=== PATIENT | female | born 1970 | race Caucasian/White ===

== ENCOUNTER 2021-08-27 13:08 | Outpatient (REF) | payer OTHER, SELFPAY ==
--- NOTE | ~2021-08-27 | XR_ITS ---
EXAMINATION: XR ABDOMEN KUB CLINICAL INDICATION: Painful micturition. COMPARISON: CT scan of the abdomen and pelvis dated 02/09/2019. TECHNIQUE: AP view of the abdomen. FINDINGS: A 0.3 cm radiopaque density overlies the lower pole the left kidney. No radiopaque densities are seen overlying the right kidney or along the expected courses of the ureters bilaterally. There is a nonobstructive bowel gas pattern. Mild to moderate multilevel degenerative changes are seen in the thoracolumbar spine. And IUD overlies the mid pelvis. XR/XR KUB IMPRESSION: 1. Probable left lower pole intrarenal calculus measuring 0.3 cm similar to the previous CT scan. No other definitive radiopaque renal calculi.
[2021-08-27 14:31] LABS: Appearance Urine CLEAR; Color Urine STRAW; Glucose Urine UA NEG (NEG); Leukocyte Esterase Urine NEG (NEG); Nitrite Urine NEG (NEG); Specific Gravity - Urine <= 1.005 (1.005-1.025); Urine Blood NEG (NEG); Urine Ketones NEG (NEG); Urine Protein NEG (NEG-TRACE)
[2021-08-27 15:07] LABS: Bacteria Urine 1+ /LPF; RBC Urine 0 /HPF (0); Squamous Epithelial Cell Urine 1+ /LPF; WBC Urine 0 /HPF (0-4)
== END 2021-08-27 13:09 | disposition home or self-care (01) ==
LOC: HO.LAB 13:08
PROVIDERS: PCP Internal Medicine; Visit Provider Physician Assistant
DX: R30.9 Painful micturition, unspecified (principal)
CPT/HCPCS: 74018; 81001

== ENCOUNTER → 2021-09-27 07:50 | Outpatient (BNVA) | payer OTHER, SELFPAY | PROVIDERS: PCP Internal Medicine; Referring Provider Internal Medicine; Visit Provider Internal Medicine | DX: I35.9 Nonrheumatic aortic valve disorder, unspecified (principal); I49.1 Atrial premature depolarization; I49.3 Ventricular premature depolarization; R00.2 Palpitations; R07.89 Other chest pain; E66.01 Morbid (severe) obesity due to excess calories; G47.33 Obstructive sleep apnea (adult) (pediatric); Z99.89 Dependence on other enabling machines and devices; Z68.41 Body mass index [BMI] 40.0-44.9, adult | CPT/HCPCS: 93005 ==

== ENCOUNTER → 2021-10-19 07:47 | Outpatient (REF) | payer OTHER, SELFPAY ==
--- NOTE | 2021-10-19 07:51 | CA_ITS ---
Acquisition Time: 2021-10-19 07:49:24 Total Exercise Time: 00:06:25 Test Indications: Chest Pain Medications: Protocol: MJ Max HR: 160 BPM 95% of Pred: 168 BPM Max BP: 158/074 mmHG Max Work Load: 7.6 METS Exercise stress test with exercise 6 min 25 sec of Mj protocol, with mild sob, no chest discomfort or palpitation, with 3 asymptomatic isolated PVCs during test, with normotensive response to exercise, without EKG changes meeting criteria for ischemia. Test reviewed with Dr Dye. Referred By: Aidan Rodriguez Overread By: MICHELE ORTIZ
== END ==
LOC: HO.CARD 07:47
PROVIDERS: Visit Provider Internal Medicine
DX: R07.89 Other chest pain (principal)
CPT/HCPCS: 93017

== ENCOUNTER → 2021-11-23 08:15 | Outpatient (REF) | payer OTHER, SELFPAY ==
--- NOTE | 2021-11-23 08:19 | CA_ITS ---
Transthoracic Echocardiogram Patient (Last, First, Middle): Gricel Aranda A Gender: Female Date of : 1970 Age: 51 Procedure Date: 11/23/2021 Procedure Type: Transthoracic Echocardiogram Location: OP Height: 167.64 cm Weight: 122.02 kg BSA: 2.27 m2 Heart Rate: bpm BP: 136 / 78 mmHg Collection Analyst: PILAR Referring MD: Aidan Rodriguez MD Symptoms: I35.9 - Nonrheumatic aortic valve disorder, unspecified Study Quality: Fair ECG Rhythm: Sinus Conclusions: - The left ventricular systolic function is normal. The calculated ejection fraction is 58% by biplane method. - There is mild calcification of the aortic valve. - No obvious valvular pathology seen on this study. Findings Left Ventricle Normal left ventricular cavity size. There is normal left ventricular wall thickness. The left ventricular systolic function is normal. The calculated ejection fraction is 58% by biplane method. There is no evidence of regional wall motion abnormalities. Diastolic function is normal for age. Right Ventricle Normal right ventricular cavity size and systolic function. Atria Both atria are normal in size. Aortic Valve The aortic valve was not well visualized. There is mild calcification of the aortic valve. There is no aortic valve stenosis. The mean gradient is 10 mmHg. The aortic valve area is 2.17 cm2. There is no aortic valve regurgitation. Mitral Valve The mitral valve appears normal. There is trace mitral valve regurgitation. There is no mitral valve stenosis. Pulmonic Valve The pulmonic valve was not well visualized. Tricuspid Valve There is trace tricuspid valve regurgitation. The pulmonary artery systolic pressure is normal. Great Vessels The aortic annulus, sinuses of valsalva, and asc aorta are normal in size. Venous The inferior vena cava is normal in size and collapses greater than 50% with inspiration. Pericardium/Pleural There is no evidence of pericardial effusion. Prior Study Comparison No significant change compared to prior study dated: 09/18/2018. Recommendations, Care & Conclusions No obvious valvular pathology seen on this study. Measurements 2D Linear Measurements IVSd: 0.94 0.6-0.9/0.6-1.0 cm LVIDd: 5.38 3.9-5.3/4.2-5.9 cm LVIDd Index: 2.37 2.4-3.2/2.2-3.1 cm/m2 LVIDs: 3.14 2.0-3.6 cm LVPWd: 0.93 0.7-1.1 cm Ao Root: 3.20 2.1-3.5 cm LA Diam: 3.90 2.7-3.8/3.0-4.0 cm LAIDs Index: 1.72 1.5-2.3 cm/m2 LV Mass: 233.06 67-162/88-224 g LV Mass Index: 102.67 43-95/49-115 g/m2 LVOT Diam: 2.00 3.0+(-)1.3 cm 2D Systolic Function EF 4C: 59.30 >55% EF 2C: 58.10 >55% EF BiP: 57.60 >55% Mitral Valve MV Pk E: 0.84 MV PK A: 0.69 MV Decel Time: 246.00 E/A: 1.20 E'Lateral: 11.70 E'Medial: 9.25 E/E' Med: 9.10 E/E' Lat: 7.20 PHT: 72.00 MVA PHT: 3.06 Decel Pleasants: 3.40 Aortic Valve AoV Pk Jamie: 1.91 AoV Mn Jamie: 1.49 AoV VTI: 0.49 AoV Pk Grad: 15.00 Aov Mn Grad: 10.00 TONEY Cont.VTI: 2.17 LVOT LVOT Pk Jamie: 1.44 LVOT Mn Jamie: 0.97 LVOT VTI: 0.34 LVOT Pk Grad: 8.00 LVOT Mn Grad: 4.00 LVOT Diam: 2.00 LVOT Area: 3.14 Diastolic Function MV Pk E: 0.84 MV Pk A: 0.69 E/A: 1.20 E'Medial: 9.25 E/E' Med: 9.10 E' Laterial: 11.70 E/E' Lat: 7.20 Right Ventricle TAPSE (mm): 27.20 TVS' Jamie: 14.30 Tricuspid Valve TR Pk Jamie: 1.24 TR Pk Grad: 6.00 RA Press: 3.00 RVSP: 9.00 Great Vessels Aorta Ao Root-2D: 3.20 2.0-3.7 cm Ao Asc: 3.30 2.1-3.4 cm Ao Arch: 2.90 Updated in Other Vendor System with Status of Final Aidan Rodriguez MD electronically signed on 11/24/2021 1:54:46 PM with status of Final
--- NOTE | 2021-11-23 08:19 | HM_ITS ---
Total monitoring time 13 days and 17 hours. Underlying rhythm is sinus. Average ventricular rate 66/Min. Minimum 31/Min. Maximum 135/Min. At the time of lowest heart rate, 10:00, Wenckebach second-degree heart block. Low grade supraventricular ectopy with burden of 0.5%. Five supraventricular episodes, longest 12 beats. Rare ventricular ectopy with minimal burden. Palpitations associated with supraventricular ectopy. Chest pain associated with sinus rhythm. MTDD
== END ==
LOC: HO.CARD 08:15
PROVIDERS: Visit Provider Internal Medicine
DX: I35.9 Nonrheumatic aortic valve disorder, unspecified (principal); R00.2 Palpitations
CPT/HCPCS: 93246; 93306

== ENCOUNTER 2022-01-16 14:36 | Outpatient (REF) | payer OTHER, SELFPAY ==
--- NOTE | ~2022-01-16 | XR_ITS ---
EXAMINATION: XR TIBIA AND FIBULA, LEFT CLINICAL INFORMATION: Pain COMPARISON: None TECHNIQUE: AP and lateral views of the left tibia and fibula were obtained. XR/XR tibia fibula LT 2V FINDINGS/IMPRESSION: No acute fracture or dislocation. Moderate degenerative changes of the knee involving the medial and lateral compartments with loss of medial compartment joint space and large lateral compartment osteophytes. Few nonspecific soft tissue calcifications in the anterior soft tissues of the leg.
== END 2022-01-16 14:37 | disposition home or self-care (01) ==
LOC: HO.XRAY 14:36
PROVIDERS: PCP Internal Medicine; Visit Provider Nurse Practitioner Family
DX: M79.605 Pain in left leg (principal)
CPT/HCPCS: 73590

== ENCOUNTER 2022-01-21 07:00 | Outpatient (REF) | payer OTHER, SELFPAY ==
[2022-01-21 07:15] LABS: MANUAL DIFF FLAG NO
[2022-01-21 07:25] LABS: Basophils Absolute Auto 0.1 X10*3/uL (0.0-0.2); Basophils Percent Auto 1.2 % (0-2); Eosinophils Absolute Auto 0.5 X10*3/uL (0.0-0.4); Eosinophils Percent Auto 6.8 % (0-4); Hematocrit 38.4 % (37.0-47.0); Hemoglobin 12.4 g/dl (12.0-16.0); Imm Gran Abs Auto 0.02 X10*3/uL (0.00-0.03); Imm Gran Pct Auto 0.3 % (0.0-0.4); Lymphocytes Absolute Auto 2.3 X10*3/uL (1.2-4.9); Lymphocytes Percent Auto 33.5 % (20-40); Mean Corpuscular HGB Conc 32.3 g/dl (31.0-35.0); Mean Corpuscular Hemoglobin 28.8 pg (27.0-33.0); Mean Corpuscular Volume 89.1 fL (80.0-98.0); Monocytes Absolute Auto 0.7 X10*3/uL (0.1-1.2); Monocytes Percent Auto 9.9 % (2-11); Neutrophils Absolute Auto 3.3 x10*3/uL (2.0-8.3); Neutrophils Percent Auto 48.3 % (45-73); Platelet Count 276 X10*3/uL (160-400); Red Blood Count 4.31 X10*6/uL (4.20-5.50); Red Cell Distribution Width 13.2 % (11.0-16.0); White Blood Count 6.8 X10*3/uL (4.8-10.8)
[2022-01-21 07:37] LABS: Estimated Average Glucose 114 mg/dL; Hemoglobin A1c % 5.6 %
[2022-01-21 08:16] LABS: Alanine Aminotransferase 30 U/L (0-31); Albumin Level 3.8 g/dL (3.5-5.0); Alkaline Phosphatase 70 U/L (39-117); Anion Gap 13 (12-20); Aspartate Amino Transferase 18 U/L (5-31); Bilirubin Total 0.5 mg/dL (0.0-1.0); Blood Urea Nitrogen 14 mg/dL (9-16); Calcium 9.1 mg/dL (8.4-10.2); Carbon Dioxide 28 mmol/L (22-29); Chloride 103 mmol/L (96-108); Cholesterol 209 mg/dL; Estimated Glomerular Filt Rate > 60; Glucose Random 132 mg/dL (60-115); HDL Cholesterol 42 mg/dL; LDL Cholesterol Calculated 136 mg/dl; Magnesium 2.2 mg/dL (1.6-2.6); Potassium 3.9 mmol/L (3.3-5.1); Sodium 140 mmol/L (135-145); Total Protein 6.8 g/dL (6.5-8.0); Triglycerides 157 mg/dL
[2022-01-21 08:40] LABS: Free T4 (Free Thyroxine) 0.98 ng/dL (0.71-1.85); Thyroid Stimulating Hormone 2.68 uIU/mL (0.32-4.0); Vitamin D 25-OH Total 29.3 ng/mL (>30)
[2022-01-21 08:54] LABS: Folate 8.4 ng/mL (> or = 4.0); Vitamin B12 521 pg/mL (200-900)
== END 2022-01-21 07:01 | disposition home or self-care (01) ==
LOC: HO.LAB 07:00
PROVIDERS: PCP Internal Medicine; Visit Provider Internal Medicine
DX: E78.00 Pure hypercholesterolemia, unspecified (principal); R73.02 Impaired glucose tolerance (oral)
CPT/HCPCS: 36415; 80053; 80061; 82306; 82607; 82746; 83036; 83735; 84439; 84443; 85025

== ENCOUNTER → 2022-01-23 12:11 | Outpatient (BNVA) | payer OTHER, SELFPAY | PROVIDERS: PCP Internal Medicine; Referring Provider Internal Medicine; Visit Provider Internal Medicine | DX: R00.2 Palpitations (principal); I10 Essential (primary) hypertension; G47.33 Obstructive sleep apnea (adult) (pediatric); I49.1 Atrial premature depolarization; I49.3 Ventricular premature depolarization; I44.30 Unspecified atrioventricular block; I35.9 Nonrheumatic aortic valve disorder, unspecified; E66.01 Morbid (severe) obesity due to excess calories; Z68.41 Body mass index [BMI] 40.0-44.9, adult; Z79.899 Other long term (current) drug therapy | CPT/HCPCS: 99212 ==

== ENCOUNTER 2022-02-18 08:33 | Outpatient (REF) | payer OTHER, SELFPAY ==
--- NOTE | ~2022-02-18 | MM_ITS ---
EXAMINATION: MM SCREENING DIGITAL BREAST TOMOSYNTHESIS, BILATERAL CLINICAL INFORMATION: Screening. Asymptomatic. The lifetime risk of breast cancer based on the Tyrer-Cuzick Model is 15%. COMPARISON: Mammography: 05/02/2020, 10/09/2016 TECHNIQUE: Digital breast tomosynthesis is performed in both the craniocaudal and mediolateral oblique views along with computer-aided detection (CAD). Synthesized 2D images are generated from the tomosynthesis. Additional right MLO view is provided. FINDINGS: There are scattered areas of fibroglandular density (ACR BI-RADS breast composition Category b). There are no significant masses, abnormal calcifications, or other abnormalities. Parenchymal pattern is similar to prior studies. There is no developing density or architectural abnormality. The axilla and skin contours are unremarkable. No significant changes. MM/MM tomosynthesis screening BI IMPRESSION: No mammographic evidence of malignancy. ASSESSMENT: BI-RADS 1: Negative RECOMMENDATION: Routine annual mammography screening. This patient's information was entered into a reminder system with a target due date for their next mammogram.
== END 2022-02-18 08:34 | disposition home or self-care (01) ==
LOC: HO.MAMMO 08:33
PROVIDERS: PCP Internal Medicine; Visit Provider Internal Medicine
DX: Z12.31 Encounter for screening mammogram for malignant neoplasm of breast (principal)
CPT/HCPCS: 77063; 77067

== ENCOUNTER → 2022-02-22 10:41 | Outpatient (BNVA) | payer OTHER, SELFPAY | PROVIDERS: PCP Internal Medicine; Referring Provider Internal Medicine; Visit Provider Physician Assistant | DX: Z13.89 Encounter for screening for other disorder (principal) ==

== ENCOUNTER → 2022-07-24 13:12 | Outpatient (BNVA) | payer OTHER, SELFPAY | PROVIDERS: PCP Internal Medicine; Referring Provider Internal Medicine; Visit Provider Internal Medicine | DX: E66.01 Morbid (severe) obesity due to excess calories (principal); G47.33 Obstructive sleep apnea (adult) (pediatric); Z99.89 Dependence on other enabling machines and devices; Z68.41 Body mass index [BMI] 40.0-44.9, adult; Z68.42 Body mass index [BMI] 45.0-49.9, adult | CPT/HCPCS: 93005 ==

== ENCOUNTER 2022-09-20 07:27 | Outpatient (REF) | payer OTHER, SELFPAY ==
--- NOTE | ~2022-09-20 | XR_ITS ---
EXAMINATION: XR CHEST CLINICAL INFORMATION: Morbid/severe obesity due to excess calories. COMPARISON: None TECHNIQUE: 2 views of the chest were obtained. FINDINGS: No significant abnormality is noted involving the heart, lungs, mediastinum, bony thorax or soft tissues. XR/XR chest 2V IMPRESSION: Unremarkable chest examination.
[2022-09-20 07:47] LABS: MANUAL DIFF FLAG NO
[2022-09-20 08:23] LABS: Basophils Absolute Auto 0.1 X10*3/uL (0.0-0.2); Eosinophils Absolute Auto 0.2 X10*3/uL (0.0-0.4); Hematocrit 39.7 % (37.0-47.0); Imm Gran Abs Auto 0.03 X10*3/uL (0.00-0.03); Imm Gran Pct Auto 0.4 % (0.0-0.4); Lymphocytes Absolute Auto 2.2 X10*3/uL (1.2-4.9); Mean Corpuscular HGB Conc 32.7 g/dl (31.0-35.0); Mean Corpuscular Hemoglobin 29.1 pg (27.0-33.0); Mean Corpuscular Volume 88.8 fL (80.0-98.0); Mean Platelet Volume 9.2 fL (9.4-12.3); Monocytes Absolute Auto 0.7 X10*3/uL (0.1-1.2); Neutrophils Absolute Auto 4.1 x10*3/uL (2.0-8.3); Neutrophils Percent Auto 56.6 % (45-73); Platelet Count 327 X10*3/uL (160-400); Red Blood Count 4.47 X10*6/uL (4.20-5.50); Red Cell Distribution Width 13.2 % (11.0-16.0); White Blood Count 7.2 X10*3/uL (4.8-10.8)
[2022-09-20 08:39] LABS: Estimated Average Glucose 114 mg/dL; Hemoglobin A1c % 5.6 %
[2022-09-20 08:48] LABS: Alanine Aminotransferase 23 U/L (0-31); Albumin Level 4.1 g/dL (3.5-5.0); Alkaline Phosphatase 74 U/L (39-117); Anion Gap 16 (12-20); Aspartate Amino Transferase 19 U/L (5-31); Bilirubin Total 1.1 mg/dL (0.0-1.0); Blood Urea Nitrogen 15 mg/dL (9-16); Calcium 9.4 mg/dL (8.4-10.2); Carbon Dioxide 27 mmol/L (22-29); Chloride 102 mmol/L (96-108); Cholesterol 208 mg/dL; Estimated Glomerular Filt Rate > 60; Glucose Random 121 mg/dL (60-115); HDL Cholesterol 48 mg/dL; Iron 64 mcg/dL (30-160); LDL Cholesterol Calculated 140 mg/dl; Percent Iron Saturation 17 % (15-50); Sodium 141 mmol/L (135-145); Total Iron Binding Capacity 367 mcg/dL (228-428); Total Protein 6.9 g/dL (6.5-8.0); Triglycerides 104 mg/dL; Unsaturated Iron Binding 303 ug/dL
[2022-09-20 09:08] LABS: Folate 16.7 ng/mL (> or = 4.0); Vitamin B12 528 pg/mL (200-900)
[2022-09-20 09:29] LABS: Ferritin 125 ng/mL (10-250); Insulin 22 uU/mL (2-29); TSH reflex Free T4 1.77 uIU/mL (0.32-4.0)
[2022-09-20 13:25] LABS: Vitamin D 25-OH Total 52.2 ng/mL (>30)
[2022-09-22 11:27] LABS: Calcium (PTHI) 9.2 mg/dL (8.6-10.4); PTHI 62 pg/mL (16-77)
[2022-09-24 17:52] LABS: Zinc 69 mcg/dL (60-130)
[2022-09-26 15:11] LABS: Vitamin B1 12 nmol/L (8-30)
[2022-09-26 15:26] LABS: Vitamin A 44 mcg/dL (38-98)
== END 2022-09-20 07:28 | disposition home or self-care (01) ==
LOC: HO.LAB 07:27
PROVIDERS: Visit Provider Physician Assistant
DX: I10 Essential (primary) hypertension (principal); E78.00 Pure hypercholesterolemia, unspecified; E66.01 Morbid (severe) obesity due to excess calories; G47.33 Obstructive sleep apnea (adult) (pediatric); Z68.41 Body mass index [BMI] 40.0-44.9, adult; Z99.89 Dependence on other enabling machines and devices
CPT/HCPCS: 36415; 71046; 80053; 80061; 82306; 82607; 82728; 82746; 83036; 83525; 83540; 83970; 84425; 84443; 84590; 84630; 85025; 86140

== ENCOUNTER 2022-09-20 16:08 | Outpatient (REF) | payer OTHER, SELFPAY ==
[2022-09-21 11:11] LABS: H Pylori Breath Test Negative (Negative)
== END 2022-09-20 16:09 | disposition home or self-care (01) ==
LOC: HO.LNP 16:08
PROVIDERS: Visit Provider Physician Assistant
DX: I10 Essential (primary) hypertension (principal); E78.00 Pure hypercholesterolemia, unspecified; E66.01 Morbid (severe) obesity due to excess calories; G47.33 Obstructive sleep apnea (adult) (pediatric); Z68.41 Body mass index [BMI] 40.0-44.9, adult; Z99.89 Dependence on other enabling machines and devices
CPT/HCPCS: 83013

== ENCOUNTER 2022-10-01 07:44 | Outpatient (REF) | payer OTHER, SELFPAY ==
--- NOTE | ~2022-10-01 | XR_ITS ---
EXAMINATION: XR ANKLE, RIGHT CLINICAL INFORMATION: M25.571 - Pain in right ankle and joints of right foot COMPARISON: None TECHNIQUE: AP, lateral, and mortise views of the right ankle. FINDINGS: Normal bony mineralization. No fracture, dislocation, destructive process. No visible ankle capsular effusion. Talar dome shows no visible osteochondral lesion. Subtalar joint is normal. There is spurring from the distal medial and lateral malleoli. There are additional benign mineralized ossicle adjacent to the medial malleolus. No erosive change. There are bulky posterior and plantar calcaneal spurs with 2 oval ossification in the distal Achilles just proximal to insertion. The retrocalcaneal recess is preserved. Base fifth metatarsal unremarkable. XR/XR ankle RT 2V IMPRESSION: 1. Bulky posterior and plantar calcaneal spurs and ossification in distal Achilles. 2. Spurring medial and lateral malleoli. 3. No fracture, joint narrowing, or erosive change.
== END 2022-10-01 07:45 | disposition home or self-care (01) ==
LOC: HO.XRAY 07:44
PROVIDERS: PCP Internal Medicine; Visit Provider Internal Medicine
DX: M25.571 Pain in right ankle and joints of right foot (principal)
CPT/HCPCS: 73600

== ENCOUNTER → 2022-10-15 13:56 | Outpatient (BNVA) | payer OTHER, SELFPAY | PROVIDERS: PCP Internal Medicine; Visit Provider Counselor Mental Health | DX: F43.20 Adjustment disorder, unspecified (principal); E66.01 Morbid (severe) obesity due to excess calories; Z68.41 Body mass index [BMI] 40.0-44.9, adult | CPT/HCPCS: 90791 ==

== ENCOUNTER → 2022-10-30 09:00 | Outpatient (BNVA) | payer OTHER, SELFPAY | PROVIDERS: PCP Internal Medicine; Visit Provider Physician Assistant | DX: E66.01 Morbid (severe) obesity due to excess calories (principal) ==

== ENCOUNTER → 2022-10-31 14:08 | Outpatient (BNVA) | payer OTHER, SELFPAY | PROVIDERS: PCP Internal Medicine; Visit Provider Dietitian, Registered | DX: E66.01 Morbid (severe) obesity due to excess calories (principal); Z68.41 Body mass index [BMI] 40.0-44.9, adult | CPT/HCPCS: 97802 ==

== ENCOUNTER 2022-11-06 08:37 | Outpatient (REF) | payer OTHER, SELFPAY ==
--- NOTE | ~2022-11-06 | FL_ITS ---
EXAMINATION: XR FLUOROSCOPY UPPER GI WITH AIR CLINICAL INFORMATION: Preop. COMPARISON: None TECHNIQUE: Routine upper GI air-contrast study was performed. FINDINGS: Following oral administration of thick barium and effervescent granules there is normal propagation bolus from the oral cavity through the pharynx, esophagus into stomach without any evidence of obstruction, narrowing or stricture. On placing patient supine and prone lying the course, caliber and peristalsis of the stomach, duodenal bulb and the CBD is normal. The mucosal pattern of the stomach, duodenal bulb and the sweep is normal. No gastroesophageal reflux or hiatal hernia seen. FLUOROSCOPY TIME: 1.6 minutes DOSE AREA PRODUCT: 135.572 uGy-m2 (microgray-meter squared) FL/FL upper GI w air IMPRESSION: Unremarkable upper GI air contrast study.
--- NOTE | ~2022-11-06 | US_ITS ---
EXAMINATION: US COMPLETE ABDOMEN WITH LIVER ELASTOGRAPHY CLINICAL INFORMATION: Morbid/severe obesity due to excess calories. COMPARISON: None. TECHNIQUE: Real-time imaging of the abdominal viscera. Noninvasive ultrasound liver fibrosis assessment is performed using [employer] point quantification shear wave elastography (2D-SWE) with a C5-2 MHz transducer. Multiple elastography samples are obtained. FINDINGS: PANCREAS: Normal. The visualized pancreatic head and body are normal in appearance. The remainder of the pancreas is obscured from visualization by the overlying bowel gas. ABDOMINAL AORTA: The proximal, middle, and distal aortic segments are normal in caliber. INFERIOR VENA CAVA: Visualized portions are normal. LIVER: Normal. The liver demonstrates normal size, contour and echogenicity. No focal lesion or intrahepatic biliary duct dilatation. The right lobe measures 16.0 cm in length. The left lobe measures 10.0 cm in length. Portal flow is hepatopedal Shear wave liver elastography median stiffness is 1.65 m/s (reference: normal median stiffness is 1.3 m/s or less). IQR/median stiffness to assess sampling precision is 0.12 (reference: good quality data set is IQR/median stiffness of 0.15 or less). GALLBLADDER: Normal. The gallbladder is physiologically distended without evidence of stones, sludge, polyps, wall thickening or pericholecystic fluid. COMMON BILE DUCT: Normal in caliber measuring 0.6 cm in diameter. RIGHT KIDNEY: Normal. No hydronephrosis. No renal calculi or focal parenchymal lesions. The kidney measures 12.4 cm in maximum dimension. LEFT KIDNEY: Normal. No hydronephrosis. No renal calculi or focal parenchymal lesions. The kidney measures 9.1 cm in maximum dimension. SPLEEN: Normal. The spleen measures 11.6 cm in maximum dimension. FREE FLUID: None. US/US abdomen comp w elastography IMPRESSION: 1. Unremarkable liver ultrasound. 2. Liver elastography: Median liver stiffness measures 1.65 corresponding to cACLD (ruled out).. REFERENCE: Society of Radiologists in Ultrasound Liver Stiffness Thresholds (2020): LIVER STIFFNESS THRESHOLDS: *Liver Stiffness equal or less than 1.3 m/s: High probability of being normal. *Liver Stiffness less than 1.7 m/s: In the absence of other known clinical signs, rules out compensated advanced chronic liver disease. *Liver Stiffness 1.7-2.1 m/s: Suggestive of compensated advanced chronic liver disease but need further test for confirmation. *Liver Stiffness over 2.1 m/s: Rules in compensated advanced chronic liver disease. *Liver Stiffness over 2.4 m/s: Suggestive of clinically significant portal hypertension. QUALITY OF DATA SET: *IQR/Median value equal or less than 0.15 implies a quality data set. *IQR/Median value over 0.15 implies a poor quality data set. SIGNIFICANT CHANGE FROM PRIOR EXAM: Significant change if liver stiffness measurement is 10% or greater from prior exam. OTHER CONSIDERATIONS: The stage of liver fibrosis may be overestimated in the setting of acute hepatitis, liver inflammation, elevated liver function tests, hepatic vascular congestion, obstructive cholestasis, non-fasting state, and infiltrative diseases such as amyloidosis and lymphoma. In some patients with NAFLD, the liver stiffness thresholds for compensated advanced chronic liver disease may be lower. In causes other than viral hepatitis and NAFLD, liver stiffness thresholds are not well established.
== END 2022-11-06 08:38 | disposition home or self-care (01) ==
LOC: HO.US 08:37
PROVIDERS: PCP Internal Medicine; Visit Provider Physician Assistant
DX: Z01.818 Encounter for other preprocedural examination (principal); E66.01 Morbid (severe) obesity due to excess calories; Z68.41 Body mass index [BMI] 40.0-44.9, adult; E78.00 Pure hypercholesterolemia, unspecified; G47.33 Obstructive sleep apnea (adult) (pediatric); I10 Essential (primary) hypertension; Z99.89 Dependence on other enabling machines and devices
CPT/HCPCS: 74246; 76705; 76981

== ENCOUNTER → 2022-11-12 09:00 | Outpatient (BNVA) | payer OTHER, SELFPAY | PROVIDERS: PCP Internal Medicine; Visit Provider Counselor Mental Health | DX: F43.20 Adjustment disorder, unspecified (principal); E66.01 Morbid (severe) obesity due to excess calories; Z68.41 Body mass index [BMI] 40.0-44.9, adult | CPT/HCPCS: 90832 ==

== ENCOUNTER → 2022-11-20 11:52 | Outpatient (BNVA) | payer OTHER, SELFPAY | PROVIDERS: PCP Internal Medicine; Visit Provider Physician Assistant | DX: Z98.84 Bariatric surgery status (principal) ==

== ENCOUNTER → 2023-01-31 08:01 | Outpatient (BNVA) | payer OTHER, SELFPAY | PROVIDERS: PCP Internal Medicine; Visit Provider Surgery | DX: Z13.89 Encounter for screening for other disorder (principal) ==

== ENCOUNTER → 2023-02-14 12:48 | Outpatient (BNVA) | payer OTHER, SELFPAY | PROVIDERS: PCP Internal Medicine; Visit Provider Surgery | DX: Z13.89 Encounter for screening for other disorder (principal) ==

== ENCOUNTER → 2023-02-19 10:53 | Outpatient (BNVA) | payer OTHER, SELFPAY | PROVIDERS: PCP Internal Medicine; Visit Provider Surgery | DX: Z13.89 Encounter for screening for other disorder (principal) ==

== ENCOUNTER 2023-02-21 12:46 | Outpatient (REF) | payer OTHER, SELFPAY ==
--- NOTE | ~2023-02-21 | CT_ITS ---
EXAMINATION: CT ABDOMEN AND PELVIS WITHOUT CONTRAST CLINICAL INFORMATION: Diverticulitis of the mediastinum without perforation. COMPARISON: CT abdomen pelvis 02/09/2019. Ultrasound of the abdomen 11/13/2022. TECHNIQUE: Multidetector volumetric imaging was performed from the superior aspect of the liver through the pubic symphysis. Sagittal and coronal reformatted images were obtained on the technologist's workstation. This CT examination was performed using dose optimization techniques as appropriate, variously including the following: *Automated exposure control *Adjustment of mA and/or kV according to patient size (this includes techniques or standardized protocols for targeted exams where dose is matched to indication/reason for exam; i.e. extremities or head) *Use of iterative reconstruction technique DLP: 697 mGy-cm FINDINGS: LUNG BASES: The lung bases are unremarkable. LIVER, GALLBLADDER, AND BILIARY TREE: The liver is normal in size, shape, and attenuation. No focal hepatic lesion or biliary ductal dilatation is present. The gallbladder is unremarkable with no evidence of radiopaque gallstones, gallbladder wall thickening, or obvious pericholecystic inflammatory changes. PANCREAS: Unremarkable. SPLEEN: Unremarkable. ADRENAL GLANDS: Unremarkable. KIDNEYS AND URETERS: The kidneys are normal in size, shape, and attenuation. There is 5 mm nonobstructive radiopaque calculi lower pole left kidney. There is no hydronephrosis. BLADDER: Unremarkable. GASTROINTESTINAL TRACT: There is scattered colonic diverticulosis. There is diffuse mural thickening involving sigmoid colon with pericolic fat stranding suggestive of acute diverticulitis. There is no free air to suspect perforation. There is no evidence of fluid collection to suspect any abscess. ABDOMINAL WALL: No significant hernia is appreciated. LYMPH NODES: Normal. VASCULAR: Unremarkable. PELVIC VISCERA: The uterus is retroverted with an IUD well located within the endometrial canal OSSEOUS STRUCTURES: No aggressive lytic or sclerotic process seen. There is bilateral L3-L4, L4-L5 and left L5-S1 facet joint arthropathy CT/CT abdomen pelvis wo IV con IMPRESSION: 1. Colonic diverticulosis with acute sigmoid diverticulitis. There is no free air or abscess. No bowel obstruction. 2. Nonobstructive 5 mm radiopaque calculi lower pole left kidney. Colonic diverticulosis with acute sigmoid diverticulitis. 3. There is a retroverted uterus with IUD well located within the endometrial canal. Fleischner guidelines were followed.
[2023-02-21] MEDS: Barium Sulfate Oral (Mocha) 450 ML ORAL.SUSP 900 ML PO (15:30)
== END 2023-02-21 12:47 | disposition home or self-care (01) ==
LOC: HO.CT 12:46
PROVIDERS: PCP Internal Medicine; Visit Provider Surgery
DX: K57.92 Diverticulitis of intestine, part unspecified, without perforation or abscess without bleeding (principal)
CPT/HCPCS: 74176

== ENCOUNTER 2023-02-26 07:16 | Outpatient (REF) | payer OTHER, SELFPAY ==
--- NOTE | ~2023-02-26 | MM_ITS ---
EXAMINATION: MM SCREENING DIGITAL BREAST TOMOSYNTHESIS, BILATERAL CLINICAL INFORMATION: Screening. Asymptomatic. The lifetime risk of breast cancer based on the Tyrer-Cuzick Model is 11%. COMPARISON: Mammography: February 18, 2022 and studies dating back to June 12, 2015 TECHNIQUE: Digital breast tomosynthesis is performed in both the craniocaudal and mediolateral oblique views along with computer-aided detection (CAD). Synthesized 2D images are generated from the tomosynthesis. FINDINGS: There are scattered areas of fibroglandular density (ACR BI-RADS breast composition Category b). There are no significant masses, abnormal calcifications, or other abnormalities. MM/MM tomosynthesis screening BI IMPRESSION: No significant changes from prior exam. ASSESSMENT: BI-RADS 1: Negative RECOMMENDATION: Routine annual mammography screening. This patient's information was entered into a reminder system with a target due date for their next mammogram.
== END 2023-02-26 07:17 | disposition home or self-care (01) ==
LOC: HO.MAMMO 07:16
PROVIDERS: PCP Internal Medicine; Visit Provider Internal Medicine
DX: Z12.31 Encounter for screening mammogram for malignant neoplasm of breast (principal)
CPT/HCPCS: 77063; 77067

== ENCOUNTER 2023-03-04 14:18 | Outpatient (REF) | payer OTHER, SELFPAY ==
--- NOTE | ~2023-03-04 | CT_ITS ---
EXAMINATION: CT ABDOMEN AND PELVIS WITHOUT CONTRAST CLINICAL INFORMATION: Diverticulitis of intestine. Follow-up from last Friday. Upcoming bariatric surgery on March 07, 2023. COMPARISON: None available. TECHNIQUE: Multidetector volumetric imaging was performed from the superior aspect of the liver through the pubic symphysis. Sagittal and coronal reformatted images were obtained on the technologist's workstation. This CT examination was performed using dose optimization techniques as appropriate, variously including the following: *Automated exposure control *Adjustment of mA and/or kV according to patient size (this includes techniques or standardized protocols for targeted exams where dose is matched to indication/reason for exam; i.e. extremities or head) *Use of iterative reconstruction technique DLP: 686 mGy-cm FINDINGS: LUNG BASES: The lung bases appear clear, with no evidence of inflammation or nodules. LIVER, GALLBLADDER, AND BILIARY TREE: The liver appears unremarkable in size, shape, and attenuation. No focal hepatic lesion or biliary ductal dilatation is appreciated. Unremarkable appearance of the gallbladder. PANCREAS: Unremarkable SPLEEN: Unremarkable ADRENAL GLANDS: Unremarkable KIDNEYS AND URETERS: The kidneys appear unremarkable in size, shape, and attenuation. 0.3 cm, nonobstructing left lower pole collecting system stone. No stone identified in the right. No evidence of hydronephrosis or hydroureter on either side. BLADDER: Collapsed, therefore suboptimally evaluated. Grossly unremarkable. GASTROINTESTINAL TRACT: Sigmoid diverticulosis. Mild concentric wall thickening and induration of fat involving the proximal to mid sigmoid colon, improved compared with February 21, 2023. No abscess, free air, or free intraperitoneal fluid identified. ABDOMINAL WALL: No significant hernia is appreciated. LYMPH NODES: No evidence of adenopathy by size criteria. VASCULAR: Unremarkable PELVIC VISCERA: Retroverted uterus with IUD. OSSEOUS STRUCTURES: Multilevel lumbar spinal stenosis. Facet degenerative changes of the lumbar spine. Minimal, grade 1 anterolisthesis of L3 on L4 and L4 on L5. CT/CT abdomen pelvis wo IV con IMPRESSION: Mild acute sigmoid diverticulitis, improved compared with February 21, 2023.
[2023-03-04] MEDS: Barium Sulfate Oral (Berry) 450 ML ORAL.SUSP 900 ML PO (16:35)
== END 2023-03-04 14:19 | disposition home or self-care (01) ==
LOC: HO.CT 14:18
PROVIDERS: PCP Internal Medicine; Visit Provider Surgery
DX: K57.92 Diverticulitis of intestine, part unspecified, without perforation or abscess without bleeding (principal)
CPT/HCPCS: 74176

== ENCOUNTER 2023-03-06 13:06 | Inpatient (IN) | payer OTHER, SELFPAY ==
--- NOTE | 2023-02-18 | ECG_ITS ---
Test Reason : PREOP Blood Pressure : / mmHG Vent. Rate : 054 BPM Atrial Rate : 054 BPM P-R Int : 138 ms QRS Dur : 090 ms QT Int : 432 ms P-R-T Axes : 016 026 019 degrees QTc Int : 409 ms Sinus bradycardia Otherwise normal ECG No previous ECGs available Referred By: Natasha Pacheco Electronically Signed By:EDGARDO FERMIN MD
--- NOTE | 2023-02-18 14:55 | HO.ANESPROP2 ---
Documented by User: Ashley Huang NP 03/05/23 10:29 HPI - Anesthesia Eval Consult details Narrative: 52yo F for Gastrectomy Sleeve,EGD,possible diaphragmatic hernis,possible ventral hernia,possible open 03/06/23 [facility] Active Problems Active Problems: All Active Problems (Updated 02/18/23 @ 14:48 by Medina Malcolm, RN) Heart palpitations (Acute) Morbid obesity with BMI of 40.0-44.9, adult (Acute) Chest discomfort (Acute) PAC (premature atrial contraction) (Acute) PVC (premature ventricular contraction) (Acute) Impaired glucose tolerance (Acute) Hypercholesterolemia (Acute) Left renal stone (Acute) Hypertension (Acute) Breast cancer screening by mammogram (Acute) Left leg pain (Acute) Heart block atrioventricular (Acute) Chronic pain of left knee (Acute) Osteophyte, left knee (Acute) Morbid obesity (Acute) Chest pain (Acute) Palpitation (Acute) Maxillary sinusitis (Acute) Annual physical exam (Acute) Obesity (Acute) Trochanteric bursitis of right hip (Acute) Right ankle pain (Acute) Adjustment disorder, unspecified (Acute) BMI 39.0-39.9,adult (Acute) Pre-op evaluation (Acute) WESLEY on CPAP (Acute) Aortic valve calcification (Acute) Past Medical History Medical History Aortic valve calcification Asthma Asthmatic bronchitis Diverticular disease Elevated cholesterol Family history of anesthesia complication History of COVID-19 History of torn meniscus of knee HTN (hypertension) Motion sickness Murmur WESLEY on CPAP PAC (premature atrial contraction) PCOS (polycystic ovarian syndrome) Post-operative nausea and vomiting PVC (premature ventricular contraction) Vitamin D deficiency Family History Family History Father HTN (hypertension) Prostate cancer Mother HTN (hypertension) Bladder cancer Total knee replacement status History of hip replacement H/O shoulder replacement Sister No problems noted. Sister Arthritis Total knee replacement status Daughter Heart problem Daughter Heart murmur Son No problems noted. Paternal Grandfather Myocardial infarct Paternal Uncle Myocardial infarct Maternal Grandmother Breast cancer Family history of problems with anesthesia: Yes (PONV) Surgical History Surgical History H/O colonoscopy History of section History of foot surgery Hx of excision of mass History of Problems with Anesthesia: Yes (PONV) Social History Social History Housing: House Are you a primary complex care nurse to a significant other at home: No Do you presently have visiting nurse or other home services: No Alcohol intake: current Alcohol intake frequency: holidays/special occasions only Patient Tobacco Use Status: Never used Tobacco e-Cigarette/Vaping Use: Never Used Second Hand Smoke Exposure: No Use of substances other than those prescribed or required for medical reasons: No Have you been hit, kicked, punched, or otherwise hurt by someone within the past year? If so, by whom?: No Are you DNR?: No Advance Directives: No Advance Directives Information Provided: Yes (brochure given) Advance Directives on File: No Recently lost weight without trying: No Eating poorly because of decreased appetite: No Nutrition Risks: No Nutritional Risk Patient : No FDLMP: N/A : No Poor oral hygiene: No (implant post left upper side / crowns / missing tooth left lower molar) service: No Current occupational status: employed Cognitive needs: No Hearing needs: No Vision needs: Yes (glasses) Narrative Narrative: No recent illness No CP/SOB with >4mets. Recent seasonal allergy symptoms Meds Allergies Allergy/AdvReac Type Severity Reaction Status Date / Time adhesive tape Allergy Intermediate Blister Verified 02/19/23 13:23 Penicillins Allergy Intermediate VOMITING Verified 02/19/23 13:23 sulfamethoxazole Allergy Intermediate RASH Verified 02/19/23 13:23 [From Bactrim] trimethoprim [From Bactrim] Allergy Intermediate RASH Verified 02/19/23 13:23 Sulfa (Sulfonamide Allergy Mild Rash Verified 02/19/23 13:23 Antibiotics) oxycodone AdvReac Intermediate Nausea and Verified 02/19/23 13:23 Vomiting Home Medications Medication Instructions Recorded Confirmed Last Taken Type albuterol sulfate 90 mcg/actuation 2 puff inhalation Q4-6H PRN 01/04/22 02/19/23 Unknown History aerosol inhaler (ProAir HFA) Shortness Of Breath loratadine 10 mg tablet (Allergy 10 mg PO DAILY PRN Allergy Symptoms 01/04/22 02/19/23 Unknown History Relief (loratadine)) multivitamin 1 tab PO DAILY 01/04/22 02/19/23 Unknown History cholecalciferol (vitamin D3) 1,250 1,250 mcg PO DAILY 02/22/22 02/19/23 Unknown History mcg (50,000 unit) tablet ibuprofen 200 mg tablet 200 mg PO Q6H PRN Pain 02/22/22 02/19/23 Unknown History biotin 1 tab PO DAILY 02/18/23 02/19/23 Unknown History cholecalciferol (vitamin D3) 25 25 mcg PO DAILY 02/18/23 02/19/23 Unknown History mcg (1,000 unit) tablet (Vitamin D3) Exam Exam Date and Time: February 18, 2023 1455 Height,Weight and Vital Signs: Vital Signs Pulse Rate 55 02/18/23 14:57 Respiratory Rate 16 02/18/23 14:57 Blood Pressure 133/79 02/18/23 14:57 Pulse Oximetry 98 02/18/23 14:57 Oxygen Delivery Method Room Air 02/18/23 14:57 Pertinent Lab Results Pertinent Lab Results: Laboratory Tests 02/26/23 02/26/23 06:47 06:47 WBC 6.0 Hgb 13.3 Hct 40.6 Plt Count 390 Sodium 141 Potassium 3.8 Chloride 102 Carbon Dioxide 28 BUN 19 H Creatinine 1.04 Narrative Narrative: EKG 02/2023 Vent. Rate : 054 BPM ? ? Atrial Rate : 054 BPM ?? P-R Int : 138 ms? QRS Dur : 090 ms ? ? QT Int : 432 ms ? ? ? P-R-T Axes : 016 026 019 degrees ?? QTc Int : 409 ms ? Sinus bradycardia Otherwise normal ECG ECHO 11/2021 Conclusions: - The left ventricular systolic function is normal.? The ? calculated ejection fraction is 58% by biplane method. ? - There is mild calcification of the aortic valve. ? - No obvious valvular pathology seen on this study.? Holter 11/2021 Total monitoring time 13 days and 17 hours.? Underlying rhythm is sinus.? Average ventricular rate 66/Min.? Minimum 31/Min.? Maximum 135/Min. At the time of lowest heart rate, 10:00, Wenckebach second-degree heart block. Low grade supraventricular ectopy with burden of 0.5%.? Five supraventricular episodes, longest 12 beats.? Rare ventricular ectopy with minimal burden. Palpitations associated with supraventricular ectopy.? Chest pain associated with sinus rhythm. Exercise stress 10/2021 Protocol: CALE ? Max HR: 160 BPM? 95% of? Pred: 168 BPM Max BP: 158/074 mmHG Max Work Load: 7.6 METS ? Exercise stress test with exercise 6 min 25 sec of Cale protocol, with mild ?sob, no chest discomfort or palpitation, with 3 asymptomatic isolated PVCs ?during test, with normotensive response to exercise, without EKG changes ?meeting criteria for ischemia. Test reviewed with Dr Dye. ? Airway Mallampati Class: II TM Dist: >3cm Neck ROM: Full Loose/Missing/Broken Teeth: Yes (One left lower molar pulled, caps throughout molars, recent left top molar temporary implant stable) Heart: RRR +m Lungs: CTAB Assessment and Plan Assessment Anesthesia Assessment: Anesthesia Plan Discussed and PAT Visit Final Anesthetic Review Family History of Problems with Anesthesia: Yes (PONV) History of Problems with Anesthesia: Yes (PONV) Documented by User: Saray Serrato MD 03/06/23 12:56 HPI - Anesthesia Eval Consult details Narrative: 52yo F for Gastrectomy Sleeve,EGD,possible diaphragmatic hernia,possible ventral hernia,possible open 03/06/23 [facility] Active Problems Active Problems: All Active Problems (Updated 03/06/23 @ 10:16 by Saray Serrato MD) Heart palpitations (Acute) Morbid obesity with BMI of 40.0-44.9, adult (Acute) Chest discomfort (Acute) PAC (premature atrial contraction) (Acute) PVC (premature ventricular contraction) (Acute) Impaired glucose tolerance (Acute) Hypercholesterolemia (Acute) Left renal stone (Acute) Hypertension (Acute) Breast cancer screening by mammogram (Acute) Left leg pain (Acute) Heart block atrioventricular (Acute) Chronic pain of left knee (Acute) Osteophyte, left knee (Acute) Morbid obesity (Acute) Chest pain (Acute) Palpitation (Acute) Maxillary sinusitis (Acute) Annual physical exam (Acute) Obesity (Acute) Trochanteric bursitis of right hip (Acute) Right ankle pain (Acute) Adjustment disorder, unspecified (Acute) BMI 39.0-39.9,adult (Acute) Pre-op evaluation (Acute) WESLEY on CPAP (Acute) Aortic valve calcification (Acute) Past Medical History Medical History Aortic valve calcification Asthma Asthmatic bronchitis Diverticular disease Elevated cholesterol Family history of anesthesia complication History of COVID-19 History of torn meniscus of knee HTN (hypertension) Motion sickness Murmur WESLEY on CPAP PAC (premature atrial contraction) PCOS (polycystic ovarian syndrome) Post-operative nausea and vomiting PVC (premature ventricular contraction) Vitamin D deficiency Family History Family History Father HTN (hypertension) Prostate cancer Mother HTN (hypertension) Bladder cancer Total knee replacement status History of hip replacement H/O shoulder replacement Sister No problems noted. Sister Arthritis Total knee replacement status Daughter Heart problem Daughter Heart murmur Son No problems noted. Paternal Grandfather Myocardial infarct Paternal Uncle Myocardial infarct Maternal Grandmother Breast cancer Surgical History Surgical History H/O colonoscopy History of section History of foot surgery Hx of excision of mass Social History Social History Housing: House Are you a primary complex care nurse to a significant other at home: No Do you presently have visiting nurse or other home services: No Alcohol intake: current Alcohol intake frequency: holidays/special occasions only Patient Tobacco Use Status: Never used Tobacco e-Cigarette/Vaping Use: Never Used Second Hand Smoke Exposure: No Use of substances other than those prescribed or required for medical reasons: No Have you been hit, kicked, punched, or otherwise hurt by someone within the past year? If so, by whom?: No Are you DNR?: No Advance Directives: No Advance Directives Information Provided: Yes (brochure given) Advance Directives on File: No Recently lost weight without trying: No Eating poorly because of decreased appetite: No Nutrition Risks: No Nutritional Risk Patient : No FDLMP: N/A : No Poor oral hygiene: No (implant post left upper side / crowns / missing tooth left lower molar) service: No Current occupational status: employed Cognitive needs: No Hearing needs: No Vision needs: Yes (glasses) Meds Allergies Allergy/AdvReac Type Severity Reaction Status Date / Time adhesive tape Allergy Intermediate Blister Verified 02/19/23 13:23 Penicillins Allergy Intermediate VOMITING Verified 02/19/23 13:23 sulfamethoxazole Allergy Intermediate RASH Verified 02/19/23 13:23 [From Bactrim] trimethoprim [From Bactrim] Allergy Intermediate RASH Verified 02/19/23 13:23 Sulfa (Sulfonamide Allergy Mild Rash Verified 02/19/23 13:23 Antibiotics) oxycodone AdvReac Intermediate Nausea and Verified 02/19/23 13:23 Vomiting Home Medications Medication Instructions Recorded Confirmed Last Taken Type albuterol sulfate 90 mcg/actuation 2 puff inhalation Q4-6H PRN 01/04/22 02/19/23 Unknown History aerosol inhaler (ProAir HFA) Shortness Of Breath loratadine 10 mg tablet (Allergy 10 mg PO DAILY PRN Allergy Symptoms 01/04/22 02/19/23 Unknown History Relief (loratadine)) multivitamin 1 tab PO DAILY 01/04/22 02/19/23 Unknown History cholecalciferol (vitamin D3) 1,250 1,250 mcg PO DAILY 02/22/22 02/19/23 Unknown History mcg (50,000 unit) tablet ibuprofen 200 mg tablet 200 mg PO Q6H PRN Pain 02/22/22 02/19/23 Unknown History biotin 1 tab PO DAILY 02/18/23 02/19/23 Unknown History cholecalciferol (vitamin D3) 25 25 mcg PO DAILY 02/18/23 02/19/23 Unknown History mcg (1,000 unit) tablet (Vitamin D3) Exam Height,Weight and Vital Signs: Vital Signs Pulse Rate 55 02/18/23 14:57 Respiratory Rate 16 02/18/23 14:57 Blood Pressure 133/79 02/18/23 14:57 Pulse Oximetry 98 02/18/23 14:57 Oxygen Delivery Method Room Air 02/18/23 14:57 Height 5 ft 6 in Weight 112.037 kg Vital Signs Temp Pulse Resp BP Pulse Ox O2 Del Method 03/06/23 08:30 97.9 F 65 18 106/52 L 99 Room Air Pertinent Lab Results Pertinent Lab Results: Laboratory Tests 02/26/23 02/26/23 06:47 06:47 WBC 6.0 Hgb 13.3 Hct 40.6 Plt Count 390 Sodium 141 Potassium 3.8 Chloride 102 Carbon Dioxide 28 BUN 19 H Creatinine 1.04 Lab Results 02/26/23 02/26/23 02/26/23 Range/Units 06:47 06:47 06:47 WBC 6.0 (4.8-10.8) X10*3/uL RBC 4.77 (4.20-5.50) X10*6/uL Hgb 13.3 (12.0-16.0) g/dl Hct 40.6 (37.0-47.0) % MCV 85.1 (80.0-98.0) fL MCH 27.9 (27.0-33.0) pg MCHC 32.8 (31.0-35.0) g/dl RDW 13.2 (11.0-16.0) % Plt Count 390 (160-400) X10*3/uL MPV 8.9 L (9.4-12.3) fL Immature Gran % (Auto) 0.2 (0.0-0.4) % Neut % (Auto) 57.8 (45-73) % Lymph % (Auto) 27.1 (20-40) % [place] % (Auto) 10.5 (2-11) % Eos % (Auto) 3.2 (0-4) % Baso % (Auto) 1.2 (0-2) % Lymph # (Auto) 1.6 (1.2-4.9) X10*3/uL [place] # (Auto) 0.6 (0.1-1.2) X10*3/uL Eos # (Auto) 0.2 (0.0-0.4) X10*3/uL Baso # (Auto) 0.1 (0.0-0.2) X10*3/uL Abs Immat Gran (auto) 0.01 (0.00-0.03) X10*3/uL Absolute Neuts (auto) 3.5 (2.0-8.3) x10*3/uL Absolute Nucleated RBC 0.000 (0.0-0.012) X10*3/uL Nucleated RBC % (auto) 0.0 (0.0-0.2) /100WBC PT 14.2 H (10.0-13.1) SEC INR 1.2 H (0.9-1.1) APTT 31.8 (26.0-36.4) SEC Sodium 141 (135-145) mmol/L Potassium 3.8 (3.3-5.1) mmol/L Chloride 102 (96-108) mmol/L Carbon Dioxide 28 (22-29) mmol/L Anion Gap 15 (12-20) BUN 19 H (9-16) mg/dL Creatinine 1.04 (0.5-1.4) mg/dL Estim Creat Clear Calc 79.4 Estimated GFR 55 Random Glucose 114 (60-115) mg/dL Estimat Average Glucose mg/dL Hemoglobin A1c % % Insulin Level 13 (2-29) uU/mL Calcium 9.6 (8.4-10.2) mg/dL Total Bilirubin 0.7 (0.0-1.0) mg/dL AST 70 H (5-31) U/L ALT 84 H (0-31) U/L Alkaline Phosphatase 74 (39-117) U/L C-Reactive Protein 6.42 H (< or = 0.50) mg/dL Total Protein 6.9 (6.5-8.0) g/dL Albumin 4.2 (3.5-5.0) g/dL Triglycerides 60 mg/dL Cholesterol 169 mg/dL LDL Cholesterol, Calc 122 mg/dl HDL Cholesterol 35 mg/dL TSH 3.05 (0.32-4.0) uIU/mL COVID-19 (BONIFACIO) (Negative) COVID-19 Clin Com Blood Type Antibody Screen 02/26/23 02/26/23 03/05/23 Range/Units 06:47 06:47 13:25 WBC (4.8-10.8) X10*3/uL RBC (4.20-5.50) X10*6/uL Hgb (12.0-16.0) g/dl Hct (37.0-47.0) % MCV (80.0-98.0) fL MCH (27.0-33.0) pg MCHC (31.0-35.0) g/dl RDW (11.0-16.0) % Plt Count (160-400) X10*3/uL MPV (9.4-12.3) fL Immature Gran % (Auto) (0.0-0.4) % Neut % (Auto) (45-73) % Lymph % (Auto) (20-40) % [place] % (Auto) (2-11) % Eos % (Auto) (0-4) % Baso % (Auto) (0-2) % Lymph # (Auto) (1.2-4.9) X10*3/uL [place] # (Auto) (0.1-1.2) X10*3/uL Eos # (Auto) (0.0-0.4) X10*3/uL Baso # (Auto) (0.0-0.2) X10*3/uL Abs Immat Gran (auto) (0.00-0.03) X10*3/uL Absolute Neuts (auto) (2.0-8.3) x10*3/uL Absolute Nucleated RBC (0.0-0.012) X10*3/uL Nucleated RBC % (auto) (0.0-0.2) /100WBC PT (10.0-13.1) SEC INR (0.9-1.1) APTT (26.0-36.4) SEC Sodium (135-145) mmol/L Potassium (3.3-5.1) mmol/L Chloride (96-108) mmol/L Carbon Dioxide (22-29) mmol/L Anion Gap (12-20) BUN (9-16) mg/dL Creatinine (0.5-1.4) mg/dL Estim Creat Clear Calc Estimated GFR Random Glucose (60-115) mg/dL Estimat Average Glucose 114 mg/dL Hemoglobin A1c % 5.6 % Insulin Level (2-29) uU/mL Calcium (8.4-10.2) mg/dL Total Bilirubin (0.0-1.0) mg/dL AST (5-31) U/L ALT (0-31) U/L Alkaline Phosphatase (39-117) U/L C-Reactive Protein (< or = 0.50) mg/dL Total Protein (6.5-8.0) g/dL Albumin (3.5-5.0) g/dL Triglycerides mg/dL Cholesterol mg/dL LDL Cholesterol, Calc mg/dl HDL Cholesterol mg/dL TSH (0.32-4.0) uIU/mL COVID-19 (BONIFACIO) Negative (Negative) COVID-19 Clin Com See Note Blood Type A Positive Antibody Screen NEGATIVE Airway Heart: RRR +murmur Assessment and Plan Assessment Anesthesia Assessment: Chart Reviewed Final Anesthetic Review NPO: Yes ASA Class: III Final Preanesthetic Review: No Changes in Pt Med Stat, Meds/Allgs Chart Reviewed, Consent Obtained/Reviewed and Anes Risks/Benef Reviewed Patient Risk: Intermediate Procedure Risk: Intermediate Assessment/Block/Sedation in SS: Assess/Block/Sedation-SS Anesthetic Plan Anesthetic Plan: GA Disposition: Standard PACU and Inp. Admit - Standard Bed
[2023-02-18 14:57] VITALS: BP 133/79; PULSE 55; RESP 16; O2SAT 98; BMI 39.9
[2023-02-26 06:57] LABS: MANUAL DIFF FLAG NO
[2023-02-26 07:11] LABS: Basophils Absolute Auto 0.1 X10*3/uL (0.0-0.2); Basophils Percent Auto 1.2 % (0-2); Eosinophils Absolute Auto 0.2 X10*3/uL (0.0-0.4); Eosinophils Percent Auto 3.2 % (0-4); Hematocrit 40.6 % (37.0-47.0); Hemoglobin 13.3 g/dl (12.0-16.0); Imm Gran Abs Auto 0.01 X10*3/uL (0.00-0.03); Imm Gran Pct Auto 0.2 % (0.0-0.4); Lymphocytes Absolute Auto 1.6 X10*3/uL (1.2-4.9); Lymphocytes Percent Auto 27.1 % (20-40); Mean Corpuscular HGB Conc 32.8 g/dl (31.0-35.0); Mean Corpuscular Hemoglobin 27.9 pg (27.0-33.0); Mean Corpuscular Volume 85.1 fL (80.0-98.0); Mean Platelet Volume 8.9 fL (9.4-12.3); Monocytes Absolute Auto 0.6 X10*3/uL (0.1-1.2); Monocytes Percent Auto 10.5 % (2-11); Neutrophils Absolute Auto 3.5 x10*3/uL (2.0-8.3); Neutrophils Percent Auto 57.8 % (45-73); Platelet Count 390 X10*3/uL (160-400); Red Blood Count 4.77 X10*6/uL (4.20-5.50); Red Cell Distribution Width 13.2 % (11.0-16.0)
[2023-02-26 07:21] LABS: INTERNATIONAL NORM RATIO 1.2 (0.9-1.1); Prothrombin Time 14.2 SEC (10.0-13.1)
[2023-02-26 07:23] LABS: Partial Thromboplastin Time 31.8 SEC (26.0-36.4)
[2023-02-26 07:27] LABS: Estimated Average Glucose 114 mg/dL; Hemoglobin A1c % 5.6 %
[2023-02-26 07:56] LABS: Alanine Aminotransferase 84 U/L (0-31); Albumin Level 4.2 g/dL (3.5-5.0); Alkaline Phosphatase 74 U/L (39-117); Anion Gap 15 (12-20); Aspartate Amino Transferase 70 U/L (5-31); Bilirubin Total 0.7 mg/dL (0.0-1.0); Blood Urea Nitrogen 19 mg/dL (9-16); C Reactive Protein 6.42 mg/dL (< or = 0.50); Calcium 9.6 mg/dL (8.4-10.2); Carbon Dioxide 28 mmol/L (22-29); Chloride 102 mmol/L (96-108); Cholesterol 169 mg/dL; Creatinine Clr Calc Pharmacy 79.4; Estimated Glomerular Filt Rate 55; Glucose Random 114 mg/dL (60-115); HDL Cholesterol 35 mg/dL; LDL Cholesterol Calculated 122 mg/dl; Potassium 3.8 mmol/L (3.3-5.1); Sodium 141 mmol/L (135-145); Total Protein 6.9 g/dL (6.5-8.0); Triglycerides 60 mg/dL
[2023-02-26 08:13] LABS: Insulin 13 uU/mL (2-29); TSH reflex Free T4 3.05 uIU/mL (0.32-4.0)
--- NOTE | 2023-02-27 23:38 | MHC.SHP ---
Pre-Procedural Eval Section A Date of Service: 02/27/23 The patient is an INPATIENT: No The History & Physical has been completed within 30 days and I have reviewed it.: Yes Section B Chief Complaint: Obesity, unspecified Relevant Family History (Specify if Yes): No Relevant Social History: None Present Medications: None Medical History: No relevant PMH History of Previous Operations: No relevant previous surgery Allergies: Allergies Allergy/AdvReac Type Severity Reaction Status Date / Time adhesive tape Allergy Intermediate Blister Verified 02/19/23 13:23 Penicillins Allergy Intermediate VOMITING Verified 02/19/23 13:23 sulfamethoxazole Allergy Intermediate RASH Verified 02/19/23 13:23 [From Bactrim] trimethoprim [From Bactrim] Allergy Intermediate RASH Verified 02/19/23 13:23 Sulfa (Sulfonamide Allergy Mild Rash Verified 02/19/23 13:23 Antibiotics) oxycodone AdvReac Intermediate Nausea and Verified 02/19/23 13:23 Vomiting Review of Systems Sugical H&P ROS: Negative: Constitution, Cardiovascular, Respiratory, Neurological, Psychiatric, Hem-Onc, Allergic/Immunologic, Gastrointestinal, Genitourinary, Musculoskeletal, Integumentary, Endocrine and Eyes/Ears/Nose/Throat Exam Surgical H&P Exam: Normal: HEENT, Normal: Heart, Normal: Lungs, Normal: Extremities, Normal: Abdomen, Normal: Skin and Normal: Neurological Plan Diagnosis/Plan: Unchanged I have reviewed the history and physical and performed a pertinent physical examination on my patient. No changes have occurred unless specified. Time Spent With Patient Time: Total time managing care of this patient today ____ minutes.
[2023-03-05 13:56] LABS: COVID-19 Test Negative (Negative); IDNOW Serial# 08D9AD1C
[2023-03-06] VITALS (11 sets, daily range): BP systolic 100–144; BP diastolic 52–78; PULSE 53–79; RESP 14–19; TEMP 36.2–37; O2SAT 95–100
--- NOTE | 2023-03-06 08:21 | PC.NURSE ---
Dr. Wayne updated that patient has not had a BTL or hysterectomy. Patient stated has IUD and has spotting periods still and I just had one. Dr. Wayne stated no urine hcg needed at this time.
[2023-03-06] MEDS: Lactated Ringers 1,000 ML 999 ML IV (08:22)
[2023-03-06] MEDS: Lactated Ringers 1,000 ML 100 ML IVCONT ×2 (08:22→15:08)
[2023-03-06] MEDS: Scopolamine 1.5 MG PATCH.TD.3 TRANSDERMA (08:28)
[2023-03-06] MEDS: Aprepitant 32 MG/4.4 ML VIAL IVPUSH (08:44)
--- NOTE | 2023-03-06 10:11 | P.BOP_ITS ---
Brief Operative Note Date of Service: 03/06/23 Pre-op diagnosis: Severe obesity with comorbidities (see below) Post-op diagnosis: same Procedure: INITIAL PATIENT BMI ON PRESENTATION AT OUR OFFICE: 45.2 kg/m2 LAST BMI BEFORE SURGERY: 38.6 kg/m2 COMORBIDITIES: sleep apnea on CPAP, diverticulitis, hypertension, PCOS, DJD, asthma, GERD, liver fibrosis ?The patient presented to the Weight Management Program with significant obesity that was negatively impacting the patient's comorbidities as listed above.? The program is a phased program with a special focus on preoperative medical weight management to promote substantial weight loss and prepare the patients for the second phase of the program: bariatric surgery. The patient participated in an intensive weekly lifestyle ?intervention and exercise program during which the patient ?has lost between the initial office visit and the last preoperative visit 43lbs, or 15.34% of initial actual body weight. It was deemed appropriate for the patient to now have bariatric surgery. In light of the current Covid-19 pandemic and the well documented strong association of obesity and increased risk of worse outcomes if infected with Covid-19 (REFERENCES: https://pubmed.ncbi.nlm.nih.gov/68089160/ ,? https://pubmed.ncbi.nlm.nih.gov/01260410/ ), any delay in undergoing bariatric surgery may lead to the patient's worsening health condition and increased?risk of more severe Covid-19 disease if infected. In addition a recent?study from [facility] published in [facility] on 11/05/2021 ([email or web address]) found that, among patients with obesity, substantial weight loss achieved with surgery was associated with improved outcomes of COVID-19 infection. The findings suggest that obesity can be a modifiable risk factor for the severity of COVID-19 infection. In addition, the patient met the BMI-criteria for bariatric surgery based on the BMI on initial presentation. The patient should not be penalized for achieving such weight loss because ?it is not sustainable long-term without surgical intervention and it was achieved in preparation for bariatric surgery ?under my direction and based on my published research ([email or web address]).[email or web address] and? [email or web address].soard.org/article/[email or web address])25830-X/pdf ) ?that a 10% preoperative weight loss improves long-term weight loss after surgery and reduces perioperative complications.? Insurance carriers such as [facility] have endorsed my recommendations ?and have included in their policies criteria to include a 10% preoperative weight loss requirement. PROCEDURE: Esophago-gastroscopy, laparoscopic sleeve gastrectomy and laparoscopic gastropexy INDICATIONS: This is a 52 year-old female who was electively scheduled for laparoscopic, possibly open sleeve gastrectomy. The risks and complications of the procedure were discussed with the patient in advance, particularly the possibility of ; pulmonary embolism; staple line leak; bleeding; GERD; cardiac, pulmonary, or renal complications; as well as long-term problems such as insufficient weight loss, vitamin deficiency, strictures, or ulcers. The patient understood all the risks, and was in agreement to proceed with surgery. DESCRIPTION OF PROCEDURE: After informed consent was obtained from the patient, the patient was given preoperative antibiotics, and was transferred to the operating room. After successful induction of general anesthesia, pneumatic compression devices were placed on both lower extremities. An upper endoscopy was performed next. The oropharynx and esophagus appeared to be within normal limits. There was no diaphragmatic hernia present consistent with the findings of the preoperative upper GI. The stomach was entered. Then after all fluid and air were suctioned and the stomach was fully decompressed, the scope was withdrawn and secured in the mid esophagus. The patient was then prepped and draped in the usual sterile manner, and abdominal access was established at the right upper quadrant with the Andrade technique. A 12 mm blunt port was inserted, and the abdomen was insufflated with CO2 to a pressure of 15 mmHg. Under direct visualization, additional ports were placed, specifically two 5 mm Versi-step ports to the left upper quadrant, and a 5 mm Versi-Step port to the right upper quadrant. 1% lidocaine plain was used to infiltrate all port sites as well as all fascia defects. Following that, the patient was placed in a steep reverse Trendelenburg positio n. An additional 5 mm port was placed to the right flank for the Mediflex retractor that was used to retract the left lobe of the liver. The gastro-esophageal fat pad was opened with the ultrasonic device (Thunderbeat, Olympus) and the anterior esophagus and hiatus were exposed. The angle of His was opened with the ultrasonic device the fundus of the stomach from any diaphragmatic and splenic attachments. I then opened the gastrocolic ligament between the transverse colon and the greater curvature of the stomach with the ultrasonic device to enter the lesser sac and facilitate the ligation of the short gastric vessels. I started at a mid-point along the greater curvature and using the Thunderbeat, all short gastric vessels were divided all the way to the angle of His until the left ramiro was completely dissected at its entirety. I then divided the gastro-colic ligament distally to a distance of about 3-4 cm proximal to the pylorus. The stomach was then divided transversely with two Endo CANDICE-45 purple and four CANDICE-60 articulating purple loads using the AdScootIA stapler and loads. Every effort was made that the gastric sleeve had a tubular shape and an even caliber throughout. Once the sleeve resection was completed, the staple line of the gastric sleeve was reinforced with Hemoclips. The resected stomach was retrieved without difficulty from the Andrade port. A gastropexy was then performed in order to prevent postoperative GERD and partial gastric volvulus. Several interrupted 2.0 Surgidac sutures were placed between the sleeve's staple line and the previously divided greater omentum and gastro-colic ligament using the Endo-Stitch device. ?An upper endoscopy was performed. There was no narrowing at the GE junction. The scope was easily advanced all the way to the pylorus which was clearly visualized. There was no narrowing anywhere and the sleeve's caliber was even throughout. The sleeve's staple line was inspected and there was no evidence of ischemia, bleeding or dehiscence. At that point the gastroscope was withdrawn from the patient?s mouth while we were decompressing the bowel and the stomach from any remaining air. I looked into the lesser sac to see how the sleeve was situating and it was situating well. There was no bleeding from the staple line, spleen, or short gastric vessels. The Mediflex retractor was removed, and the undersurface of the liver was inspected and there was no bleeding. The patient was placed in supine position. I closed the fascial defect of the 12 mm port site with a figure of eight #1 Polysorb suture. Then 30cc Ropivacaine plain with 10 mg of Dexamethasone were used to infiltrate the fascial closure as well as all skin incisions. A total of 7ml Zynrelef was applied in the Andrade wound. At this point, the abdomen was deflated, all ports were removed under direct vision, and no bleeding was noted from any of the port sites. The skin incisions were irrigated with saline and were closed with 4-0 absorbable monofilament sutures. Steri-Strips and OpSites were used to cover all incisions. The patient was extubated and was transferred in stable condition to the recovery room for further care. I was present and performed all ramírez parts of the procedure. Mr. Castillo was the culture media laboratory assistant. There were no residents to assist with this case. Waylon Connor MD, PhD, FACS Surgeon: Rory Connor MD Anesthesia: GETA, local and other (TAP block and 7ml Zynrelef) Was an Clinical Dietetic Technician used for this Procedure?: No Clinical Dietetic Technician: Juan Castillo Estimated blood loss (mL): 10 IV fluids (mL): 2,600 Urine output (mL): 0 (No Mendez to record output) Pathology: other (Stomach) Condition: stable Disposition: PACU
--- NOTE | 2023-03-06 10:15 | PM.PNGS ---
Subjective Subjective Date of Service: 03/07/23 Interval history: Feels well. Mild incisional pain. She is tolerating phase 1 bariatric diet Physical Exam Vital Signs: Vital Signs: Last Vital Signs Temp 97.9 F 03/06/23 08:30 Pulse 65 03/06/23 08:30 Resp 18 03/06/23 08:30 BP 106/52 L 03/06/23 08:30 Pulse Ox 99 03/06/23 08:30 O2 Del Method Room Air 03/06/23 08:30 BMI result Body Mass Index 39.9 GI: Inspection: Yes normal to inspection, Yes incision (clean, dry and intact) and Yes obesity Palpation (GI): Soft to palpation Extrem: Right lower extremity: normal to inspection (no calf tenderness) Left lower extremity: normal to inspection (no calf tenderness) Objective Data Active Medications Albuterol Sulfate (Albuterol Sulfate (0.083%) 2.5 Mg/3 Ml Vial.Neb) 2.5 mg INHALE ONCE PRN PRN Reason: Shortness of Breath/Wheezing Lactated Ringer's (Lr) 1,000 mls @ 100 mls/hr IVCONT .Q10H VIVIAN Last Admin: 03/06/23 08:22 Dose: 100 mls/hr Documented By: RG Labs 02/26/23 06:47 02/26/23 06:47 Labs: Laboratory Results - last 24 hr 03/05/23 13:25 COVID-19 ([facility]ON[facility]ACIO) Negative COVID-19 Clin Com See Note Procedures Date of Service Date of Service: 03/07/23 Progress Note: A&P Assessment and plan (1) Obesity: Status: Acute Assessment and Plan: s/p laparoscopic sleeve gastrectomy and gastropexy Doing well Will check am labs and if OK the patient will be discharged home (2) BMI 38.0-38.9,adult: Status: Acute (3) WESLEY on CPAP: Status: Acute (4) Aortic valve calcification: Status: Acute (5) Hypertension: Status: Acute (6) Hypercholesterolemia: Status: Acute (7) Diverticulitis: Status: Acute (8) GERD (gastroesophageal reflux disease): Status: Acute (9) PCOS (polycystic ovarian syndrome): Status: Acute (10) Asthma: Status: Acute (11) S/P laparoscopic sleeve gastrectomy: Status: Acute Time Spent With Patient Time: Total time managing care of this patient today ____ minutes. Quality Stroke Does the patient have a stroke diagnosis?: No VTE Prior VTE?: No VTE Risk Level:: Surgical - moderate VTE Device Contraindication: N/A - Device Ordered VTE Drug Contraindication: Treatment Not Indicated
--- NOTE | 2023-03-06 12:33 | PHA.MEDREC ---
Pharmacy Consult ? Medication Reconciliation Pharmacy has completed the medication reconciliation. Reviewed med rec done by nursing
--- NOTE | 2023-03-06 13:10 | PM.DS ---
DS: Providers Provider Date of Service: 03/07/23 Primary care physician: Ailyn Sam MD DS: Diagnosis Discharge Diagnosis (1) Obesity: Status: Acute (2) BMI 38.0-38.9,adult: Status: Acute (3) WESLEY on CPAP: Status: Acute (4) Aortic valve calcification: Status: Acute (5) Hypertension: Status: Acute (6) Hypercholesterolemia: Status: Acute (7) Diverticulitis: Status: Acute (8) GERD (gastroesophageal reflux disease): Status: Acute (9) PCOS (polycystic ovarian syndrome): Status: Acute (10) Asthma: Status: Acute DS: Summary Hospital Course Hospital Course: ADMITTING DIAGNOSIS: morbid obesity, PAC, PVC, HLD, WESLEY, HTN ? DISCHARGE DIAGNOSIS: same, s/p laparoscopic sleeve gastrectomy ? PAST SURGICAL HISTORY: cesarian section, foot urgery ? PROCEDURE: upper endoscopy, laparoscopic sleeve gastrectomy ? DISCHARGE SUMMARY: ? History of Present Illness: ? The patient is a?52 year-old woman with a BMI of?45.2 kg/m2 and associated co-morbidities as described above. The patient had extensive work-up,lost?33.4 lbs preoperatively and was electively scheduled for laparoscopic, possible open sleeve gastrectomy and gastropexy. Risks and complications of the surgery were discussed with the patient in advance, particularly the possibility of , pulmonary embolism, anastomotic leak, bleeding, bowel injury, GERD, cardiac, renal or pulmonary complications. The patient understood all the risks and was in agreement with the surgical plan. ? Hospital Course: ? The patient underwent an uneventful laparoscopic sleeve gastrectomy with gastropexy on the day of admission. Postoperatively, the patient was transferred to the surgical floor. The patient received IV Acetaminophen and IV dilaudid for pain control. Patient was started on bariatric phase 1 diet POD #0. On postoperative day one, the patient was feeling well without nausea, vomiting, fevers, or tachycardia. The patient had some mild incisional pain and the abdomen was soft. ? On the morning of postoperative day one, the patient was continued on 1 ounce of water or ice every half hour. During the day, the patient did fairly well, having some incisional pain, but able to ambulate adequately and to tolerate liquids well. ? Since the patient is doing well, we decided that the patient was ready to be discharged. The patient was given instructions to follow-up with me next week and to call my office for any fever over 101, persistent abdominal pain, nausea, vomiting, GERD, symptoms of DVT such as calf tenderness, or leg swelling, or pulmonary embolism such as chest pain or shortness of breath. The patient was also instructed to drink 40-60 ounces of liquids per day using the 1-ounce cups. The patient had been given prescriptions for Tylenol for pain, Zofran prn for nausea, and pantoprazole and carafate previously. The patient was encouraged to ambulate and use the incentive spirometer. The patient was allowed to shower, but no baths, and encouraged to stay active at home. All of these instructions were given to the patient personally. All questions were answered and the patient understood all instructions, the instructions were also given to the patient in print. Time Spent with Patient Time attestation: Total time managing care of this patient today ____ minutes. Discharge coordination time: Less than 30 minutes Quality: Safe Use of Opioids Does Pt have an Active Cancer Diagnosis on the Problem List?: No Quality: Stroke Does the patient have a stroke diagnosis?: No Physical Exam Vital Signs: Vital Signs: Last Vital Signs Temp 97.9 F 03/06/23 08:30 Pulse 65 03/06/23 08:30 Resp 18 03/06/23 08:30 BP 106/52 L 03/06/23 08:30 Pulse Ox 99 03/06/23 08:30 O2 Del Method Room Air 03/06/23 08:30 BMI result Body Mass Index 39.9 DS: Data Data Completed and Pending Pending studies at discharge: Pending at discharge 03/06/23 12:10 Surgical [PTH] Routine Labs on day of discharge: Laboratory Results - last 24 hr 03/05/23 13:25 COVID-19 ([facility]ON[facility]ACIO) Negative COVID-19 Clin Com See Note Discharge Plan Discharge Anticipated Discharge Date/Time: 03/07/23 07:20 Patient Disposition: Home, Self-Care Discharge Diagnosis: morbid obesity Referrals: Po,Ailyn Decker MD [Primary Care Provider] - Discharge Medications: Continued ciprofloxacin HCl [Cipro] 500 mg tablet 500 mg PO Q12H Qty: 30 1RF metronidazole 500 mg tablet 500 mg PO Q8H Qty: 42 0RF loratadine [Allergy Relief (loratadine)] 10 mg tablet 10 mg PO DAILY PRN (Reason: Allergy Symptoms) albuterol sulfate [ProAir HFA] 90 mcg/actuation HFA aerosol inhaler 2 puff inhalation Q4-6H PRN (Reason: Shortness Of Breath) pantoprazole 40 mg tablet,delayed release (DR/EC) 40 mg PO DAILY Qty: 30 2RF sucralfate 100 mg/mL suspension 10 ml PO BID Qty: 400 2RF ondansetron 4 mg tablet,disintegrating 4 mg PO Q12H Qty: 20 0RF Rx Instructions: Only take one every 12 hours as needed if you have nausea Held hydrochlorothiazide 25 mg tablet 25 mg PO DAILY 90 Days Qty: 90 1RF Hold Instructions: until discussed with Dr Connor, Please check blood pressure daiy and report to Dr Wu metoprolol succinate [Toprol XL] 50 mg tablet extended release 24 hr 50 mg PO DAILY Qty: 90 3RF Hold Instructions: Resume on 03/08/23. Measure your blood pressure daily and send it to Dr Connor. Don't take this pill if your blood pressure is below 110/70. Discontinued cholecalciferol (vitamin D3) [Vitamin D3] 25 mcg (1,000 unit) Tablet 25 mcg PO DAILY biotin 1 tab PO DAILY multivitamin Tablet 1 tab PO DAILY diclofenac sodium [Voltaren Arthritis Pain] 1 % gel 2 g topical QID Qty: 100 0RF Rx Instructions: apply to single elbow, wrist or hand; for hand includes palm/fingers/back of hand cholecalciferol (vitamin D3) 1,250 mcg (50,000 unit) tablet 1,250 mcg PO DAILY ibuprofen 200 mg tablet 200 mg PO Q6H PRN (Reason: Pain) polyethylene glycol 3350 [Miralax] 17 gram powder in packet 17 g PO DAILY Qty: 14 0RF Rx Instructions: Mix each packet with 8oz of water, Crystal light, or Gatorade zero, or Propel and do 7 packets on 03/04/23 and another 7 packets on 03/05/23 Discharge Orders: Discharge Order (Routine); Ordered 03/07/23 Ordered By: Rory Connor Activity on Discharge: No heavy lifting Activity Restrictions/Additional Instructions: No tub baths, sex or returning to work until discussed at first post op appointment. No exercise, alcohol, tobacco or illegal drug use. Continue to use incentive spirometer hourly while awake. Walk in home for 5- 10 minutes every 2 hours during the first week. Follow all instructions in the bariatric handbook and call with any questions.Discharge Instructions 1. Please call your doctor or come back to the emergency room should any new symptoms arise. 2. You will receive a courtesy call from [facility] 24-48 hours after discharge. 3. Activity: abstain from alcohol, practice limited stair climbing, no bending, no driving, no exercise, no illicit substances, no lifting, no sex, no tub bath, no work. 4. Diet: continue as discussed with Dr. Connor. 5. Dressing Change/Wound Care: Your incision is covered by clear bandages and guaze underneath. If the area is tender, you may apply an ice pack for short intervals (no more than 20 minutes on, followed by at least 20 minutes off). Do not apply heat. Do not use creams, lotions, or topical antibiotics unless instructed to do so by your surgeon. These can cause infection or allergic reaction. 6. Call your doctor if: - Your temperature exceeds 101.5 F - You experience excessive pain or swelling - You have an unexpected reaction to medication - You have excessive bleeding - You experience continued vomiting/nausea - Your incision begins to separate - Your incision shows signs of infection such as increased redness, swelling, excessive pain, heat, or drainage (light blood or clear fluid is normal) 7. General instructions: No lifting greater than 5 lbs for the next 4 weeks[address] driving within 24 hours of taking narcotic pain medications. If you do not move your bowels in the next 2 days, please take milk of magnesia over the counter. Please follow the post op diet and do not advance your diet until you are seen in the office in about 2 weeks. Please walk around your home every hour or two to prevent blood clots from forming in your legs. You do not need to wake from sleeping to walk. Please sleep in a bed or couch to prevent kinking at the hips and knees. Please take your incentive spirometer (your lung research software engineer) home with you and use it for the next few days to prevent pneumonias. You may shower, no hot tubs, baths or swimming pools. Please call the office with any questions or concerns such as increasing abdominal pain, fever, chills, shortness of breath, chest pain, leg pain or swelling, or redness or drainage from your incisions. Please stay on stage 3 diet which includes sugar free clear liquids such as ice pops and jello and broth and crystal light. Avoid all carbonation. Please drink 3 protein shakes with at least 25-30 grams of protein daily or 3 of the Celebrate 4:1 shakes which can be purchased in our office. The Celebrate shakes have all of the bariatric vitamins you need if you consume these shakes. If you are drinking other protein shakes, you will need to purchase the Celebrate multivitamins and calcium that we provide in the office (they will provide all the vitamins you need). Please make sure you are consuming at least 40-60 ounces of water in addition to your 3 protein shakes daily. Do not hesitate to contact the office with any questions at . The patient's medical history has been reviewed and they are considered low risk for post op DVT and therefore DVT prophylaxis is not considered necessary. Travel after surgery was reviewed. The patient has not disclosed any travel plans during the first 30 days after surgery and they have been advised that within the first 30 days after surgery any bus, plane, train or car travel over 2 hours in duration is contraindicated due to the possibility of developing blood clots from immobility. Any travel, needs to include periods of ambulation of 10 minutes in duration every 2 hours.? The patient was instructed to discuss any plans for travel during this period with their bariatric surgeon. Care Plan Goals: weight loss Health Concerns: obesity Plan of Treatment: as above Assessment: stable s/p laparoscopic sleeve gastrectomy Discharge Date/Time: 03/07/23 09:00
[2023-03-06] MEDS: Famotidine/PF 20 MG/2 ML VIAL IVPUSH ×2 (13:33→21:17)
[2023-03-06 14:26] LABS: Hematocrit 38.8 % (37.0-47.0); Hemoglobin 12.8 g/dl (12.0-16.0)
[2023-03-06 14:40] LABS: Anion Gap 11 (12-20); Blood Urea Nitrogen 14 mg/dL (9-16); Calcium 8.8 mg/dL (8.4-10.2); Carbon Dioxide 25 mmol/L (22-29); Chloride 106 mmol/L (96-108); Creatinine Clr Calc Pharmacy 108.6; Estimated Glomerular Filt Rate > 60; Glucose Random 130 mg/dL (60-115); Potassium 3.4 mmol/L (3.3-5.1); Sodium 139 mmol/L (135-145)
[2023-03-06] MEDS: Acetaminophen 1,000 MG/100 ML PIGGYBACK 16.7 MG IV ×2 (15:09→21:17)
[2023-03-06] MEDS: 0.9 % Sodium Chloride Flush 3 ML SYRINGE IVFLUSH (21:17)
[2023-03-07] MEDS: Lactated Ringers 1,000 ML 100 ML IVCONT (00:30)
[2023-03-07] MEDS: Acetaminophen 1,000 MG/100 ML PIGGYBACK 16.7 MG IV (02:58)
[2023-03-07 03:13] VITALS: BP 101/54; PULSE 57; RESP 18; TEMP 36.6; O2SAT 93
[2023-03-07 04:36] LABS: MANUAL DIFF FLAG NO
[2023-03-07 04:42] LABS: Basophils Percent Auto 0.2 % (0-2); Hematocrit 36.7 % (37.0-47.0); Hemoglobin 12.2 g/dl (12.0-16.0); Imm Gran Abs Auto 0.04 X10*3/uL (0.00-0.03); Imm Gran Pct Auto 0.4 % (0.0-0.4); Lymphocytes Absolute Auto 0.8 X10*3/uL (1.2-4.9); Lymphocytes Percent Auto 8.7 % (20-40); Mean Corpuscular HGB Conc 33.2 g/dl (31.0-35.0); Mean Corpuscular Hemoglobin 28.2 pg (27.0-33.0); Mean Corpuscular Volume 84.8 fL (80.0-98.0); Mean Platelet Volume 9.4 fL (9.4-12.3); Monocytes Absolute Auto 0.4 X10*3/uL (0.1-1.2); Monocytes Percent Auto 3.9 % (2-11); Neutrophils Absolute Auto 8.3 x10*3/uL (2.0-8.3); Neutrophils Percent Auto 86.8 % (45-73); Platelet Count 321 X10*3/uL (160-400); Red Blood Count 4.33 X10*6/uL (4.20-5.50); Red Cell Distribution Width 13.4 % (11.0-16.0); White Blood Count 9.6 X10*3/uL (4.8-10.8)
[2023-03-07 05:02] LABS: Anion Gap 12 (12-20); Blood Urea Nitrogen 13 mg/dL (9-16); Calcium 8.5 mg/dL (8.4-10.2); Carbon Dioxide 25 mmol/L (22-29); Chloride 106 mmol/L (96-108); Creatinine Clr Calc Pharmacy 111.5; Estimated Glomerular Filt Rate > 60; Glucose Random 120 mg/dL (60-115); Potassium 3.6 mmol/L (3.3-5.1); Sodium 139 mmol/L (135-145)
[2023-03-07 07:15] VITALS: BP 103/56; PULSE 60; RESP 20; TEMP 36.3; O2SAT 100
[2023-03-07] MEDS: Metoprolol Succinate ER 50 MG TAB.ER.24H PO (07:30)
[2023-03-07] MEDS: Famotidine/PF 20 MG/2 ML VIAL IVPUSH (07:30)
[2023-03-07] MEDS: 0.9 % Sodium Chloride Flush 3 ML SYRINGE IVFLUSH (07:30)
--- NOTE | 2023-03-07 08:45 | MHC.CM.PN ---
pt dcd home without need of skilled sercveis
--- NOTE | 2023-03-07 08:59 | MHC.CM.PN ---
Female 52 S/P Gastric sleeve She lives with family. She is independent with all functional mobility. She is discharged today Home self care. She has arranged for a family member to provide transport home.
--- NOTE | 2023-03-07 12:58 | HO.POSTANES ---
Post Anesthesia Evaluation Post Anesthesia Evaluation Vital Signs: Vital Signs Temp Pulse Resp BP Pulse Ox O2 Del Method 03/07/23 07:15 97.3 F 60 20 103/56 L 100 Room Air 03/07/23 03:13 97.9 F 57 18 101/54 L 93 Room Air Anesthesia: General Endotracheal-GETA Mental Status: Awake Pain Control: Satisfactory Nausea/Vomiting: None Hydration: Adequate Anesthesia-Related Issues: No Anes. Related Issues
== END 2023-03-07 09:00 | disposition home or self-care (01) | DRG 403 ==
LOC: HO.S3 14:10
PROVIDERS: Admitting Provider Physician Assistant Surgical; PCP Internal Medicine; Referring Provider Surgery; Visit Provider Surgery
PROC: (CPT 43845; principal; 2023-03-06 10:10)
DX: E66.01 Morbid (severe) obesity due to excess calories (principal); K74.00 Hepatic fibrosis, unspecified; E28.2 Polycystic ovarian syndrome; G47.33 Obstructive sleep apnea (adult) (pediatric); K21.9 Gastro-esophageal reflux disease without esophagitis; J45.909 Unspecified asthma, uncomplicated; Z68.39 Body mass index [BMI] 39.0-39.9, adult; I70.0 Atherosclerosis of aorta; I10 Essential (primary) hypertension; M19.90 Unspecified osteoarthritis, unspecified site; Z20.822 Contact with and (suspected) exposure to COVID-19; Z88.0 Allergy status to penicillin; Z88.2 Allergy status to sulfonamides; Z88.8 Allergy status to other drugs, medicaments and biological substances; Z79.899 Other long term (current) drug therapy
CPT/HCPCS: 43775; 43659; 36415; 80048; 80053; 80061; 83036; 83525; 84443; 85014; 85018; 85025; 85610; 85730; 86140; 86850; 86900; 86901; 87635; 88304; 88305; 88307; 88342; 93005; A4649; C9088; C9145; J0131; J1100; J1170; J1956; J2250; J2405; J2550; J2795; J3010

== ENCOUNTER → 2023-03-11 10:15 | Outpatient (BNVA) | payer OTHER, SELFPAY | PROVIDERS: PCP Internal Medicine; Visit Provider Physician Assistant Surgical | DX: Z13.89 Encounter for screening for other disorder (principal) ==

== ENCOUNTER → 2023-03-28 12:43 | Outpatient (BNVA) | payer OTHER, SELFPAY | PROVIDERS: PCP Internal Medicine; Referring Provider Internal Medicine; Visit Provider Physician Assistant Surgical ==

== ENCOUNTER → 2023-04-11 13:59 | Outpatient (BNVA) | payer OTHER, SELFPAY | PROVIDERS: PCP Internal Medicine; Visit Provider Physician Assistant Surgical ==

== ENCOUNTER → 2023-04-28 10:33 | Outpatient (BNVA) | payer OTHER, SELFPAY | PROVIDERS: PCP Internal Medicine; Visit Provider Physician Assistant ==

== ENCOUNTER 2023-05-26 14:21 | Outpatient (AMB) | payer OTHER, SELFPAY ==
[2023-05-26 14:23] VITALS: BP 127/74; PULSE 60; TEMP 36.7; O2SAT 99; BMI 31.6
--- NOTE | 2023-05-26 14:23 | MHC.OFFVISWM ---
Intake VS Expanded 05/26/23 14:23 Height 5 ft 6 in Weight 196 lb BMI 31.6 BP 127/74 Blood Pressure Location Lt brachial Blood Pressure Position Sitting Pulse 60 Pulse Source Pulse Oximeter Temp 98.1 F Temperature Source Temporal Artery Scan Pulse Oximetry 99 Oxygen Delivery Method Room Air Body Fat 54.2 Body Fat Percentage 27.7 Free Fat Mass 141.8 Muscle Mass 134.8 Visceral Mass 7.0 Water Mass 100.8 BMR 1,883 Intake Visit Reasons: (OV) PO LSG 03/06/23 Allergies adhesive tape Allergy (Intermediate, Verified 05/26/23 14:27) Blister Penicillins Allergy (Intermediate, Verified 05/26/23 14:27) VOMITING sulfamethoxazole [From Bactrim] Allergy (Intermediate, Verified 05/26/23 14:27) RASH trimethoprim [From Bactrim] Allergy (Intermediate, Verified 05/26/23 14:27) RASH Sulfa (Sulfonamide Antibiotics) Allergy (Mild, Verified 05/26/23 14:) Rash oxycodone Adverse Reaction (Intermediate, Verified 05/26/23 14:27) Nausea and Vomiting Medication List - Last Reconciled 05/26/23 by Natasha Pacheco PA-C albuterol sulfate 90 mcg/actuation (ProAir HFA) 2 puffs inhalation Q4-6H PRN clotrimazole 1% 1 appl topical BID docusate sodium 100 mg PO BID loratadine (Allergy Relief (loratadine)) 10 mg PO DAILY PRN polyethylene glycol 3350 (Miralax) 17 grams PO 2XW psyllium 1 packet PO DAILY sucralfate (Carafate) 1 g PO BID HPI HPI Comments History of Present Illness Details 52 yo who is 12 weeks s/p LSG. No n/v/abd pain or reflux. BM's mostly daily, colace bid, meatmucil dialy and miralax 1-2 d/ week. Meal plan 6am - 4:1 2 scoops 10am - 4:1 2 scoops 2pm - Rebuild 1 scoop 6pm - 1 oz and 1oz Bar after dinner or protein pudding frozen - 10- 15 grams. Exercise - 5d/week walk 1 mile during lunch.- 15 minutes Evenings - either walk with 2d/wk or TBP 2d/wk PFSH Medical History (Updated 03/19/23 @ 14:02 by Khanh Corrales MD) Aortic valve calcification Asthma Asthmatic bronchitis Benign essential hypertension BMI 38.0-38.9,adult Breast cancer screening by mammogram Chest discomfort Chest pain Diverticular disease Elevated cholesterol Family history of anesthesia complication History of COVID-19 History of torn meniscus of knee HTN (hypertension) Left leg pain Maxillary sinusitis Mixed hyperlipidemia Morbid obesity Morbid obesity with BMI of 40.0-44.9, adult Motion sickness Murmur Obesity (BMI 30-39.9) WESLEY on CPAP PAC (premature atrial contraction) Palpitation PCOS (polycystic ovarian syndrome) Post-operative nausea and vomiting Pre-op evaluation PVC (premature ventricular contraction) Right ankle pain Trochanteric bursitis of right hip Vitamin D deficiency Surgical History H/O colonoscopy History of section History of foot surgery Hx of excision of mass S/P laparoscopic sleeve gastrectomy Family History Father HTN (hypertension) Prostate cancer Mother HTN (hypertension) Bladder cancer Total knee replacement status History of hip replacement H/O shoulder replacement Sister No problems noted. Sister Arthritis Total knee replacement status Daughter Heart problem Daughter Heart murmur Son No problems noted. Paternal Grandfather Myocardial infarct Paternal Uncle Myocardial infarct Maternal Grandmother Breast cancer Social History Household Members: Spouse and Children Housing: House Are you a primary respiratory care specialist to a significant other at home: No Do you presently have visiting nurse or other home services: No Alcohol intake: current Alcohol intake frequency: holidays/special occasions only Patient Tobacco Use Status: Never used Tobacco e-Cigarette/Vaping Use: Never Used Second Hand Smoke Exposure: No service: No Current occupational status: employed Cognitive needs: No Hearing needs: No Vision needs: Yes (glasses) Physical Exam Vital Signs: Last Vital Signs Temp 98.1 F 05/26/23 14:23 Pulse 60 05/26/23 14:23 BP 127/74 05/26/23 14:23 Pulse Ox 99 05/26/23 14:23 Oxygen Delivery Method Room Air 05/26/23 14:23 BMI result Body Mass Index 31.6 Assessment & Plan Assessment & Plan (1) Status post sleeve gastrectomy: Code(s): Z90.3 - Acquired absence of stomach [part of] Plan: 3 months post op, doing well. Having issues with insomnia - Will staart to take magnesium for sleep. Meal plan 6am - 4:1 2 scoops 10am - 4:1 2 scoops 2pm - bar 6pm - 2 oz and 2oz - cooked 1 of fruit --Bar after dinner or protein pudding frozen - 10- 15 grams. Exercise - keep walking duing lunch evenings - [address] - 2 d TBP and 2 d machines at work. Next appt in 6 weeks. Coding Level of Care Code Global (03466) Diagnoses Status post sleeve gastrectomy Z90.3
== END 2023-05-26 15:09 | disposition home or self-care (01) ==
PROVIDERS: PCP Internal Medicine; Visit Provider Physician Assistant
DX: Z90.3 Acquired absence of stomach [part of] (principal)
CPT/HCPCS: 99024

== ENCOUNTER → 2023-05-26 14:21 | Outpatient (BNVA) | payer OTHER, SELFPAY | PROVIDERS: PCP Internal Medicine; Visit Provider Physician Assistant ==

== ENCOUNTER 2023-06-11 11:14 | Outpatient (AMB) | payer OTHER, SELFPAY ==
--- NOTE | 2023-06-11 11:39 | A.OFFPC_ITS ---
Vital Signs 06/11/23 11:40 06/11/23 12:10 Height 5 ft 6 in Weight 193 lb 4 oz BMI 31.2 BP 140/80 H 132/78 Blood Pressure Location Lt brachial Lt brachial Position Sitting Sitting Pulse 56 Pulse Source Pulse Oximeter Pulse Oximetry (%) 96 Oxygen Delivery Method Room Air Intake Visit Reasons: Annual Exam Intake Note: Patient is here today for a physical. Environmental Science Technician Required: No Medical Lab Scientist: Not Required per policy Accompanied by: Self / Same As Patient Allergies adhesive tape Allergy (Intermediate, Verified 06/11/23 11:40) Blister Penicillins Allergy (Intermediate, Verified 06/11/23 11:40) VOMITING sulfamethoxazole [From Bactrim] Allergy (Intermediate, Verified 06/11/23 11:40) RASH trimethoprim [From Bactrim] Allergy (Intermediate, Verified 06/11/23 11:40) RASH Sulfa (Sulfonamide Antibiotics) Allergy (Mild, Verified 06/11/23 11:40) Rash oxycodone Adverse Reaction (Intermediate, Verified 06/11/23 11:40) Nausea and Vomiting Medication List - Last Reconciled 06/11/23 by Ailyn Sam MD albuterol sulfate 90 mcg/actuation (ProAir HFA) 2 puffs inhalation Q4-6H PRN [allergy shots Q month] clotrimazole 1% 1 appl topical BID docusate sodium 100 mg PO BID loratadine (Allergy Relief (loratadine)) 10 mg PO DAILY PRN polyethylene glycol 3350 (Miralax) 17 grams PO 2XW psyllium 1 packet PO DAILY Tobacco use date assessed: 06/11/23 Dental Screening Dental Screen Date: 06/11/23 Did you have a dental visit in the last 12 months?: Yes Did you have a dental problem in the last 6 months where you did not have access to dental care?: No Was dental information given to patient?: Patient has dentist HPI Annual Exam HPI Details 52-year-old obese female with hypercholesterolemia impaired glucose tolerance obstructive sleep apnea on CPAP coming in for physical exam last seen in May 2022. Colonoscopy is up-to-date mammogram is up-to-date. Patient had the sleeve gastrectomy laparoscopically 03/06/2023. With the surgery blood pressure medication and cholesterol medication were held. Blood work was requested. Also noted in February 2023 had mild diverticulitis patient did see cardiology in July last year regarding the Wenckebach that was seen on Holter which is more from the obesity and obstructive sleep apnea. eye exam plaque on the L eye and advised cardio ff up. complains leg swelling. [facility] Medical History (Updated 06/11/23 @ 12:35 by Ailyn Sam MD) Annual physical exam Aortic valve calcification Asthma Asthmatic bronchitis Benign essential hypertension BMI 38.0-38.9,adult Breast cancer screening by mammogram Chest discomfort Chest pain Diverticular disease Elevated cholesterol Family history of anesthesia complication History of COVID-19 History of torn meniscus of knee HTN (hypertension) Left leg pain Maxillary sinusitis Mixed hyperlipidemia Morbid obesity Morbid obesity with BMI of 40.0-44.9, adult Motion sickness Murmur Obesity (BMI 30-39.9) WESLEY on CPAP PAC (premature atrial contraction) Palpitation PCOS (polycystic ovarian syndrome) Post-operative nausea and vomiting Pre-op evaluation PVC (premature ventricular contraction) Right ankle pain Trochanteric bursitis of right hip Vitamin D deficiency Surgical History (Updated 06/11/23 @ 12:07 by Ailyn Sam MD) H/O colonoscopy History of section History of foot surgery Hx of excision of mass S/P laparoscopic sleeve gastrectomy Family History (Updated 06/11/23 @ 12:20 by Ailyn Sam MD) Father HTN (hypertension) Prostate cancer Mother HTN (hypertension) Bladder cancer Total knee replacement status History of hip replacement H/O shoulder replacement Sister No problems noted. Sister Arthritis Total knee replacement status Daughter Heart problem Daughter Heart murmur Son No problems noted. Paternal Grandfather Myocardial infarct Paternal Uncle Myocardial infarct Maternal Grandmother Breast cancer Skin cancer Social History (Updated 06/11/23 @ 12:20 by Ailyn Sam MD) Household Members: Spouse and Children Housing: House Are you a primary director medicare sales to a significant other at home: No Do you presently have visiting nurse or other home services: No Alcohol intake: current Alcohol intake frequency: holidays/special occasions only Patient Tobacco Use Status: Never used Tobacco e-Cigarette/Vaping Use: Never Used Second Hand Smoke Exposure: No service: No Current occupational status: employed Cognitive needs: No Hearing needs: No Vision needs: Yes (glasses) Questionnaire Thrive Questionnaire Date Thrive assessed: 03/19/23 CRISTA-7 AMB Questionnaire CRISTA-7 Date CRISTA - 7 assessed: 03/19/23 Source: Developed by Drs. Alex Lutz, Marylou Garcia, Michele Santillan and colleagues, with an educational derrek from [employer]. Review of Systems Const Denies poor appetite and Denies weakness Eyes Denies no additional complaints ENT Reports Normal hearing present, Denies dizziness, Denies nasal congestion, Denies tinnitus and Denies sore throat Card Denies chest pain, Denies syncope, Denies rapid heart rate and Denies dyspnea Resp Denies cough and Denies dyspnea GI Denies change in stool character, Reports constipation, Denies diarrhea, Denies nausea and Denies vomiting Denies urinary frequency, Denies difficulty voiding and Denies dysuria Neuro Reports Normal hearing present, Denies confusion, Denies dizziness, Denies syncope and Denies weakness Psych Denies confusion Physical exam (Primary Care) Vital Signs: Last Vital Signs Pulse 56 06/11/23 11:40 BP 140/80 H 06/11/23 11:40 Pulse Ox 96 06/11/23 11:40 Oxygen Delivery Method Room Air 06/11/23 11:40 BMI result Body Mass Index 31.2 Tobacco/Smoking Status: Tobacco use Status Tobacco use date assessed 06/11/23 06/11/23 11:45 Patient Tobacco Use Status Never used Tobacco 06/11/23 11:45 e-Cigarette/Vaping Use Never Used 06/11/23 11:45 Thrive Assessment: Date of Thrive Assessment Date Thrive assessed 03/19/23 06/11/23 11:45 Const General: No confusion Orientation/consciousness: No confusion HENMT Head: Yes normocephalic Ears: external ears normal and TM's normal bilaterally Face and sinus: Yes normal facial exam Mouth: moist mucous membranes Throat: Yes tonsils normal Eyes Conjunctivae: conjunctivae normal Pupils: Equal, round and reactive pupils present and Pupil accommodation reflex normal Direct Ophthalmoscopy: normal light reflex Neck Neck: No lymphadenopathy Thyroid: Thyroid normal Chest Chest palpation & inspection: normal inspection of the chest Resp Effort & Inspection: normal respiratory effort and no audible wheezes Auscultation: clear to auscultation bilaterally, no crackles, no wheezes and lung sounds not diminished Cardio Rate: regular rate Rhythm: regular rhythm Peripheral pulses: radial pulses present and dorsalis pedis present GI Palpation (GI): no masses Auscultation: normal bowel sounds and normoactive bowel sounds Rectal Exam - Female: deferred Skin General skin exam: no rashes or lesions noted Rashes: no rashes Neuro General: No confusion Cranial nerves: Yes Equal, round and reactive pupils present and Yes Normal hearing present Cognition (Neuro): normal cognition Gait exam (Neuro): Normal gait present Motor exam (neuro): 5/5 motor strength present throughout Deep tendon reflexes (DTR's): Right brachioradialis reflex intensity grade: 2+, Left brachioradialis reflex intensity grade: 2+, Right patellar reflex intensity grade: 2+ and Left patellar reflex intensity grade: 2+ Extrem General: No edema Assessment and Plan Assessment & Plan (1) Annual physical exam: Code(s): Z00.00 - Encounter for general adult medical examination without abnormal findings (2) Status post sleeve gastrectomy: Comment: March 2023 Code(s): Z90.3 - Acquired absence of stomach [part of] Plan: Patient follows up with weight management (3) Obesity (BMI 30-39.9): Code(s): E66.9 - Obesity, unspecified Plan: Diet and exercise (4) Benign essential hypertension: Code(s): I10 - Essential (primary) hypertension Plan: Continue with blood pressure medication. Decrease salt intake and exercise because of bradycardia blood pressure medication held (5) GERD (gastroesophageal reflux disease): Code(s): K21.9 - Gastro-esophageal reflux disease without esophagitis Qualifiers: Esophagitis presence: without esophagitis Qualified Code(s): K21.9 - Gastro-esophageal reflux disease without esophagitis Plan: Avoid the foods that causes that usually spicy foods, tomato products, juices, coffee, soda and foods that your sensitive to. After eating do not lie down, allow 3-4 hours before in lie down. And keep the head of bed above 30 degrees to avoid the acid from going up. (6) Hypercholesterolemia: Code(s): E78.00 - Pure hypercholesterolemia, unspecified Plan: Avoid fried foods, chicken skin, eggs, butter margarine, pastries and meat. Be it pork or beef they have a lot of cholesterol will continue to monitor (7) WESLEY on CPAP: Code(s): G47.33 - Obstructive sleep apnea (adult) (pediatric); Z99.89 - Dependence on other enabling machines and devices (8) Allergy: Comment: Dr. English done monthly Code(s): T78.40XA - Allergy, unspecified, initial encounter (9) Uterine prolapse: Code(s): N81.4 - Uterovaginal prolapse, unspecified (10) Diastasis recti: Code(s): M62.08 - Separation of muscle (nontraumatic), other site (11) Plantar wart of right foot: Code(s): B07.0 - Plantar wart (12) Insomnia: Code(s): G47.00 - Insomnia, unspecified (13) Left renal stone: Comment: 02/2023 CT scan Code(s): N20.0 - Calculus of kidney Orders: Orders Vitamin B12 and Folate 2 Months B07.0 - Plantar wart Hemoglobin A1c 2 Months B07.0 - Plantar wart Referrals Dermatology Referral B07.0 - Plantar wart Coding Level of Care Code Est Pt Prev Care 40-64y(66958) Diagnoses Annual physical exam Z00.00 Status post sleeve gastrectomy Z90.3 Obesity (BMI 30-39.9) E66.9 Benign essential hypertension I10 GERD (gastroesophageal reflux disease) K21.9 Esophagitis presence: without esophagitis Hypercholesterolemia E78.00 WESLEY on CPAP G47.33; Z99.89 Allergy T78.40XA Uterine prolapse N81.4 Diastasis recti M62.08 Plantar wart of right foot B07.0 Insomnia G47.00 Left renal stone N20.0
[2023-06-11 11:40] VITALS: BP 140/80; PULSE 56; O2SAT 96; BMI 31.2
[2023-06-11 12:10] VITALS: BP 132/78
== END 2023-06-11 12:39 | disposition home or self-care (01) ==
PROVIDERS: PCP Internal Medicine; Visit Provider Internal Medicine
DX: Z00.00 Encounter for general adult medical examination without abnormal findings (principal); Z90.3 Acquired absence of stomach [part of]; K21.9 Gastro-esophageal reflux disease without esophagitis; I10 Essential (primary) hypertension; E66.9 Obesity, unspecified; E78.00 Pure hypercholesterolemia, unspecified; G47.33 Obstructive sleep apnea (adult) (pediatric); Z99.89 Dependence on other enabling machines and devices; T78.40XA Allergy, unspecified, initial encounter; N81.4 Uterovaginal prolapse, unspecified; M62.08 Separation of muscle (nontraumatic), other site; B07.0 Plantar wart
CPT/HCPCS: 99396

== ENCOUNTER 2023-07-28 14:42 | Outpatient (AMB) | payer OTHER, SELFPAY ==
[2023-07-28 15:13] VITALS: BP 130/72; PULSE 51; BMI 31.2
--- NOTE | 2023-07-28 15:13 | MHC.OFFVIS ---
Intake Vital Signs 07/28/23 15:13 Height 5 ft 6 in Weight 193 lb 1.999 oz BMI 31.2 BP 130/72 Blood Pressure Location Lt brachial Position Sitting Pulse 51 Intake Visit Reasons: 1 year follow up Intake Note: 1 year f/u patient felling heart rate is being low Allergies adhesive tape Allergy (Intermediate, Verified 07/28/23 15:18) Blister Penicillins Allergy (Intermediate, Verified 07/28/23 15:18) VOMITING sulfamethoxazole [From Bactrim] Allergy (Intermediate, Verified 07/28/23 15:18) RASH trimethoprim [From Bactrim] Allergy (Intermediate, Verified 07/28/23 15:18) RASH Sulfa (Sulfonamide Antibiotics) Allergy (Mild, Verified 07/28/23 15:18) Rash oxycodone Adverse Reaction (Intermediate, Verified 07/28/23 15:18) Nausea and Vomiting Medication List - Last Reconciled 07/28/23 by RACHAEL WinnC albuterol sulfate 90 mcg/actuation (ProAir HFA) 2 puffs inhalation Q4-6H PRN [allergy shots Q month] clotrimazole 1% 1 appl topical BID docusate sodium 100 mg PO BID loratadine (Allergy Relief (loratadine)) 10 mg PO DAILY PRN polyethylene glycol 3350 (Miralax) 17 grams PO 2XW psyllium 1 packet PO DAILY HPI 1 year follow up HPI Details Gricel is a 53-year-old female with past medical history of obesity, hypertension, hyperlipidemia, impaired glucose tolerance, sleep apnea with CPAP use PACs and PVCs, AV heart block seen on Holter monitor who presents for cardiology follow-up. Today she reports that she has been noticing her heart rate running on the slower side recently. She does not feel any different with a lower rate. She denies feeling weak, tired, lightheaded. She wears a watch that alerts her if heart rate goes below 50. She has had rates into the 40s. No presyncope, syncope, falls. No chest discomfort at rest or with activity. No shortness of breath, PND, orthopnea or edema. She has lost significant weight since her last visit here a year ago. She is following with the [facility] bariatric program. She is no longer on metoprolol. She remains compliant with her CPAP mask. 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 [facility] Medical History Obesity (BMI 30-39.9) Mixed hyperlipidemia Benign essential hypertension Asthma BMI 38.0-38.9,adult Family history of anesthesia complication Post-operative nausea and vomiting Motion sickness History of COVID-19 Murmur Pre-op evaluation HTN (hypertension) PAC (premature atrial contraction) PVC (premature ventricular contraction) Elevated cholesterol Right ankle pain Trochanteric bursitis of right hip Annual physical exam Maxillary sinusitis Palpitation Chest pain Morbid obesity Left leg pain Breast cancer screening by mammogram PCOS (polycystic ovarian syndrome) Diverticular disease Asthmatic bronchitis History of torn meniscus of knee Vitamin D deficiency WESLEY on CPAP Aortic valve calcification Chest discomfort Morbid obesity with BMI of 40.0-44.9, adult Surgical History S/P laparoscopic sleeve gastrectomy Hx of excision of mass H/O colonoscopy History of foot surgery History of section Family History Father HTN (hypertension) Prostate cancer Mother HTN (hypertension) Bladder cancer Total knee replacement status History of hip replacement H/O shoulder replacement Sister No problems noted. Sister Arthritis Total knee replacement status Daughter Heart problem Daughter Heart murmur Son No problems noted. Paternal Grandfather Myocardial infarct Paternal Uncle Myocardial infarct Maternal Grandmother Breast cancer Skin cancer Social History Household Members: Spouse and Children Housing: House Are you a primary respiratory care specialist to a significant other at home: No Do you presently have visiting nurse or other home services: No Alcohol intake: current Alcohol intake frequency: holidays/special occasions only Patient Tobacco Use Status: Never used Tobacco e-Cigarette/Vaping Use: Never Used Second Hand Smoke Exposure: No service: No Current occupational status: employed Cognitive needs: No Hearing needs: No Vision needs: Yes (glasses) Review of Systems Const All systems reviewed & are unremarkable except as noted in HPI and below ENT Denies dizziness Card Denies chest pain, Denies chest pain at rest, Denies chest pain with activity, Denies rapid heart rate, Denies pedal edema, Denies edema, Denies leg edema, Denies lightheadedness, Denies palpitations, Denies dyspnea, Denies dyspnea on exertion and Denies orthopnea Resp Denies cough, Denies dyspnea and Denies dyspnea on exertion GI Denies hematochezia and Denies change in stool character Musc Denies abnormal gait, Denies limited range of motion, Denies muscle cramps, Denies muscle weakness, Denies numbness, Denies radiating pain into limb, Denies stiffness and Denies tingling Neuro Denies abnormal gait, Denies dizziness, Denies numbness and Denies tingling Endo Denies palpitations Physical Exam Vital Signs: Last Vital Signs Pulse 51 07/28/23 15:13 BP 130/72 07/28/23 15:13 BMI result Body Mass Index 31.2 Const General: cooperative, healthy appearing, comfortable and no acute distress Orientation/consciousness: patient oriented x3 Neck Neck: Yes normal visual inspection Resp Effort & Inspection: normal respiratory effort Auscultation: clear to auscultation bilaterally, no rales, no rhonchi and no wheezes Cardio Jugular venous distension: no JVD Rate: regular rate Rhythm: regular rhythm Heart sounds: S1 normal heart sound present, S2 normal heart sound present, no murmurs and no rubs Neuro General: patient oriented x3 Extrem General: Yes normal to inspection Psych Appearance: grossly normal Mental Status: mental status grossly normal Speech and movement: Normal speech and movement present Office Procedures EKG Details: Today, read by me, sinus bradycardia, low voltage QRS, QTC 411 milliseconds, rate 51 [id number], Complete Assessment & Plan Assessment & Plan (1) Bradycardia: Comment: (+) Hx of PAC, PVC and AV block - sees cardiology Code(s): R00.1 - Bradycardia, unspecified Plan: History of bradycardia. Exercise stress test done 10/2021 with exercise 6-1/2 minutes with 3 asymptomatic isolated PVCs, no EKG changes of ischemia, normal chronotropic response to exercise. Holter monitor done on 11/23/2021, warm for 13+ days showing sinus rhythm with average heart rate 66, lowest rate 31 with episode of Wenckebach second-degree heart block, low grade ventricular ectopy burden of 0.5%, 5 SVT episodes longest 12 beat, palpitations were associated with SVT. Echocardiogram done 11/23/2021 shows EF 58%, mild calcification of the aortic valve. An EKG done today showing sinus bradycardia, heart rate 51. She had previously been on metoprolol however stopped it post bariatric surgery this past year. She has been noticing that her heart rate does run low at times. She uses a watch to record her heart rates and it will alert her if heart rates are less than 50. She has not had any symptomatic episodes of bradycardia. No presyncope, syncope, falls. Discussed bradycardia, heart blocks with her. She will notify us if she has any concerns and repeat Holter monitor can be done. Emergency care if ever needed for symptoms. Continue to stay off rate slowing medications. Cardiology follow-up in 1 year, sooner if needed (2) PAC (premature atrial contraction): Code(s): I49.1 - Atrial premature depolarization Plan: Short SVT run seen on Holter monitor. Also isolated PACs. No recent concerning heart palpitations. (3) PVC (premature ventricular contraction): Code(s): I49.3 - Ventricular premature depolarization Plan: Isolated PVCs. EF is normal so these are benign. (4) Heart block atrioventricular: Code(s): I44.30 - Unspecified atrioventricular block Plan: Recorded episode of Wenckebach rhythm as seen on Holter monitor. [place] to be related to obesity and underlying obstructive sleep apnea. She has not had any clinical recurrence. She is compliant with CPAP mask. She is following with the bariatric program and has lost significant weight since her last visit with us. (5) WESLEY on CPAP: Code(s): G47.33 - Obstructive sleep apnea (adult) (pediatric); Z99.89 - Dependence on other enabling machines and devices Plan: Compliant (6) Obesity (BMI 30-39.9): Code(s): E66.9 - Obesity, unspecified Coding Level of Care Code Est Pt Level 4 (74781) Diagnoses Bradycardia R00.1 PAC (premature atrial contraction) I49.1 PVC (premature ventricular contraction) I49.3 Heart block atrioventricular I44.30 WESLEY on CPAP G47.33; Z99.89 Obesity (BMI 30-39.9) E66.9 CPT Codes EKG - CPT: 21890-[id number], Complete ([id number]) Time Spent (min) 24
== END 2023-07-28 16:01 | disposition home or self-care (01) ==
PROVIDERS: PCP Internal Medicine; Visit Provider Nurse Practitioner Family
DX: I49.1 Atrial premature depolarization (principal); I49.3 Ventricular premature depolarization; I44.30 Unspecified atrioventricular block; R00.1 Bradycardia, unspecified; G47.33 Obstructive sleep apnea (adult) (pediatric); Z99.89 Dependence on other enabling machines and devices; E66.9 Obesity, unspecified
CPT/HCPCS: 93010; 99214

== ENCOUNTER → 2023-07-28 14:42 | Outpatient (BNVA) | payer OTHER, SELFPAY | PROVIDERS: PCP Internal Medicine; Visit Provider Nurse Practitioner Family | DX: R00.1 Bradycardia, unspecified (principal); I49.1 Atrial premature depolarization; I49.3 Ventricular premature depolarization; I44.30 Unspecified atrioventricular block; G47.33 Obstructive sleep apnea (adult) (pediatric); E66.9 Obesity, unspecified; Z68.31 Body mass index [BMI] 31.0-31.9, adult; Z99.89 Dependence on other enabling machines and devices | CPT/HCPCS: 93005 ==

== ENCOUNTER 2023-07-31 10:42 | Outpatient (AMB) | payer OTHER, SELFPAY ==
--- NOTE | 2023-07-31 10:45 | A.OFFVIS_ITS ---
Intake VS Expanded 07/31/23 10:55 Height 5 ft 6 in Weight 187 lb 3.2 oz BMI 30.2 BP 130/72 Blood Pressure Location Rt brachial Blood Pressure Position Sitting Pulse 100 Pulse Source Pulse Oximeter Temp 97.4 F Temperature Source Tympanic Pulse Oximetry 100 Oxygen Delivery Method Room Air Body Fat 47.4 Body Fat Percentage 25.3 Free Fat Mass 139.8 Muscle Mass 132.8 Visceral Mass 6.0 Water Mass 99.4 BMR 1,844 Intake Visit Reasons: (OV) PO LSG 03/06/23 Allergies adhesive tape Allergy (Intermediate, Verified 07/28/23 15:18) Blister Penicillins Allergy (Intermediate, Verified 07/28/23 15:18) VOMITING sulfamethoxazole [From Bactrim] Allergy (Intermediate, Verified 07/28/23 15:18) RASH trimethoprim [From Bactrim] Allergy (Intermediate, Verified 07/28/23 15:18) RASH Sulfa (Sulfonamide Antibiotics) Allergy (Mild, Verified 07/28/23 15:18) Rash oxycodone Adverse Reaction (Intermediate, Verified 07/28/23 15:18) Nausea and Vomiting Medication List - Last Reconciled 07/31/23 by Natasha Pacheco PA-C albuterol sulfate 90 mcg/actuation (ProAir HFA) 2 puffs inhalation Q4-6H PRN [allergy shots Q month] clotrimazole 1% 1 appl topical BID docusate sodium 100 mg PO BID loratadine (Allergy Relief (loratadine)) 10 mg PO DAILY PRN melatonin 3 mg PO BEDTIME PRN polyethylene glycol 3350 (Miralax) 17 grams PO 2XW psyllium 1 packet PO DAILY HPI HPI Comments History of Present Illness Details 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 Ocassional nausea depending of type of food she eats. Bread makes her nauseous. Vomited once with MVI. No reflux. Saw cardioloigst for bradycardia - HR's in 40's sometimes. Since going on vacation and then being ill - has not restarted good routine. Wakes at 4 am 6:30 - 4;1 shake with UAM or Premier 10am - bar or shake 2pm- alternates with 10 am MR 5pm - 3 oz protein and 3 oz veg, carbs - 1 oz after dinner - pudding protein Exercise - was walking 2 miles daily 15 minutes) at lunch, with ST a few days per week. [facility] Medical History Obesity (BMI 30-39.9) Mixed hyperlipidemia Benign essential hypertension Asthma BMI 38.0-38.9,adult Family history of anesthesia complication Post-operative nausea and vomiting Motion sickness History of COVID-19 Murmur Pre-op evaluation HTN (hypertension) PAC (premature atrial contraction) PVC (premature ventricular contraction) Elevated cholesterol Right ankle pain Trochanteric bursitis of right hip Annual physical exam Maxillary sinusitis Palpitation Chest pain Morbid obesity Left leg pain Breast cancer screening by mammogram PCOS (polycystic ovarian syndrome) Diverticular disease Asthmatic bronchitis History of torn meniscus of knee Vitamin D deficiency WESLEY on CPAP Aortic valve calcification Chest discomfort Morbid obesity with BMI of 40.0-44.9, adult Surgical History S/P laparoscopic sleeve gastrectomy Hx of excision of mass H/O colonoscopy History of foot surgery History of section Family History Father HTN (hypertension) Prostate cancer Mother HTN (hypertension) Bladder cancer Total knee replacement status History of hip replacement H/O shoulder replacement Sister No problems noted. Sister Arthritis Total knee replacement status Daughter Heart problem Daughter Heart murmur Son No problems noted. Paternal Grandfather Myocardial infarct Paternal Uncle Myocardial infarct Maternal Grandmother Breast cancer Skin cancer Social History Household Members: Spouse and Children Housing: House Are you a primary vp care management to a significant other at home: No Do you presently have visiting nurse or other home services: No Alcohol intake: current Alcohol intake frequency: holidays/special occasions only Patient Tobacco Use Status: Never used Tobacco e-Cigarette/Vaping Use: Never Used Second Hand Smoke Exposure: No service: No Current occupational status: employed Cognitive needs: No Hearing needs: No Vision needs: Yes (glasses) Physical Exam Vital Signs: Last Vital Signs Temp 97.4 F 07/31/23 10:55 Pulse 100 07/31/23 10:55 BP 130/72 07/31/23 10:55 Pulse Ox 100 07/31/23 10:55 Oxygen Delivery Method Room Air 07/31/23 10:55 BMI result Body Mass Index 30.2 Assessment & Plan Assessment & Plan (1) Obesity (BMI 30-39.9): Code(s): E66.9 - Obesity, unspecified Plan: Exercise - goal of 2,000 kcals per week walking and ST 3d/ week. Meal plan- 80- 85 grms per day - not more than 6 oz at a meal. Will work on what works best for her, Goal of 2- 2.5 lbs per week. Labs ordered, next appt in 2 months with me. Patient is obese and is not considered stable at this time. I spent 30 minutes in total with patient reviewing/updating records, examining the patient and counseling the patient on weight management as detailed above. (2) Status post sleeve gastrectomy: Comment: March 2023 Code(s): Z90.3 - Acquired absence of stomach [part of] Orders: Orders Zinc Today E66.9 - Obesity, unspecified, Z90.3 - Acquired absence of stomach [part of] Vitamin B1 Today E66.9 - Obesity, unspecified, Z90.3 - Acquired absence of stomach [part of] Vitamin A Today E66.9 - Obesity, unspecified, Z90.3 - Acquired absence of stomach [part of] Insulin Today E66.9 - Obesity, unspecified, Z90.3 - Acquired absence of stomach [part of] IRON PROFILE Today E66.9 - Obesity, unspecified, Z90.3 - Acquired absence of stomach [part of] C Reactive Protein Today E66.9 - Obesity, unspecified, Z90.3 - Acquired absence of stomach [part of] Ferritin Today E66.9 - Obesity, unspecified, Z90.3 - Acquired absence of stomach [part of] PTHI Today E66.9 - Obesity, unspecified, Z90.3 - Acquired absence of stomach [part of] Coding Level of Care Code Est Pt Level 4 (85650) Diagnoses Obesity (BMI 30-39.9) E66.9 Status post sleeve gastrectomy Z90.3
[2023-07-31 10:55] VITALS: BP 130/72; PULSE 100; TEMP 36.3; O2SAT 100; BMI 30.2
== END 2023-07-31 11:45 | disposition home or self-care (01) ==
PROVIDERS: PCP Internal Medicine; Visit Provider Physician Assistant
DX: E66.9 Obesity, unspecified (principal); Z68.30 Body mass index [BMI] 30.0-30.9, adult; Z90.3 Acquired absence of stomach [part of]; Z98.84 Bariatric surgery status
CPT/HCPCS: 99214

== ENCOUNTER → 2023-07-31 10:42 | Outpatient (BNVA) | payer OTHER, SELFPAY | PROVIDERS: PCP Internal Medicine; Visit Provider Physician Assistant ==

== ENCOUNTER 2023-10-15 06:08 | Outpatient (REF) | payer OTHER, SELFPAY ==
[2023-10-15 07:49] LABS: Estimated Average Glucose 103 mg/dL; Hemoglobin A1C 125.4447 umol/L; Hemoglobin A1c % 5.2 % (<6.0)
[2023-10-15 07:59] LABS: C Reactive Protein 0.12 mg/dL (< or = 0.50); Iron 104 mcg/dL (30-160); Percent Iron Saturation 32 % (15-50); Total Iron Binding Capacity 321 mcg/dL (228-428); Unsaturated Iron Binding 217 ug/dL
[2023-10-15 08:27] LABS: Ferritin 166 ng/mL (10-250); Insulin 10 uU/mL (2-29)
[2023-10-15 11:30] LABS: Folate 16.6 ng/mL (> or = 4.0); Vitamin B12 878 pg/mL (200-900)
[2023-10-18 02:09] LABS: Zinc 91 mcg/dL (60-130)
== END 2023-10-15 06:09 | disposition home or self-care (01) ==
LOC: HO.LAB 06:08
PROVIDERS: Absent Provider Internal Medicine; PCP Internal Medicine; Visit Provider Physician Assistant
DX: B07.0 Plantar wart (principal); E66.9 Obesity, unspecified; Z90.3 Acquired absence of stomach [part of]
CPT/HCPCS: 36415; 82607; 82728; 82746; 83036; 83525; 83540; 84630; 86140

== ENCOUNTER 2023-10-22 14:04 | Outpatient (AMB) | payer OTHER, SELFPAY ==
--- NOTE | 2023-10-22 13:16 | A.OFFVIS_ITS ---
Intake VS Expanded 10/22/23 13:17 10/22/23 14:47 BP 140/73 H Blood Pressure Location Lt brachial Blood Pressure Position Sitting Pulse 63 Pulse Source Pulse Oximeter Temp 98.2 F Temperature Source Temporal Artery Scan Pulse Oximetry 97 Oxygen Delivery Method Room Air Height 5 ft 6 in 5 ft 6 in Weight 181 lb 4 oz 181 lb 9.6 oz BMI 29.3 29.3 Body Fat % 26.2 Body Fat Mass 47.6 Fat Free Mass 133.8 Visceral Fat Rating 6.0 Body Water % 52.4 Body Water Mass 95.0 Muscle Mass/Score 127.0 Basal Metabolic Rate/Score 1,767 Intake Visit Reasons: (OV) PO LSG 03/06/23 Intake Note: Patient is seen in office for office visit, post LSG 03/06/23. Fur Stylist Required: No Accompanied by: Self / Same As Patient Allergies adhesive tape Allergy (Intermediate, Verified 10/22/23 14:50) Blister Penicillins Allergy (Intermediate, Verified 10/22/23 14:50) VOMITING sulfamethoxazole [From Bactrim] Allergy (Intermediate, Verified 10/22/23 14:50) RASH trimethoprim [From Bactrim] Allergy (Intermediate, Verified 10/22/23 14:50) RASH Sulfa (Sulfonamide Antibiotics) Allergy (Mild, Verified 10/22/23 14:50) Rash oxycodone Adverse Reaction (Intermediate, Verified 10/22/23 14:50) Nausea and Vomiting Medication List - Last Reconciled 10/22/23 by Natasha Pacheco PA-C albuterol sulfate 90 mcg/actuation (ProAir HFA) 2 puffs inhalation Q4-6H PRN [allergy shots Q month] clotrimazole 1% 1 appl topical BID docusate sodium 100 mg PO BID loratadine (Allergy Relief (loratadine)) 10 mg PO DAILY PRN melatonin 3 mg PO BEDTIME PRN polyethylene glycol 3350 (Miralax) 17 grams PO 2XW psyllium 1 packet PO DAILY HPI HPI Comments History of Present Illness Details 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 Exercise - goal of 2,000 kcals per week, and ST 3d/ week. Treadmill or Elliptical - 3d/wk - ? calories, Meal plan- 80- 85 grms per day - not more than 6 oz at a meal. typically Two - 7am and 10 am 4:1 shakes, 2 scoops with UAm 2pm - another shake 4-5 d/ week 5-7 pm- 3-4 oz protein and 2-3 oz vegeta ble bar after dinner - 3-4d/week. Will work on what works best for her, Goal of 2- 2.5 lbs per week. [facility]ENDING SALE TO [facility] Medical History Obesity (BMI 30-39.9) Mixed hyperlipidemia Benign essential hypertension Asthma BMI 38.0-38.9,adult Family history of anesthesia complication Post-operative nausea and vomiting Motion sickness History of COVID-19 Murmur Pre-op evaluation HTN (hypertension) PAC (premature atrial contraction) PVC (premature ventricular contraction) Elevated cholesterol Right ankle pain Trochanteric bursitis of right hip Annual physical exam Maxillary sinusitis Palpitation Chest pain Morbid obesity Left leg pain Breast cancer screening by mammogram PCOS (polycystic ovarian syndrome) Diverticular disease Asthmatic bronchitis History of torn meniscus of knee Vitamin D deficiency WESLEY on CPAP Aortic valve calcification Chest discomfort Morbid obesity with BMI of 40.0-44.9, adult Surgical History S/P laparoscopic sleeve gastrectomy Hx of excision of mass H/O colonoscopy History of foot surgery History of section Family History Father HTN (hypertension) Prostate cancer Mother HTN (hypertension) Bladder cancer Total knee replacement status History of hip replacement H/O shoulder replacement Sister No problems noted. Sister Arthritis Total knee replacement status Daughter Heart problem Daughter Heart murmur Son No problems noted. Paternal Grandfather Myocardial infarct Paternal Uncle Myocardial infarct Maternal Grandmother Breast cancer Skin cancer Social History Household Members: Spouse and Children Housing: House Are you a primary career services director to a significant other at home: No Do you presently have visiting nurse or other home services: No Alcohol intake: current Alcohol intake frequency: holidays/special occasions only Patient Tobacco Use Status: Never used Tobacco e-Cigarette/Vaping Use: Never Used Second Hand Smoke Exposure: No service: No Current occupational status: employed Cognitive needs: No Hearing needs: No Vision needs: Yes (glasses) Physical Exam Vital Signs: BMI result Body Mass Index 29.3 Assessment & Plan Assessment & Plan (1) Overweight (BMI 25.0-29.9): Code(s): E66.3 - Overweight Plan: EatingPatient is morbidly obese and is not considered stable at this time. I spent 30 minutes in total with patient reviewing/updating records, examining the patient and counseling the patient on weight management as detailed above. too frequently and getting too much protien. Wants to get to 155 lbs. 7am - 4:1 11am - 4:1 3pm - cpl bites of bar if needed 6=7 pm - 3 oz and 3 oz cpl bites of bar if needed. Exercise - needs more. 4d/ cardio and [address] per week, 2,000 mireya for contienued weigh tloss Will get rest of post op labs now - lab made error. Appt with Rachell in 3 weeks, me at 9 months. (2) Status post sleeve gastrectomy: Comment: March 2023 Code(s): Z90.3 - Acquired absence of stomach [part of] Plan see above Orders: Orders Insulin Today E66.3 - Overweight, Z90.3 - Acquired absence of stomach [part of] Lipid Panel Today E66.3 - Overweight, Z90.3 - Acquired absence of stomach [part of] Comprehensive Met. Panel Today E66.3 - Overweight, Z90.3 - Acquired absence of stomach [part of] Vitamin B12 and Folate Today E66.3 - Overweight, Z90.3 - Acquired absence of stomach [part of] Zinc Today E66.3 - Overweight, Z90.3 - Acquired absence of stomach [part of] C Reactive Protein Today E66.3 - Overweight, Z90.3 - Acquired absence of stomach [part of] TSH reflex Free T4 Today E66.3 - Overweight, Z90.3 - Acquired absence of stomach [part of] Vitamin D 25-OH Total Today E66.3 - Overweight, Z90.3 - Acquired absence of stomach [part of] Hemoglobin A1c Today E66.3 - Overweight, Z90.3 - Acquired absence of stomach [part of] Complete Blood Count Auto Diff Today E66.3 - Overweight, Z90.3 - Acquired absence of stomach [part of] Coding Level of Care Code Est Pt Level 4 (29615) Diagnoses Overweight (BMI 25.0-29.9) E66.3 Status post sleeve gastrectomy Z90.3
[2023-10-22 13:17] VITALS: BMI 29.3
[2023-10-22 14:47] VITALS: BP 140/73; PULSE 63; TEMP 36.8; O2SAT 97; BMI 29.3
== END 2023-10-22 15:15 | disposition home or self-care (01) ==
PROVIDERS: PCP Internal Medicine; Visit Provider Physician Assistant
DX: E66.3 Overweight (principal); Z68.29 Body mass index [BMI] 29.0-29.9, adult; Z90.3 Acquired absence of stomach [part of]; Z98.84 Bariatric surgery status
CPT/HCPCS: 99214

== ENCOUNTER → 2023-10-22 14:04 | Outpatient (BNVA) | payer OTHER, SELFPAY | PROVIDERS: PCP Internal Medicine; Visit Provider Physician Assistant ==

== ENCOUNTER 2023-10-23 09:13 | Outpatient (REF) | payer OTHER, SELFPAY ==
[2023-10-23 09:53] LABS: MANUAL DIFF FLAG NO
[2023-10-23 10:19] LABS: Basophils Percent Auto 0.7 % (0-2); Eosinophils Absolute Auto 0.1 X10*3/uL (0.0-0.4); Eosinophils Percent Auto 2.6 % (0-4); Hematocrit 43.8 % (37.0-47.0); Hemoglobin 14.3 g/dl (12.0-16.0); Imm Gran Abs Auto 0.01 X10*3/uL (0.00-0.03); Imm Gran Pct Auto 0.2 % (0.0-0.4); Lymphocytes Absolute Auto 1.4 X10*3/uL (1.2-4.9); Lymphocytes Percent Auto 25.6 % (20-40); Mean Corpuscular HGB Conc 32.6 g/dl (31.0-35.0); Mean Corpuscular Hemoglobin 30.2 pg (27.0-33.0); Mean Corpuscular Volume 92.4 fL (80.0-98.0); Mean Platelet Volume 9.4 fL (9.4-12.3); Monocytes Absolute Auto 0.5 X10*3/uL (0.1-1.2); Monocytes Percent Auto 8.7 % (2-11); Neutrophils Absolute Auto 3.4 x10*3/uL (2.0-8.3); Neutrophils Percent Auto 62.2 % (45-73); Platelet Count 271 X10*3/uL (160-400); Red Blood Count 4.74 X10*6/uL (4.20-5.50); Red Cell Distribution Width 12.3 % (11.0-16.0); White Blood Count 5.4 X10*3/uL (4.8-10.8)
[2023-10-23 11:03] LABS: Estimated Average Glucose 103 mg/dL; Hemoglobin A1c % 5.2 % (<6.0)
[2023-10-23 11:24] LABS: Folate 14.9 ng/mL (> or = 4.0); Vitamin B12 1017 pg/mL (200-900)
[2023-10-26 17:14] LABS: Zinc 87 mcg/dL (60-130)
[2023-10-28 03:38] LABS: Vitamin A 50 mcg/dL (38-98)
[2023-10-28 15:48] LABS: Vitamin B1 25 nmol/L (8-30)
== END 2023-10-23 09:14 | disposition home or self-care (01) ==
LOC: HO.LAB 09:13
PROVIDERS: PCP Internal Medicine; Referring Provider Internal Medicine; Visit Provider Physician Assistant
DX: E66.9 Obesity, unspecified (principal); E66.3 Overweight; Z90.3 Acquired absence of stomach [part of]
CPT/HCPCS: 36415; 80053; 80061; 82306; 82607; 82746; 83036; 83525; 84425; 84443; 84590; 84630; 85025; 86140

== ENCOUNTER 2023-11-14 10:44 | Outpatient (AMB) | payer OTHER, SELFPAY ==
[2023-11-14 11:48] VITALS: BMI 29.4
--- NOTE | 2023-11-14 11:48 | MHC.AMNUTRGE ---
Intake VS Expanded 11/14/23 11:48 Height 5 ft 6 in Weight 182 lb BMI 29.4 Intake Visit Reasons: (OV) PO LSG 03/06/23 Allergies adhesive tape Allergy (Intermediate, Verified 10/22/23 14:50) Blister Penicillins Allergy (Intermediate, Verified 10/22/23 14:50) VOMITING sulfamethoxazole [From Bactrim] Allergy (Intermediate, Verified 10/22/23 14:50) RASH trimethoprim [From Bactrim] Allergy (Intermediate, Verified 10/22/23 14:50) RASH Sulfa (Sulfonamide Antibiotics) Allergy (Mild, Verified 10/22/23 14:50) Rash oxycodone Adverse Reaction (Intermediate, Verified 10/22/23 14:50) Nausea and Vomiting HPI Nutrition Presentation Details [facility] [place] 03/06/23 Diet Assmnt Details She is currently having twso 4in1 shakes 2 scoops with almond milk = 50g protein and a meal of mainly protein and veg. Today she is seeking ideas for more variety , minimal preparation meal ideas, and how to get more protein. She is using UAM but really enjoys regular milk. Pt is a very busy mother, and has a demanding job (sometimes works over 12 hours/day). 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 Pt speaks about her PCOS and noticing certain foods don't make her feel great. She reoprts her goal weight is 155 which would mean losing another 25#. body comp shows body fat percentage roughly 25% Monitoring/Goals Nutrition problem monitoring total energy intake, level of knowledge/skill, total PRO intake and weight Outcome progress progressing Learning/Education Readiness to learn excellent Stages of change action Educational materials provided Yes Most Recent Diabetes Results: No Data to Display [facility] Medical History Obesity (BMI 30-39.9) Mixed hyperlipidemia Benign essential hypertension Asthma BMI 38.0-38.9,adult Family history of anesthesia complication Post-operative nausea and vomiting Motion sickness History of COVID-19 Murmur Pre-op evaluation HTN (hypertension) PAC (premature atrial contraction) PVC (premature ventricular contraction) Elevated cholesterol Right ankle pain Trochanteric bursitis of right hip Annual physical exam Maxillary sinusitis Palpitation Chest pain Morbid obesity Left leg pain Breast cancer screening by mammogram PCOS (polycystic ovarian syndrome) Diverticular disease Asthmatic bronchitis History of torn meniscus of knee Vitamin D deficiency WESLEY on CPAP Aortic valve calcification Chest discomfort Morbid obesity with BMI of 40.0-44.9, adult Surgical History S/P laparoscopic sleeve gastrectomy Hx of excision of mass H/O colonoscopy History of foot surgery History of section Family History Father HTN (hypertension) Prostate cancer Mother HTN (hypertension) Bladder cancer Total knee replacement status History of hip replacement H/O shoulder replacement Sister No problems noted. Sister Arthritis Total knee replacement status Daughter Heart problem Daughter Heart murmur Son No problems noted. Paternal Grandfather Myocardial infarct Paternal Uncle Myocardial infarct Maternal Grandmother Breast cancer Skin cancer Social History Household Members: Spouse and Children Housing: House Are you a primary director of patient care to a significant other at home: No Do you presently have visiting nurse or other home services: No Alcohol intake: current Alcohol intake frequency: holidays/special occasions only Patient Tobacco Use Status: Never used Tobacco e-Cigarette/Vaping Use: Never Used Second Hand Smoke Exposure: No service: No Current occupational status: employed Cognitive needs: No Hearing needs: No Vision needs: Yes (glasses) Assessment & Plan Assessment & Plan (1) Overweight (BMI 25.0-29.9): Code(s): E66.3 - Overweight Plan pt will communicate with office for another appt if desired. Patient Instructions: Discussion regarding body composition and realistic expectations - her body fat percentage is in the healthy range currently. Encouraged focusing on how heaving healthy habits make her feel, engaging in resistance training, and taking off the self induced pressure for further weight loss. Provided long list of ideas for easy meals and snacks which she found very helpful. gave ideas for easy meal prep and having healthy foods as options. Coding Level of Care Code Nutr Indiv Subseq (23670) Diagnoses Overweight (BMI 25.0-29.9) E66.3 Time Spent (min) 50
== END 2023-11-14 14:23 | disposition home or self-care (01) ==
PROVIDERS: PCP Internal Medicine; Visit Provider Dietitian, Registered
DX: E66.3 Overweight (principal)

== ENCOUNTER → 2023-11-14 10:44 | Outpatient (BNVA) | payer OTHER, SELFPAY | PROVIDERS: PCP Internal Medicine; Visit Provider Dietitian, Registered | DX: E66.3 Overweight (principal); Z90.3 Acquired absence of stomach [part of]; Z71.3 Dietary counseling and surveillance | CPT/HCPCS: 97803 ==

== ENCOUNTER 2023-11-18 13:31 | Outpatient (AMB) | payer OTHER, SELFPAY ==
[2023-11-18 13:33] VITALS: BP 138/82; PULSE 59; O2SAT 99
--- NOTE | 2023-11-18 13:33 | A.OFFPC_ITS ---
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 Allergies adhesive tape Allergy (Intermediate, Verified 11/18/23 13:33) Blister Penicillins Allergy (Intermediate, Verified 11/18/23 13:33) VOMITING sulfamethoxazole [From Bactrim] Allergy (Intermediate, Verified 11/18/23 13:33) RASH trimethoprim [From Bactrim] Allergy (Intermediate, Verified 11/18/23 13:33) RASH Sulfa (Sulfonamide Antibiotics) Allergy (Mild, Verified 11/18/23 13:33) Rash oxycodone Adverse Reaction (Intermediate, Verified 11/18/23 13:33) Nausea and Vomiting Medication List - Last Reconciled 11/18/23 by Ailyn Decker Po, albuterol sulfate 90 mcg/actuation (ProAir HFA) 2 puffs inhalation Q4-6H PRN [allergy shots Q month] clotrimazole 1% 1 appl topical BID docusate sodium 100 mg PO BID doxycycline hyclate 100 mg PO BID loratadine (Allergy Relief (loratadine)) 10 mg PO DAILY PRN melatonin 3 mg PO BEDTIME PRN polyethylene glycol 3350 (Miralax) 17 grams PO 2XW psyllium 1 packet PO DAILY Tobacco use date assessed: 11/18/23 Dental Screening Dental Screen Date: 11/18/23 HPI 6 month f/u HPI Details 53-year-old obese female with a history of post sleeve gastrectomy February 2023, hypertension GERD hypercholesterolemia obstructive sleep apnea coming in for follow-up. Last seen in June 2023 for physical exam. Mammogram is up-to-date colonoscopy is up-to-date 11/14/2019 years. Review of the notes has seen Cardiology having palpitations no further treatment for now. sinus congestion with LUCAS, . not sleeping well , PFSH Medical History Obesity (BMI 30-39.9) Mixed hyperlipidemia Benign essential hypertension Asthma BMI 38.0-38.9,adult Family history of anesthesia complication Post-operative nausea and vomiting Motion sickness History of COVID-19 Murmur Pre-op evaluation HTN (hypertension) PAC (premature atrial contraction) PVC (premature ventricular contraction) Elevated cholesterol Right ankle pain Trochanteric bursitis of right hip Annual physical exam Maxillary sinusitis Palpitation Chest pain Morbid obesity Left leg pain Breast cancer screening by mammogram PCOS (polycystic ovarian syndrome) Diverticular disease Asthmatic bronchitis History of torn meniscus of knee Vitamin D deficiency WESLEY on CPAP Aortic valve calcification Chest discomfort Morbid obesity with BMI of 40.0-44.9, adult Surgical History S/P laparoscopic sleeve gastrectomy Hx of excision of mass H/O colonoscopy History of foot surgery History of section Family History Father HTN (hypertension) Prostate cancer Mother HTN (hypertension) Bladder cancer Total knee replacement status History of hip replacement H/O shoulder replacement Sister No problems noted. Sister Arthritis Total knee replacement status Daughter Heart problem Daughter Heart murmur Son No problems noted. Paternal Grandfather Myocardial infarct Paternal Uncle Myocardial infarct Maternal Grandmother Breast cancer Skin cancer Social History Household Members: Spouse and Children Housing: House Are you a primary urgent care nurse practitioner to a significant other at home: No Do you presently have visiting nurse or other home services: No Alcohol intake: current Alcohol intake frequency: holidays/special occasions only Patient Tobacco Use Status: Never used Tobacco e-Cigarette/Vaping Use: Never Used Second Hand Smoke Exposure: No service: No Current occupational status: employed Cognitive needs: No Hearing needs: No Vision needs: Yes (glasses) Questionnaire PHQ-9 Over the last 2 weeks, how often have you been bothered by any of the following problems? 1. Little interest or pleasure in doing things: not at all 2. Feeling down, depressed, or hopeless: not at all 3. Trouble falling or staying asleep, or sleeping too much: not at all 4. Feeling tired or having little energy: not at all 5. Poor appetite or overeating: not at all 6. Feeling bad about yourself - or that you are a failure or have let yourself or your family down: not at all 7. Trouble concentrating on things, such as reading the newspaper or watching television: not at all 8. Moving or speaking so slowly that other people could have noticed. Or the opposite - being so fidgety or restless that you have been moving around a lot more than usual: not at all 9. Thoughts that you would be better off or of hurting yourself in some way: not at all Total score: 0 Depression Screening Interpretation: Negative Depression Screening Done: Yes 53764 - PHQ-9 Billing: Yes Source: Developed by Drs. Alex Lutz, Michele Sequeira and colleagues, with an educational derrek from [employer]. Thrive Questionnaire Date Thrive assessed: 03/19/23 AUDIT C Alcohol Use Questionnaire (AUDIT-C) 1. How often do you have a drink containing alcohol?: Monthly or less 2. How many drinks containing alcohol do you have on a typical day when you are drinking?: 1 or 2 3. How often do you have six or more drinks on one occasion?: Never Total Score: 1 Score Reviewed/Action Taken: Yes CRISTA-7 AMB Questionnaire CRISTA-7 Date CRISTA - 7 assessed: 11/18/23 Source: Developed by Drs. Alex Lutz, Marylou Garcia, Michele Santillan and colleagues, with an educational derrek from [employer]. Physical exam (Primary Care) Vital Signs: Last Vital Signs Pulse 59 11/18/23 13:33 BP 138/82 11/18/23 13:33 Pulse Ox 99 11/18/23 13:33 Oxygen Delivery Method Room Air 11/18/23 13:33 BMI result Body Mass Index 30.0 Tobacco/Smoking Status: Tobacco use Status Tobacco use date assessed 11/18/23 11/18/23 13:37 Patient Tobacco Use Status Never used Tobacco 11/18/23 13:37 e-Cigarette/Vaping Use Never Used 11/18/23 13:37 PHQ-9: PHQ-9 Score PHQ-9: Total score 0 11/18/23 13:37 Depression Screening Interpretation: Negative Thrive Assessment: Date of Thrive Assessment Date Thrive assessed 03/19/23 11/18/23 13:37 Const General: alert; No acute distress Eyes Conjunctivae: conjunctivae normal Resp Auscultation: clear to auscultation bilaterally Cardio Rate: regular rate Rhythm: regular rhythm GI Inspection: Yes normal to inspection Extrem General: Yes normal to inspection and No edema Assessment and Plan Assessment & Plan (1) Status post sleeve gastrectomy: Comment: March 2023 Code(s): Z90.3 - Acquired absence of stomach [part of] Plan: Continues to follow-up with weight management (2) Obesity (BMI 30-39.9): Code(s): E66.9 - Obesity, unspecified Plan: Continue with diet and exercise (3) Bradycardia: Comment: (+) Hx of PAC, PVC and AV block - sees cardiology Code(s): R00.1 - Bradycardia, unspecified Plan: Patient has seen Cardiology and seen yearly. Asymptomatic and will continue to monitor (4) Benign essential hypertension: Code(s): I10 - Essential (primary) hypertension Plan: Continue with blood pressure medication. Decrease salt intake and exercise blood pressure has been under control without any medication (5) Asthma: Code(s): J45.909 - Unspecified asthma, uncomplicated Qualifiers: Asthma severity: mild Asthma persistence: intermittent Asthma complication type: uncomplicated Qualified Code(s): J45.20 - Mild intermittent asthma, uncomplicated Plan: Continue with the inhaler as needed (6) GERD (gastroesophageal reflux disease): Code(s): K21.9 - Gastro-esophageal reflux disease without esophagitis Qualifiers: Esophagitis presence: without esophagitis Qualified Code(s): K21.9 - Gastro-esophageal reflux disease without esophagitis Plan: GERD plan (7) WESLEY on CPAP: Comment: CPAP use Code(s): G47.33 - Obstructive sleep apnea (adult) (pediatric); Z99.89 - Dependence on other enabling machines and devices Plan: Continue to use the CPAP more than 4 hours a night and benefits from this (8) Nasal congestion: Code(s): R09.81 - Nasal congestion Orders: Orders Comprehensive Met. Panel 3 Months E78.00 - Pure hypercholesterolemia, unspecified Hemoglobin A1c 3 Months E78.00 - Pure hypercholesterolemia, unspecified Magnesium 3 Months E78.00 - Pure hypercholesterolemia, unspecified Complete Blood Count Auto Diff 3 Months E78.00 - Pure hypercholesterolemia, unspecified Lipid Panel 3 Months E78.00 - Pure hypercholesterolemia, unspecified Free T4 (Free Thyroxine) 3 Months E78.00 - Pure hypercholesterolemia, unspecified Thyroid Stimulating Hormone 3 Months E78.00 - Pure hypercholesterolemia, u nspecified Vitamin B12 and Folate 3 Months E78.00 - Pure hypercholesterolemia, unspecified Vitamin D 25-OH Total 3 Months E78.00 - Pure hypercholesterolemia, unspecified Vitamin A 3 Months E78.00 - Pure hypercholesterolemia, unspecified Medications: New doxycycline hyclate 100 mg PO BID 14 caps 0RF R09.81 - Nasal congestion Coding Level of Care Code Est Pt Level 4 (93686) Diagnoses Status post sleeve gastrectomy Z90.3 Obesity (BMI 30-39.9) E66.9 Bradycardia R00.1 Benign essential hypertension I10 Mild intermittent asthma without complication J45.20 Asthma severity: mild Asthma persistence: intermittent Asthma complication type: uncomplicated Gastroesophageal reflux disease without esophagitis K21.9 Esophagitis presence: without esophagitis WESLEY on CPAP G47.33; Z99.89 Nasal congestion R09.81
== END 2023-11-18 14:30 | disposition home or self-care (01) ==
PROVIDERS: PCP Internal Medicine; Visit Provider Internal Medicine
DX: R00.1 Bradycardia, unspecified (principal); Z90.3 Acquired absence of stomach [part of]; E66.9 Obesity, unspecified; Z68.30 Body mass index [BMI] 30.0-30.9, adult; I10 Essential (primary) hypertension; J45.20 Mild intermittent asthma, uncomplicated; K21.9 Gastro-esophageal reflux disease without esophagitis; G47.33 Obstructive sleep apnea (adult) (pediatric); Z99.89 Dependence on other enabling machines and devices; R09.81 Nasal congestion
CPT/HCPCS: 99214

== ENCOUNTER 2024-01-09 09:30 | Outpatient (AMB) | payer OTHER, SELFPAY ==
--- NOTE | 2024-01-09 09:36 | A.OFFVIS_ITS ---
Intake VS Expanded 01/09/24 09:48 Height 5 ft 6 in Weight 185 lb 8 oz BMI 29.9 Intake Visit Reasons: (TV) PO LSG 03/06/23 Allergies adhesive tape Allergy (Intermediate, Verified 11/18/23 13:33) Blister Penicillins Allergy (Intermediate, Verified 11/18/23 13:33) VOMITING sulfamethoxazole [From Bactrim] Allergy (Intermediate, Verified 11/18/23 13:33) RASH trimethoprim [From Bactrim] Allergy (Intermediate, Verified 11/18/23 13:33) RASH Sulfa (Sulfonamide Antibiotics) Allergy (Mild, Verified 11/18/23 13:33) Rash oxycodone Adverse Reaction (Intermediate, Verified 11/18/23 13:33) Nausea and Vomiting Medication List - Last Reconciled 01/09/24 by Natasha Pacheco PA-C albuterol sulfate 90 mcg/actuation (ProAir HFA) 2 puffs inhalation Q4-6H PRN albuterol sulfate 2.5 mg (3 mL) inhalation QID [allergy shots Q month] clotrimazole 1% 1 appl topical BID docusate sodium 100 mg PO BID loratadine (Allergy Relief (loratadine)) 10 mg PO DAILY PRN polyethylene glycol 3350 (Miralax) 17 grams PO 2XW psyllium 1 packet PO DAILY HPI HPI Comments History of Present Illness Details Pt is now 10 months s/p LSG. 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 Having BM's every daily or every other day small amounts and hard to pass, has bloating. Takes psyllium powder daily, magnesium supplements and then takes Miralax a few days per week for full evacuation. Has had chronic constipation before surgery. Was on prednsione for URI until early December. Also has perimenopausal, struggling with weigh loss. Water intake 36 oz per day. Drinks caffeine occasionally. Wakes at 4:30 and has 12 oz water. 6:30 am - Celebrate 4:1 2 scoops with UA M 11:30 - same shake or bar 4pm - either the second 4:1 shake or a b ar 6pm - 3-4 oz each of protein and vegetab les May have a bar after dinner if hungry. Exercise - Really loves - mini trampoline workouts 20 minutes, 3d/week (mei 200 - 300). stretches and ST exercises daily - 15 - 20 minutes. Does various cardio exercises throughout the week. [facility] Medical History Obesity (BMI 30-39.9) Mixed hyperlipidemia Benign essential hypertension Asthma BMI 38.0-38.9,adult Family history of anesthesia complication Post-operative nausea and vomiting Motion sickness History of COVID-19 Murmur Pre-op evaluation HTN (hypertension) PAC (premature atrial contraction) PVC (premature ventricular contraction) Elevated cholesterol Right ankle pain Trochanteric bursitis of right hip Annual physical exam Maxillary sinusitis Palpitation Chest pain Morbid obesity Left leg pain Breast cancer screening by mammogram PCOS (polycystic ovarian syndrome) Diverticular disease Asthmatic bronchitis History of torn meniscus of knee Vitamin D deficiency WESLEY on CPAP Aortic valve calcification Chest discomfort Morbid obesity with BMI of 40.0-44.9, adult Surgical History S/P laparoscopic sleeve gastrectomy Hx of excision of mass H/O colonoscopy History of foot surgery History of section Family History Father HTN (hypertension) Prostate cancer Mother HTN (hypertension) Bladder cancer Total knee replacement status History of hip replacement H/O shoulder replacement Sister No problems noted. Sister Arthritis Total knee replacement status Daughter Heart problem Daughter Heart murmur Son No problems noted. Paternal Grandfather Myocardial infarct Paternal Uncle Myocardial infarct Maternal Grandmother Breast cancer Skin cancer Social History Household Members: Spouse and Children Housing: House Are you a primary patient centered care specialist to a significant other at home: No Do you presently have visiting nurse or other home services: No Alcohol intake: current Alcohol intake frequency: holidays/special occasions only Patient Tobacco Use Status: Never used Tobacco e-Cigarette/Vaping Use: Never Used Second Hand Smoke Exposure: No service: No Current occupational status: employed Cognitive needs: No Hearing needs: No Vision needs: Yes (glasses) Assessment & Plan Assessment & Plan (1) Overweight (BMI 25.0-29.9): Code(s): E66.3 - Overweight Plan: LSG 10 months doing well but needs some changes to her meal and exercise plans. Will add coffee and fruit for more fiber. Work on 8 hours sleep per night also. 6:30 - Celebrate 4:1 with 4- 6 oz coffee and the rest UAM 10:30 - shake without coffee or bar 2;30 pm - shake without coffee or bar - 1/2 c fruit 6pm - 3-4 oz each protein and vegetable Exercise - Pilates 3 d/ week. Cardio - 1800 - 2000 mireya/week. Will get post op labs done mid February. Next aptp for 1 year post op with Aminta. I spent 30 minutes in total speaking with the patient via video conference counseling , reviewing records and charting in patients chart. . (2) Status post sleeve gastrectomy: Comment: March 2023 Code(s): Z90.3 - Acquired absence of stomach [part of] (3) Chronic constipation: Code(s): K59.09 - Other constipation Plan see above Orders: Orders Complete Blood Count Auto Diff Today E66.3 - Overweight, K59.09 - Other constipation Telehealth Telehealth Location of provider rendering services: practice address Location of patient: address on file Patient Identification confirmed using: Name, : Yes Telehealth method: video Patient verbally consented to treatment: Yes Patient verbally consented to billing insurance company: Yes Patient informed of any privacy concerns related to visit: Yes Coding Level of Care Code Tele Est Pt Level 4 (85934) Diagnoses Overweight (BMI 25.0-29.9) E66.3 Status post sleeve gastrectomy Z90.3 Chronic constipation K59.09
[2024-01-09 09:48] VITALS: BMI 29.9
== END 2024-01-09 10:18 | disposition home or self-care (01) ==
LOC: HO.HBS 09:46
PROVIDERS: PCP Internal Medicine; Visit Provider Physician Assistant
DX: E66.3 Overweight (principal); Z90.3 Acquired absence of stomach [part of]; K59.09 Other constipation
CPT/HCPCS: 99214

== ENCOUNTER → 2024-01-09 09:30 | Outpatient (BNVA) | payer OTHER, SELFPAY | PROVIDERS: PCP Internal Medicine; Visit Provider Physician Assistant | DX: E66.3 Overweight (principal); Z90.3 Acquired absence of stomach [part of] ==

== ENCOUNTER 2024-03-03 07:26 | Outpatient (REF) | payer OTHER, SELFPAY | END 2024-03-03 07:27 | disposition home or self-care (01) | LOC: HO.MAMMO 07:26 | PROVIDERS: PCP Internal Medicine; Visit Provider Internal Medicine | DX: Z12.31 Encounter for screening mammogram for malignant neoplasm of breast (principal) | CPT/HCPCS: 77063; 77067 ==

== ENCOUNTER → 2024-03-03 07:30 | Outpatient (BNV) | payer OTHER, SELFPAY | PROVIDERS: PCP Internal Medicine; Visit Provider Radiology Diagnostic Radiology | DX: Z12.31 Encounter for screening mammogram for malignant neoplasm of breast (principal) | CPT/HCPCS: 77063; 77067 ==

== ENCOUNTER 2024-04-14 14:49 | Outpatient (AMB) | payer OTHER, SELFPAY ==
--- NOTE | 2024-04-14 14:56 | A.OFFVIS_ITS ---
VS Expanded 04/14/24 15:02 BP 153/86 H Blood Pressure Location Rt brachial Blood Pressure Position Sitting Pulse 57 Pulse Source Pulse Oximeter Temp 97.4 F Temperature Source Tympanic Pulse Oximetry 96 Oxygen Delivery Method Room Air Height 5 ft 6 in Weight 189 lb 6.4 oz BMI 30.6 Body Fat % 27.1 Body Fat Mass 51.4 Fat Free Mass 138.0 Visceral Fat Rating 7.0 Body Water % 51.8 Body Water Mass 98.2 Muscle Mass/Score 131.0 Basal Metabolic Rate/Score 1,828 Intake Visit Reasons: (OV) PO LSG 03/06/23 Allergies adhesive tape Allergy (Intermediate, Verified 04/14/24 15:06) Blister Penicillins Allergy (Intermediate, Verified 04/14/24 15:06) VOMITING sulfamethoxazole [From Bactrim] Allergy (Intermediate, Verified 04/14/24 15:06) RASH trimethoprim [From Bactrim] Allergy (Intermediate, Verified 04/14/24 15:06) RASH Sulfa (Sulfonamide Antibiotics) Allergy (Mild, Verified 04/14/24 15:06) Rash oxycodone Adverse Reaction (Intermediate, Verified 04/14/24 15:06) Nausea and Vomiting Medication List - Last Reconciled 04/14/24 by FERDINAND Arroyo albuterol sulfate 90 mcg/actuation (ProAir HFA) 2 puffs inhalation Q4-6H PRN albuterol sulfate 2.5 mg (3 mL) inhalation QID [allergy shots Q month] clotrimazole 1% 1 appl topical BID docusate sodium 100 mg PO BID loratadine (Allergy Relief (loratadine)) 10 mg PO DAILY PRN oseltamivir (Tamiflu) 75 mg PO DAILY polyethylene glycol 3350 (Miralax) 17 grams PO 2XW psyllium 1 packet PO DAILY HPI Comments Details: This?is a?53?yo female who is s/p LSG 03/06/2023. Presents for 13 month post op visit. Weight at last visit on 01/09/2024 was 185.5 pounds with a BMI of 29.9, weight today is 189.4 pounds, representing a 4 pound weight gain with a BMI today of 30.6.? No complaints of nausea, emesis, abdominal pain or reflux. Has ongoing constipation, managed with Colace, fiber, Miralax. 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 Trying to introduce different foods. Frustrated by weight loss stall. Tries to avoid sugar, carbs. Protein intake normally around 90g/day. Present meal plan includes: 6:30 - Celebrate 4:1 with 4- 6 oz coffee and the rest UAM 10:30 - shake without coffee or bar 2;30 pm - shake without coffee or bar - 1/2 c fruit 6pm - 3-4 oz each protein and vegetable Exercise - Pilates 3 d/ week. Cardio - 1800 - 2000 mireya/week. [facility] Medical History Obesity (BMI 30-39.9) Mixed hyperlipidemia Benign essential hypertension Asthma BMI 38.0-38.9,adult Family history of anesthesia complication Post-operative nausea and vomiting Motion sickness History of COVID-19 Murmur Pre-op evaluation HTN (hypertension) PAC (premature atrial contraction) PVC (premature ventricular contraction) Elevated cholesterol Right ankle pain Trochanteric bursitis of right hip Annual physical exam Maxillary sinusitis Palpitation Chest pain Morbid obesity Left leg pain Breast cancer screening by mammogram PCOS (polycystic ovarian syndrome) Diverticular disease Asthmatic bronchitis History of torn meniscus of knee Vitamin D deficiency WESLEY on CPAP Aortic valve calcification Chest discomfort Morbid obesity with BMI of 40.0-44.9, adult Surgical History S/P laparoscopic sleeve gastrectomy Hx of excision of mass H/O colonoscopy History of foot surgery History of section Family History Father HTN (hypertension) Prostate cancer Mother HTN (hypertension) Bladder cancer Total knee replacement status History of hip replacement H/O shoulder replacement Sister No problems noted. Sister Arthritis Total knee replacement status Daughter Heart problem Daughter Heart murmur Son No problems noted. Paternal Grandfather Myocardial infarct Paternal Uncle Myocardial infarct Maternal Grandmother Breast cancer Skin cancer Social History Household Members: Spouse and Children Housing: House Are you a primary in home caregiver to a significant other at home: No Do you presently have visiting nurse or other home services: No Alcohol intake: current Alcohol intake frequency: holidays/special occasions only Patient Tobacco Use Status: Never used Tobacco e-Cigarette/Vaping Use: Never Used Second Hand Smoke Exposure: No service: No Current occupational status: employed Cognitive needs: No Hearing needs: No Vision needs: Yes (glasses) Physical Exam Vital Signs: Last Vital Signs Temp 97.4 F 04/14/24 15:02 Pulse 57 04/14/24 15:02 BP 153/86 H 04/14/24 15:02 Pulse Ox 96 04/14/24 15:02 Oxygen Delivery Method Room Air 04/14/24 15:02 BMI result Body Mass Index 30.6 Assessment & Plan Assessment & Plan (1) Status post sleeve gastrectomy: Comment: March 2023 Code(s): Z90.3 - Acquired absence of stomach [part of] Category: Medical (2) Obesity (BMI 30-39.9): Code(s): E66.9 - Obesity, unspecified Category: Medical Plan Will trial decreasing protein to 75-80g per day and increasing exercise to 2000 calories/day. Pt's treadmill currently broken but she will plan to walk outside and track calories burned. Gave pt my phone # and encouraged her to reach out with any questions between visits. RTC 3 months. Patient is obese and is not considered stable at this time. I spent a total of 30 minutes reviewing/updating records, examining the patient and counseling the patient on weight management as detailed above.
[2024-04-14 15:02] VITALS: BP 153/86; PULSE 57; TEMP 36.3; O2SAT 96; BMI 30.6
== END 2024-04-14 15:55 | disposition home or self-care (01) ==
PROVIDERS: PCP Internal Medicine; Visit Provider Physician Assistant Surgical
DX: E66.9 Obesity, unspecified (principal); Z68.30 Body mass index [BMI] 30.0-30.9, adult; Z90.3 Acquired absence of stomach [part of]; Z98.84 Bariatric surgery status
CPT/HCPCS: 99214

== ENCOUNTER → 2024-04-14 14:49 | Outpatient (BNVA) | payer OTHER, SELFPAY | PROVIDERS: PCP Internal Medicine; Visit Provider Physician Assistant Surgical ==

== ENCOUNTER 2024-05-17 07:26 | Outpatient (REF) | payer OTHER, SELFPAY ==
--- NOTE | ~2024-05-17 | CT_ITS ---
EXAMINATION: CT SINUS WITHOUT CONTRAST CLINICAL INFORMATION: Sinonasal polyps, deviated nasal septum COMPARISON: CT scan of sinuses on 05/04/2008 TECHNIQUE: Multiple 2.0 mm axial images of the paranasal sinuses were obtained without IV contrast enhancement. Bone window and soft tissue window images were reconstructed. Multiple 2.0 mm coronal and sagittal images of the paranasal sinuses were reconstructed from the axial image data. This CT examination was performed using dose optimization techniques as appropriate, variously including the following: *Automated exposure control *Adjustment of mA and/or kV according to patient size (this includes techniques or standardized protocols for targeted exams where dose is matched to indication/reason for exam; i.e. extremities or head) *Use of iterative reconstruction technique DLP: 77.64 mGy-cm FINDINGS: Sphenoid sinuses: Bilateral sphenoid sinuses are clear with intact bony septations. Ethmoid sinuses: Bilateral ethmoid sinuses are clear with intact bony septations. Maxillary sinuses: Mild mucosal thickening is seen in lower right maxillary sinus. Minimal mucosal thickening is seen at the floor of left maxillary sinus. Bilateral osteomeatal complexes are patent. There are no Krysten's cells, no abnormal expansion of the ethmoidal bullae, no blane bullosa or paradoxical curvature of the middle turbinates seen. Nasal septum shows mild bowing to the left by 0.3 cm. Frontal sinuses: Bilateral frontal sinuses are not well pneumatized. Bilateral frontonasal recesses are patent. CT/CT sinus wo IV con IMPRESSION: 1. Interval development of Mild mucosal thickening in bilateral maxillary sinuses. 2. Unchanged Mild bowing of nasal septum to the left by 0.3 cm.
== END 2024-05-17 07:27 | disposition home or self-care (01) ==
LOC: HO.CT 07:26
PROVIDERS: PCP Internal Medicine; Visit Provider Otolaryngology
DX: J33.0 Polyp of nasal cavity (principal); J34.2 Deviated nasal septum
CPT/HCPCS: 70486

== ENCOUNTER 2024-06-15 06:11 | Outpatient (REF) | payer OTHER, SELFPAY ==
[2024-06-15 06:41] LABS: MANUAL DIFF FLAG NO
[2024-06-15 07:16] LABS: Basophils Absolute Auto 0.1 X10*3/uL (0.0-0.2); Basophils Percent Auto 1.2 % (0-2); Eosinophils Absolute Auto 0.2 X10*3/uL (0.0-0.4); Eosinophils Percent Auto 3.1 % (0-4); Hematocrit 42.2 % (37.0-47.0); Hemoglobin 14.3 g/dl (12.0-16.0); Imm Gran Abs Auto 0.02 X10*3/uL (0.00-0.03); Imm Gran Pct Auto 0.4 % (0.0-0.4); Lymphocytes Absolute Auto 1.4 X10*3/uL (1.2-4.9); Lymphocytes Percent Auto 27.7 % (20-40); Mean Corpuscular HGB Conc 33.9 g/dl (31.0-35.0); Mean Corpuscular Hemoglobin 30.9 pg (27.0-33.0); Mean Corpuscular Volume 91.1 fL (80.0-98.0); Mean Platelet Volume 9.2 fL (9.4-12.3); Monocytes Absolute Auto 0.4 X10*3/uL (0.1-1.2); Monocytes Percent Auto 8.8 % (2-11); Neutrophils Absolute Auto 2.9 x10*3/uL (2.0-8.3); Neutrophils Percent Auto 58.8 % (45-73); Platelet Count 252 X10*3/uL (160-400); Red Blood Count 4.63 X10*6/uL (4.20-5.50); Red Cell Distribution Width 12.5 % (11.0-16.0); White Blood Count 4.9 X10*3/uL (4.8-10.8)
[2024-06-15 07:46] LABS: Estimated Average Glucose 100 mg/dL; Hemoglobin A1c % 5.1 % (<6.0)
[2024-06-15 08:00] LABS: Alanine Aminotransferase 22 U/L (0-31); Albumin Level 4.2 g/dL (3.5-5.0); Alkaline Phosphatase 85 U/L (39-117); Anion Gap 16 (12-20); Aspartate Amino Transferase 24 U/L (5-31); Bilirubin Total 1.3 mg/dL (0.0-1.0); Blood Urea Nitrogen 23 mg/dL (9-16); C Reactive Protein 0.16 mg/dL (< or = 0.50); Calcium 9.6 mg/dL (8.4-10.2); Carbon Dioxide 28 mmol/L (22-29); Chloride 102 mmol/L (96-108); Cholesterol 230 mg/dL (<200); Estimated Glomerular Filt Rate > 60; Glucose Random 104 mg/dL (60-115); HDL Cholesterol 62 mg/dL (>40); LDL Cholesterol Calculated 147 mg/dL (<100); Magnesium 2.3 mg/dL (1.6-2.6); Potassium 3.7 mmol/L (3.3-5.1); Sodium 142 mmol/L (135-145); Total Protein 7.4 g/dL (6.5-8.0); Triglycerides 109 mg/dL (<150)
[2024-06-15 08:08] LABS: Insulin 8 uU/mL (2-29); TSH reflex Free T4 3.09 uIU/mL (0.32-4.0)
[2024-06-15 08:14] LABS: Free T4 (Free Thyroxine) 0.91 ng/dL (0.71-1.85); Vitamin D 25-OH Total 86.6 ng/mL (>30)
[2024-06-15 08:21] LABS: Folate 12.4 ng/mL (> or = 4.0); Vitamin B12 980 pg/mL (200-900)
[2024-06-19 06:54] LABS: Vitamin A 61 mcg/dL (38-98)
== END 2024-06-15 06:12 | disposition home or self-care (01) ==
LOC: HO.LAB 06:11
PROVIDERS: Absent Provider Physician Assistant; PCP Internal Medicine; Visit Provider Internal Medicine
DX: E78.00 Pure hypercholesterolemia, unspecified (principal); E66.3 Overweight; Z90.3 Acquired absence of stomach [part of]; E66.9 Obesity, unspecified; Z13.1 Encounter for screening for diabetes mellitus
CPT/HCPCS: 36415; 80053; 80061; 82306; 82607; 82746; 83036; 83525; 83735; 84439; 84443; 84590; 85025; 86140

== ENCOUNTER 2024-06-28 14:46 | Outpatient (AMB) | payer OTHER, SELFPAY ==
[2024-06-28 15:06] VITALS: BP 120/82; PULSE 61; O2SAT 98; BMI 32.0
--- NOTE | 2024-06-28 15:06 | MHC.PC.OV ---
Vital Signs 06/28/24 15:06 Height 5 ft 6 in Weight 198 lb BMI 32.0 BP 120/82 Blood Pressure Location Lt brachial Position Sitting Pulse 61 Pulse Source Pulse Oximeter Pulse Oximetry (%) 98 Oxygen Delivery Method Room Air Intake Visit Reasons: pe Duplicating Machine Servicer Required: No Accompanied by: Self / Same As Patient Allergies adhesive tape Allergy (Intermediate, Verified 06/28/24 15:06) Blister Penicillins Allergy (Intermediate, Verified 06/28/24 15:06) VOMITING sulfamethoxazole [From Bactrim] Allergy (Intermediate, Verified 06/28/24 15:06) RASH trimethoprim [From Bactrim] Allergy (Intermediate, Verified 06/28/24 15:06) RASH Sulfa (Sulfonamide Antibiotics) Allergy (Mild, Verified 06/28/24 15:06) Rash oxycodone Adverse Reaction (Intermediate, Verified 06/28/24 15:06) Nausea and Vomiting Medication List - Last Reconciled 06/28/24 by Ailyn Sam MD albuterol sulfate 90 mcg/actuation (ProAir HFA) 2 puffs inhalation Q4-6H PRN albuterol sulfate 2.5 mg (3 mL) inhalation QID [allergy shots Q month] clotrimazole 1% 1 appl topical BID docusate sodium 100 mg PO BID ibuprofen 200 mg PO Q6H PRN loratadine (Allergy Relief (loratadine)) 10 mg PO DAILY PRN polyethylene glycol 3350 (Miralax) 17 grams PO 2XW psyllium 1 packet PO DAILY Tobacco use date assessed: 06/28/24 Dental Screening Dental Screen Date: 06/28/24 Did you have a dental visit in the last 12 months?: Yes Did you have a dental problem in the last 6 months where you did not have access to dental care?: No Was dental information given to patient?: Patient has dentist HPI pe HPI Details 54-year-old obese female with a history of status post sleeve gastrectomy(9 lb weight gain) with hypertension asthma GERD obstructive sleep apnea coming in for follow-up. Last seen in 11/29/2023. Patient's mammogram is up-to-date colonoscopy is up-to-date 2020 5 years s. Review of the notes did see ear nose and throat had CT scan showing mild mucosal thickening in the bilateral maxillary sinuses deviated septum. seeing Dr. Scherer under desenstitization PFSH Medical History (Updated 06/28/24 @ 15:57 by Ailyn Sam MD) Annual physical exam Obesity (BMI 30-39.9) Mixed hyperlipidemia Benign essential hypertension Asthma BMI 38.0-38.9,adult Family history of anesthesia complication Post-operative nausea and vomiting Motion sickness History of COVID-19 Murmur Pre-op evaluation HTN (hypertension) PAC (premature atrial contraction) PVC (premature ventricular contraction) Elevated cholesterol Right ankle pain Trochanteric bursitis of right hip Maxillary sinusitis Palpitation Chest pain Morbid obesity Left leg pain Breast cancer screening by mammogram PCOS (polycystic ovarian syndrome) Diverticular disease Asthmatic bronchitis History of torn meniscus of knee Vitamin D deficiency WESLEY on CPAP Aortic valve calcification Chest discomfort Morbid obesity with BMI of 40.0-44.9, adult Surgical History S/P laparoscopic sleeve gastrectomy Hx of excision of mass H/O colonoscopy History of foot surgery History of section Family History Father HTN (hypertension) Prostate cancer Mother HTN (hypertension) Bladder cancer Total knee replacement status History of hip replacement H/O shoulder replacement Sister No problems noted. Sister Arthritis Total knee replacement status Daughter Heart problem Daughter Heart murmur Son No problems noted. Paternal Grandfather Myocardial infarct Paternal Uncle Myocardial infarct Maternal Grandmother Breast cancer Skin cancer Social History (Updated 06/28/24 @ 15:59 by Ailyn Sam MD) Household Members: Spouse and Children Housing: House Are you a primary pet care attendant to a significant other at home: No Do you presently have visiting nurse or other home services: No Alcohol intake: current Alcohol intake frequency: holidays/special occasions only Comment: once a week 2-3 glasses Patient Tobacco Use Status: Never used Tobacco e-Cigarette/Vaping Use: Never Used Second Hand Smoke Exposure: No service: No Current occupational status: employed Cognitive needs: No Hearing needs: No Vision needs: Yes (glasses) Questionnaire PHQ-9 Over the last 2 weeks, how often have you been bothered by any of the following problems? 1. Little interest or pleasure in doing things: not at all 2. Feeling down, depressed, or hopeless: not at all 3. Trouble falling or staying asleep, or sleeping too much: not at all 4. Feeling tired or having little energy: not at all 5. Poor appetite or overeating: not at all 6. Feeling bad about yourself - or that you are a failure or have let yourself or your family down: not at all 7. Trouble concentrating on things, such as reading the newspaper or watching television: not at all 8. Moving or speaking so slowly that other people could have noticed. Or the opposite - being so fidgety or restless that you have been moving around a lot more than usual: not at all 9. Thoughts that you would be better off or of hurting yourself in some way: not at all Total score: 0 Depression Screening Interpretation: Negative Depression Screening Done: Yes 94274 - PHQ-9 Billing: Yes Source: Developed by Drs. Alex Lutz, Marylou Garcia, Michele Santillan and colleagues, with an educational derrek from [employer]. Thrive Questionnaire Date Thrive assessed: 06/28/24 I am a: Patient What is your living situation today?: I have a steady place to live Within the past 12 months, did the food you bought not last and you didn't have the money to get more?: Never true Within the past 12 months, did you worry whether your food would run out before you got money to buy more?: Never true Do you have trouble paying for medicines?: No Do you have trouble getting transportation to medical appointments?: No Do you have trouble paying your heating and electricity bill?: No Do you have trouble taking care of your child, family member or friend?: No Do you have trouble with day-to-day activities such as bathing, preparing meals, shopping, managing finances, etc.?: No Are you currently unemployed and looking for a job?: No Are you interested in more education?: No Please select the resources that you would like help with: None Currently or been in a relationship where the following occur: No concerns reported THRIVE Score: 0 AUDIT C Alcohol Use Questionnaire (AUDIT-C) 1. How often do you have a drink containing alcohol?: Monthly or less 2. How many drinks containing alcohol do you have on a typical day when you are drinking?: 1 or 2 3. How often do you have six or more drinks on one occasion?: Never Total Score: 1 Score Reviewed/Action Taken: Yes CRISTA-7 AMB Questionnaire CRISTA-7 Date CRISTA - 7 assessed: 06/28/24 Feeling nervous, anxious, or on edge: 0 = Not at all Not being able to stop or control worryin = Not at all Worrying too much about different things: 0 = Not at all Trouble relaxin = Not at all Being so restless that it is hard to sit still: 0 = Not at all Becoming easily annoyed or irritable: 0 = Not at all Feeling afraid as if something awful might happen: 0 = Not at all Total CRISTA-7 score (0-4 normal; 5-9 mild; 10-14 moderate; 15-21 severe): 0 Source: Developed by Drs. Alex Lutz, Marylou Garcia, Michele Santillan and colleagues, with an educational derrek from [employer]. Review of Systems Const Denies poor appetite and Denies weakness Eyes Denies no additional complaints ENT Reports Normal hearing present, Denies dizziness, Denies nasal congestion, Denies tinnitus and Denies sore throat Card Denies chest pain, Denies syncope, Denies rapid heart rate and Denies dyspnea Resp Denies cough and Denies dyspnea GI Denies change in stool character, Reports constipation, Denies diarrhea, Denies nausea and Denies vomiting Denies urinary frequency, Denies difficulty voiding and Denies dysuria Neuro Reports Normal hearing present, Denies confusion, Denies dizziness, Denies syncope and Denies weakness Psych Denies confusion Physical exam (Primary Care) Vital Signs: Last Vital Signs Pulse 61 06/28/24 15:06 BP 120/82 06/28/24 15:06 Pulse Ox 98 06/28/24 15:06 Oxygen Delivery Method Room Air 06/28/24 15:06 BMI result Body Mass Index 32.0 Tobacco/Smoking Status: Tobacco use Status Tobacco use date assessed 06/28/24 06/28/24 15:08 Patient Tobacco Use Status Never used Tobacco 06/28/24 15:08 e-Cigarette/Vaping Use Never Used 06/28/24 15:08 PHQ-9: PHQ-9 Score PHQ-9: Total score 0 06/28/24 15:08 Depression Screening Interpretation: Negative Thrive Assessment: Date of Thrive Assessment Date Thrive assessed 06/28/24 06/28/24 15:08 Currently or been in a relationship where the following occur: No concerns reported Const General: No confusion Orientation/consciousness: No confusion HENMT Head: Yes normocephalic Ears: external ears normal and TM's normal bilaterally Face and sinus: Yes normal facial exam Mouth: moist mucous membranes Throat: Yes tonsils normal Eyes Conjunctivae: conjunctivae normal Pupils: Equal, round and reactive pupils present and Pupil accommodation reflex normal Direct Ophthalmoscopy: normal light reflex Neck Neck: No lymphadenopathy Thyroid: Thyroid normal Chest Chest palpation & inspection: normal inspection of the chest Resp Effort & Inspection: normal respiratory effort and no audible wheezes Auscultation: clear to auscultation bilaterally, no crackles, no wheezes and lung sounds not diminished Cardio Rate: regular rate Rhythm: regular rhythm Peripheral pulses: radial pulses present and dorsalis pedis present GI Palpation (GI): no masses Auscultation: normal bowel sounds and normoactive bowel sounds Rectal Exam - Female: deferred Skin General skin exam: no rashes or lesions noted Rashes: no rashes Neuro General: No confusion Cranial nerves: Yes Equal, round and reactive pupils present and Yes Normal hearing present Cognition (Neuro): normal cognition Gait exam (Neuro): Normal gait present Motor exam (neuro): 5/5 motor strength present throughout Deep tendon reflexes (DTR's): Right brachioradialis reflex intensity grade: 2+, Left brachioradialis reflex intensity grade: 2+, Right patellar reflex intensity grade: 2+ and Left patellar reflex intensity grade: 2+ Extrem General: No edema Assessment and Plan Assessment & Plan (1) Status post sleeve gastrectomy: Comment: March 2023 Code(s): Z90.3 - Acquired absence of stomach [part of] Plan: Continue to follow-up with weight management (2) Obesity (BMI 30-39.9): Code(s): E66.9 - Obesity, unspecified Plan: Diet and exercise continue to follow-up with bariatric x/weight managed (3) GERD (gastroesophageal reflux disease): Code(s): K21.9 - Gastro-esophageal reflux disease without esophagitis Qualifiers: Esophagitis presence: without esophagitis Qualified Code(s): K21.9 - Gastro-esophageal reflux disease without esophagitis Plan: Avoid the foods that causes that usually spicy foods, tomato products, juices, coffee, soda and foods that your sensitive to. After eating do not lie down, allow 3-4 hours before in lie down. And keep the head of bed above 30 degrees to avoid the acid from going up. (4) Asthma: Code(s): J45.909 - Unspecified asthma, uncomplicated Qualifiers: Asthma severity: mild Asthma persistence: intermittent Asthma complication type: uncomplicated Qualified Code(s): J45.20 - Mild intermittent asthma, uncomplicated Plan: Continue with the inhaler albuterol (5) Impaired glucose tolerance: Code(s): R73.02 - Impaired glucose tolerance (oral) Plan: Decrease the amount of carbohydrate intake, pasta, bread, rice and potatoes are all sugar and that is aside from all the sweet stuff, remember that fruits are good but they are Sweet also. (6) Hypercholesterolemia: Code(s): E78.00 - Pure hypercholesterolemia, unspecified Plan: Avoid fried foods, chicken skin, eggs, butter margarine, pastries and meat. Be it pork or beef they have a lot of cholesterol LDL goal of less than 130 and triglyceride of less than 150 ASCVD risk 10 year 1.8% (7) WESLEY on CPAP: Comment: CPAP use Code(s): G47.33 - Obstructive sleep apnea (adult) (pediatric); Z99.89 - Dependence on other enabling machines and devices Plan: Continue to use the CPAP more than 4 hours a night and benefits from this. (8) Annual physical exam: Code(s): Z00.00 - Encounter for general adult medical examination without abnormal findings Plan: Patient is advised to eat healthy, keep well hydrated, keep active and have adequate sleep. (9) Skin tag: Comment: Mid upper back Code(s): L91.8 - Other hypertrophic disorders of the skin (10) Ingrown toenail of left foot: Code(s): L60.0 - Ingrowing nail (11) Insomnia: Code(s): G47.00 - Insomnia, unspecified Orders: Orders Comprehensive Met. Panel 6 Months E78.00 - Pure hypercholesterolemia, unspecified Lipid Panel 6 Months E78.00 - Pure hypercholesterolemia, unspecified Hemoglobin A1c 6 Months E78.00 - Pure hypercholesterolemia, unspecified Referrals Dermatology Referral L91.8 - Other hypertrophic disorders of the skin Podiatry Referral L60.0 - Ingrowing nail Medications: New zolpidem 5 mg PO BEDTIME PRN 14 tabs 0RF sleep G47.00 - Insomnia, unspecified Coding Level of Care Code Est Pt Prev Care 40-64y(64997) Diagnoses Status post sleeve gastrectomy Z90.3 Obesity (BMI 30-39.9) E66.9 Gastroesophageal reflux disease without esophagitis K21.9 Esophagitis presence: without esophagitis Mild intermittent asthma without complication J45.20 Asthma severity: mild Asthma persistence: intermittent Asthma complication type: uncomplicated Impaired glucose tolerance R73.02 Hypercholesterolemia E78.00 WESLEY on CPAP G47.33; Z99.89 Annual physical exam Z00.00 Skin tag L91.8 Ingrown toenail of left foot L60.0 Insomnia G47.00
== END 2024-06-28 16:19 | disposition home or self-care (01) ==
PROVIDERS: PCP Internal Medicine; Visit Provider Internal Medicine
DX: Z00.00 Encounter for general adult medical examination without abnormal findings (principal); Z90.3 Acquired absence of stomach [part of]; Z68.32 Body mass index [BMI] 32.0-32.9, adult; E66.9 Obesity, unspecified; K21.9 Gastro-esophageal reflux disease without esophagitis; J45.20 Mild intermittent asthma, uncomplicated; E78.00 Pure hypercholesterolemia, unspecified; R73.02 Impaired glucose tolerance (oral); G47.33 Obstructive sleep apnea (adult) (pediatric); Z99.89 Dependence on other enabling machines and devices; L91.8 Other hypertrophic disorders of the skin; L60.0 Ingrowing nail
CPT/HCPCS: 99396

== ENCOUNTER 2024-11-29 10:57 | Outpatient (AMB) | payer OTHER, SELFPAY ==
--- NOTE | 2024-11-29 11:01 | MHC.PC.OV ---
Vital Signs 11/29/24 11:04 Height 5 ft 6 in Weight 208 lb BMI 33.6 BP 130/78 Blood Pressure Location Lt brachial Position Sitting Pulse 58 Pulse Source Pulse Oximeter Temp 97.5 F Temp Source Skin Pulse Oximetry (%) 98 Oxygen Delivery Method Room Air Intake Visit Reasons: [place] 2/ lt & 12/28 rt Intake Note: Patient is here for a Pre-op for Cataract surgery scheduled with [facility] on left 12/16/24, right 12/28/24. Pt decline flu shot today. 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 per policy Accompanied by: Self / Same As Patient Allergies adhesive tape Allergy (Intermediate, Verified 11/29/24 11:10) Blister Penicillins Allergy (Intermediate, Verified 11/29/24 11:10) VOMITING sulfamethoxazole [From Bactrim] Allergy (Intermediate, Verified 11/29/24 11:10) RASH trimethoprim [From Bactrim] Allergy (Intermediate, Verified 11/29/24 11:10) RASH Sulfa (Sulfonamide Antibiotics) Allergy (Mild, Verified 11/29/24 11:10) Rash oxycodone Adverse Reaction (Intermediate, Verified 11/29/24 11:10) Nausea and Vomiting Medication List - Last Reconciled 11/29/24 by Samia Ardon PA-C albuterol sulfate 90 mcg/actuation (ProAir HFA) 2 puffs inhalation Q4-6H PRN albuterol sulfate 2.5 mg (3 mL) inhalation QID [allergy shots Q month] clotrimazole 1% 1 appl topical BID docusate sodium 100 mg PO BID ibuprofen 200 mg PO Q6H PRN loratadine (Allergy Relief (loratadine)) 10 mg PO DAILY PRN polyethylene glycol 3350 (Miralax) 17 grams PO 2XW psyllium 1 packet PO DAILY zolpidem 5 mg PO BEDTIME PRN Tobacco use date assessed: 11/29/24 Dental Screening Dental Screen Date: 11/29/24 Did you have a dental visit in the last 12 months?: Yes Did you have a dental problem in the last 6 months where you did not have access to dental care?: No Was dental information given to patient?: Patient has dentist [facility] Medical History (Updated 11/29/24 @ 11:20 by Samia Ardon, PA-C) Annual physical exam Obesity (BMI 30-39.9) Mixed hyperlipidemia Benign essential hypertension Asthma BMI 38.0-38.9,adult Family history of anesthesia complication Post-operative nausea and vomiting Motion sickness History of COVID-19 Murmur Pre-op evaluation HTN (hypertension) PAC (premature atrial contraction) PVC (premature ventricular contraction) Elevated cholesterol Right ankle pain Trochanteric bursitis of right hip Maxillary sinusitis Palpitation Chest pain Morbid obesity Left leg pain Breast cancer screening by mammogram PCOS (polycystic ovarian syndrome) Diverticular disease Asthmatic bronchitis History of torn meniscus of knee Vitamin D deficiency [place] on CPAP Aortic valve calcification Chest discomfort Morbid obesity with BMI of 40.0-44.9, adult Surgical History S/P laparoscopic sleeve gastrectomy Hx of excision of mass H/O colonoscopy History of foot surgery History of section Family History Father HTN (hypertension) Prostate cancer Mother HTN (hypertension) Bladder cancer Total knee replacement status History of hip replacement H/O shoulder replacement Sister No problems noted. Sister Arthritis Total knee replacement status Daughter Heart problem Daughter Heart murmur Son No problems noted. Paternal Grandfather Myocardial infarct Paternal Uncle Myocardial infarct Maternal Grandmother Breast cancer Skin cancer Social History Household Members: Spouse and Children Housing: House Are you a primary acute care occupational therapist to a significant other at home: No Do you presently have visiting nurse or other home services: No Alcohol intake: current Alcohol intake frequency: holidays/special occasions only Comment: once a week 2-3 glasses Patient Tobacco Use Status: Never used Tobacco e-Cigarette/Vaping Use: Never Used Second Hand Smoke Exposure: No service: No Current occupational status: employed Cognitive needs: No Hearing needs: No Vision needs: Yes (glasses) Questionnaire PHQ-9 Over the last 2 weeks, how often have you been bothered by any of the following problems? 1. Little interest or pleasure in doing things: not at all 2. Feeling down, depressed, or hopeless: not at all 3. Trouble falling or staying asleep, or sleeping too much: not at all 4. Feeling tired or having little energy: not at all 5. Poor appetite or overeating: not at all 6. Feeling bad about yourself - or that you are a failure or have let yourself or your family down: not at all 7. Trouble concentrating on things, such as reading the newspaper or watching television: not at all 8. Moving or speaking so slowly that other people could have noticed. Or the opposite - being so fidgety or restless that you have been moving around a lot more than usual: not at all 9. Thoughts that you would be better off or of hurting yourself in some way: not at all Total score: 0 Depression Screening Interpretation: Negative Depression Screening Done: Yes Source: Developed by Drs. Alex Lutz, Marylou Garcia, Michele Santillan and colleagues, with an educational derrek from [employer]. Thrive Questionnaire Date Thrive assessed: 11/29/24 I am a: Patient What is your living situation today?: I have a steady place to live Within the past 12 months, did the food you bought not last and you didn't have the money to get more?: Never true Within the past 12 months, did you worry whether your food would run out before you got money to buy more?: Never true Do you have trouble paying for medicines?: No Do you have trouble getting transportation to medical appointments?: No Do you have trouble paying your heating and electricity bill?: No Do you have trouble taking care of your child, family member or friend?: No Do you have trouble with day-to-day activities such as bathing, preparing meals, shopping, managing finances, etc.?: No Are you currently unemployed and looking for a job?: No Are you interested in more education?: No Please select the resources that you would like help with: None Currently or been in a relationship where the following occur: No concerns reported THRIVE Score: 0 AUDIT C Alcohol Use Questionnaire (AUDIT-C) 1. How often do you have a drink containing alcohol?: Monthly or less 2. How many drinks containing alcohol do you have on a typical day when you are drinking?: 1 or 2 Total Score: 1 CRISTA-7 AMB Questionnaire CRISTA-7 Date CRISTA - 7 assessed: 11/29/24 Feeling nervous, anxious, or on edge: 0 = Not at all Not being able to stop or control worryin = Not at all Worrying too much about different things: 0 = Not at all Trouble relaxin = Not at all Being so restless that it is hard to sit still: 0 = Not at all Becoming easily annoyed or irritable: 0 = Not at all Feeling afraid as if something awful might happen: 0 = Not at all Total CRISTA-7 score (0-4 normal; 5-9 mild; 10-14 moderate; 15-21 severe): 0 Source: Developed by Drs. Alex Lutz, Marylou Garcia, Michele Santillan and colleagues, with an educational derrek from [employer]. Physical exam (Primary Care) Vital Signs: Last Vital Signs Temp 97.5 F 11/29/24 11:04 Pulse 58 11/29/24 11:04 BP 130/78 11/29/24 11:04 Pulse Ox 98 11/29/24 11:04 Oxygen Delivery Method Room Air 11/29/24 11:04 BMI result Body Mass Index 33.6 Tobacco/Smoking Status: Tobacco use Status Tobacco use date assessed 11/29/24 11/29/24 11:09 Patient Tobacco Use Status Never used Tobacco 11/29/24 11:09 e-Cigarette/Vaping Use Never Used 11/29/24 11:09 PHQ-9: PHQ-9 Score PHQ-9: Total score 0 11/29/24 11:09 Depression Screening Interpretation: Negative Thrive Assessment: Date of Thrive Assessment Date Thrive assessed 11/29/24 11/29/24 11:09 Currently or been in a relationship where the following occur: No concerns reported Coding Level of Care Code Est Pt Level 4 (85583) Complex EM visit Add On G2211 Diagnoses Pre-operative clearance Z01.818 Cataract H26.9 Assessment & Plan Assessment & Plan (1) Pre-operative clearance: Code(s): Z01.818 - Encounter for other preprocedural examination Category: Medical Plan: Patient presenting for preop clearance for bilateral cataract surgery. Surgery is scheduled for December 16 and then again on December 28. (2) Cataract: Code(s): H26.9 - Unspecified cataract Category: Medical Plan: See below for pre-op clearance labs and ekg. Plan Plan - Order CBC, CMP, liver panel, and EKG as part of preoperative evaluation. - Ensure the patient has signed up for the patient portal to monitor test results. - Assist with any additional paperwork or requirements for preoperative preparations. - Follow up with results of the laboratory tests and EKG. Orders: Orders Comprehensive Callands. Panel Fast Today H26.9 - Unspecified cataract, Z01.818 - Encounter for other preprocedural examination Liver Panel Today H26.9 - Unspecified cataract, Z01.818 - Encounter for other preprocedural examination Magnesium Today H26.9 - Unspecified cataract, Z01.818 - Encounter for other preprocedural examination Complete Blood Count Auto Diff Today H26.9 - Unspecified cataract, Z01.818 - Encounter for other preprocedural examination ECG 12 lead EKG Today H26.9 - Unspecified cataract, Z01.818 - Encounter for other preprocedural examination Patient Instructions: Patient Instructions - Complete CBC, CMP, liver panel, and EKG at the main hospital facility. - Sign up for the patient portal at checkout to access test results. - Contact the office if the surgical team requires any additional paperwork or tests. - Expect a follow-up call regarding any abnormal test results. - Be prepared and informed for December 16 surgery and potential second surgery on December 28. Scribe Plan - Not visible on output: History of Present Illness The patient is a 54-year-old female presenting for preoperative clearance in anticipation of her upcoming surgery scheduled for December 16 and another potential surgery on December 28. For bilateral cataracts at [facility] in [place]. The patient has a history of hyperlipidemia, for which routine follow-up was previously conducted involving lipid panel assessments. No other chronic medical conditions or active symptoms were mentioned. The patient is not on blood thinners, and there was no indication of previous anesthesia-related issues. The patient was advised regarding planning certain lab tests, including a CBC, CMP, liver panel, and EKG. Review of Systems - Cardiovascular: Reports seeing a digital computer systems analyst. - General: Denies any current specific symptoms or conditions to address besides routine follow-up for surgery clearance purposes. Physical Exam Appearance: Alert. Oriented X3. No acute distress. Head: Normal external exam. Normocephalic. Atraumatic. Eyes: Pupils are equal, round, and reactive to light. Extraocular movements intact. Conjunctiva and sclera normal. Eyelids normal. Ears: External auditory canal normal. Throat: Pharynx normal. Uvula midline. Moist mucous membranes. Neck: Normal inspection. Neck supple. Full range of motion. No adenopathy. Thyroid Normal. No meningeal signs. No neck mass noted. Cardiovascular: Normal heart rate and rhythm. Heart sound normal. No murmurs noted. Pulses normal throughout. Respiratory: No respiratory distress. Painless inspiration. Breath sounds normal. No wheezes/rales/rhonchi noted. Chest nontender. No accessory muscle usage noted or decreased air movement noted. Back: Full range of motion noted. Skin: Skin warm and dry. Normal skin color. Normal skin turgor. No rashes/lesions/lacerations noted. Extremities: Extremities exhibit normal range of motion. Extremities nontender. Neuro: Oriented X 3. No motor deficit. No sensory deficit. Reflexes normal. Plan - Order CBC, CMP, liver panel, and EKG as part of preoperative evaluation. - Ensure the patient has signed up for the patient portal to monitor test results. - Assist with any additional paperwork or requirements for preoperative preparations. - Follow up with results of the laboratory tests and EKG. Patient was informed and verbally consented to the use of an ambient scribe for clinic note documentation during this visit. Discussion Notes I discussed with the patient the necessity of completing specific laboratory tests, including a CBC, CMP, liver panel, and EKG as part of her preoperative clearance. We talked about the use of the patient portal for accessing results efficiently and maintaining communication. I recommended that she proceed to the hospital's main facility for completion of blood work and EKG, and assured her of my timely review once the results are available. I encouraged her to contact our office should there be any need for further clarification or additional testing based on the surgical team?s requirements. I expressed optimism regarding the anticipated improvement of her vision post-surgery, as this was inferred from her expression of excitement about being able to see better. Patient Instructions - Complete CBC, CMP, liver panel, and EKG at the main hospital facility. - Sign up for the patient portal at checkout to access test results. - Contact the office if the surgical team requires any additional paperwork or tests. - Expect a follow-up call regarding any abnormal test results. - Be prepared and informed for December 16 surgery and potential second surgery on December 28.
[2024-11-29 11:04] VITALS: BP 130/78; PULSE 58; TEMP 36.4; O2SAT 98; BMI 33.6
--- OUTSIDE RECORDS SUMMARY | 2024-11-29 11:29 | XMS_ITS | Continuity of Care Document ---
Author Organization [facility], [facility] 2nd floor Address [address] [place] [address] Care Team Providers Care Project Control Officer Name Role Phone NYASIA HERNÁNDEZ Primary Care Provider Assessment No assessment recorded. Plan of Treatment Reminders Order Date Submit Date Provider Last Modified By Organization Details Last Modified Time Details Appointments PT INITIA L EVAL 2024 04:30P M Rinku crabtree, DPT Not available Not available Not available PT FOLLOW -UP 2024 04:30P M Rinku Massey s, DPT Not available Not available Not available PT FOLLOW -UP 2024 07:30A M Danae Lozano, DRIVER RECRUITER Not available Not available Not available PT FOLLOW -UP 2024 07:30A M Danae Lozano, DRIVER RECRUITER Not available Not available Not available PT FOLLOW -UP 2024 07:30A M Danae Lozano, DRIVER RECRUITER Not available Not available Not available PT FOLLOW -UP 2024 07:30A M Rinku Massey s, DPT Not available Not available Not available PT FOLLOW -UP 2024 07:00A M Rinku Massey s, DPT Not available Not available Not available PT FOLLOW -UP 2024 07:30A M Danae Lozano, DRIVER RECRUITER Not available Not available Not available PT FOLLOW -UP 2024 07:30A M Danae Lozano, DRIVER RECRUITER Not available Not available Not available PT FOLLOW -UP 2024 08:00A M Rinku Massey s, DPT Not available Not available Not available PT FOLLOW -UP 2024 07:00A M Rinku Massey s, DPT Not available Not available Not available Lab None record ed. Referral physic al therap ist referr al - End range stretc hingRo tator cuff and perisc apular streng thenin g with scapul ar stabil izatio n progra m Home exerci se progra m 2024 025 [email or web address] [facility] ([facility]iel [facility]), [address], [place], [address], 11/12/2024 09:32:33 Procedures None record ed. Surgeries None record ed. Imaging None record ed. Medication Orders None record ed. Patient TargetsNo targets recorded. Patient InstructionsNo instructions recorded. Reason for Referral Physical Therapist Referral for Non-traumatic partial tear of right rotator cuff End range stretchingRotator cuff and periscapular strengthening with scapular stabilization program Home exercise program Referring Physician: Juan Greenberg, Orthopedic Surgery, Encounter Date: 11/12/2024 Results Created Date Observation Date Name Description Value Unit Range Abnormal Flag Note LastModifiedBy Organization Detail LastModifiedTime 10/27/20 24 10/26/2024 MRI, prerna bruce, w/o contr ast [facility] Access ion Number : [id number] Patien t Name: Gricel Aranda Record Number : [id number] Date of : 1969 Date of Exam: 2023 Referr ing Physic miles: [facility] [address], [address] [place] [address] Exam: MR Should er (C-) CPT 05850 - Right Room Descri ption: [facility] Verio 3.0T MR Should er (C-) CPT 38657 CLINIC AL INDICA TION: Worsen ing right should er pain TECHNI QUE: MRI of the right should er was perfor med withou t intrav enous contra st. COMPAR LACY: None. FINDIN GS: AC joint: Modera te AC joint arthro sis. Fluid signal partia lly disten ds the subacr omial subdel toid bursa. Rotato r cuff: Thicke rory, and interm ediate signal supras pinatu s and subsca pulari s tendin osis. No eviden ce of rotato r cuff tear, tendon retrac tion, or sludge atroph y. [place] d labrum and biceps tendon : On nonart hrogra phic evalua tion there is no eviden ce of displa danyell labral tear or para labral cyst. Tendin osis of the intra- articu lar biceps segmen t. Extra- articu lar segmen t is locate d within the bicipi brooke groove . Articu lar cartil age: The articu lar cartil age is of normal thickn ess. No focal defect s are seen. Bone: No eviden ce of fractu re, bone marrow contus ion or focal bone marrow signal abnorm ality. IMPRES REID: Modera te AC joint arthro sis and signs of subacr omial subdel toid bursit is Supras pinatu s, subsca pulari s and biceps tendin osis Electr onical ly Signed By: Caio Duff rd, MD [email or web address] [facility] ([facility]) [address] [place], [address], 11/08/2024 15:13:27 Result Notes None recorded. Problems Name Problem SNOMED Code Status Onset Date Resolution Date Notes Provider Name and Address Organization Details Recorded Time Impingement syndrome of right shoulder region 6528060705557 02 Active 2023 Juan Greenberg PA-C [address], [place], [address], [facility] - [facility] 4 06:20:11 Neck pain 43327274 Active 2023 Juan Greenberg PA-C [address], [place], [address], [facility] - [facility] 4 08:58:11 Derangement of right shoulder joint 0446052635191 9105 Active 2023 Juan Greenberg PA-C [address], [place], [address], [facility] 4 09:22:12 Osteoarthri tis of left knee joint 5221154328826 09 Active 2023 Juan Greenberg PA-C [address], [place], [address], [facility] 4 09:29:07 Non-traumat ic partial tear of right rotator cuff 9050857724330 109 Active 2024 Juan Greenberg PA-C [address], [place], [address], [facility] 5 06:27:41 Problem Notes None recorded. Procedures Surgical History Date Name Laterality Status Provider Name and Address Organization Details Recorded Time 09/27/2024 Sports Knee 4&1 completed Juan Greenberg PA-C [address], [place], [address], [facility] 09/27/2024 09:28:59 Imaging Results None recorded. Procedure Notes None recorded. Medical Equipment None Reported. Allergies Allergen ID Allergen Name Allergen Category Reaction Reaction Severity Criticality Documentation Date Start Date Code Code System Note Provider Name and Address Organization Details Recorded Time 877229 Product containin g penicilli n and antibioti c (product) medicatio n Not available Not available Not available 01/12/20242012 93739 05 SNOMED Aller gyRea ction : 'Skin React ion'; Not Available [facility] 4 16:01:33 387711 Bactrim medicatio n Not available Not available Not available 01/12/20242012 19371 9 RxNorm Aller gyRea ction : 'Skin React ion'; Not Available [facility] 4 16:01:33 Medications Name Sig Start Date Stop Date Status Note LastModified by Organization Details LastModified Time Colace 100 mg capsule Take 1 capsule every day by oral route. active Not Available Not Available No t Available Ambien 10 mg tablet Take 1 tablet every day by oral route. active Not Available Not Available No t Available loratadine 10 mg capsule Take by oral route. active Not Available Not Available Not Available albuterol 90 mcg-budesoni de 80 mcg/actuatio n HFA aerosol inhaler Inhale by inhalation route. active Not Available Not Available No t Available Vitals Date Recorded Body height Body mass index (BMI) Body weight Provider Name and Address Organization Details Last Updated DateTime 11/12/2024 167.64 cm 43.6 kg/m2 779254.94 g Juan Greenberg PA-C [address], [place], [address], [place] [facility] 11/12/2024 09:02:37 Social History None recorded. Functional Status None recorded. Mental Status None recorded. Family History Nothing Reported. Medical History Condition Response Allergies/Hayfever Y Asthma Y Gynecological HistoryNo gynecological history recorded. Obstetrics History GPAL:G 0 P 0 0 0 0 Past Encounters Encounter ID Performer Location Encounter Start Date Encounter Closed Date Diagnosis/Indication Diagnosis SNOMED-CT Code Diagnosis ICD10 Code Diagnosis Note [id number] Juan Greenberg PA-C [facility] [address] [place] [address] 11/12/2024 08:31:24 11/12/2024 09:34:17 Non-traumatic partial tear of right rotator cuff [id number] 840303 M75.111 Health Concerns Section Related Observation LastModified by Organization Detai ls LastModified Time None Recorded Concern Status LastModified by Organization Details LastModified Time None Recorded Payers Encounter Date Sequence Insurance Name Policy Number Policy Mccoy Covered Member ID Mccoy Member ID Guarantor Name 11/12/2024 1 [facility] [id number] Gricel Aranda [id number] Gricel Aranda Notes Date Note Type Note Provider Name and Address Organization Details Recorded Time 11/12/2024 text/html I am seeing the patient today under the supervision of Dr. Anaya who was available but who did not see the patient.CLINICAL HISTORY: Patient is a very pleasant 54-year-old female who presents to the office with primary chief complaint of right shoulder pain. She reports approximately 6-month duration of symptoms she has been utilizing anti-inflammatories has done some physical therapy but continues to have lateral brachial shoulder pain that awakens her from her sleep. She also has a chief complaint of moderate weakness with overhead activities denies any routine numbness and tingling but does have occasional symptoms in her shoulder and neck.Interval History: Patient returns today for follow-up evaluation to review MRI findings of the right shoulder. She continues to report significant discomfort with functional ADLs with both pain and weakness. MRI Findings: Independently reviewed today of the right shoulder demonstrate significant tendinosis involving supraspinatus and infraspinatus without full-thickness rotator cuff tear, AC joint arthropathy, type II acromion, mild biceps tendinopathy.PHYSIC AL FINDINGSThe patient is well appearing, in no apparent distress, alert and oriented to person, place and time. Gait is symmetric. No significant swelling, warmth or erythema about either shoulder. Examination of the right shoulder demonstrates forward elevation 175??, external rotates 45??, internal rotates back pocket with mild discomfort, mild crepitance with patella manipulation, AC joint tenderness, rotator cuff strength 4/5 with horizontal elevation, 4/5 external rotation, 4/5 resisted belly press test, bicipital groove is mildly irritable, no apprehension in positions of instability, normal scapular mechanics. Cervical Exam demonstrates limited ROM without radicular symptoms. Peripheral, vascular, lymphatic examination, skin, neurologic coordination, reflexes, sensation are within normal limits.X-ray findings: 4 views ordered and independently reviewed previously at [facility] of the right shoulder findings note: Type II acromion, cystic changes lateral acromion and greater tuberosity, glenohumeral joint well-preserved, no calcium seen, AC joint arthritis with superior spur. Lateral C-spine x-ray shows degenerative changes C5-6 and C6-7 with anterior lipping. ASSESSMENT: Right shoulder impingement, AC joint arthritis, with partial-thickness rotator cuff tear. Cervical spine DJD.PLAN: Today we discussed the findings of the study and considering there is no previous injection I would recommend initial conservative treatment. Additionally, physical therapy would be quite beneficial for her to help improve scapular stabilization and recruitment of the rotator cuff ultimately the goal is to keep her right through May on her daughter's. I would certainly not be opposed to 1 or 2 injections to get her through that if symptoms persist beyond that we can rediscuss visit surgical options. [facility] speech recognition zoo keeper software was used to create portions of this document. An attempt at proofreading has been made to minimize errors. Please call for corrections Juan Greenberg PA-C [address], [place], [address], [place] [facility] 11/12/2024 09:34:15 OBGyn Episode No OBEpisode recorded.
--- OUTSIDE RECORDS SUMMARY | 2024-11-29 11:30 | XMS_ITS | Data Portability ---
Author Organization [facility] Home Service Address [address] [place] [address] Assessment No assessment recorded. Plan of Treatment Reminders Order Date Submit Date Provider Last Modified By Organization Details Last Modified Time Details Appointments None recorded. Lab None recorded. Referral None recorded. Procedures None recorded. Surgeries None recorded. Imaging None recorded. Medication Orders Diflucan 150 mg tablet 2019 020 [facility] 9 [facility] #2024, [address] [place], [address], 14:44:33 doxycycline hyclate 100 mg capsule 2019 020 [facility] 9 [facility] #2024, [address] [place], [address], 14:44:23 erythromyci n 5 mg/gram (0.5 %) eye ointment 2019 020 [facility] 9 [facility] #2024, [address] [place], [address], 14:44:37 cyclobenzap rine 10 mg tablet 2019 020 [facility] 9 [facility] #2024, [address] [place], [address], 14:44:11 diclofenac sodium 75 mg tablet,erich yed release 2019 020 [facility] 9 [facility] #2024, [address] [place], [address], 14:44:21 ondansetron 8 mg disintegrat ing tablet 2020 021 [facility] [address] [place], [address], 09:28:05 metronidazo le 500 mg tablet 2020 021 [facility] [address] [place], [address], 09:28:01 Cipro 500 mg tablet 2020 021 [facility] [address] [place], [address], 09:05:44 prednisone 10 mg tablet 2020 021 [facility] [address] [place], [address], 09:44:25 Zithromax Z-Patricio 250 mg tablet 2020 021 [facility] [address] [place], [address], 09:05:33 Patient TargetsNo targets recorded. Patient InstructionsNo instructions recorded. Reason for Referral None Reported. Results Created Date Observation Date Name Description Value Unit Range Abnormal Flag Note LastModifiedBy Organization Detail LastModifiedTime 08/27/20 21 08/27/2021 XR, kidne y + urete r + bladd er No observ ation record ed. [facility] [address] [place], [address], 08/27/2021 16:23:07 Result Notes None recorded. Problems Name Problem SNOMED Code Status Onset Date Resolution Date Notes Provider Name and Address Organization Details Recorded Time Polycystic ovaries Active 2017 Not Available [facility] 0 20:03:36 Essential hypertensi on 83641927 Active 2017 Not Available [facility] 0 20:03:37 Gastric reflux 499178123 Active 2017 Not Available [facility] 0 20:03:36 Sleep apnea 69001931 Active 2018 Not Available [facility] 0 20:03:37 Hyperchole sterolemia 48628268 Active 2018 Not Available [facility] 0 20:03:37 Asthma 145158191 Active 2020 FERDINAND SHRESTHA [address] [place], [address], [facility] 1 09:47:58 Problem Notes None recorded. Procedures Surgical History Date Name Laterality Status Provider Name and Address Organization Details Recorded Time 05/02/20 Most Recent Mammogram completed Jennifer Lu [facility] 05/05/2020 08:25:18 Caesarean Section completed Terrie Carranza NP, [address] [place], [address], [facility] 09/14/2018 11:19:25 Imaging Results Imaging Date Name Status LastModified by Organiz ation Details LastModified Time 08/27/2021 XR, kidney + ureter + bladder completed [facility] Central Scheduling [address] [place], [address], 08/27/2021 16:23:07 Procedure Notes None recorded. Medical Equipment None Reported. Allergies Allergen ID Allergen Name Allergen Category Reaction Reaction Severity Criticality Documentation Date Start Date Code Code System Note Provider Name and Address Organization Details Recorded Time 248 Substance with sulfonami de structure and antibacte rial mechanism of action (substanc e) medicatio n Not available Not available Not available 09/14/2018 56813 8003 VINH barboza [facility] 8 11:10:08 2482 Product containin g penicilli n and antibioti c (product) medicatio n Not available Not available Not available 09/14/2018 85604 05 SNOLIMPIA barboza [place] - [facility] 8 11:10:16 Medications Name Sig Start Date Stop Date Status Note LastModified by Organization Details LastModified Time cyclobenzap rine 10 mg tablet Take 1 tablet 3 times a day by oral route for 15 days. 03/27 completed Not Available Not Available Not Available amoxicillin 500 mg capsule 01/19 completed Not Available Not Available Not Available prednisone 10 mg tablet PLEASE SEE ATTACHED FOR DETAILED DIRECTION S active Not Available Not Available No t Available doxycycline hyclate 100 mg capsule Take 1 capsule twice a day by oral route for 10 days. 03/27 completed Not Available Not Available Not Available azithromyci n 250 mg tablet TAKE 2 TABLETS BY MOUTH TODAY, THEN TAKE 1 TABLET DAILY FOR 4 DAYS 12/25 completed Not Available Not Available Not Available fluconazole 150 mg tablet Take 1 tablet every day by oral route for 1 day. 03/27 completed Not Available Not Available Not Available Claritin 10 mg tablet Take 1 tablet every day by oral route. active Not Available Not Available No t Available ondansetron HCl 8 mg tablet active Not Available Not Available Not Available ondansetron HCl 4 mg tablet 02/02 completed Not Available Not Available Not Available prednisone 20 mg tablet 09/14 completed Not Available Not Available Not Available metronidazo le 500 mg tablet Take 1 tablet every 8 hours by oral route for 7 days. active Not Available Not Available No t Available ciprofloxac in 500 mg tablet Take 1 tablet every 12 hours by oral route for 7 days. 12/25 completed Not Available Not Available Not Available metoprolol tartrate 50 mg-hydrochl orothiazide 25 mg tablet take 1 tablet by mouth once a day 09/03 completed Not Available Not Available Not Available ondansetron 8 mg disintegrat ing tablet Place 1 tablet twice a day by transling ual route as needed for 14 days. 06/19 completed Not Available Not Available Not Available meclizine 25 mg tablet Take 1 tablet 3 times a day by oral route for 5 days. 01/17 completed Not Available Not Available Not Available cephalexin 500 mg capsule Take 1 capsule every 6 hours by oral route for 7 days. 03/27 completed Not Available Not Available Not Available erythromyci n 5 mg/gram (0.5 %) eye ointment APPLY 1 CM RIBBON INTO THE LOWER CONJUNCTI BLAS SAC(S) IN THE AFFECTED EYE(S) BY OPHTHALMI C ROUTE 3 TIMES PER DAY 03/27 completed Not Available Not Available Not Available oseltamivir 75 mg capsule 02/02 completed Not Available Not Available Not Available metoprolol tartrate 50 mg tablet TAKE 1 TABLET BY MOUTH EVERY DAY NO FULL MONTH SUPPLY NEEDS APPT CALL OFFICE 2021 active Not Available Not Available Not Avai lable diclofenac sodium 75 mg tablet,erich yed release Take 1 tablet twice a day by oral route for 15 days. 03/27 completed Not Available Not Available Not Available hydrochloro thiazide 25 mg tablet TAKE 1 TABLET BY MOUTH EVERY DAY-NEEDS APPOINTME NT FOR FURTHER REFILLS active Not Available Not Available No t Available methylpredn isolone 4 mg tablets in a dose pack Take 1 dose pk by oral route as directed. 01/17 completed Not Available Not Available Not Available hydrocodone 10 mg-chlorphe niramine 8 mg/5 mL oral susp extend.rel 12hr 09/14 completed Not Available Not Available Not Available albuterol sulfate HFA 90 mcg/actuati on aerosol inhaler INHALE 2 PUFFS BY MOUTH EVERY 4 HOURS NEEDED NEEDS APPT FOR FURTHER REFILLS. CALL OFFICE 2021 active Not Available Not Available Not Avai lable metoprolol tartrate 50 mg daily 01/19 completed Not Available Not Available Not Available Flonase Allergy Relief 50 mcg/actuati on nasal spray,suspe nsion [place] 1 spray every day by intranasa l route. active Not Available Not Available No t Available Afluria 2490-7525 (PF) 45 mcg(15 mcg x 3)/0.5 mL intramuscul ar syringe 09/14 completed Not Available Not Available Not Available Readi-Cat 2 2 % (w/v) oral suspension as directed 02/19 completed Not Available Not Available Not Available baclofen 5 mg tablet active Not Available Not Available No t Available Flucelvax Quad (PF) 60 mcg (15 mcg x 4)/0.5 mL IM syringe 03/27 completed Not Available Not Available Not Available Vitals Date Recorded Body height Heart rate Oxygen saturation Oxygen saturation in Arterial blood by Pulse oximetry Systolic blood pressure Diastolic blood pressure Provider Name and Address Organization Details Last Updated DateTime 0 167.64 cm 48 /min 98 % 98 % 130 mm[Hg] 70 mm[Hg] Kandi Ino [facility] 0 14:04:46 Date Recorded Body height Oxygen saturation Oxygen saturation in Arterial blood by Pulse oximetry Heart rate Systolic blood pressure Diastolic blood pressure Provider Name and Address Organization Details Last Updated DateTime 1 167.64 cm 99 % 99 % 69 /min 122 mm[Hg] 78 mm[Hg] Gricel Patrica [facility] 1 14:46:08 Date Recorded Body height Heart rate Oxygen saturation Oxygen saturation in Arterial blood by Pulse oximetry Systolic blood pressure Diastolic blood pressure Provider Name and Address Organization Details Last Updated DateTime 1 167.64 cm 62 /min 98 % 98 % 120 mm[Hg] 74 mm[Hg] FERDINAND SHRESTHA [address] [place], [address], [facility] Internal [facility] 1 09:30:20 Social History Question Answer Notes LastModified by Organizat ion Details LastModified Time Tobacco Smoking Status Never Smoker Not Available [facility] 09/12/2020 03:36:23 What Was The Date Of Your Most Recent Tobacco Screening? 06/19/2021 [email or web address] Information not available 06/19/2021 Sex: Unknown Functional Status None recorded. Mental Status None recorded. Family History Relationship Description Onset Age of this Age Resolved Age Notes LastModified by Organization Details LastModified Time Mother Neoplasm of urinary bladder htn nancy Not available 2017 11:18:56 Father Hypertensive disorder nancy Not available 2017 11:19:11 Medical History Condition Response Coronary Artery Disease N Gout N Other Y Kidney Stones Y Blood Diseases N Hyperthyroidism N Breast Cancer N Hypothyroidism N COPD N Depression N Lung Disease N Defects or Inherited Disease N Difficulty Swallowing N Anesthesia Complications N Meniere's disease N Anxiety Disorder N Muscle, Joint, or Bone Problems N Obesity Y Arthritis N Mental Disorder N Cancer N Stroke N Bladder or Kidney Problems N High Cholesterol Y Liver Disease N Headaches Y Fibromyalgia N Heart Problems N Thyroid Problems N GI Problems N Skin Problems N Anemia N Mental Illness N Diabetes N Ovarian Cancer N Tuberculosis N Congestive Heart Failure (CHF) N Abuse/Domestic Violence N Diverticulitis Y Asthma N Hepatitis N Heart Disease N Pulmonary Embolism N Chronic Ear Infections N Hypertension Y Chicken Pox Y Autism Spectrum Disorder (ASD) N Gynecological History Statement/Question Response Most Recent Mammogram 05/02/2020 Obstetrics History GPAL:G 0 P 0 0 0 0 Immunizations Vaccine Type Date Status Note Provider Nam e and Address Organization Details Recorded Time COVID-19, mRNA, LNP-S, PF, 30 mcg/0.3 mL dose 1 completed FERDINAND SHRESTHA [address] [place] [address], [phone], [facility] 06/19/2021 09:29:09 COVID-19, mRNA, LNP-S, PF, 30 mcg/0.3 mL dose 1 completed FERDINAND SHRESTHA [address] [place] [address], [phone], [facility] Internal [facility] 06/19/2021 09:29:19 Influenza, split virus, quadrivalent, preservative 0 completed Kandi Mckinnon [facility] 08/29/2020 08:05:59 Past Encounters Encounter ID Performer Location Encounter Start Date Encounter Closed Date Diagnosis/Indication Diagnosis SNOMED-CT Code Diagnosis ICD10 Code Diagnosis Note [id number] Terrie Carranza NP, [facility] [address] [place] [address],[place] [address] 09/14/2018 10:56:14 09/14/2018 12:39:30 Intermittent palpitations 548036051 R00.2 [id number] Terrie Carranza NP, S [facility] [address] [place] [address],[place] [address] 01/19/2019 09:44:09 01/19/2019 12:12:47 Sleep apnea 05826399 G47.30 follow, new to CPAP Essential hypertension 38533935 I10 controlled Polycystic ovaries 06227 008 E28.2 Right lowe r quadrant pain 913175495 R10.31 r/o diverticul itis Hypercholesterolemia 136 46340 E78.00 no current medication s [id number] Terrie Carranza NP, S [facility] [address] [place] [address],[place] [address] 02/02/2019 14:17:59 02/02/2019 15:23:39 Pneumonia 742974923 J18.9 improving Asthma 636723615 J45.90 9 Right lowe r quadrant pain 605342003 R10.31 will f/u after CT Essential hypertension 46627638 I10 controlled [id number] Terrie Carranza NP, S [facility] [address] [place] [address] 02/19/2019 09:29:14 02/19/2019 11:13:24 Hypercholesterolemia 70144830 E78.00 no current medication s Sleep apnea 84574724 G47 .30 follow, new to CPAP Essential hypertension 34934291 I10 controlled Polycystic ovaries 39645 008 E28.2 f/u [employer] [facility] Allergic cough 014493892 R05 use pro air prn [id number] [facility] [place] [facility] [address] [place] [address] [place] [address] 10/25/2019 11:11:30 10/25/2019 11:50:55 Asthma 677475373 J45.909 Essential hypertension 61353398 I10 very well controlled Sleep apnea 42245395 G47 .30 uses cpap nightly Benign par oxysmal positional vertigo 646987804 H81.10 Acute fron brooke sinusitis 92015150 J01.10 Dysfunctio n of eustachian tube 65431768 H69.93 [id number] [facility] [address] [place] [address] 01/18/2020 15:32:55 01/18/2020 16:31:30 Adult health examination 500940738 Z00.00 will schedule with obgyn Active or passive immunization 814520452 Z23 Body mass index 40+ - severely obese 383966689 Z68.41 diet/exerc ise Screening for malignant neoplasm of breast 726519911 Z12.31 Screening for malignant neoplasm of colon 878997948 Z12.11 Vitamin D deficiency 347 12757 E55.9 [id number] FERDINAND SHRESTHA [facility] [address] [place] [address] [place] [address] 08/08/2020 13:59:22 08/08/2020 16:00:21 Paronychia of finger 142571616 L03.019 allergic to sulfa and PCN will treat with doxy to avoid any possible cross reaction with cephs continue to soak and keep clean Candidal vulvovaginitis 23157718 B37.3 gets yeast infection after course of abx will give diflucan [id number] FERDINAND SHRESTHA [facility] [address] [place] [address] [place] [address] 10/13/2020 10:25:41 10/13/2020 14:37:45 Bacterial conjunctivitis 959099969 H10.9 also use warm compresses [id number] FERDINAND SHRESTHA [facility] [address] [place] [address] 10/20/2020 10:13:14 10/20/2020 12:00:38 Spasm of back muscles 752099748 M62.830 will call if no improvemen t Low back pain 111996720 M54.5 the patient has right sided back pain not touched by APAP, ibu, and stretching will trial on muscle relaxer and stronger NSAID [id number] FERDINAND SHRESTHA [facility] [address] [place] [address],[place] [address] 03/27/2021 14:32:41 03/27/2021 16:16:50 Diverticulitis of colon 045767790 K57.32 hx of flare ups will start on duo abx therapy and anti-emeti c for the nausea the patient is advised to stick to a liquid diet, no solids for the time being until after first 24 to 48 hours will call if no improvemen t Nausea 996850373 R11.0 will trial this so she can keep the liquid down to avoid risk of dehydratio n [id number] FERDINAND SHRESTHA [facility] [address] [facility] [facility] [place] [address] 06/19/2021 09:23:03 06/19/2021 10:06:40 Acute exacerbation of asthma 962857274 J45.901 will start on prednisone and a z pakfu in a week with an update Asthma 952193500 J45.20 exacerbati ondiscusse d monitoring her breathing Health Concerns Section Related Observation LastModified by Organization Detai ls LastModified Time None Recorded Concern Status LastModified by Organization Details LastModified Time None Recorded Advance Directives Directive None Recorded Payers Encounter Date Sequence Insurance Name Policy Number Policy Mccoy Covered Member ID Mccoy Member ID Guarantor Name 08/08/2020 1 [facility] [id number] 1 Gricel A Fugiel [id number] Gricel A Fugiel 10/13/2020 1 [facility] [id number] 1 Gricel A Fugiel [id number] Gricel A Fugiel 10/20/2020 1 [facility] [id number] 1 Gricel A Fugiel [id number] Gricel A Fugiel 03/27/2021 1 [facility] [id number] 1 Gricel A Fugiel [id number] Gricel A Fugiel 06/19/2021 1 [facility] [id number] 1 Gricel A Fugiel [id number] Gricel A Fugiel Notes Date Note Type Note Provider Name a nd Address Organization Details Recorded Time 08/08/2020 text/html finger infection the patient reports a few days ago she was picking raspberries and noted that she picked her finger has since noticed her right third finger has been swollen and red with discharge the patient has been soaking it and using abx cream with not effect very painful no fever, no sob, no cough, no abdominal pain, no chest pain, no n/v/d FERDINAND SHRESTHA [address] [place] [address], [address], [facility] 08/08/2020 14:24:22 10/13/2020 text/html c/o bilateral co nj the patient reports alia conj started a couple days ago, has allergies, very pruritic the patient has purulent discharge from the left eye normal watery discharge for the right the patient has crust development in the morning no fever, no sob, no cough, no abd pain, no chest pain, no chills, no n/v/d FERDINAND SHRESTHA [address] [place] [address], [phone], [facility] 10/13/2020 12:03:40 10/20/2020 text/html c/o pulled back muscle the patient reports that it started a couple days ago no injury or trauma she knows of has been using ibuprofen and APAP with no relief the pt reports that standing and going into a bend makes it worse the patient reports putting legs up make it worse the patient reports that her muscles are tight from the neck to the shoulderss and the low back stretching is not helping having spasms no fever, no chills, no sob, no cough, no abd pain, no chest pain, no fatigue, no sore throat FERDINAND SHRESTHA [address] [place], [address], [facility] 10/20/2020 11:48:29 03/27/2021 text/html Abdominal PainReported bypatient.Location: generalized Quality:pain;crampi ng;sharp Severity:moderate Duration:constant; started: (yesterday night) Onset/Timing:worse Context:history of diverticulosis with recurrent diverticulitis flares Aggravating Factors:eating Alleviating Factors:nothing gives relief Associated Symptoms:nausea;kayy rrhea;decreased appetite Other:denies possible Pain Radiation:no radiation Previous Tests, Treatment and/or Diagnostic Procedures:none c/o diverticulitis flare up FERDINAND SHRESTHA [address] [place], [address], [facility] 03/27/2021 15:01:41 06/19/2021 text/html c/o sinus headac he and dizziness the patient reports that she has been having a sinus headache, dry cough, increased heart palpitations and dizzinessthe patient gets allergy shots, was late due to time change in the office and her symptoms have worsened over the past week states she hears some wheezing and has been using her inhaler up to 4 times per day where before she was using it maybe once a day to once per week her O2 sat in office is 98% on RA, not concerned for hypoxia probably a combination of allergies and URI causing an acute asthma exacerbation will start on z patricio and pred taper will call for an update at end of medication course to let me know how she is doing FERDINAND SHRESTHA [address] [place], [address], [facility] 06/19/2021 09:48:27 OBGyn Episode No OBEpisode recorded.
== END 2024-11-29 11:29 | disposition home or self-care (01) ==
PROVIDERS: PCP Internal Medicine
DX: Z01.818 Encounter for other preprocedural examination (principal); H26.9 Unspecified cataract

== ENCOUNTER → 2024-11-29 10:57 | Outpatient (REF) | payer OTHER, SELFPAY ==
--- NOTE | 2024-11-29 11:40 | ECG_ITS ---
Test Reason : PRE OP Blood Pressure : */* mmHG Vent. Rate : 56 BPM Atrial Rate : 56 BPM P-R Int : 144 ms QRS Dur : 86 ms QT Int : 414 ms P-R-T Axes : -17 35 29 degrees QTcB Int : 399 ms Sinus bradycardia Otherwise normal ECG When compared with ECG of 18-Feb-2023 15:36, No significant change was found Referred By: Samia Ardon Electronically Signed By: EDGARDO FERMIN MD
[2024-11-29 11:57] LABS: MANUAL DIFF FLAG NO
[2024-11-29 12:25] LABS: Basophils Absolute Auto 0.1 X10*3/uL (0.0-0.2); Basophils Percent Auto 1.3 % (0-2); Eosinophils Absolute Auto 0.1 X10*3/uL (0.0-0.4); Eosinophils Percent Auto 2.2 % (0-4); Hemoglobin 13.5 g/dl (12.0-16.0); Imm Gran Abs Auto 0.01 X10*3/uL (0.00-0.03); Imm Gran Pct Auto 0.2 % (0.0-0.4); Lymphocytes Absolute Auto 1.5 X10*3/uL (1.2-4.9); Lymphocytes Percent Auto 25.6 % (20-40); Mean Corpuscular HGB Conc 33.8 g/dl (31.0-35.0); Mean Corpuscular Hemoglobin 31.3 pg (27.0-33.0); Mean Corpuscular Volume 92.8 fL (80.0-98.0); Monocytes Absolute Auto 0.6 X10*3/uL (0.1-1.2); Monocytes Percent Auto 10.1 % (2-11); Neutrophils Absolute Auto 3.6 x10*3/uL (2.0-8.3); Neutrophils Percent Auto 60.6 % (45-73); Platelet Count 280 X10*3/uL (160-400); Red Blood Count 4.31 X10*6/uL (4.20-5.50); Red Cell Distribution Width 12.8 % (11.0-16.0); White Blood Count 5.9 X10*3/uL (4.8-10.8)
[2024-11-29 12:48] LABS: Alanine Aminotransferase 20 U/L (0-31); Alkaline Phosphatase 77 U/L (39-117); Anion Gap 12 (12-20); Aspartate Amino Transferase 20 U/L (5-31); Bilirubin Direct 0.3 mg/dL (0.0-0.5); Bilirubin Total 1.2 mg/dL (0.0-1.0); Blood Urea Nitrogen 24 mg/dL (9-16); Calcium 8.6 mg/dL (8.4-10.2); Carbon Dioxide 29 mmol/L (22-29); Chloride 104 mmol/L (96-108); Estimated Glomerular Filt Rate > 60; Glucose Fasting 88 mg/dL (60-99); Magnesium 2.3 mg/dL (1.6-2.6); Potassium 3.9 mmol/L (3.3-5.1); Sodium 141 mmol/L (135-145)
== END ==
LOC: HO.CARD 10:57
PROVIDERS: Physician Assistant Medical; PCP Internal Medicine
DX: Z01.818 Encounter for other preprocedural examination (principal); H26.9 Unspecified cataract
CPT/HCPCS: 36415; 80053; 80076; 82248; 83735; 85025; 93005; 96127

== ENCOUNTER → 2024-11-29 11:40 | Outpatient (BNV) | payer OTHER, SELFPAY | PROVIDERS: PCP Internal Medicine; Visit Provider Internal Medicine Cardiovascular Disease | DX: R00.1 Bradycardia, unspecified (principal) | CPT/HCPCS: 93010 ==

== ENCOUNTER 2025-02-01 11:57 | Outpatient (AMB) | payer OTHER, SELFPAY ==
--- NOTE | 2025-02-01 12:14 | MHC.OFFVISWM ---
VS Expanded 02/01/25 12:25 BP 156/84 H Blood Pressure Location Lt brachial Blood Pressure Position Sitting Pulse 62 Pulse Source Pulse Oximeter Temp 97.8 F Temperature Source Temporal Artery Scan Pulse Oximetry 96 Oxygen Delivery Method Room Air Height 5 ft 6 in Weight 207 lb 12.8 oz BMI 33.5 Body Fat % 35.6 Body Fat Mass 73.8 Fat Free Mass 133.8 Visceral Fat Rating 9 Body Water % 45.8 Body Water Mass 95.0 Muscle Mass/Score 127.0 Basal Metabolic Rate/Score 1,811 Intake Visit Reasons: (OV) PO LSG 03/06/23 Allergies adhesive tape Allergy (Intermediate, Verified 11/29/24 11:10) Blister Penicillins Allergy (Intermediate, Verified 11/29/24 11:10) VOMITING sulfamethoxazole [From Bactrim] Allergy (Intermediate, Verified 11/29/24 11:10) RASH trimethoprim [From Bactrim] Allergy (Intermediate, Verified 11/29/24 11:10) RASH Sulfa (Sulfonamide Antibiotics) Allergy (Mild, Verified 11/29/24 11:10) Rash oxycodone Adverse Reaction (Intermediate, Verified 11/29/24 11:10) Nausea and Vomiting Medication List - Last Reconciled 02/01/25 by FERDINAND Arroyo albuterol sulfate 90 mcg/actuation (ProAir HFA) 2 puffs inhalation Q4-6H PRN albuterol sulfate 2.5 mg (3 mL) inhalation QID [allergy shots Q month] clotrimazole 1% 1 appl topical BID docusate sodium 100 mg PO BID ibuprofen 200 mg PO Q6H PRN loratadine (Allergy Relief (loratadine)) 10 mg PO DAILY PRN polyethylene glycol 3350 (Miralax) 17 grams PO 2XW psyllium 1 packet PO DAILY zolpidem 5 mg PO BEDTIME PRN HPI Comments Details: This?is a?54?yo female who is s/p LSG 03/06/2023. Presents for 23 month post op visit. Weight at last visit on 04/14/2024 was 189.4 pounds with a BMI of 30.6, weight today is 207.8 pounds, representing a 18.4 pound weight gain with a BMI today of 33.5.? No complaints of nausea, emesis, abdominal pain or reflux. Has ongoing constipation, managed with Colace, fiber, Miralax. Her BP is up today, she has a BP cuff at home. Present meal plan includes: 6:30 - Celebrate 4:1 with 4- 6 oz coffee and the rest UAM 10:30 - shake without coffee or bar 2;30 pm - shake without coffee or bar - 1/2 c fruit 6pm - 3-4 oz each protein and vegetable reports that when she introduces new foods, her weight increases; recently went back to above plan notices an inflammatory response to her joints when she has sugar struggling with hunger, also thinks her hormones are changing, ? menopausal Exercise - Pilates 3 d/ week. Cardio - 1800 - 2000 mireya/week less consistent lately [facility] Medical History (Updated 11/29/24 @ 11:20 by Samia Ardon PA-C) Annual physical exam Obesity (BMI 30-39.9) Mixed hyperlipidemia Benign essential hypertension Asthma BMI 38.0-38.9,adult Family history of anesthesia complication Post-operative nausea and vomiting Motion sickness History of COVID-19 Murmur Pre-op evaluation HTN (hypertension) PAC (premature atrial contraction) PVC (premature ventricular contraction) Elevated cholesterol Right ankle pain Trochanteric bursitis of right hip Maxillary sinusitis Palpitation Chest pain Morbid obesity Left leg pain Breast cancer screening by mammogram PCOS (polycystic ovarian syndrome) Diverticular disease Asthmatic bronchitis History of torn meniscus of knee Vitamin D deficiency WESLEY on CPAP Aortic valve calcification Chest discomfort Morbid obesity with BMI of 40.0-44.9, adult Surgical History S/P laparoscopic sleeve gastrectomy Hx of excision of mass H/O colonoscopy History of foot surgery History of section Family History Father HTN (hypertension) Prostate cancer Mother HTN (hypertension) Bladder cancer Total knee replacement status History of hip replacement H/O shoulder replacement Sister No problems noted. Sister Arthritis Total knee replacement status Daughter Heart problem Daughter Heart murmur Son No problems noted. Paternal Grandfather Myocardial infarct Paternal Uncle Myocardial infarct Maternal Grandmother Breast cancer Skin cancer Social History Household Members: Spouse and Children Housing: House Are you a primary lawn care professional to a significant other at home: No Do you presently have visiting nurse or other home services: No Alcohol intake: current Alcohol intake frequency: holidays/special occasions only Comment: once a week 2-3 glasses Patient Tobacco Use Status: Never used Tobacco e-Cigarette/Vaping Use: Never Used Second Hand Smoke Exposure: No service: No Current occupational status: employed Cognitive needs: No Hearing needs: No Vision needs: Yes (glasses) Assessment & Plan Assessment & Plan (1) Status post sleeve gastrectomy: Comment: March 2023 Code(s): Z90.3 - Acquired absence of stomach [part of] Category: Surgical (2) Obesity (BMI 30-39.9): Code(s): E66.9 - Obesity, unspecified Category: Medical Plan Pt is interested in starting GLP1. Reviewed contraindications, discussed dosing. Discussed need for adequate protein intake while on GLP1s. She is unsure yet if she would like to start. Would like a few more months to stick to plan and exercise routine and see how she does. Would not prescribe phentermine due to high BP readings. I encouraged her to take her BP at home first thing in the morning for a few days to ensure it is not consistently high. RTC 4 months per pt preference.
[2025-02-01 12:25] VITALS: BP 156/84; PULSE 62; TEMP 36.6; O2SAT 96; BMI 33.5
--- OUTSIDE RECORDS SUMMARY | 2025-02-01 14:46 | XMS_ITS | Data Portability ---
Author Organization [facility] Service Address [address] [place] [address] Assessment No assessment recorded. Plan of Treatment Reminders Order Date Submit Date Provider Last Modified By Organization Details Last Modified Time Details Appointments None recorded. Lab None recorded. Referral None recorded. Procedures None recorded. Surgeries None recorded. Imaging None recorded. Medication Orders prednisone 10 mg tablet 2020 021 [facility]/Pharmacy #2024, [address] [place], [address], 09:44:25 Zithromax Z-Patricio 250 mg tablet [address] [facility]/Pharmacy #2024, [address] [place], [address], 09:05:33 ondansetron 8 mg disintegrat ing tablet 2020 021 [facility]/Pharmacy #2024, [address] [place], [address], 09:28:05 metronidazo le 500 mg tablet 2020 021 [facility]/Pharmacy #2024, [address] [place], [address], 09:28:01 Cipro 500 mg tablet [address] [facility]/Pharmacy #2024, [address] [place], [address], 02/15/202 2 09:05:44 cyclobenzap rine 10 mg tablet [address] [place], [address], 14:44:11 diclofenac sodium 75 mg tablet,erich yed release [address] [place], [address], 14:44:21 erythromyci n 5 mg/gram (0.5 %) eye ointment [address] [place], [address], 14:44:37 Diflucan 150 mg tablet [address] [place], [address], 14:44:33 doxycycline hyclate 100 mg capsule [address] [place], [address], 14:44:23 Patient TargetsNo targets recorded. Patient InstructionsNo instructions recorded. Reason for Referral None Reported. Results Created Date Observation Date Name Description Value Unit Range Abnormal Flag Note LastModifiedBy Organization Detail LastModifiedTime 08/27/20 21 08/27/2021 XR, kidne y + urete r + bladd er No observ ation [facility] ed[facility] [address] [place], [address], 08/27/2021 16:23:07 Result Notes None recorded. Problems Name Problem SNOMED Code Status Onset Date Resolution Date Notes Provider Name and Address Organization Details Recorded Time Polycystic ovaries Active 2017 Not Available [facility] 0 20:03:36 Essential hypertensi on 28829025 Active 2017 Not Available [facility] 0 20:03:37 Gastric reflux 895268590 Active 2017 Not Available [facility] 0 20:03:36 Sleep apnea 34128141 Active 2018 Not Available [facility] 0 20:03:37 Hyperchole sterolemia 46746554 Active 2018 Not Available [facility] 0 20:03:37 Asthma 404707591 Active 2020 FERDINAND SHRESTHA [address] [place], [address], [facility] 1 09:47:58 Problem Notes None recorded. Procedures Surgical History Date Name Laterality Status Provider Name and Address Organization Details Recorded Time 05/02/20 Most Recent Mammogram completed Jennifer Lu [facility] 05/05/2020 08:25:18 Caesarean Section completed Terrie Carranza NP, [address] [place], [address], [facility] 09/14/2018 11:19:25 Imaging Results Imaging Date Name Status LastModified by Organiz ation Details LastModified Time 08/27/2021 XR, kidney + ureter + bladder completed [facility] Sched[facility] [address] [place], [address], 08/27/2021 16:23:07 Procedure Notes None recorded. Medical Equipment None Reported. Allergies Allergen ID Allergen Name Allergen Category Reaction Reaction Severity Criticality Documentation Date Start Date Code Code System Note Provider Name and Address Organization Details Recorded Time 248 Substance with sulfonami de structure and antibacte rial mechanism of action (substanc e) medicatio n Not available Not available Not available 09/14/2018 48264 8003 SNOMED Leslie barboza [facility] Internal [facility] 8 11:10:08 2482 Product containin g penicilli n (product) medicatio n Not available Not available Not available 09/14/2018 11559 8001 SNOMED Leslie barboza [facility] Medicine 8 11:10:16 Medications Name Sig Start [...] Relief 50 mcg/actuati on nasal spray,suspe nsion [place] 1 spray every day by intranasa l route. active Not Available Not Available No t Available Afluria 6001-7573 (PF) 45 mcg(15 mcg x 3)/0.5 mL [...] 98 % 130 mm[Hg] 70 mm[Hg] Kandi Mckinnon [facility] 0 14:04:46 Date Recorded Body height Oxygen saturation Oxygen saturation in Arterial blood by Pulse oximetry Heart rate Systolic blood pressure Diastolic blood pressure Provider Name and Address Organization Details Last Updated DateTime 1 167.64 cm 99 % 99 % 69 /min 122 mm[Hg] 78 mm[Hg] Gricel Patrica [facility] 1 14:46:08 Date Recorded Body height Heart rate Oxygen saturation Oxygen saturation in Arterial blood by Pulse oximetry Systolic blood pressure Diastolic blood pressure Provider Name and Address Organization Details Last Updated DateTime 1 167.64 cm 62 /min 98 % 98 % 120 mm[Hg] 74 mm[Hg] FERDINAND SHRESTHA [address] [place], [address], [facility] 1 09:30:20 Social History Question Answer Notes [...] Not available 2017 11:18:56 Father Hypertensive disorder [email or web address] Not available 2017 11:19:11 Medical History Condition Response Coronary Artery Disease N Gout N Other Y Kidney Stones Y Blood Diseases N Hyperthyroidism N Breast Cancer N Lung Disease N Depression N COPD N Hypothyroidism N Defects or Inherited Disease N Difficulty Swallowing N Anesthesia Complications N Anxiety Disorder N Meniere's disease N Muscle, Joint, or Bone Problems N Obesity Y Arthritis N Mental Disorder N Cancer N Stroke N Bladder or Kidney Problems N High Cholesterol Y Liver Disease N Fibromyalgia N Headaches Y Heart Problems N Thyroid Problems N GI [...] mL dose 1 completed FERDINAND SHRESTHA [address] [place] [address], [phone], [facility] 06/19/2021 09:29:09 COVID-19, mRNA, LNP-S, PF, 30 mcg/0.3 mL dose 1 completed FERDINAND SHRESTHA [address] [place] [address], [address], [facility] 06/19/2021 09:29:19 Influenza, split virus, quadrivalent, preservative 0 completed Kandi Mckinnon [facility] [place] 08/29/2020 08:05:59 Past Encounters Encounter ID Performer Location Encounter Start Date Encounter Closed Date Diagnosis/Indication Diagnosis SNOMED-CT Code Diagnosis ICD10 Code Diagnosis Note [id number] Terrie Carranza NP, [facility] [address] [place] [address], [place] [address] 09/14/2018 10:56:14 09/14/2018 12:39:30 Intermittent palpitations 386654685 R00.2 [id number] Terrie Carranza NP, [facility] [address] [place] [address],[place] [address] 01/19/2019 09:44:09 01/19/2019 12:12:47 Sleep apnea 91197191 G47.30 follow, new to CPAP Essential hypertension 06563720 I10 controlled Polycystic ovaries 02733 008 E28.2 Right lowe r quadrant pain 827339836 R10.31 r/o diverticul itis Hypercholesterolemia 136 78700 E78.00 no current medication s [id number] Terrie Carranza NP, [facility] [address] [place] [address],[place] [address] 02/02/2019 14:17:59 02/02/2019 15:23:39 Pneumonia 411597634 J18.9 improving Asthma 231212684 J45.90 9 Right lowe r quadrant pain 413826921 R10.31 will f/u after CT Essential hypertension 18627125 I10 controlled [id number] Terrie Carranza NP, S [facility] [address], [place] [address] 02/19/2019 09:29:14 02/19/2019 11:13:24 Hypercholesterolemia 28650799 E78.00 no current medication s Sleep apnea 93126416 G47 .30 follow, new to CPAP Essential hypertension 64470677 I10 controlled Polycystic ovaries 82430 008 E28.2 f/u [employer] Allergic cough 277295987 R05 [place] [id number] [facility] [address] [facility], [place] [address] 10/25/2019 11:11:30 10/25/2019 11:50:55 Asthma 454008415 J45.909 Essential hypertension 43203426 I10 very well controlled Sleep apnea 52215160 G47 .30 uses cpap nightly Benign par oxysmal positional vertigo 979375723 H81.10 Acute fron brooke sinusitis 47523500 J01.10 Dysfunctio n of eustachian tube 34124783 H69.93 [id number] [facility] [address] [facility], [place] [address] 01/18/2020 15:32:55 01/18/2020 16:31:30 Adult health examination 768162747 Z00.00 will schedule with obgyn Active or passive immunization 604757773 Z23 Body mass index 40+ - severely obese 768023741 Z68.41 diet/exerc ise Screening for malignant neoplasm of breast 237082758 Z12.31 Screening for malignant neoplasm of colon 684423171 Z12.11 Vitamin D deficiency 347 57407 E55.9 [id number] FERDINAND SHRESTHA [facility] [address], [place] [address] 08/08/2020 13:59:22 08/08/2020 16:00:21 Paronychia of finger 489948484 L03.019 allergic to sulfa and PCN will treat with doxy to avoid any possible cross reaction with cephs continue to soak and keep clean Candidal vulvovaginitis 49768208 B37.3 gets yeast infection after course of abx will give diflucan [id number] FERDINAND SHRESTHA [facility] [address], [place] [address] 10/13/2020 10:25:41 10/13/2020 14:37:45 Bacterial conjunctivitis 317233562 H10.9 also use warm compresses [id number] FERDINAND SHRESTHA [facility] [address] [address] [facility] [address] 10/20/2020 10:13:14 10/20/2020 12:00:38 Spasm of back muscles 634990001 M62.830 will call if no improvemen t Low back pain 420157122 M54.5 the patient has right sided back pain not touched by APAP, ibu, and stretching will trial on muscle relaxer and stronger NSAID [id number] FERDINAND SHRESTHA [facility] [address], [place] [address] 03/27/2021 14:32:41 03/27/2021 16:16:50 Diverticulitis of colon 260808366 K57.32 hx of flare ups will start on duo abx therapy and anti-emeti c for the nausea the patient is advised to stick to a liquid diet, no solids for the time being until after first 24 to 48 hours will call if no improvemen t Nausea 299660845 R11.0 will trial this so she can keep the liquid down to avoid risk of dehydratio n [id number] FERDINAND SHRESTHA [facility] [address], [address] [facility] [place] [address] 06/19/2021 09:23:03 06/19/2021 10:06:40 Acute exacerbation of asthma 276135630 J45.901 will start on prednisone and a z pakfu in a week with an update Asthma 570018915 J45.20 exacerbati ondiscusse d monitoring her breathing Health Concerns Section Related Observation LastModified by Organization Detai ls LastModified Time None Recorded Concern Status LastModified by Organization Details LastModified Time None Recorded Advance Directives Directive None Recorded Payers Encounter Date Sequence Insurance Name Policy Number Policy Mccoy Covered Member ID Mccoy Member ID Guarantor Name 08/08/2020 1 [place] [id number] 1 Gricel A Fugiel [id number] Gricel A Fugiel 10/13/2020 1 [facility] [id number] 1 Gricel A Fugiel [id number] Gricel A Fugiel 10/20/2020 1 [place] [id number] 1 Gricel A Fugiel [id number] Gricel A Fugiel 03/27/2021 1 [facility] [id number] 1 Gricel A Fugiel [id number] Gricel A Fugiel 06/19/2021 1 [facility] [id number] 1 Gricel A Fugiel [id number] Gricel A Fugiel Notes Date Note Type [...] chest pain, no n/v/d FERDINAND SHRESTHA [address] [place] [address], [address], [facility] 08/08/2020 14:24:22 10/13/2020 text/html c/o [...] pain, no chills, no n/v/d FERDINAND SHRESTHA [address] [place], [address], [facility] 10/13/2020 12:03:40 10/20/2020 text/html c/o [...] fatigue, no sore throat FERDINAND SHRESTHA [address] [place], [address], [facility] 10/20/2020 11:48:29 03/27/2021 text/html Abdominal PainReported bypatient.Location: generalized Quality:pain;crampi ng;sharp Severity:moderate Duration:constant; started: (yesterday night) Onset/Timing:worse Context:history of diverticulosis with recurrent diverticulitis flares Aggravating Factors:eating Alleviating Factors:nothing gives relief Associated Symptoms:nausea;kayy rrhea;decreased appetite Other:denies possible Pain Radiation:no radiation Previous Tests, Treatment and/or Diagnostic Procedures:none c/o diverticulitis flare up FERDINAND SHRESTHA [address] [place], [address], [facility] 03/27/2021 15:01:41 06/19/2021 text/html c/o [...] how she is doing FERDINAND SHRESTHA [address] [place], [address], [facility] 06/19/2021 09:48:27 OBGyn Episode No OBEpisode recorded.
== END 2025-02-01 12:56 | disposition home or self-care (01) ==
LOC: HO.HBS 11:58
PROVIDERS: PCP Internal Medicine; Visit Provider Physician Assistant Surgical
DX: E66.811 Obesity, class 1 (principal); Z68.33 Body mass index [BMI] 33.0-33.9, adult; Z90.3 Acquired absence of stomach [part of]; Z98.84 Bariatric surgery status
CPT/HCPCS: 99214

== ENCOUNTER 2025-02-08 15:56 | Outpatient (AMB) | payer OTHER, SELFPAY ==
--- NOTE | 2025-02-08 16:11 | MHC.PC.OV ---
Vital Signs 02/08/25 16:12 02/08/25 16:49 Height 5 ft 6 in Weight 210 lb BMI 33.9 BP 140/70 H 140/80 H Blood Pressure Location Lt brachial Lt brachial Position Sitting Sitting Pulse 55 Pulse Source Pulse Oximeter Temp 97.5 F Temp Source Temporal Artery Scan Pulse Oximetry (%) 98 Oxygen Delivery Method Room Air Intake Visit Reasons: cholesterol Intake Note: Patient is here to follow up on Cholesterol. Green Coffee Blender Required: No Sweatband Separator: Not Required per policy Accompanied by: Self / Same As Patient Allergies adhesive tape Allergy (Intermediate, Verified 02/08/25 16:11) Blister Penicillins Allergy (Intermediate, Verified 02/08/25 16:11) VOMITING sulfamethoxazole [From Bactrim] Allergy (Intermediate, Verified 02/08/25 16:11) RASH trimethoprim [From Bactrim] Allergy (Intermediate, Verified 02/08/25 16:11) RASH Sulfa (Sulfonamide Antibiotics) Allergy (Mild, Verified 02/08/25 16:11) Rash oxycodone Adverse Reaction (Intermediate, Verified 02/08/25 16:11) Nausea and Vomiting Tobacco use date assessed: 02/08/25 Dental Screening Dental Screen Date: 11/29/24 [facility] Medical History (Updated 02/08/25 @ 16:43 by Ailyn Sam MD) Chronic pain of left knee Obesity Hypertension Annual physical exam Obesity (BMI 30-39.9) Mixed hyperlipidemia Benign essential hypertension Asthma BMI 38.0-38.9,adult Family history of anesthesia complication Post-operative nausea and vomiting Motion sickness History of COVID-19 Murmur Pre-op evaluation HTN (hypertension) PAC (premature atrial contraction) PVC (premature ventricular contraction) Elevated cholesterol Right ankle pain Trochanteric bursitis of right hip Maxillary sinusitis Palpitation Chest pain Morbid obesity Left leg pain Breast cancer screening by mammogram PCOS (polycystic ovarian syndrome) Diverticular disease Asthmatic bronchitis History of torn meniscus of knee Vitamin D deficiency WESLEY on CPAP Aortic valve calcification Chest discomfort Morbid obesity with BMI of 40.0-44.9, adult Surgical History (Updated 02/08/25 @ 16:16 by DONNA Crandall) History of cataract surgery S/P laparoscopic sleeve gastrectomy Hx of excision of mass H/O colonoscopy History of foot surgery History of section Family History Father HTN (hypertension) Prostate cancer Mother HTN (hypertension) Bladder cancer Total knee replacement status History of hip replacement H/O shoulder replacement Sister No problems noted. Sister Arthritis Total knee replacement status Daughter Heart problem Daughter Heart murmur Son No problems noted. Paternal Grandfather Myocardial infarct Paternal Uncle Myocardial infarct Maternal Grandmother Breast cancer Skin cancer Social History Household Members: Spouse and Children Housing: House Are you a primary pharmacy care coordinator to a significant other at home: No Do you presently have visiting nurse or other home services: No Alcohol intake: current Alcohol intake frequency: holidays/special occasions only Comment: once a week 2-3 glasses Patient Tobacco Use Status: Never used Tobacco e-Cigarette/Vaping Use: Never Used Second Hand Smoke Exposure: No service: No Current occupational status: employed Cognitive needs: No Hearing needs: No Vision needs: Yes (glasses) Questionnaire Thrive Questionnaire Date Thrive assessed: 11/29/24 CRISTA-7 AMB Questionnaire CRISTA-7 Date CRISTA - 7 assessed: 11/29/24 Source: Developed by Drs. Alex Lutz, Marylou Garcia, Michele Santillan and colleagues, with an educational derrek from [employer]. Physical exam (Primary Care) Vital Signs: Last Vital Signs Temp 97.5 F 02/08/25 16:12 Pulse 55 02/08/25 16:12 BP 140/80 H 02/08/25 16:49 Pulse Ox 98 02/08/25 16:12 Oxygen Delivery Method Room Air 02/08/25 16:12 BMI result Body Mass Index 33.9 Tobacco/Smoking Status: Tobacco use Status Tobacco use date assessed 02/08/25 02/08/25 16:17 Patient Tobacco Use Status Never used Tobacco 02/08/25 16:17 e-Cigarette/Vaping Use Never Used 02/08/25 16:17 Thrive Assessment: Date of Thrive Assessment Date Thrive assessed 11/29/24 02/08/25 16:17 Const General: alert; No acute distress Eyes Conjunctivae: conjunctivae normal Resp Auscultation: clear to auscultation bilaterally Cardio Rate: regular rate Rhythm: regular rhythm GI Inspection: Yes normal to inspection Extrem General: Yes normal to inspection and No edema Coding Level of Care Code Est Pt Level 4 (91138) Complex EM visit Add On G2211 Diagnoses Obesity (BMI 30-39.9) E66.9 Benign essential hypertension I10 Hypercholesterolemia E78.00 WESLEY on CPAP G47.33; Z99.89 Gastroesophageal reflux disease without esophagitis K21.9 Esophagitis presence: without esophagitis Cataract H26.9 Assessment & Plan Assessment & Plan (1) Obesity (BMI 30-39.9): Code(s): E66.9 - Obesity, unspecified Category: Medical Plan: Patient follows up with bariatric program (2) Benign essential hypertension: Code(s): I10 - Essential (primary) hypertension Category: Medical Plan: Continue with blood pressure medication. Decrease salt intake and exercise presently on no medication (3) Hypercholesterolemia: Code(s): E78.00 - Pure hypercholesterolemia, unspecified Category: Medical Plan: Avoid fried foods, chicken skin, eggs, butter margarine, pastries and meat. Be it pork or beef they have a lot of cholesterol LDL goal of less than 130 and triglyceride of less than 150 patient will need new blood work (4) WESLEY on CPAP: Comment: CPAP use Code(s): G47.33 - Obstructive sleep apnea (adult) (pediatric); Z99.89 - Dependence on other enabling machines and devices Category: Medical Plan: Continue to use the CPAP more than 4 hours a night and benefits from this (5) GERD (gastroesophageal reflux disease): Code(s): K21.9 - Gastro-esophageal reflux disease without esophagitis Category: Medical Qualifiers: Esophagitis presence: without esophagitis Qualified Code(s): K21.9 - Gastro-esophageal reflux disease without esophagitis Plan: Avoid the foods that causes that usually spicy foods, tomato products, juices, coffee, soda and foods that your sensitive to. After eating do not lie down, allow 3-4 hours before in lie down. And keep the head of bed above 30 degrees to avoid the acid from going up. (6) Cataract: Comment: 12/2024 eye and lasik Code(s): H26.9 - Unspecified cataract Category: Medical Plan: Eye and lasik surgery Plan History of Present Illness The patient is a 54-year-old female presenting for follow-up concerning several interrelated health concerns including weight management, essential hypertension, and inquiries regarding GLP-1 medications. Despite adhering to a consistent exercise regimen, she experienced an unintentional weight gain of 15 pounds, linked possibly to hormonal fluctuations resembling -induced changes. She has also been experiencing frequent headaches, with uncertainty regarding hormonal or stress-related etiology. She has not been actively monitoring her blood pressure at home but reported inconsistent readings, with the most recent being 140/70 mmHg. Her blood pressure management plan currently consists of careful monitoring and dietary modifications. Her cholesterol management targets involve maintaining LDL below 130 mg/dL and triglycerides below 150 mg/dL, with plans for new baseline blood work. Her past medical history includes obstructive sleep apnea, controlled with CPAP therapy; hypercholesterolemia; impaired glucose tolerance; gastroesophageal reflux disease; polycystic ovarian syndrome; and asthma. The patient underwent a sleeve gastrectomy in March 2023 and reported weight management follow-up and interest in bariatric program interventions. For ophthalmological concerns, she had cataract surgery but currently reports issues like increased floater visibility and worsened astigmatism, which she hopes will resolve upon healing. She is also monitoring a heart murmur which has not recently required cardiology intervention. Health Maintenance - Blood pressure monitoring recommended at home. - Mammogram up to date as of February 2024, due this month. - Colonoscopy last completed in 2020. - Advised to continue use of CPAP therapy for obstructive sleep apnea. - Follow-up with bariatric program for weight management. - Recommended new blood work for cholesterol and other parameters. - Discussed GLP-1 medications for weight management with awareness of availability and coverage issues. - Tetanus vaccine up to date; considering pneumonia vaccine in the future. Social History - Engaged with a weight management program. - Exercise slightly reduced, contributing to weight gain. - No excessive salt intake reported. Review of Systems Physical Exam - Cardiovascular- Blood pressure 140/70 mmHg. - Musculoskeletal- Examination of right shoulder, followed by MRI indicating rotator cuff issues. Results - Labs (June 2024): Normal complete blood count, normal electrolytes, normal kidney function, normal blood glucose, liver enzymes within normal limits, cholesterol results within targeted management goals. Plan Patient was informed and verbally consented to the use of an ambient scribe for clinic note documentation during this visit. Discussion Notes During our conversation, I elaborated on various management aspects such as the potential benefits of GLP-1 medications for weight management and addressed coverage and availability concerns, ensuring the patient fully understands these factors. For hypertension, I stressed the importance of diligent home monitoring to assess true blood pressure control and discussed lifestyle modifications, including sodium reduction and dietary management. We evaluated past cholesterol management efforts and planned for new diagnostics to maintain her current target goals. The importance of continued CPAP use was reemphasized, ensuring consistency in managing sleep apnea. We thoroughly reviewed her orthopedics' notes regarding her rotator cuff tear and the option of surgery if conservative treatments prove insufficient post-family events. I encouraged continued patience regarding her cataract surgery resolution process, with acknowledgment that some interventions might be required if complications persist. We discussed pneumonia vaccine administration in context with her asthma, considering future plans. Patient Instructions - Monitor your blood pressure daily at home and record the readings. - Continue using your CPAP device for at least four hours a night. - Schedule your new blood work at your earliest convenience. - Aim to reduce salt intake in your diet. - Consider glucagon-like peptide-1 (GLP-1) medications with a keen awareness of coverage issues. - Follow up with the bariatric program and weight management consultations. - Keep an eye on symptoms from cataract surgery and return for advice if they do not improve. - Review vaccination options, especially pneumonia, at future appointments. - Contact my office if symptoms worsen or new health concerns arise. Orders: Orders Complete Blood Count Auto Diff Today E66.3 - Overweight, K59.09 - Other constipation Lipid Panel Today E66.3 - Overweight, Z90.3 - Acquired absence of stomach [part of] Estrogen Today I10 - Essential (primary) hypertension Lutenizing Hormone Today I10 - Essential (primary) hypertension Follicle Stimulating Hormone Today I10 - Essential (primary) hypertension Thyroid Stimulating Hormone Today I10 - Essential (primary) hypertension Free T4 (Free Thyroxine) Today I10 - Essential (primary) hypertension Vitamin D 25-OH Total Today E66.3 - Overweight, Z90.3 - Acquired absence of stomach [part of] Prolactin Today I10 - Essential (primary) hypertension
[2025-02-08 16:12] VITALS: BP 140/70; PULSE 55; TEMP 36.4; O2SAT 98; BMI 33.9
[2025-02-08 16:49] VITALS: BP 140/80
--- OUTSIDE RECORDS SUMMARY | 2025-02-08 18:40 | XMS_ITS | Data Portability ---
Author Organization [facility] Address [address] [facility] [place] [address] Assessment No assessment recorded. Plan of Treatment Reminders Order Date Submit Date Provider Last Modified By Organization Details Last Modified Time Details Appointments None recorded. Lab None recorded. Referral None recorded. Procedures None recorded. Surgeries None recorded. Imaging None recorded. Medication Orders prednisone 10 mg tablet 2020 021 [facility]2024, [address] [place], [address], 09:44:25 Zithromax Z-Patricio 250 mg tablet 2020 021 [facility]/Pharmacy #2024, [address] [place], [address], 09:05:33 ondansetron 8 mg disintegrat ing tablet 2020 021 [facility]/Pharmacy #2024, [address] [place], [address], 09:28:05 metronidazo le 500 mg tablet 2020 021 [facility]/Pharmacy #2024, [address] [place], [address], 09:28:01 Cipro 500 mg tablet 2020 021 [facility]/Pharmacy #2024, [address] [place], [address], 02/15/202 2 09:05:44 cyclobenzap rine 10 mg tablet [address] [place], [address], 14:44:11 diclofenac sodium 75 mg tablet,erich yed release [address] [place], [address], 14:44:21 erythromyci n 5 mg/gram (0.5 %) eye ointment [address] [place], [address], 14:44:37 Diflucan 150 mg tablet 2019 [address] [place], [address], 14:44:33 doxycycline hyclate 100 mg capsule 2019 [address] [place], [address], 14:44:23 Patient TargetsNo targets recorded. Patient InstructionsNo instructions recorded. Reason for Referral None Reported. Results Created Date Observation Date Name Description Value Unit Range Abnormal Flag Note LastModifiedBy Organization Detail LastModifiedTime 08/27/20 21 08/27/2021 XR, kidne y + urete r + bladd er No observ ation record ed. [facility] [address] [place], [address], 08/27/2021 16:23:07 Result Notes None recorded. Problems Name Problem SNOMED Code Status Onset Date Resolution Date Notes Provider Name and Address Organization Details Recorded Time Polycystic ovaries Active 2017 Not Available [facility] 0 20:03:36 Essential hypertensi on 25725928 Active 2017 Not Available [facility] 0 20:03:37 Gastric reflux 787993822 Active 2017 Not Available [facility] 0 20:03:36 Sleep apnea 66157932 Active 2018 Not Available [facility] 0 20:03:37 Hyperchole sterolemia 13569055 Active 2018 Not Available [facility] 0 20:03:37 Asthma 269840016 Active 2020 FERDINAND SHRESTHA [address] [place], [address], [facility] 1 09:47:58 Problem Notes None recorded. Procedures Surgical History Date Name Laterality Status Provider Name and Address Organization Details Recorded Time 05/02/20 Most Recent Mammogram completed Jennifer Lu [facility] [place] [facility] 05/05/2020 08:25:18 Caesarean Section completed Terrie Carranza NP, [address] [place], [address], [facility] 09/14/2018 11:19:25 Imaging Results Imaging Date Name Status LastModified by Organiz ation Details LastModified Time 08/27/2021 XR, kidney + ureter + bladder completed [facility] Central Scheduling [address] [place], [address], 08/27/2021 16:23:07 Procedure Notes None recorded. Medical Equipment None Reported. Allergies Allergen ID Allergen Name Allergen Category Reaction Reaction Severity Criticality Documentation Date Start Date Code Code System Note Provider Name and Address Organization Details Recorded Time 248 Substance with sulfonami de structure and antibacte rial mechanism of action (substanc e) medicatio n Not available Not available Not available 09/14/2018 02321 8003 SNOMED Leslie barboza [facility] [place] [facility] 8 11:10:08 2482 Product containin g penicilli n (product) medicatio n Not available Not available Not available 09/14/2018 10153 8001 SNOMED Leslie barboza [facility] 8 11:10:16 Medications Name Sig Start [...] Relief 50 mcg/actuati on nasal spray,suspe nsion [place] 1 spray every day by intranasa l route. active Not Available Not Available No t Available Afluria 9481-8467 (PF) 45 mcg(15 mcg x 3)/0.5 mL [...] % 130 mm[Hg] 70 mm[Hg] Kandi Mckinnon [facility] [place] [facility] 0 14:04:46 Date Recorded Body height Oxygen saturation Oxygen saturation in Arterial blood by Pulse oximetry Heart rate Systolic blood pressure Diastolic blood pressure Provider Name and Address Organization Details Last Updated DateTime 1 167.64 cm 99 % 99 % 69 /min 122 mm[Hg] 78 mm[Hg] Gricel Patrica [facility] [place] [facility] 1 14:46:08 Date Recorded Body height Heart rate Oxygen saturation Oxygen saturation in Arterial blood by Pulse oximetry Systolic blood pressure Diastolic blood pressure Provider Name and Address Organization Details Last Updated DateTime 1 167.64 cm 62 /min 98 % 98 % 120 mm[Hg] 74 mm[Hg] FERDINAND SHRESTHA [address] [place], [address], [facility] [place] [facility] 1 09:30:20 Social History Question Answer Notes [...] mcg/0.3 mL dose 1 completed FERDINAND SHRESTHA [address] [place] [address], [address], [facility] 06/19/2021 09:29:09 COVID-19, mRNA, LNP-S, PF, 30 mcg/0.3 mL dose 1 completed FERDINAND SHRESTHA [address] [place] [address], [address], [facility] 06/19/2021 09:29:19 Influenza, split virus, quadrivalent, preservative 0 completed Kandi Mckinnon [facility] 08/29/2020 08:05:59 Past Encounters Encounter ID Performer Location Encounter Start Date Encounter Closed Date Diagnosis/Indication Diagnosis SNOMED-CT Code Diagnosis ICD10 Code Diagnosis Note [id number] Terrie Carranza NP, [facility] [address] [place] [address], [place] [address] 09/14/2018 10:56:14 09/14/2018 12:39:30 Intermittent palpitations 654582956 R00.2 [id number] Terrie Carranza NP, [facility] [address] [place] [address],[place] [address] 01/19/2019 09:44:09 01/19/2019 12:12:47 Sleep apnea 69574726 G47.30 follow, new to CPAP Essential hypertension 29800149 I10 controlled Polycystic ovaries 15861 008 E28.2 Right lowe r quadrant pain 346619564 R10.31 r/o diverticul itis Hypercholesterolemia 136 09944 E78.00 no current medication s [id number] Terrie Carranza NP, [facility] [address] [place] [address],[place] [address] [facility] [address] 02/02/2019 14:17:59 02/02/2019 15:23:39 Pneumonia 110794139 J18.9 improving Asthma 379146730 J45.90 9 Right lowe r quadrant pain 914820385 R10.31 will f/u after CT Essential hypertension 47069438 I10 controlled [id number] Terrie Carranza NP, S [facility] [address] [facility], [place] [address] 02/19/2019 09:29:14 02/19/2019 11:13:24 Hypercholesterolemia 77455596 E78.00 no current medication s Sleep apnea 22120025 G47 .30 follow, new to CPAP Essential hypertension 24121722 I10 controlled Polycystic ovaries 41050 008 E28.2 f/u [employer] [facility] Allergic cough 246725812 R05 [place] [id number] [facility] [place] [address] [facility], [place] [address] 10/25/2019 11:11:30 10/25/2019 11:50:55 Asthma 749075437 J45.909 Essential hypertension 90735612 I10 very well controlled Sleep apnea 55152598 G47 .30 uses cpap nightly Benign par oxysmal positional vertigo 441553757 H81.10 Acute fron brooke sinusitis 85749705 J01.10 Dysfunctio n of eustachian tube 82464582 H69.93 [id number] [facility] [place] [address] [facility], [place] [address] 01/18/2020 15:32:55 01/18/2020 16:31:30 Adult health examination 632102046 Z00.00 will schedule with obgyn Active or passive immunization 809857327 Z23 Body mass index 40+ - severely obese 325710083 Z68.41 diet/exerc ise Screening for malignant neoplasm of breast 097872847 Z12.31 Screening for malignant neoplasm of colon 536059893 Z12.11 Vitamin D deficiency 347 91163 E55.9 [id number] FERDINAND SHRESTHA [facility] [address] [facility], [place] [address] 08/08/2020 13:59:22 08/08/2020 16:00:21 Paronychia of finger 722493112 L03.019 allergic to sulfa and PCN will treat with doxy to avoid any possible cross reaction with cephs continue to soak and keep clean Candidal vulvovaginitis 32192602 B37.3 gets yeast infection after course of abx will give diflucan [id number] FERDINAND SHRESTHA [facility] [address] [facility] [address], [place] [address] 10/13/2020 10:25:41 10/13/2020 14:37:45 Bacterial conjunctivitis 065396864 H10.9 also use warm compresses [id number] FERDINAND SHRESTHA [facility] [address] [facility] [address] 10/20/2020 10:13:14 10/20/2020 12:00:38 Spasm of back muscles 196137670 M62.830 will call if no improvemen t Low back pain 273342132 M54.5 the patient has right sided back pain not touched by APAP, ibu, and stretching will trial on muscle relaxer and stronger NSAID [id number] FERDINAND SHRESTHA [facility] [address] [facility], [place] [address] 03/27/2021 14:32:41 03/27/2021 16:16:50 Diverticulitis of colon 328935771 K57.32 hx of flare ups will start on duo abx therapy and anti-emeti c for the nausea the patient is advised to stick to a liquid diet, no solids for the time being until after first 24 to 48 hours will call if no improvemen t Nausea 906735879 R11.0 will trial this so she can keep the liquid down to avoid risk of dehydratio n [id number] FERDINAND SHRESTHA [facility] [address] [facility], [place] [facility] [place] [address] 06/19/2021 09:23:03 06/19/2021 10:06:40 Acute exacerbation of asthma 220778767 J45.901 will start on prednisone and a z pakfu in a week with an update Asthma 766191962 J45.20 exacerbati ondiscusse d monitoring her breathing Health Concerns Section Related Observation LastModified by Organization Detai ls LastModified Time None Recorded Concern Status LastModified by Organization Details LastModified Time None Recorded Advance Directives Directive None Recorded Payers Encounter Date Sequence Insurance Name Policy Number Policy Mccoy Covered Member ID Mccoy Member ID Guarantor Name 08/08/2020 1 [place] [id number] 1 Gricel A Fugiel [id number] Gricel A Fugiel 10/13/2020 1 [facility] [id number] 1 Gricel A Fugiel [id number] Gricel A Fugiel 10/20/2020 1 [place] [id number] 1 Gricel A Fugiel [id number] Gricel A Fugiel 03/27/2021 1 [facility] [id number] 1 Gricel A Fugiel [id number] Gricel A Fugiel 06/19/2021 1 [facility] [id number] 1 Gricel A Fugiel [id number] Gricel A Fugiel Notes Date Note Type [...] no chest pain, no n/v/d FERDINAND SHRESTHA [address] [place] [address], [address], [facility] 08/08/2020 14:24:22 10/13/2020 text/html c/o [...] no chills, no n/v/d FERDINAND SHRESTHA [address] [place], [address], [facility] 10/13/2020 12:03:40 10/20/2020 text/html c/o [...] fatigue, no sore throat FERDINAND SHRESTHA [address] [place], [address], [facility] 10/20/2020 11:48:29 03/27/2021 text/html Abdominal PainReported bypatient.Location: generalized Quality:pain;crampi ng;sharp Severity:moderate Duration:constant; started: (yesterday night) Onset/Timing:worse Context:history of diverticulosis with recurrent diverticulitis flares Aggravating Factors:eating Alleviating Factors:nothing gives relief Associated Symptoms:nausea;kayy rrhea;decreased appetite Other:denies possible Pain Radiation:no radiation Previous Tests, Treatment and/or Diagnostic Procedures:none c/o diverticulitis flare up FERDINAND SHRESTHA [address] [place], [address], [facility] 03/27/2021 15:01:41 06/19/2021 text/html c/o [...] how she is doing FERDINAND SHRESTHA [address] [place], [address], [facility] 06/19/2021 09:48:27 OBGyn Episode No OBEpisode recorded.
--- OUTSIDE RECORDS SUMMARY | 2025-02-08 18:40 | XMS_ITS ---
Author Organization [facility] Address [address] [place] [address] Care Team Providers Care Blast Hole Driller Name Role Phone Ailyn Sam Primary Care Provider Selam Castillo [phone] REASON FOR VISIT purchase Encounters Encounter Location Date Provider Diagnosis [facility] [address] [place] [address] 02/04/2025 Selam Hein Plan Of Treatment No Information Progress Notes * [place] CALVERTB:1970 ( 54 yo F)Acc No.[id number]:02/04/2025 Patient:?Gricel CALVERT :1970???Age:54 Y???Sex:Female Address:[address] [place] [address], [address] * true * Date:? Generated for Sarahyi jovanni/Tio/eTransmitting on:?02/08/2025 06:40 PM EDT
--- OUTSIDE RECORDS SUMMARY | 2025-02-08 18:40 | XMS_ITS | Data Portability ---
Author Organization [facility] Vaiden Witerrence 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 Slowly improving strength but fatigued by end of tx. Plan: Continue PT @ 2x/wk to decrease pain, increase strength, optimize shoulder mechanics for functional movements such as reaching and self-care. [email or web address] Not available 12/20/2024 08:11:11 12/27/2024 12/27/2024 Assessment: Demonstrates great ROM. Strength improving each week. Weak periscapular strength. Plan: Continue PT @ 2x/wk to decrease pain, increase strength, optimize shoulder mechanics for functional movements such as reaching and self-care. Not available 12/27/2024 08:39:12 01/03/2025 01/03/2025 Assessment: Making steady progress increasing strength but fatigued by end of tx. good ROM Plan: Continue PT @ 2x/wk to decrease pain, increase strength, optimize shoulder mechanics for functional movements such as reaching and self-care [email or web address] Not available 01/03/2025 10:36:09 01/10/2025 01/10/2025 Assessment: Good tolerance and form w/ all strengthening. Advised to stay away from heavy repetitive movements Plan: Continue PT @ 2x/wk to decrease pain, increase strength, optimize shoulder mechanics for functional movements such as reaching and self-care Not available 01/10/2025 09:05:14 01/24/2025 01/24/2025 Assessment: Good overall ROM, mild tenderness in bicep area. Good tolerance and form w/ all strengthening.P t edu on HEP and moderation of activities to not irritate shoulder. Plan: D/c to I HEP and f/u as needed. [email or web address] Not available 01/24/2025 07:51:46 Plan of Treatment Reminders Order Date Submit Date Provider Last Modified By Organization Details Last Modified Time Details Appointments None record ed. Lab None record ed. Referral None record ed. Procedures None record ed. Surgeries None record ed. Imaging None record ed. Medication Orders None record ed. Patient TargetsNo targets recorded. Patient InstructionsNo instructions recorded. Reason for Referral None Reported. Problems Name Problem SNOMED Code Status Onset Date Resolution Date Notes Provider Name and Address Organization Details Recorded Time Impingement syndrome of right shoulder region 9884532225209 02 Active 2023 Juan Greenberg PA-C [address], [place], [address], [facility] 4 06:20:11 Neck pain 00133380 Active 2023 Juan Greenberg PA-C [address], [place], [address], [facility] 4 08:58:11 Derangement of right shoulder joint 0934180560966 9105 Active 2023 Juan Greenberg PA-C [address], [place], [address], [facility] 4 09:22:12 Osteoarthri tis of left knee joint 7189397365481 09 Active 2023 Juan Greenberg PA-C [address], [place], [address], [facility] 4 09:29:07 Non-traumat ic partial tear of right rotator cuff 7115871902783 109 Active 2024 Juan Greenberg PA-C [address], [place], [address], [facility] 06:27:41 Problem Notes None recorded. Procedures Surgical History Date Name Laterality Status Provider Name and Address Organization Details Recorded Time 5 42787 Therapeutic Exercise (1:1) completed Danae Lozano PTA [address], [place], [address], [facility] 01/24/2025 07:05:51 5 57296: Manual therapy completed Danae Lozano PTA [address], [place], [address], [facility] 01/24/2025 07:05:52 5 04107 Therapeutic Exercise (1:1) completed Rinku Hale DPT [address], [place], [address], [facility] 01/10/2025 09:03:59 5 53405: Manual therapy completed Rinku Hale DPT [address], [place], [address], [facility] 01/10/2025 09:03:59 5 26790 Therapeutic Exercise (1:1) completed Danae Lozano PTA [address], [place], [address], [facility] 12/31/2024 06:56:13 5 15566: Manual therapy completed Danae Lozano PTA [address], [place], [address], [facility] 12/31/2024 06:56:13 5 68128 Therapeutic Exercise (1:1) completed Rinku Hale DPT [address], [place], [address], [facility] 12/27/2024 08:38:27 5 78680: Manual therapy completed Rinku Hale DPT [address], [place], [address], [facility] 12/27/2024 08:37:54 5 35505 Therapeutic Exercise (1:1) completed Danae Lozano PTA [address], [place], [address], [facility] 12/16/2024 10:55:30 5 65776: Hot or Cold Pack completed Danae Lozano PTA [address], [place], [address], [facility] 12/20/2024 08:10:31 5 23216: Manual therapy completed Danae Lozano PTA [address], [place], [address], [facility] 12/16/2024 10:55:30 5 26601 Therapeutic Exercise (1:1) completed Danae Lozano PTA [address], [place], [address], [facility] 12/15/2024 09:53:40 5 14630: Hot or Cold Pack completed Danae Lozano PTA [address], [place], [address], [facility] 12/15/2024 09:53:30 5 22105: Manual therapy completed Danae Lozano PTA [address], [place], [address], [facility] 12/15/2024 09:53:37 5 51642 Therapeutic Exercise (1:1) completed Rinku Hale DPT [address], [place], [address], [facility] 12/09/2024 17:52:49 5 77781: Low complexity PT Eval completed Rinku Hale DPT [address], [place], [address], [facility] 12/09/2024 17:52:50 4 Sports Knee 4&1 completed Juan Greenberg PA-C [address], [place], [address], [facility] 09/27/2024 09:28:59 Imaging Results None recorded. Procedure Notes None recorded. Medical Equipment None Reported. Allergies Allergen ID Allergen Name Allergen Category Reaction Reaction Severity Criticality Documentation Date Start Date Code Code System Note Provider Name and Address Organization Details Recorded Time 181467 Product containin g penicilli n (product) medicatio n Not available Not available Not available 01/12/20242012 46463 8001 SNOMED Aller gyRea ction : 'Skin React ion'; Not Available [facility] 4 16:01:33 254337 Bactrim medicatio n Not available Not available Not available 01/12/20242012 97995 9 RxNorm Aller gyRea ction : 'Skin React ion'; Not Available [facility] 4 16:01:33 Medications Name Sig Start Date [...] Available Not Available No t Available Vitals None Recorded Social History None recorded. Functional Status None recorded. Mental Status None recorded. Family History Nothing Reported. Medical History Condition Response Allergies/Hayfever Y Asthma Y Gynecological HistoryNo gynecological history recorded. Obstetrics History GPAL:G 0 P 0 0 0 0 Past Encounters Encounter ID Performer Location Encounter Start Date Encounter Closed Date Diagnosis/Indication Diagnosis SNOMED-CT Code Diagnosis ICD10 Code Diagnosis Note [id number] JOURDAN [facility] [address] [place] [address] 09/27/2024 08:40:14 10/14/2024 14:33:39 Impingement syndrome of right shoulder region 9919717269 15172 M75.41 Neck pain 82473538 M54.2 Derangemen t of right shoulder joint 6230785326 6228617 M24.811 Osteoarthr itis of left knee joint 2657608257 81652 M17.12 [id number] Juan Greenberg PA-C [facility] [address] [place] [address] 11/12/2024 08:31:24 11/29/2024 13:32:35 Non-traumatic partial tear of right rotator cuff 3937254634 682805 M75.049 [id number] Rinku Hale , DPT [facility] [address] [place] [address] 12/08/2024 16:01:35 12/08/2024 17:26:57 Impingement syndrome of right shoulder region 1810890583 72514 M75.41 [id number] Rinku Hale DPT [facility] [address] [place] [address] 12/15/2024 07:13:07 12/15/2024 08:13:16 Impingement syndrome of right shoulder region 2073037511 91755 M75.41 [id number] Rinku Hale DPT [facility] [address] [place] [address] 12/20/2024 07:21:40 12/20/2024 08:03:56 Impingement syndrome of right shoulder region 4585149251 70335 M75.41 [id number] Rinku Hale DPT [facility] [address] [place] [address] 12/27/2024 07:09:24 12/27/2024 09:22:14 Impingement syndrome of right shoulder region 3485960201 10294 M75.41 [id number] Rinku Hale DPT [facility] [address] [place] [address] 01/03/2025 07:06:36 01/03/2025 08:04:16 Impingement syndrome of right shoulder region 8375877247 41587 M75.41 [id number] Rinku Hale , ASHKANT [facility] [address] [place] [address] 01/10/2025 07:03:35 01/10/2025 08:47:46 Impingement syndrome of right shoulder region 2602368754 18304 M75.41 [id number] ASHKAN RdzT [facility] [address] [place] [address] 01/24/2025 07:02:52 01/24/2025 08:58:20 Impingement syndrome of right shoulder region 3865108932 80817 M75.41 Health Concerns Section Related Observation LastModified by Organization Detai ls LastModified Time None Recorded Concern Status LastModified by Organization Details LastModified Time None Recorded Advance Directives Directive None Recorded Payers Encounter Date Sequence Insurance Name Policy Number Policy Mccoy Covered Member ID Mccoy Member ID Guarantor Name 12/20/2024 1 [facility]) [id number] 1 Gricel A A Fugiel [id number] Gricel A Fugiel 12/27/[address] [place] [address]) [id number] 1 Gricel A A Fugiel [id number] Gricel A Fugiel 01/03/[address] [place] [address]) [id number] 1 Gricel A A Fugiel [id number] Gricel A Fugiel 01/10/[address] [place] [address]) [id number] 1 Gricel A A Fugiel [id number] Gricel A Fugiel 01/24/[address] [place] [address]) [id number] 1 Gricel A A Fugiel [id number] Gricel A Fugiel Notes Date Note Type Note Provider Name and Address Organization Details Recorded Time 12/20/2024 text/html Pt reports she was sore after LV but feeling better now. Reports still having some px and discomfort on the anterior aspect of her shoulder. Danae Lozano, DRYER FEEDER [address], [place], [address], [facility] 12/20/2024 08:11:45 12/27/2024 text/html Pt reports she has been doing fairly well notes having good and bad days Rinku Hale, DPT [address], [place], [address], [facility] 12/27/2024 08:39:22 01/03/2025 text/html Pt reports she has been doing fairly well notes having good and bad days. No tenderness in shoulder today Danae Lozano DRYER FEEDER [address], [place], [address], [facility] 01/03/2025 10:36:32 01/10/2025 text/html Pt reports she has been doing well, only px w/ certain movements. ASHKAN RdzT [address], [place], [address], [facility] 01/10/2025 09:05:28 01/24/2025 text/html Pt reports doing well overall with minimal complaints or issues. Occasional px with certain movements or when she overdoes it. aDnae Lozano PTA [address], [place], [address], [facility] 01/24/2025 07:52:10 OBGyn Episode No OBEpisode recorded.
--- OUTSIDE RECORDS SUMMARY | 2025-02-08 18:41 | XMS_ITS ---
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 Generated for Sarahyi jovanni/Tio/eTransmitting on:?02/08/2025 06:40 PM EDT
--- OUTSIDE RECORDS SUMMARY | 2025-02-08 18:41 | XMS_ITS | Patient Health Record ---
[facility] Address [address] [place] [address] Care Team Providers Care Director Of Education And Training Name Role Phone Ailyn Sam Primary Care Provider Selam Castillo Unavailable [phone] Allergies Allergen (clinical drug ingredient) Drug/Non Drug Allergy documented on EMR Reaction Allergy Type Onset Date Status sulfamethoxazole / trimethoprim Bactrim Unknown Drug Allergy Active Penicillin Unknown Drug Allergy Active Reason For Referral No Information Medications Medication SIG (Take, Route, Fr equency, Duration) Notes Start Date End Date Status Magnesium Gluconate Active Vitamin D Active Colace Active Probiotic Active Ambien Active Multivitamins Active Loratadine Active Albuterol Active Social History Tobacco Use: Social History Observation Description Date Details (start date - stop date) Never Smoker NA - NA Tobacco use other than smoking: Question Answer Notes Are you an other tobacco user? No Tobacco Control (Standard) Question Answer Notes Tobacco use: Nonsmoker Additional Findings: Tobacco non-user Current no nsmoker AUDIT-C (Standard) Question Answer Notes Did you have a drink contain ing alcohol in the past year? Yes How often did you have a dri nk containing alcohol in the past year? Never (0 point) How many drinks did you have on a typical day when you were drinking in the past year? 1 or 2 drinks (0 point) How often did you have six o r more drinks on one occasion in the past year? Never (0 point) Points 0 Interpretation Negative Problems Problem Type SNOMED Code ICD Code Onset Dates Problem Status W/U Status Risk Notes Problem Plantar wart (03162331) Plantar wart (B07.0) Active confirmed Problem Osteoarthritis of midtarsal joint of left foot (8651841964631666 ) Osteoarthritis of midtarsal joint of left foot (M19.072) Active confirmed Problem Osteoarthritis of midtarsal joint of right foot (8021842525267993 ) Osteoarthritis of midtarsal joint of right foot (M19.071) Active confirmed Vital Signs Blood pressure diastolic 83 mm Hg 02/04/2025 Height 5ft6in in 02/04/2025 Blood pressure systolic 130 mm Hg 02/04/2025 Weight 207 lbs 02/04/2025 BMI 33.41 kg/m2 02/04/2025 Encounters Encounter Location Date Provider Diagnosis [address] [address] 02/04/2025 Selam Hein Onychomycosis B35.1 ; Osteoarthritis of midtarsal joint of right foot M19.071 ; Right foot pain M79.671 ; Plantar wart B07.0 ; Left foot pain M79.672 ; Pain in left ankle and joints of left foot M25.572 ; Bursitis of left foot M77.52 ; Osteoarthritis of midtarsal joint of left foot M19.072 ; Pain in right ankle and joints of right foot M25.571 and Bursitis of right foot M77.[address] [address] 12/21/2024 Selam Hein [address] [address] 02/04/2025 Selam Hein Assessments Encounter Date Diagnosis (ICD Code) Assessment Notes Treatment Notes Treatment Clinical Notes Section Notes 02/04/2025 Onychomycosis (ICD-10 - B35.1) 02/04/2025 Osteoarthritis of midtarsal joint of right foot (ICD-10 - M19.071) 02/04/2025 Right foot pain (ICD-10 - M79.671) 02/04/2025 Plantar wart (ICD-10 - B07.0) 02/04/2025 Left foot pain (ICD-10 - M79.672) 02/04/2025 Pain in left ankle and joints of left foot (ICD-10 - M25.572) 02/04/2025 Bursitis of left foot (ICD-10 - M77.52) 02/04/2025 Osteoarthritis of midtarsal joint of left foot (ICD-10 - M19.072) 02/04/2025 Pain in right ankle and joints of right foot (ICD-10 - M25.571) 02/04/2025 Bursitis of right foot (ICD-10 - M77.51) Plan Of Treatment Pending Test Test Name Order Date X ray : Foot, left 3V 02/04/2025 X ray : Foot, right 3V 02/04/2025 Insurance Providers Payer Name Payer Address Payer Phone Subscriber Number Group Number Insured Name Patient Relationship to Insured Coverage Start Date Coverage End Date [facility] [address] [place] [address] [id number] Gricel Aranda Self - patient is the insured Medical (General) History Medical History History ICD Code Knee Pain Cataracts Covid 19 Diverticulosis Headaches HB Sinusitis Warts Chicken Pox Surgical History Surgery Date(Month/Year) cataract surgery gastric sleeve finger surgery
--- OUTSIDE RECORDS SUMMARY | 2025-02-08 18:41 | XMS_ITS ---
[facility] Address [address] [place] [address] Care Team Providers Care Furnace Converter Name Role Phone Ailyn Sam Primary Care Provider Selam Castillo Unavailable [phone] Allergies Allergen (clinical drug ingredient) Drug/Non Drug Allergy documented on EMR Reaction Allergy Type Onset Date Status sulfamethoxazole / trimethoprim Bactrim Unknown Drug Allergy Active Penicillin Unknown Drug Allergy Active REASON FOR VISIT Fungal Nails, Wart(s), Foot pain Medications Medication SIG (Take, Route, Fr equency, Duration) Notes Start Date End Date Status Magnesium Gluconate Active Vitamin D Active Probiotic Active Multivitamins Active Loratadine Active Colace Active Ambien Active Albuterol Active Social History Tobacco Use: [...] W/U Status Risk Notes Problem Plantar wart (45525371) Plantar wart (B07.0) Active confirmed Problem Osteoarthritis of midtarsal joint of left foot (6063192461828879 ) Osteoarthritis of midtarsal joint of left foot (M19.072) Active confirmed Problem Osteoarthritis of midtarsal joint of right foot (9671597072708454 ) Osteoarthritis of midtarsal joint of right foot (M19.071) Active confirmed Vital Signs Height 5ft6in in 02/04/2025 Weight 207 lbs 02/04/2025 BMI 33.41 kg/m2 02/04/2025 Blood pressure systolic 130 mm Hg 02/05/20 25 Blood pressure diastolic 83 mm Hg 025 Encounters Encounter Location Date Provider Diagnosis [facility] [address] [address] 02/04/2025 Selam Bondslucio Onychomycosis B35.1 ; Osteoarthritis of midtarsal joint [...] M25.571 and Bursitis of right foot M77.51 Assessments Encounter Date Diagnosis (ICD Code) Assessment [...] X ray : Foot, right 3V 02/04/2025 Next Appt Details Follow Up: prn, Reason: Procedure Notes * Category Sub-Category Detail Notes Wart Treatment Procedure Verruca, as desc ribed in exam, were debrided to pin- point bleeding margins with sterile 15 surgical blade, silver nitrate chemocautery applied, recomm. immune-boosting meds such as zinc, recomm. follow up with topical chemosurgical agents , recomm. Wartstick 40 percent Salicylic acid application under occlusion as directed Progress Notes * VAMSHIOLINDAFranceB:1970 ( 54 yo F)Acc No.[id number]:02/04/2025 Progress Notes Patient:?Gricel CALVERT Provider:?Selam Hein DPM :1970???Age:54 Y???Sex:Female D ate:02/04/2025 Address:[address] [place], [place] [id number] Pcp:Ailyn Sam Subjective: * Chief Complaints: * ???Fungal NailsWart(s)Foot p ain * HPI: ???Painful Nails:?Nature:?aching, tender, discolored, thick.?Course:?worse.?Aggravated by:?shoegear causing difficulty standing/walking.?Treatments:?none.?Skin problems:?Pt States PCP Visit: ?DATE?10/28/2024 ???Foot Pain:?Nature:?aching , stiffness , swelling , throbbing.?Location:?Top , Midfoot, B/L.?Duration:?several months.?Course:?worse.?Treatments:?rest/alter normal daily activity, change in shoes, innersoles.? * ROS:?General/Constitutional:?Nausea?denies.?Vomiting?denies.?Hunger Thirst?denies.?Loss appetite?denies.?Chills?denies.?Fatigue?denies.?Fever?denies.?Night Sweats?denies.?Unexplained weight loss?denies.?Unexplained weight gain?denies.?HEENTM:?Dentures?denies.?Dizziness?denies.?Glasses/contacts?admits, denies.?Retinopathy?denies.?Blurred/double vision?denies.?TMJ?denies.?Discharge/drainage?denies.?Implants?denies.?Sore throat?denies.?Dental implants?denies.?Hard of hearing ?denies.?Difficulty chewing/swallowing/speaking?denies.?Nose bleeds?denies.?Sore mouth?denies.?Respiratory:?On Oxygen?denies.?Pneumonia/pleurisy?denies.?Bronchitis?admits, denies.?Emphysema?denies.?Coughing?denies.?Cough blood?denies.?Shortness of breath?admits, denies.?Wheezing?denies.?Cardiovascular:?Pacemaker?denies.?MVP?denies.?WPW?denies.?CHF?denies.?Heart attack?denies.?Septal defect?denies.?Rapid beat?denies.?Chest pain ?denies.?Atrial Fib.?denies.?Murmur/Palpitations?denies.?Gastrointestinal:?Hemorrhoids?denies.?Stomach/Abdominal pain?denies.?Dark blood stool?denies.?Irritable bowel ?denies.?Constipation?admits, denies.?Diarrhea?denies.?Hematology:?Swelling?denies.?Clots?denies.?Varicose Veins?denies.?Bruising?denies.?Bleeding problem?denies.?Genitourinary:?Blood urine?denies.?Frequent/Painfu/urination/bladder control?denies.?Kidney stones?admits, denies.?Infection (UTI)?denies.?Nephropathy?denies.?sex trans dis (STD)?denies.?Prostate?denies.?Musculoskeletal:?Hammertoes?denies.?Bunions?denies.?Back Pain?denies.?Muscle Cramps/ Resting?denies.?Muscle cramps / walking?denies.?Generalized aches and pains?denies.?Weakness?denies.?Integ.:?Valle?denies.?Scars?denies.?Corns/calluses?denies.?Ingrown nails?admits, denies.?Painful nails?denies.?Open Sores?denies.?Rashes?denies.?Neurologic:?Difficulty sleeping?admits, denies.?Brain disorder?denies.?Numbness?denies.?Balance trouble?denies.?Confusion?denies.?Fainting/blackouts?denies.?Tingling?denies.?Tr emors?denies.? * Medical History:? * Surgical History:?cataract s urgery gastric sleeve finger surgery * Hospitalization/Major Diagno stic Procedure:?Denies Past Hospitalization * Family History:?Mother: clifford ta, diagnosed with Family history of arthritis, Other malignant neoplasm of unspecified site, Unspecified essential hypertension.?Father: alive, diagnosed with Unspecified essential hypertension, Other malignant neoplasm of unspecified site.? * Social History:?Tobacco Use:?Tobacco use other than smoking?Are you an other tobacco user??No ?Tobacco Control (Standard)?Tobacco use:?Nonsmoker ?Additional Findings: Tobacco non-user?Current nonsmoker ???Drugs/Alcohol:?Drugs?Have you used drugs other than those for medical reasons in the past 12 months??No ???Miscellaneous:?Caffeine: yes. ?Children: yes, 3. ?Exercise: no. ?Marital status: . 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 ???Drug/Alcohol:?AUDIT-C (Standard)?Did you have a drink containing alcohol in the past year??Yes ?How often did you have a drink containing alcohol in the past year??Never (0 point) ?How many drinks did you have on a typical day when you were drinking in the past year??1 or 2 drinks (0 point) ?How often did you have six or more drinks on one occasion in the past year??Never (0 point) ?Points?0 ?Interpretation?Negative * Medications:?TakingAmbien Lo ratadine Multivitamins Vitamin D Magnesium Gluconate Probiotic Colace Albuterol Medication List reviewed and reconciled with the patientTaking Ambien Taking Loratadine Taking Multivitamins Taking Vitamin D Taking Magnesium Gluconate Taking Probiotic Taking Colace Taking Albuterol Medication List reviewed and reconciled with the patient * Allergies:?PenicillinBactrim yes[Allergies Verified] Objective: * Vitals:?Ht: 5ft6in, Wt:207, BMI:33.41, Shoe size: 9, BP:130/83mm Hg, Ht-cm: 167.64 cm, Wt-k.89 kg. * Examination: ???Nails: ?NAILS are:?Elongated, overgrown, dystrophic, lytic, greater than 3mm thick, discolored and friable with crumbly malodorous subungual debris, with pain on palpation, TA, T1, T2, T3, T4, T5, T6, T7, T8, T9.?General Examination: ?GENERAL APPEARANCE:?Reveals a pleasant, alert, well-nourished, well- developed, well hydrated individual, who demonstrates proper attention to hygiene/body habitus, and is in no acute distress, Pt serves as own?historian for office visit today.?ORIENTED:?person, place, and time.?Neurological: ?SENSORY:?Neurological exam reveals intact sensorium, pain sensation normal, vibration sensation intact, pinprick sensation is normal in the lower extremities, Pt denies, anesthesia, burning, paresthesia, tingling, B/L.?Vascular: ?DP PULSES (B):?3/4, B/L.?PT PULSES (B):?3/4, B/L.?CAPILLARY FILL TIME:?immediate, all digits, B/L.?TROPHIC CONDITION-TEXTURE/ELASTICITY/TURGOR/HAIR GROWTH (B):?normal, B/L.?TEMPERTURE GRADIENT (C):?warm to cool, proximal to distal, B/L.?PIGMENTATION:?normal, B/L.?EDEMA (C):?absent, B/L.?Dermatologic: ?VERRUCA:?Reveals Multiple ( 2 RT, 1 LT ), multi-loculated , mosaic- patterned, round, raised, flat-topped, petechial bleeding papule(s), with cauliflower appearance and interruption of skin lines, with pain to lateral compression, and size estimated at 3 mm diameter, plantar Forefoot, B/L.?Orthopedic: ?MUSCLE STRENGTH:?5/5 all groups in a symmetrical fashion , B/L.?FOOT MORPHOLOGY:? Prominent, painful 1st Met-Cuneiform joint with inflammation, B/L.?FOOTWEAR:?shoe gear properties exacerbate patients foot/toe deformity.?X-Rays - IMAGING REPORT: ?Clinical Indication(s):? Evaluate for Fracture, Evaluate Biomechanical Deformity.?Views:?3 views of Foot, AP, LAT, LO, B/L??Taken by trained?Podiatric Counter Professional (?SF ).?Findings:?normal bone and soft tissue density consistent for patients age and sex, eburnation dorsal 1st MT/Cun. jt, dorsal degenerative changes of the tarsal joints, positive infra-calcaneal exostosis, positive retro-calcaneal exostosis.?Fracture:?Negative fractures identified.? Assessment: * Assessment: 1.?Onychomycosis - B35.1???2 .?Osteoarthritis of midtarsal joint of right foot - M19.071 (Primary)???3.?Right foot pain - M79.671???4.?Plantar wart - B07.0???5.?Left foot pain - M79.672???6.?Pain in left ankle and joints of left foot - M25.572???7.?Bursitis of left foot - M77.52???8.?Osteoarthritis of midtarsal joint of left foot - M19.072???9.?Pain in right ankle and joints of right foot - M25.571???10.?Bursitis of right foot - M77.51??? Plan: * Treatment: * Procedures:?Wart Treatment:?Procedure?Verruca, as described in exam, were debrided to pin-point bleeding margins with sterile 15 surgical blade, silver nitrate chemocautery applied, recomm. immune-boosting meds such as zinc, recomm. follow up with topical chemosurgical agents , recomm. Wartstick 40 percent Salicylic acid application under occlusion as directed.? * Imaging:? * ?Imaging: X ray : Foot, left 3V ?Imaging: X ray : Foot, right 3V * Procedure Codes:?18942 Wart Destruction, 1-14, Modifiers: XS 44880 X-RAY EXAM OF LEFT FOOT 3V, Modifiers: 26 , [id number] X-RAY EXAM OF RIGHT FOOT 3V, Modifiers: 26 , RT * Preventive Medicine:? ??Counseling:?Discussion:?-04: Office or other outpatient visit for the evaluation and management of a new patient, which required a medically appropriate history and/or examination and MODERATE level of DECISION MAKING for: 1 OR MORE CHRONIC PROBLEM(S) THATS WORSENING, 2 STABLE CHRONIC PROBLEMS, A NEWLY DIAGNOSED PROBLEM WITH UNCERTAIN PROGNOSIS, AN ACUTE COMPLICATED INJURY WITH MULTIPLE TREATMENT OPTIONS, OR AN ACUTE PROBLEM WITH ACCOMPANYING SYSTEMIC SYMPTOMS, THAT POSE(S) A MODERATE RISK OF MORBIDITY. THIS CONDITION MAY ALSO INCLUDE RX DRUG MANAGEMENT, OR A DECISON FOR MINOR SURGERY. The visit on the day of the encounter encompassed interpreting the data and educating the patient as to the nature of their condition, treatment options available according to their individual PMH, meds, allergies, and overall health/living conditions, as well as any potential risks or complications that may occur from a failure to adhere to, and participate in, the recommended course of therapy. The discussion included a complete verbal, and/or written explanation of the examination results, any x-rays taken, the proposed diagnosis, and outline of the treatment plan. A schedule for future care needs was also explained. The patient verbalized an understanding of the instructions at this time and agreed to be an active participant in their treatment. If the patient should think of any questions or concerns after the visit, I have encouraged the patient to call the office.?Arthritis:?The patient was counseled on the various etiologies for their Arthritis including genetic, history of injury or trauma, abnormal foot biomechanics leading to excessive joint wear, and use/overuse. We discussed the various treatment options from no treatment, to topical analgesics such as Biofreeze gel, Aspercream, Voltaren gel, Lidoderm patches, CBD oils, THC creams, and Custom-compounded topical cream preparations to natural oral products such as Glucosamine Sulfate/Chondroitin/MSM/Collegen to analgesic Tylenol, to anti-inflammatory medications such as Ibuprofen/Naproxen, and the use of oral steroids if needed. Cardiac, Kidney, and GI issues were discussed RE: potential complications of oral anti-inflammatories. We discussed several other treatment options consisting of accom shoes, supportive innersoles, AFO bracing/support, cortisone injection therapy, and surgical resection of the arthritic joint(s) or fusion reconstruction if necessary. We discussed the advantages and disadvantages of conservative (vs) surgical treamtents including pain relief, improved function/activities of daily life, return to exercise to failure, expense, systemic complications, infection, [id number], prolongued postop course. Patient questions re: the various treatment options available, their successes and potential failures, and joint terminal attack controller effects were discussed and the answers were verbally confirmed understood.?BioMech.:?I discussed the Pts foot biomechanics with them and how it relates to their problem.?Fungal Nail Counseling:?The patient was counseled on the diagnosis, potential etiologies (including, but not limited to, environmental factors, genetic, immune deficiency), and the multiple treatment options for Onychomycosis. We discussed the risks and benefits of each option from performing no treatment, to ultraviolet light shoe treatment, to laser nail treatment, to applying topical antifungals, to taking oral antifungal medication, to surgical removal of the involved nail(s) with or without performing a matricectomy, or any combination thereof. We discussed the advantages and disadvantages of each of possible treatment and importance for adherence to all the recommended therapies for optimum success. This includes the necessity for weekly emery board self nail home debridements, and control the nail and skin environment as much as possible by only using a fresh, dry pair of shoes/socks each day, as well as keeping the skin as dry as possible through the use of sprays/powders if necessary. The patient was instructed to discard the emery board after use to prevent reinfection of the involved nail(s). We discussed the mycological and visual clinical effectiveness of topical vs oral antifungal treatments as well as each ones potential side effects and/or any patient- specific medication interactions. We discussed the reasons behind the important requirement of regular liver function testing with oral antifungal therapy for safety. Patient questions regarding use, dosage, successful outcomes, blood tests, and possible pharmaceutical interactions were reviewed and the patient verbalized that all answers were clearly understood.?Orthotics:?I explained to the patient the benefits of OT use. I explained that orthoses are medically necessary to decrease the foot pain through proper mechanical control, support of their foot.?P.R.I.C.E.:?The patient was counseled on the use of P.R.I.C.E. and NSAIDS (if well tolerated) to aid in the recovery from their painful condition.?Podiatric Surgery Counseling:?Surgical procedures to treat the patients foot problem were discussed. We reviewed the risks of the procedure (described below) vs not having the procedure (persistent pain, deformity, risk for skin ulceration/infection, loss of toe). We discussed the potential procedure complications including, but not limited to: pain, swelling, bleeding, scarring, numbness, infection, delayed/non healing, floppy/unstable/shorthened toe, recurrence, failure of the procedure, overcorrection leading to plantarflexed/downward positioned toe, recurrence, need for further surgery, as well as the possibility for loss of the toe itself. We discussed the use of IV/Local anesthesia, and the usual post-op course for healing. No guarentees were given. The patient verbally indicated a full understanding of the above conversation, and any other of their questions were answered to their satisfaction.?Shoe Gear Counseling:?The patient and I reviewed the types of shoes they should be wearing. My recommendation included obtaining a well-fitted shoe with a good supportive, non-foldable nor twistable sole, plenty of toe/room for the forefoot, and proper arch support. Based on todays examination, I recommended the patient look for new shoes, by having their feet professionally measured. We discussed that generally the best time of the day for a shoe fitting is the afternoon. Different shoes types and brands to best match the patients occupation and vocation were discussed. Specific brand selection will be up to the patient, their individual foot condition/deformities, and fit. The patient and I reviewed the standard new shoe break in period by wearing them for a few hours a day while checking for redness or sores as wear time is increased. The patient verbally confirmed to understanding the information discussed.?X-rays:?Discussed and reviewed the X-rays with the patient. We discussed how the findings relate to the patients symptoms/complaints. Answered any and all questions..? ??Screening/Special Tests:?Fall Risk?Screening:?No falls in the past year ?FALLS: Screening for Future Fall Risk?Have you had any falls with injury in the past year??No * Follow Up:?prn * Images: * Sign off status: Completed true * Provider:?Selam Hein, DPSourav Date:? Generated for Sarahyi jovanni/Tio/Princess on:?02/08/2025 06:41 PM EDT History and Physical Notes * HPI (History of Present Illness) Category Sub-Category Detail Notes Category Not es Painful Nails Aggravated by: shoegear causing difficulty standing/walking Course: worse Nature: aching, tender, disc olored, thick Treatments: none Skin problems Pt States PCP Visit: DATE: 10/28/2024 Foot Pain Nature: aching , stiffness , swellin g , throbbing Location: Top , Midfoot, B/L Duration: several months Course: worse Treatments: rest/alter normal da cole activity, change in shoes, innersoles Examination Category Sub-Category Detail Notes Category Not es Neurological SENSORY: Neurological exa m reveals intact sensorium, pain sensation normal, vibration sensation intact, pinprick sensation is normal in the lower extremities, Pt denies, anesthesia, burning, paresthesia, tingling, B/L Dermatologic VERRUCA: Reveals Multiple ( 2 RT, 1 LT ), multi-loculated , mosaic-patterned, round, raised, flat-topped, petechial bleeding papule(s), with cauliflower appearance and interruption of skin lines, with pain to lateral compression, and size estimated at 3 mm diameter, plantar Forefoot, B/L Orthopedic FOOT MORPHOLOGY: Prominent, pain ful 1st Met-Cuneiform joint with inflammation, B/L FOOTWEAR EVALUATION: shoe gear propertie s exacerbate patients foot/toe deformity MUSCLE STRENGTH: 5/5 all groups in a symmetrical fashion , B/L General Examination GENERAL APPEARANCE: Reveals a pleasant, alert, well- nourished, well-developed, well hydrated individual, who demonstrates proper attention to hygiene/body habitus, and is in no acute distress, Pt serves as own historian for office visit today ORIENTED: person, place, and t ghanshyam Vascular DP PULSES (B): 3/4, B/L PT PULSES (B): 3/4, B/L CAPILLARY FILL TIME: immediate, all digi ts, B/L TEMPERTURE GRADIENT (C): warm to cool, p roximal to distal, B/L TROPHIC CONDITION-TEXTURE/ELASTICITY/TURGOR/HAIR GROWTH (B): normal, B/L EDEMA (C): absent, B/L PIGMENTATION: normal, B/L Nails NAILS are: Elongated, overg rown, dystrophic, lytic, greater than 3mm thick, discolored and friable with crumbly malodorous subungual debris, with pain on palpation, TA, T1, T2, T3, T4, T5, T6, T7, T8, T9 X-Rays - IMAGING REPORT Findings: normal b one and soft tissue density consistent for patients age and sex, eburnation dorsal 1st MT/Cun. jt, dorsal degenerative changes of the tarsal joints, positive infra-calcaneal exostosis, positive retro-calcaneal exostosis Fracture: Negative fractures i dentified Views: 3 views of Foot, AP, LAT, LO, B/L Taken by trained Podiatric Counter Professional ( SF ) Clinical Indication(s): Evaluate for Fra cture, Evaluate Biomechanical Deformity
== END 2025-02-08 16:57 | disposition home or self-care (01) ==
LOC: HO.HMCH 15:56
PROVIDERS: PCP Internal Medicine; Visit Provider Internal Medicine
DX: I10 Essential (primary) hypertension (principal); E66.9 Obesity, unspecified; Z68.33 Body mass index [BMI] 33.0-33.9, adult; E78.00 Pure hypercholesterolemia, unspecified; G47.33 Obstructive sleep apnea (adult) (pediatric); Z99.89 Dependence on other enabling machines and devices; K21.9 Gastro-esophageal reflux disease without esophagitis; H26.9 Unspecified cataract

== ENCOUNTER 2025-03-18 07:07 | Outpatient (REF) | payer OTHER, SELFPAY ==
--- NOTE | ~2025-03-18 | MM_ITS ---
EXAMINATION: MM SCREENING DIGITAL BREAST TOMOSYNTHESIS, BILATERAL CLINICAL INFORMATION: Screening. Asymptomatic. COMPARISON: Mammography: Comparison is made with available priors TECHNIQUE: Digital breast mammography with tomosynthesis is performed in both the craniocaudal and mediolateral oblique views along with computer-aided detection (CAD). FINDINGS: There are scattered areas of fibroglandular density (ACR BI-RADS breast composition Category b). There are no significant masses, abnormal calcifications, or other abnormalities. MM/MM tomosynthesis screening BI IMPRESSION: No mammographic evidence of malignancy. ASSESSMENT: BI-RADS BI-RADS 1 - Negative RECOMMENDATION: Routine annual mammography screening. 1 year F/U This examination should not preclude the clinical evaluation of a suspicious palpable abnormality. This patient's information was entered into a reminder system with a target due date for their next mammogram. Electronically signed by: Roselia Quiñonez DO 03/26/2025 07:32 AM EDT
--- OUTSIDE RECORDS SUMMARY | 2025-03-18 07:09 | XMS_ITS ---
Author Organization [facility] Address [address] [place] [address] Care Team Providers Care Bottle Carrier Name Role Phone Ailyn Sam Primary Care Provider Selam Castillo [phone] REASON FOR VISIT purchase Encounters Encounter Location Date Provider Diagnosis [facility] [address] [place] [address] 02/04/2025 Selam Hein Plan Of Treatment No Information Progress Notes * [place] CALVERTB:1970 ( 54 yo F)Acc No.[id number]:02/04/2025 Patient:?Gricel CALVERT :1970???Age:54 Y???Sex:Female Address:[address] [place] [address], [address] * true * Date:? Generated for Sarahyi jovanni/Tio/eTransmitting on:?03/18/2025 07:09 AM EDT
--- OUTSIDE RECORDS SUMMARY | 2025-03-18 07:09 | XMS_ITS | Data Portability ---
Author Organization [facility] Address [address] [place] [address] Care Team Providers Care Handbook Writer Name Role Phone NYASIA HERNÁNDEZ Primary Care [...] such as reaching and self-care. Not available 12/20/2024 08:11:11 12/27/2024 12/27/2024 Assessment: [...] such as reaching and self-care Not available 01/03/2025 10:36:09 01/10/2025 01/10/2025 Assessment: [...] Time Impingement syndrome of right shoulder region 2645395949880 02 Active 2023 Juan Greenberg PA-C [address], [place], [address], [facility] 4 06:20:11 Neck pain 95057222 Active 2023 Juan Greenberg PA-C [address], [place], [address], [facility] 4 08:58:11 Derangement of right shoulder joint 2107548874838 9105 Active 2023 Juan Greenberg PA-C [address], [place], [address], [facility] 4 09:22:12 Osteoarthri tis of left knee joint 4319413481884 09 Active 2023 Juan Greenberg PA-C [address], [place], [address], [facility] 4 09:29:07 Nontraumati c partial rupture of right rotator cuff 1860608251851 109 Active 2024 Juan Greenberg PA-C [address], [place], [address], [facility] 06:27:41 Problem Notes None recorded. Procedures Surgical History Date Name Laterality Status Provider Name and Address Organization Details Recorded Time 5 94015 Therapeutic Exercise (1:1) completed Danae Lozano PTA [address], [place], [address], [facility] 01/24/2025 07:05:51 5 95843: Manual therapy completed Danae Lozano PTA [address], [place], [address], [facility] 01/24/2025 07:05:52 5 54742 Therapeutic Exercise (1:1) completed Rinku Hale DPT [address], [place], [address], [facility] 01/10/2025 09:03:59 5 17097: Manual therapy completed Rinku Hale DPT [address], [place], [address], [facility] 01/10/2025 09:03:59 5 38163 Therapeutic Exercise (1:1) completed Danae Lozano PTA [address], [place], [address], [facility] 12/31/2024 06:56:13 5 12814: Manual therapy completed Danae Lozano PTA [address], [place], [address], [facility] 12/31/2024 06:56:13 5 95283 Therapeutic Exercise (1:1) completed Rinku Hale DPT [address], [place], [address], [facility] 12/27/2024 08:38:27 5 51987: Manual therapy completed Rinku Hale DPT [address], [place], [address], [facility] 12/27/2024 08:37:54 5 22028 Therapeutic Exercise (1:1) completed Danae Lozano PTA [address], [place], [address], [facility] 12/16/2024 10:55:30 5 39688: Hot or Cold Pack completed Danae Lozano PTA [address], [place], [address], [facility] 12/20/2024 08:10:31 5 92085: Manual therapy completed Danae Lozano PTA [address], [place], [address], [facility] 12/16/2024 10:55:30 5 97458 Therapeutic Exercise (1:1) completed Danae Lozano PTA [address], [place], [address], [facility] 12/15/2024 09:53:40 5 98785: Hot or Cold Pack completed Danae Lozano PTA [address], [place], [address], [facility] 12/15/2024 09:53:30 5 71933: Manual therapy completed Danae Lozano PTA [address], [place], [address], [facility] 12/15/2024 09:53:37 5 58972 Therapeutic Exercise (1:1) completed Rinku Hale DPT [address], [place], [address], [facility] 12/09/2024 17:52:49 5 06188: Low complexity PT Eval completed Rinku Hale DPT [address], [place], [address], [facility] 12/09/2024 17:52:50 4 Sports Knee 4&1 completed Juan Greenberg PA-C [address], [place], [address], [facility] [place] [facility] 09/27/2024 09:28:59 Imaging Results None recorded. Procedure Notes None recorded. Medical Equipment None Reported. Allergies Allergen ID Allergen Name Allergen Category Reaction Reaction Severity Criticality Documentation Date Start Date Code Code System Note Provider Name and Address Organization Details Recorded Time 205655 Product containin g penicilli n (product) medicatio n Not available Not available Not available 01/12/20242012 65646 8001 SNOMED Aller gyRea ction : 'Skin React ion'; Not Available [facility] 4 16:01:33 904264 Bactrim medicatio n Not available Not available Not available 01/12/20242012 19818 9 RxNorm Aller gyRea ction : 'Skin React ion'; Not Available [facility] 4 16:01:33 Medications Name Sig Start Date [...] SNOMED-CT Code Diagnosis ICD10 Code Diagnosis Note [id number] JOURDAN [facility] [address] [place] [address] 09/27/2024 08:40:14 10/14/2024 14:33:39 Impingement syndrome of right shoulder region 2231633781 97826 M75.41 Neck pain 77204400 M54.2 Derangemen t of right shoulder joint 8607929994 5595521 M24.811 Osteoarthr itis of left knee joint 6158195619 55537 M17.12 [id number] Juan Greenberg PA-C [facility] [address] [place] [address] 11/12/2024 08:31:24 11/29/2024 13:32:35 Nontraumatic partial rupture of right rotator cuff 1192560362 176807 M75.109 [id number] ASHKAN RdzT [facility] [address] [place] [address] 12/08/2024 16:01:35 12/08/2024 17:26:57 Impingement syndrome of right shoulder region 4180436923 87431 M75.41 [id number] Danae Lozano PTA [facility] [address] [place] [address] 12/15/2024 07:13:07 12/15/2024 08:13:16 Impingement syndrome of right shoulder region 2929432994 53917 M75.41 [id number] Danae Lozano PTA [facility] [address] [place] [address] 12/20/2024 07:21:40 12/20/2024 08:03:56 Impingement syndrome of right shoulder region 5850868306 11876 M75.41 [id number] Rinku Hale DPT [facility] [address] [place] [address] 12/27/2024 07:09:24 12/27/2024 09:22:14 Impingement syndrome of right shoulder region 4946765191 65883 M75.41 [id number] Danae Lozano PTA [facility] [address] [place] [address] 01/03/2025 07:06:36 01/03/2025 08:04:16 Impingement syndrome of right shoulder region 1133098576 60896 M75.41 [id number] Rinku Mastorakis , DPT [facility] [address] [place] [address] 01/10/2025 07:03:35 01/10/2025 08:47:46 Impingement syndrome of right shoulder region 9406530080 63931 M75.41 [id number] Danae Blake, REPEAT CHIEF [facility] [address] [place] [address] 01/24/2025 07:02:52 01/24/2025 08:58:20 Impingement syndrome of right shoulder region 6205472661 93304 M75.41 Health Concerns Section Related Observation LastModified by Organization Detai ls LastModified Time None Recorded Concern Status LastModified by Organization Details LastModified Time None Recorded Advance Directives Directive None Recorded Payers Encounter Date Sequence Insurance Name Policy Number Policy Mccoy Covered Member ID Mccoy Member ID Guarantor Name 12/20/2024 1 [facility]) [id number] 1 Gricel A A Fugiel [id number] Gricel A Fugiel 12/27/[address] [place] [address]) [id number] 1 Gricel A A Fugiel [id number] Gricel A Fugiel 01/03/[address] [place] [address]) [id number] 1 Gricel A A Fugiel [id number] Gricel A Fugiel 01/10/[address] [place] [address]) [id number] 1 Gricel A A Fugiel [id number] Gricel A Fugiel 01/24/[address] [place] [address]) [id number] 1 Gricel A A Fugiel [id number] Gricel A Fugiel Notes Date Note Type Note Provider Name and Address Organization Details Recorded Time 12/20/2024 text/html Pt reports she was sore after LV but feeling better now. Reports still having some px and discomfort on the anterior aspect of her shoulder. Danae Lozano, REPEAT CHIEF [address], [place], [address], [facility] [place] [facility] 12/20/2024 08:11:45 12/27/2024 text/html Pt reports she has been doing fairly well notes having good and bad days Rinku Hale, DPT [address], [place], [address], [facility] 12/27/2024 08:39:22 01/03/2025 text/html Pt reports she has been doing fairly well notes having good and bad days. No tenderness in shoulder today Danae Lozano, REPEAT CHIEF [address], [place], [address], [facility] 01/03/2025 10:36:32 01/10/2025 text/html Pt reports she has been doing well, only px w/ certain movements. Rinku Hale, DPT [address] [facility] [address], [place], [address], [facility] 01/10/2025 09:05:28 01/24/2025 text/html Pt reports doing well overall with minimal complaints or issues. Occasional px with certain movements or when she overdoes it. Danae Lozano, REPEAT CHIEF [address] [facility] [address], [place], [address], [facility] 01/24/2025 07:52:10 OBGyn Episode No OBEpisode recorded.
--- OUTSIDE RECORDS SUMMARY | 2025-03-18 07:10 | XMS_ITS | Patient Health Record ---
Author Organization [facility] Address [address] [place] [address] Care Team Providers Care Leather Piece Inspector Name Role Phone Ailyn Sam Primary Care Provider Selam Castillo Unavailable [phone] Allergies Allergen (clinical drug ingredient) Drug/Non Drug [...] W/U Status Risk Notes Problem Plantar wart (B07.0) Active confirmed Problem Osteoarthritis of midtarsal joint of left foot (4066331557592835 ) Osteoarthritis of midtarsal joint of left foot (M19.072) Active confirmed Problem Osteoarthritis of midtarsal joint of right foot (2065909609651645 ) Osteoarthritis of midtarsal joint of right foot (M19.071) Active confirmed Vital Signs Blood pressure diastolic 83 mm Hg 02/04/2025 Height 5ft6in in 02/04/2025 Blood pressure systolic 130 mm Hg 02/04/2025 Weight 207 lbs 02/04/2025 BMI 33.41 kg/m2 02/04/2025 Encounters Encounter Location Date Provider Diagnosis [facility] [address] 02/04/2025 Selam Hein Onychomycosis B35.1 ; Osteoarthritis [...] M25.571 and Bursitis of right foot M77.[address] [facility] [address] 12/21/2024 Selam Hein [address] [address] 02/04/2025 Selam Hein Assessments Encounter Date Diagnosis [...] Insured Coverage Start Date Coverage End Date [facility] [address] [place] [address] [id number] Gricel Aranda Self - patient is the insured Medical (General) History Medical History History ICD Code Knee Pain Cataracts Covid 19 Diverticulosis Headaches HB Sinusitis Warts Chicken Pox Surgical History Surgery Date(Month/Year) cataract surgery gastric sleeve finger surgery
--- OUTSIDE RECORDS SUMMARY | 2025-03-18 07:10 | XMS_ITS ---
[facility] Address [address] [place] [address] Care Team Providers Care Ruffler Name Role Phone Ailyn Sam Primary Care Provider Selam Castillo Unavailable [phone] Allergies Allergen (clinical drug ingredient) Drug/Non Drug [...] W/U Status Risk Notes Problem Plantar wart (73115840) Plantar wart (B07.0) Active confirmed Problem Osteoarthritis of midtarsal joint of left foot (9337091312729685 ) Osteoarthritis of midtarsal joint of left foot (M19.072) Active confirmed Problem Osteoarthritis of midtarsal joint of right foot (2296359845736762 ) Osteoarthritis of midtarsal joint of right foot (M19.071) Active confirmed Vital Signs Height 5ft6in in 02/04/2025 Weight 207 lbs 02/04/2025 BMI 33.41 kg/m2 02/04/2025 Blood pressure systolic 130 mm Hg 02/05/20 25 Blood pressure diastolic 83 mm Hg 025 Encounters Encounter Location Date Provider Diagnosis [facility] [address] [address] 02/04/2025 Selam Bondslucio Onychomycosis B35.1 ; Osteoarthritis [...] Notes * VAMSHIOLINDAFranceB:1970 ( 54 yo F)Acc No.[id number]:02/04/2025 Progress Notes Patient:?Gricel CALVERT Provider:?Selam Hein DPM :1970???Age:54 Y???Sex:Female D ate:02/04/2025 Address:[address] [place], [place] [id number] Pcp:Ailyn Sam Subjective: * Chief Complaints: * [...] Foot, AP, LAT, LO, B/L??Taken by trained?Podiatric Self Contained Behavior Unit Teacher (?SF ).?Findings:?normal bone and soft tissue density [...] ray : Foot, right 3V * Procedure Codes:?94029 Wart Destruction, 1-14, Modifiers: XS 09108 X-RAY EXAM OF LEFT FOOT 3V, Modifiers: 26 , ID90728 X-RAY EXAM OF RIGHT FOOT 3V, Modifiers: [...] exercise to failure, expense, systemic complications, infection, [id number], prolongued postop course. 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 Generated for Sarahyi jovanni/Tio/Princess on:?03/18/2025 07:10 AM EDT History and Physical Notes * HPI [...] LAT, LO, B/L Taken by trained Podiatric Self Contained Behavior Unit Teacher ( SF ) Clinical Indication(s): Evaluate for Fra cture, Evaluate Biomechanical Deformity
--- OUTSIDE RECORDS SUMMARY | 2025-03-18 07:10 | XMS_ITS ---
Author Organization [facility] Address [address] [place] [address] Care Team Providers Care Epitaxial Reactor Technician Name Role Phone Ailyn Sam Primary Care Provider Selam Castillo [phone] REASON FOR VISIT BOBBIN DOFFER PPWK Entered Encounters Encounter Location Date Provider Diagnosis [facility] [address] [place] [address] 12/21/2024 Selam Hein Plan Of Treatment No Information Progress Notes * Mallory CALVERTAllyB:1970 ( 54 yo F)Acc No.[id number]:12/21/2024 Patient:?Gricel CALVERT :1970???Age:54 Y???Sex:Female Address:[address] [place] [address], [address] * true * Date:? Generated for Printi jovanni/Tio/eTransmitting on:?03/18/2025 07:09 AM EDT
[2025-03-18 07:53] LABS: MANUAL DIFF FLAG NO
[2025-03-18 08:02] LABS: Basophils Absolute Auto 0.1 X10*3/uL (0.0-0.2); Basophils Percent Auto 0.9 % (0-2); Eosinophils Absolute Auto 0.2 X10*3/uL (0.0-0.4); Hematocrit 41.8 % (37.0-47.0); Hemoglobin 13.7 g/dl (12.0-16.0); Imm Gran Abs Auto 0.02 X10*3/uL (0.00-0.03); Imm Gran Pct Auto 0.3 % (0.0-0.4); Lymphocytes Absolute Auto 1.5 X10*3/uL (1.2-4.9); Lymphocytes Percent Auto 19.7 % (20-40); Mean Corpuscular HGB Conc 32.8 g/dl (31.0-35.0); Mean Corpuscular Hemoglobin 30.2 pg (27.0-33.0); Mean Corpuscular Volume 92.1 fL (80.0-98.0); Mean Platelet Volume 9.5 fL (9.4-12.3); Monocytes Absolute Auto 0.7 X10*3/uL (0.1-1.2); Monocytes Percent Auto 8.8 % (2-11); Neutrophils Absolute Auto 5.1 x10*3/uL (2.0-8.3); Neutrophils Percent Auto 68.3 % (45-73); Platelet Count 257 X10*3/uL (160-400); Red Blood Count 4.54 X10*6/uL (4.20-5.50); Red Cell Distribution Width 12.3 % (11.0-16.0); White Blood Count 7.5 X10*3/uL (4.8-10.8)
[2025-03-18 08:09] LABS: Estimated Average Glucose 108 mg/dL; Hemoglobin A1C 124.2351 umol/L; Hemoglobin A1c % 5.4 % (<6.0); Total Hemoglobin (HGBA1C) 3543.9301 umol/L
[2025-03-18 08:42] LABS: Alanine Aminotransferase 15 U/L (0-31); Albumin Level 4.2 g/dL (3.5-5.0); Alkaline Phosphatase 86 U/L (39-117); Anion Gap 13 (12-20); Aspartate Amino Transferase 18 U/L (5-31); Bilirubin Total 1.8 mg/dL (0.0-1.0); Blood Urea Nitrogen 19 mg/dL (9-16); Calcium 9.7 mg/dL (8.4-10.2); Carbon Dioxide 29 mmol/L (22-29); Chloride 104 mmol/L (96-108); Cholesterol 203 mg/dL (<200); Estimated Glomerular Filt Rate > 60; Free T4 (Free Thyroxine) 1.01 ng/dL (0.71-1.85); Glucose Random 111 mg/dL (60-115); HDL Cholesterol 60 mg/dL (>40); LDL Cholesterol Calculated 127 mg/dL (<100); Potassium 3.8 mmol/L (3.3-5.1); Sodium 142 mmol/L (135-145); Thyroid Stimulating Hormone 1.94 uIU/mL (0.32-4.0); Total Protein 7.3 g/dL (6.5-8.0); Triglycerides 81 mg/dL (<150); Vitamin D 25-OH Total 78.9 ng/mL (>30)
[2025-03-19 08:28] LABS: Follicle Stimulating Hormone 44.6 mIU/mL; Lutenizing Hormone 29.4 mIU/mL; Prolactin 5.8 ng/mL
[2025-03-22 22:29] LABS: Estrogen 87 pg/mL
== END 2025-03-18 07:08 | disposition home or self-care (01) ==
LOC: HO.MAMMO 07:07
PROVIDERS: PCP Internal Medicine; Referring Provider Physician Assistant Surgical; Visit Provider Internal Medicine
DX: Z12.31 Encounter for screening mammogram for malignant neoplasm of breast (principal); E78.00 Pure hypercholesterolemia, unspecified; I10 Essential (primary) hypertension; E66.3 Overweight; K59.09 Other constipation; Z90.3 Acquired absence of stomach [part of]; Z13.1 Encounter for screening for diabetes mellitus
CPT/HCPCS: 36415; 77063; 77067; 80053; 80061; 82306; 82672; 83001; 83002; 83036; 84146; 84439; 84443; 85025

== ENCOUNTER → 2025-03-18 07:30 | Outpatient (BNV) | payer OTHER, SELFPAY | PROVIDERS: PCP Internal Medicine; Referring Provider Physician Assistant Surgical; Visit Provider Internal Medicine | DX: Z12.31 Encounter for screening mammogram for malignant neoplasm of breast (principal) | CPT/HCPCS: 77063; 77067 ==

== ENCOUNTER 2025-04-07 11:24 | Outpatient (AMB) | payer OTHER, SELFPAY ==
[2025-04-07 11:39] VITALS: BP 130/78; PULSE 73; TEMP 36.4; O2SAT 100; BMI 33.9
--- NOTE | 2025-04-07 11:39 | MHC.OFFWIV ---
Intake Vital Signs 04/07/25 11:39 Height 5 ft 6 in Weight 210 lb BMI 33.9 BP 130/78 Blood Pressure Location Lt brachial Position Sitting Pulse 73 Pulse Source Pulse Oximeter Temp 97.6 F Temp Source Oral Pulse Oximetry (%) 100 Oxygen Delivery Method Room Air Intake Visit Reasons: EP-sinus congestion,cough,body ache,headaches, sob Patient Tobacco Use Status: Never used Tobacco Allergies adhesive tape Allergy (Intermediate, Verified 04/07/25 11:39) Blister Penicillins Allergy (Intermediate, Verified 04/07/25 11:39) VOMITING sulfamethoxazole [From Bactrim] Allergy (Intermediate, Verified 04/07/25 11:39) RASH trimethoprim [From Bactrim] Allergy (Intermediate, Verified 04/07/25 11:39) RASH Sulfa (Sulfonamide Antibiotics) Allergy (Mild, Verified 04/07/25 11:39) Rash oxycodone Adverse Reaction (Intermediate, Verified 04/07/25 11:39) Nausea and Vomiting Do you need a note to return to daycare/school/sports/work: Yes HPI HPI Comments History of Present Illness Details 54 yo female who presents today with a cough, LUCAS, sinus pressure, congestion and SOB. She states that she has been having pain and pressure in the frontal sinuses. She states that she has been congested. She states that she has been coughing and she has chest tightness. She had a low grade temperature. She has been SOB and wheezing. She states that she has been coughing and has pain in the chest from coughing. She states that she has been having post nasal drip and feels like its in her chest. She has been SOB and feels like its hard to get air. She has been taking her allergy medication and using her inhalers. She states that she gets sinus infections. She denies chills, abd pain, n/v/d, or sick contacts. She denies sick contacts. She is not a smoker. [facility] Medical History (Updated 02/08/25 @ 16:43 by Ailyn Sam MD) Chronic pain of left knee Obesity Hypertension Annual physical exam Obesity (BMI 30-39.9) Mixed hyperlipidemia Benign essential hypertension Asthma BMI 38.0-38.9,adult Family history of anesthesia complication Post-operative nausea and vomiting Motion sickness History of COVID-19 Murmur Pre-op evaluation HTN (hypertension) PAC (premature atrial contraction) PVC (premature ventricular contraction) Elevated cholesterol Right ankle pain Trochanteric bursitis of right hip Maxillary sinusitis Palpitation Chest pain Morbid obesity Left leg pain Breast cancer screening by mammogram PCOS (polycystic ovarian syndrome) Diverticular disease Asthmatic bronchitis History of torn meniscus of knee Vitamin D deficiency WESLEY on CPAP Aortic valve calcification Chest discomfort Morbid obesity with BMI of 40.0-44.9, adult Surgical History (Updated 02/08/25 @ 16:16 by DONNA Crandall) History of cataract surgery S/P laparoscopic sleeve gastrectomy Hx of excision of mass H/O colonoscopy History of foot surgery History of section Family History Father HTN (hypertension) Prostate cancer Mother HTN (hypertension) Bladder cancer Total knee replacement status History of hip replacement H/O shoulder replacement Sister No problems noted. Sister Arthritis Total knee replacement status Daughter Heart problem Daughter Heart murmur Son No problems noted. Paternal Grandfather Myocardial infarct Paternal Uncle Myocardial infarct Maternal Grandmother Breast cancer Skin cancer Social History Household Members: Spouse and Children Housing: House Are you a primary youth career specialist to a significant other at home: No Do you presently have visiting nurse or other home services: No Alcohol intake: current Alcohol intake frequency: holidays/special occasions only Comment: once a week 2-3 glasses Patient Tobacco Use Status: Never used Tobacco e-Cigarette/Vaping Use: Never Used Second Hand Smoke Exposure: No service: No Current occupational status: employed Cognitive needs: No Hearing needs: No Vision needs: Yes (glasses) Review of Systems Const Reports headache(s) ENT Denies otalgia, Reports headache(s), Reports sinus pain, Reports sinus pressure and Denies sore throat Card Denies chest pain and Reports dyspnea Resp Reports chest congestion, Reports cough, Reports pain with cough, Reports dyspnea and Reports wheezing GI Denies abdominal pain, Denies diarrhea, Denies nausea and Denies vomiting Skin/Breast Reports system reviewed and no additional complaints, except as documented Neuro Reports headache(s) Noé/Lymph Denies lymphadenopathy Aller/Immun Reports wheezing Physical Exam Vital Signs: Last Vital Signs Temp 97.6 F 04/07/25 11:39 Pulse 73 04/07/25 11:39 BP 130/78 04/07/25 11:39 Pulse Ox 100 04/07/25 11:39 Oxygen Delivery Method Room Air 04/07/25 11:39 BMI result Body Mass Index 33.9 Const General: healthy appearing, comfortable, no acute distress, alert and awake HEENT Head: Yes normocephalic and Yes atraumatic Ears: TM's normal bilaterally General nose exam: Normal nares present, Normal nasal mucous membranes and turbinates present and No nasal discharge present Face and sinus: Yes sinus tenderness Mouth: moist mucous membranes Throat: Yes uvula midline Neck Lymphatic: no lymphadenopathy noted Resp Effort & Inspection: audible wheezes and Actively coughing Auscultation: wheezes inspiratory wheezes and throughout Cardio Rate: regular rate Rhythm: regular rhythm Skin General skin exam: no rashes or lesions noted Office Procedures Nebulizer Treatment Nebulizer Treatment 50452-Kyrsxfqnv/MDI RX initial, or Nebulizer Subsequent Treatment Office Meds ipratropium 0.5 mg-albuterol 3 mg (2.5 mg base)/3 mL nebulization soln Performing Provider: Jennifer Henry PA-C Performing Location: [facility] Administered by: Jennifer Henry PA-C on 04/07/25 12:13 Dose Route Admin Location Dispensed Lot Number Expiration Date [facility] Drop Board Worker 3 mL inhalation 3 mL [id number] 01/07/26 87787-011-04 [employer] Assessment & Plan Assessment & Plan (1) Asthma: Code(s): J45.909 - Unspecified asthma, uncomplicated Qualifiers: Asthma complication type: uncomplicated Asthma persistence: intermittent Asthma severity: mild Qualified Code(s): J45.20 - Mild intermittent asthma, uncomplicated Plan: Most likely asthma exacerbation vs URI vs bronchitis plan- -will give her a nebulizer treatment in the office -will refill her nebulizer albuterol -prednisone for 5 days -use inhalers -f/u as needed of no better (2) Sinusitis: Code(s): J32.9 - Chronic sinusitis, unspecified Plan: Most likely sinusitis plan- -tylenol or motrin as needed -doxycycline 100 mg BID for 10 days -continue with flonase and inhalers -steam showers -f/u with PCP as needed Orders: Orders AMB Nebulizer Treatment Today J45.20 - Mild intermittent asthma, uncomplicated Medications: New prednisone 40 mg (2 x 20 mg) PO DAILY 10 tabs 0RF doxycycline hyclate 100 mg PO BID 10 days 20 tabs 0RF albuterol sulfate 1.25 mg (3 mL) inhalation Q4-6H PRN 75 mL 0RF Shortness Of Breath Or Wheezing Coding Level of Care Code Est Pt Level 4 (00633) Diagnoses Mild intermittent asthma without complication J45.20 Asthma complication type: uncomplicated Asthma persistence: intermittent Asthma severity: mild Sinusitis J32.9 CPT Codes Nebulizer Treatment - Nebulizer Treatment, initial or subsequent: 93034-Ykbiasveb/MDI RX initial, or Nebulizer Subsequent Treatment ([id number])
--- OUTSIDE RECORDS SUMMARY | 2025-04-07 11:47 | XMS_ITS | Data Portability ---
Author Organization [facility] Address [address] [place] [address] Assessment No assessment recorded. Plan of Treatment Reminders Order Date Submit Date Provider Last Modified By Organization Details Last Modified Time Details Appointments None recorded. Lab None recorded. Referral None recorded. Procedures None recorded. Surgeries None recorded. Imaging None recorded. Medication Orders prednisone 10 mg tablet 2020 021 [facility]/Pharmacy #2024, [address] [place], [address], 09:44:25 Zithromax Z-Patricio 250 mg tablet 2020 021 [facility]Pharmacy #2024, [address] [place], [address], 09:05:33 ondansetron 8 mg disintegrat ing tablet 2020 021 [facility]/Pharmacy #2024, [address] [place], [address], 09:28:05 metronidazo le 500 mg tablet 2020 021 [facility]/Pharmacy #2024, [address] [place], [address], 09:28:01 Cipro 500 mg tablet 2020 021 [facility]/Pharmacy #2024, [address] [place], [address], 02/15/202 2 09:05:44 cyclobenzap rine 10 mg tablet [address] [place], [address], 14:44:11 diclofenac sodium 75 mg tablet,erich yed release [address] [place], [address], 14:44:21 erythromyci n 5 mg/gram (0.5 %) eye ointment [address] [place], [address], 14:44:37 Diflucan 150 mg tablet [address] [place], [address], 14:44:33 doxycycline hyclate 100 mg capsule 2019 [address] [place], [address], 14:44:23 Patient TargetsNo targets recorded. Patient InstructionsNo instructions recorded. Reason for Referral None Reported. Results Created Date Observation Date Name Description Value Unit Range Abnormal Flag Note LastModifiedBy Organization Detail LastModifiedTime 08/27/20 21 08/27/2021 XR, kidne y + urete r + bladd er No observ ation record ed[facility] [address] [place], [address], 08/27/2021 16:23:07 Result Notes None recorded. Problems Name Problem SNOMED Code Status Onset Date Resolution Date Notes Provider Name and Address Organization Details Recorded Time Polycystic ovaries Active 2017 Not Available [facility] 0 20:03:36 Essential hypertensi on 28523860 Active 2017 Not Available [facility] 0 20:03:37 Gastric reflux 500768651 Active 2017 Not Available [facility] 0 20:03:36 Sleep apnea 65006233 Active 2018 Not Available [facility] 0 20:03:37 Hyperchole sterolemia 27307111 Active 2018 Not Available [facility] 0 20:03:37 Asthma 053389123 Active 2020 FERDINAND SHRESTHA [address] [place], [address], [facility] 1 09:47:58 Problem Notes None recorded. Procedures Surgical History Date Name Laterality Status Provider Name and Address Organization Details Recorded Time 05/02/20 Most Recent Mammogram completed Jennifer Lu [facility] 05/05/2020 08:25:18 Caesarean Section completed Terrie Carranza NP, [address] [place], [address], [facility] 09/14/2018 11:19:25 Imaging Results None recorded. Procedure Notes None recorded. Medical Equipment None Reported. Allergies Allergen ID Allergen Name Allergen Category Reaction Reaction Severity Criticality Documentation Date Start Date Code Code System Note Provider Name and Address Organization Details Recorded Time 2481 Substance with sulfonami de structure and antibacte rial mechanism of action (substanc e) medicatio n Not available Not available Not available 09/14/2018 44825 8003 SNOMED Leslie Juarez [facility] 8 11:10:08 2482 Product containin g penicilli n (product) medicatio n Not available Not available Not available 09/14/2018 95633 8001 [facility]ED [facility] 11:10:16 Medications Name Sig Start Date [...] Relief 50 mcg/actuati on nasal spray,suspe nsion [place] 1 spray every day by intranasa l route. active Not Available Not Available No t Available Afluria 0103-3556 (PF) 45 mcg(15 mcg x 3)/0.5 mL [...] Not Available Vitals Date Recorded Body height Oxygen saturation Oxygen saturation in Arterial blood by Pulse oximetry Heart rate Systolic blood pressure Diastolic blood pressure Provider Name and Address Organization Details Last Updated DateTime 1 167.64 cm 99 % 99 % 69 /min 122 mm[Hg] 78 mm[Hg] [facility] 1 14:46:08 Date Recorded Body height Heart rate Oxygen saturation Oxygen saturation in Arterial blood by Pulse oximetry Systolic blood pressure Diastolic blood pressure Provider Name and Address Organization Details Last Updated DateTime 1 167.64 cm 62 /min 98 % 98 % 120 mm[Hg] 74 mm[Hg] FERDINAND SHRESTHA [address] [place], [address] 1 09:30:20 Date Recorded Body height Heart rate Oxygen saturation Oxygen saturation in Arterial blood by Pulse oximetry Systolic blood pressure Diastolic blood pressure Provider Name and Address Organization Details Last Updated DateTime 0 167.64 cm 48 /min 98 % 98 % 130 mm[Hg] 70 mm[Hg] Kandikendra Mckinnon [facility] 0 14:04:46 Social History Question Answer Notes LastModified by Organizat ion Details LastModified Time Tobacco Smoking Status Never Smoker Not Available [facility] 09/12/2020 03:36:23 What Was The Date Of Your Most Recent Tobacco Screening? 06/19/2021 [email or web address] Information not available 06/19/2021 Sex: Unknown Functional Status None recorded. Mental Status None recorded. Family History Relationship Description Onset Age of this Age Resolved Age Notes LastModified by Organization Details LastModified Time Mother Neoplasm of urinary bladder htn [email or web address] Not available 2017 11:18:56 Father Hypertensive disorder [email or web address] Not available 2017 11:19:11 Medical History Condition [...] mcg/0.3 mL dose 1 completed FERDINAND SHRESTHA [address] [place] [address], [address], [facility] 06/19/2021 09:29:09 COVID-19, mRNA, LNP-S, PF, 30 mcg/0.3 mL dose 1 completed FERDINAND SHRESTHA [address] [place], [address], [facility] 06/19/2021 09:29:19 Influenza, split virus, quadrivalent, preservative 0 completed Kandi Mckinnon [facility] 08/29/2020 08:05:59 Past Encounters Encounter ID Performer Location Encounter Start Date Encounter Closed Date Diagnosis/Indication Diagnosis SNOMED-CT Code Diagnosis ICD10 Code Diagnosis Note [id number] [facility] [address] [place] [address] 09/14/2018 10:56:14 09/14/2018 12:39:30 Intermittent palpitations 529974553 R00.2 [id number] [facility] [address] [address] 01/19/2019 09:44:09 01/19/2019 12:12:47 Sleep apnea 03048414 G47.30 follow, new to CPAP Essential hypertension 95166814 I10 controlled Polycystic ovaries 69694 008 E28.2 Right lowe r quadrant pain 564357682 R10.31 r/o diverticul itis Hypercholesterolemia 136 85072 E78.00 no current medication s [id number] [facility] [address] [place] [address] 02/02/2019 14:17:59 02/02/2019 15:23:39 Pneumonia 737003022 J18.9 improving Asthma 836210154 J45.90 9 Right lowe r quadrant pain 801445673 R10.31 will f/u after CT Essential hypertension 25536533 I10 controlled [id number] [facility] [address] [facility], [place] [address] 02/19/2019 09:29:14 02/19/2019 11:13:24 Hypercholesterolemia 06265555 E78.00 no current medication s Sleep apnea 96495522 G47 .30 follow, new to CPAP Essential hypertension 34461201 I10 controlled Polycystic ovaries 34199 008 E28.2 f/u [employer] Allergic cough 092432687 R05 [place] [id number] [facility] [address] [facility] [address] [facility] [place] [address] 10/25/2019 11:11:30 10/25/2019 11:50:55 Asthma 211795297 J45.909 Essential hypertension 62502853 I10 very well controlled Sleep apnea 01485275 G47 .30 uses cpap nightly Benign par oxysmal positional vertigo 359558837 H81.10 Acute fron brooke sinusitis 12464740 J01.10 Dysfunctio n of eustachian tube 75090441 H69.93 [id number] [facility] [address] [facility] [address] [facility] [place] [address] 01/18/2020 15:32:55 01/18/2020 16:31:30 Adult health examination 236071150 Z00.00 will schedule with obgyn Active or passive immunization 305571940 Z23 Body mass index 40+ - severely obese 623262214 Z68.41 diet/exerc ise Screening for malignant neoplasm of breast 102659817 Z12.31 Screening for malignant neoplasm of colon 422646180 Z12.11 Vitamin D deficiency 347 88845 E55.9 [id number] [facility] [address] [facility] [address] 08/08/2020 13:59:22 08/08/2020 16:00:21 Paronychia of finger 574651466 L03.019 allergic to sulfa and PCN will treat with doxy to avoid any possible cross reaction with cephs continue to soak and keep clean Candidal vulvovaginitis 14852439 B37.3 gets yeast infection after course of abx will give diflucan [id number] [facility] [address], [place] [address] 10/13/2020 10:25:41 10/13/2020 14:37:45 Bacterial conjunctivitis 175274863 H10.9 also use warm compresses [id number] [facility] [address], [place] [address] 10/20/2020 10:13:14 10/20/2020 12:00:38 Spasm of back muscles 467069934 M62.830 will call if no improvemen t Low back pain 072046936 M54.5 the patient has right sided back pain not touched by APAP, ibu, and stretching will trial on muscle relaxer and stronger NSAID [id number] [facility] [address], [place] [address] 03/27/2021 14:32:41 03/27/2021 16:16:50 Diverticulitis of colon 783464797 K57.32 hx of flare ups will start on duo abx therapy and anti-emeti c for the nausea the patient is advised to stick to a liquid diet, no solids for the time being until after first 24 to 48 hours will call if no improvemen t Nausea 454790318 R11.0 will trial this so she can keep the liquid down to avoid risk of dehydratio n [id number] [facility] [address] [place] [address], [place] [address] 06/19/2021 09:23:03 06/19/2021 10:06:40 Acute exacerbation of asthma 648111835 J45.901 will start on prednisone and a z pakfu in a week with an update Asthma 039681233 J45.20 exacerbati ondiscusse d monitoring her breathing Health Concerns Section Related Observation LastModified by Organization Detai ls LastModified Time None Recorded Concern Status LastModified by Organization Details LastModified Time None Recorded Advance Directives Directive None Recorded Payers Encounter Date Sequence Insurance Name Policy Number Policy Mccoy Covered Member ID Mccoy Member ID Guarantor Name 08/08/2020 1 [facility] [id number] 1 Gricel Jin Fugiel [id number] Gricel A Fugiel 10/13/2020 1 [facility] [id number] 1 Gricel A Fugiel [id number] Gricel A Fugiel 10/20/2020 1 [facility] [id number] 1 Gricel A Fugiel [id number] Gricel A Fugiel 03/27/2021 1 [facility] [id number] 1 Gricel A Fugiel [id number] Gricel A Fugiel 06/19/2021 1 [facility] [id number] 1 Gricel A Fugiel [id number] Gricel A Fugiel Notes Date Note Type Note Provider Name a ma Address Organization Details Recorded Time 08/08/2020 text/html [...] no chest pain, no n/v/d FERDINAND SHRESTHA [address] [place], [address], [facility] 08/08/2020 14:24:22 10/13/2020 [...] no chills, no n/v/d FERDINAND SHRESTHA [address] [place], [address], [facility] 10/13/2020 12:03:40 10/20/2020 [...] fatigue, no sore throat FERDINAND SHRESTHA [address] [place], [address], [facility] 10/20/2020 11:48:29 03/27/2021 text/html Abdominal PainReported bypatient.Location: generalized Quality:pain;crampi ng;sharp Severity:moderate Duration:constant; started: (yesterday night) Onset/Timing:worse Context:history of diverticulosis with recurrent diverticulitis flares Aggravating Factors:eating Alleviating Factors:nothing gives relief Associated Symptoms:nausea;kayy rrhea;decreased appetite Other:denies possible Pain Radiation:no radiation Previous Tests, Treatment and/or Diagnostic Procedures:none c/o diverticulitis flare up FERDINAND SHRESTHA [address] [place], [address], [facility] 03/27/2021 15:01:41 06/19/2021 [...] how she is doing FERDINAND SHRESTHA [address] [place], [address], [facility] 06/19/2021 09:48:27 OBGyn Episode No OBEpisode recorded.
== END 2025-04-07 13:07 | disposition home or self-care (01) ==
PROVIDERS: PCP Internal Medicine; Visit Provider Physician Assistant Medical
DX: J45.20 Mild intermittent asthma, uncomplicated (principal); J32.9 Chronic sinusitis, unspecified

== ENCOUNTER → 2025-04-07 11:24 | Outpatient (BNVA) | payer OTHER, SELFPAY | PROVIDERS: PCP Internal Medicine; Visit Provider Physician Assistant Medical | DX: J45.20 Mild intermittent asthma, uncomplicated (principal); J32.9 Chronic sinusitis, unspecified | CPT/HCPCS: 94640 ==

== ENCOUNTER 2025-07-01 13:08 | Outpatient (AMB) | payer OTHER, SELFPAY ==
--- OUTSIDE RECORDS SUMMARY | 2025-07-01 13:12 | XMS_ITS | Patient Health Record ---
Author Organization [facility] Address [address] [place] [address] Care Team Providers Care Delinquent Tax Collection Assistant Name Role Phone [facility] Provider Del Downing Jr Unavailable Allergies Allergen (clinical drug ingredient) Drug/Non Drug Allergy documented on EMR Reaction Allergy Type Onset Date Status penicillin G Penicillin G Sodium Unknown Drug Allergy Active sulfamethoxazole / trimethoprim Bactrim Unknown Drug Allergy Active Reason For Referral No Information Medications Medication SIG (Take, Route, Frequency, Duration) Notes Start Date End Date Status MiraLax (colon prep) 8.3 oun ce ((238) grams mixed with Gatorade or Crystal Light orally begin at 5:00 p.m. the day before the procedure for 1 day 05/24/2020 Active Multivitamin - 1 tablet Orally Once a day for 30 day(s) Active Loratadine 10 MG 1 tablet Orally Once a day for 30 day(s) Active hydroCHLOROthiazide 25 MG TAKE 1 TABLET BY MOUTH EVERY DAY Oral for 90 Active Metoprolol Tartrate 50 MG TAKE 1 TABLET BY MOUTH EVERY DAY Oral for 90 Active ProAir HFA 108 (90 Base) MCG/ACT TAKE 2 PUFFS BY MOUTH EVERY 4 HOURS NEEDED Inhalation for 17 Active Immunizations Vaccine Route Administration Date Status Comme nts Influenza Unknown 05/24/2020 Refused Social History Tobacco Use: Social History Observation Description Date Details (start date - stop date) Never Smoker NA - NA Tobacco Use/Smoking Question Answer Notes Patient is a nonsmoker Alcohol Screen Question Answer Notes Did you have a drink contain ing alcohol in the past year? Yes How often did you have a dri nk containing alcohol in the past year? 2 to 4 times a month (2 points) How many drinks did you have on a typical day when you were drinking in the past year? 1 or 2 drinks (0 point) How often did you have 6 or more drinks on one occasion in the past year? 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 (Z79.899) Active confirmed Plan Of Treatment Future Test Test Name Order Date COLONOSCOPY 05/24/2020 Insurance Providers Payer Name Payer Address Payer Phone Subscriber Number Group Number Insured Name Patient Relationship to Insured Coverage Start Date Coverage End Date [facility] [address] [facility] [place] [phone] [id number] MAGGIE CALVERT Self - patient is the insured Medical (General) History Medical History History ICD Code Heart Papitation / Tachycardia Asthma / Allergy shots every 4 weeks Hx of kidney stones Hypertension [facility]/CPAP Surgical History Surgery Date(Month/Year) section 2000 [place] removal foot 1980s
--- OUTSIDE RECORDS SUMMARY | 2025-07-01 13:12 | XMS_ITS | Patient Health Record ---
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 Problem Osteoarthritis of midtarsal joint of right foot (9701421941163182 ) Osteoarthritis of midtarsal joint of right foot (M19.071) Active confirmed Vital Signs Blood pressure diastolic 83 mm Hg 02/04/2025 Height 5ft6in in 02/04/2025 Blood pressure systolic 130 mm Hg 02/04/2025 Weight 207 lbs 02/04/2025 BMI 33.41 kg/m2 02/04/2025 Encounters Encounter Location Date Provider Diagnosis [facility] [address] 02/04/2025 Selam Hein Onychomycosis B35.1 ; Osteoarthritis [...] M25.571 and Bursitis of right foot M77.51 [facility] [address] 12/21/2024 Selam Hein [address] [address] 02/04/2025 Selam Hein Assessments Encounter Date Diagnosis [...] Insured Coverage Start Date Coverage End Date [facility] [address] [place] [id number] Gricel Aranda Self - patient is the insured Medical (General) History Medical History History ICD Code Knee Pain Cataracts Covid 19 Diverticulosis Headaches HB Sinusitis Warts Chicken Pox Surgical History Surgery Date(Month/Year) cataract surgery gastric sleeve finger surgery
[2025-07-01 13:21] VITALS: BP 142/84; PULSE 75; TEMP 36.4; O2SAT 97; BMI 33.6
--- NOTE | 2025-07-01 13:21 | MHC.PC.OV ---
Vital Signs 07/01/25 13:21 07/01/25 13:38 Height 5 ft 6 in Weight 208 lb 6 oz BMI 33.6 BP 142/84 H 130/80 Blood Pressure Location Lt brachial Lt brachial Position Sitting Sitting Pulse 75 Pulse Source Pulse Oximeter Temp 97.5 F Temp Source Temporal Artery Scan Pulse Oximetry (%) 97 Oxygen Delivery Method Room Air Intake Visit Reasons: Annual Exam Allergies adhesive tape Allergy (Intermediate, Verified 07/01/25 13:26) Blister Penicillins Allergy (Intermediate, Verified 07/01/25 13:26) VOMITING sulfamethoxazole (From Bactrim) Allergy (Intermediate, Verified 07/01/25 13:26) RASH trimethoprim (From Bactrim) Allergy (Intermediate, Verified 07/01/25 13:26) RASH Sulfa (Sulfonamide Antibiotics) Allergy (Mild, Verified 07/01/25 13:26) Rash oxycodone Adverse Reaction (Intermediate, Verified 07/01/25 13:26) Nausea and Vomiting Medication List - Last Reconciled 07/01/25 by Ailyn Sam MD albuterol sulfate 90 mcg/actuation (ProAir HFA) 2 puffs inhalation Q4-6H PRN albuterol sulfate 2.5 mg (3 mL) inhalation QID albuterol sulfate 1.25 mg (3 mL) inhalation Q4-6H PRN [allergy shots Q month] cholecalciferol (vitamin D3) 125 mcg PO DAILY clotrimazole 1% 1 appl topical BID docusate sodium 100 mg PO BID ibuprofen 200 mg PO Q6H PRN loratadine (Allergy Relief (loratadine)) 10 mg PO DAILY PRN magnesium 250 mg PO DAILY polyethylene glycol 3350 (Miralax) 17 grams PO 2XW psyllium 1 packet PO DAILY therapeutic multivitamin 1 tab PO DAILY zolpidem 5 mg PO BEDTIME PRN Tobacco use date assessed: 07/01/25 Dental Screening Dental Screen Date: 07/01/25 Did you have a dental visit in the last 12 months?: Yes Did you have a dental problem in the last 6 months where you did not have access to dental care?: No Was dental information given to patient?: Patient has dentist HPI Annual Exam HPI Details bilateral shoulder pain and knee pain - SUSAN advised surgery but held due to daughter in May 2025. occ dizzy, sinus congestion..ganglion cyst L pointer finger. [facility] Medical History Chronic pain of left knee Obesity Hypertension Annual physical exam Obesity (BMI 30-39.9) Mixed hyperlipidemia Benign essential hypertension Asthma BMI 38.0-38.9,adult Family history of anesthesia complication Post-operative nausea and vomiting Motion sickness History of COVID-19 Murmur Pre-op evaluation HTN (hypertension) PAC (premature atrial contraction) PVC (premature ventricular contraction) Elevated cholesterol Right ankle pain Trochanteric bursitis of right hip Maxillary sinusitis Palpitation Chest pain Morbid obesity Left leg pain Breast cancer screening by mammogram PCOS (polycystic ovarian syndrome) Diverticular disease Asthmatic bronchitis History of torn meniscus of knee Vitamin D deficiency WESLEY on CPAP Aortic valve calcification Chest discomfort Morbid obesity with BMI of 40.0-44.9, adult Surgical History History of cataract surgery S/P laparoscopic sleeve gastrectomy Hx of excision of mass H/O colonoscopy History of foot surgery History of section Family History Father HTN (hypertension) Prostate cancer Mother HTN (hypertension) Bladder cancer Total knee replacement status History of hip replacement H/O shoulder replacement Sister No problems noted. Sister Arthritis Total knee replacement status Daughter Heart problem Daughter Heart murmur Son No problems noted. Paternal Grandfather Myocardial infarct Paternal Uncle Myocardial infarct Maternal Grandmother Breast cancer Skin cancer Social History (Updated 07/01/25 @ 13:46 by Ailyn Sam MD) Household Members: Spouse and Children Housing: House Are you a primary intensive care ambulance paramedic to a significant other at home: No Do you presently have visiting nurse or other home services: No Alcohol intake: current Alcohol intake frequency: holidays/special occasions only Comment: once a week 1-2 glasses Patient Tobacco Use Status: Never used Tobacco e-Cigarette/Vaping Use: Never Used Second Hand Smoke Exposure: No service: No Current occupational status: employed Cognitive needs: No Hearing needs: No Vision needs: Yes (glasses) Questionnaire PHQ-9 Over the last 2 weeks, how often have you been bothered by any of the following problems? 1. Little interest or pleasure in doing things: not at all 2. Feeling down, depressed, or hopeless: not at all 3. Trouble falling or staying asleep, or sleeping too much: several days 4. Feeling tired or having little energy: several days 5. Poor appetite or overeating: not at all 6. Feeling bad about yourself - or that you are a failure or have let yourself or your family down: not at all 7. Trouble concentrating on things, such as reading the newspaper or watching television: not at all 8. Moving or speaking so slowly that other people could have noticed. Or the opposite - being so fidgety or restless that you have been moving around a lot more than usual: not at all 9. Thoughts that you would be better off or of hurting yourself in some way: not at all Total score: 2 Source: Developed by Drs. Alex Lutz, Marylou Garcia, Michele Santillan and colleagues, with an educational derrek from [employer]. Thrive Questionnaire Date Thrive assessed: 07/01/25 I am a: Patient What is your living situation today?: I have a steady place to live Within the past 12 months, did the food you bought not last and you didn't have the money to get more?: Never true Within the past 12 months, did you worry whether your food would run out before you got money to buy more?: Never true Do you have trouble paying for medicines?: No Do you have trouble getting transportation to medical appointments?: No Do you have trouble paying your heating and electricity bill?: No Do you have trouble taking care of your child, family member or friend?: No Do you have trouble with day-to-day activities such as bathing, preparing meals, shopping, managing finances, etc.?: No Are you currently unemployed and looking for a job?: No Are you interested in more education?: No Please select the resources that you would like help with: None Currently or been in a relationship where the following occur: No concerns reported THRIVE Score: 0 AUDIT C Alcohol Use Questionnaire (AUDIT-C) 1. How often do you have a drink containing alcohol?: 2-4 times a month 2. How many drinks containing alcohol do you have on a typical day when you are drinking?: 1 or 2 3. How often do you have six or more drinks on one occasion?: Never Total Score: 2 CRISTA-7 AMB Questionnaire CRISTA-7 Date CRISTA - 7 assessed: 11/29/24 Feeling nervous, anxious, or on edge: 0 = Not at all Not being able to stop or control worryin = Not at all Worrying too much about different things: 1 = Several days Trouble relaxin = Not at all Being so restless that it is hard to sit still: 0 = Not at all Becoming easily annoyed or irritable: 0 = Not at all Feeling afraid as if something awful might happen: 0 = Not at all Total CRISTA-7 score (0-4 normal; 5-9 mild; 10-14 moderate; 15-21 severe): 1 Source: Developed by Drs. Alex Lutz, Marylou Garcia, Michele Santillan and colleagues, with an educational derrek from [employer]. Review of Systems Const Denies poor appetite and Denies weakness Eyes Denies no additional complaints ENT Reports Normal hearing present, Denies dizziness, Denies nasal congestion, Denies tinnitus and Denies sore throat Card Denies chest pain, Denies syncope, Denies rapid heart rate and Denies dyspnea Resp Denies cough and Denies dyspnea GI Denies change in stool character, Reports constipation, Denies diarrhea, Denies nausea and Denies vomiting Denies urinary frequency, Denies difficulty voiding and Denies dysuria Neuro Reports Normal hearing present, Denies confusion, Denies dizziness, Denies syncope and Denies weakness Psych Denies confusion Physical exam (Primary Care) Vital Signs: Last Vital Signs Temp 97.5 F 07/01/25 13:21 Pulse 75 07/01/25 13:21 BP 130/80 07/01/25 13:38 Pulse Ox 97 07/01/25 13:21 Oxygen Delivery Method Room Air 07/01/25 13:21 BMI result Body Mass Index 33.6 Tobacco/Smoking Status: Tobacco use Status Tobacco use date assessed 07/01/25 07/01/25 13:27 Patient Tobacco Use Status Never used Tobacco 07/01/25 13:46 e-Cigarette/Vaping Use Never Used 07/01/25 13:46 PHQ-9: PHQ-9 Score PHQ-9: Total score 2 07/01/25 13:37 Thrive Assessment: Date of Thrive Assessment Date Thrive assessed 07/01/25 07/01/25 13:27 Currently or been in a relationship where the following occur: No concerns reported Const General: alert and awake; No confusion Orientation/consciousness: No confusion HENMT Head: Yes normocephalic Ears: external ears normal and TM's normal bilaterally Face and sinus: Yes normal facial exam Mouth: moist mucous membranes Throat: Yes tonsils normal Eyes Conjunctivae: conjunctivae normal Pupils: Equal, round and reactive pupils present and Pupil accommodation reflex normal Direct Ophthalmoscopy: normal light reflex Neck Neck: No lymphadenopathy Thyroid: Thyroid normal Chest Chest palpation & inspection: normal inspection of the chest Resp Effort & Inspection: normal respiratory effort and no audible wheezes Auscultation: clear to auscultation bilaterally, no crackles, no wheezes and lung sounds not diminished Cardio Rate: regular rate Rhythm: regular rhythm Peripheral pulses: radial pulses present and dorsalis pedis present GI Palpation (GI): no masses Auscultation: normal bowel sounds and normoactive bowel sounds Rectal Exam - Female: deferred Skin General skin exam: no rashes or lesions noted Rashes: no rashes Neuro General: deep tendon reflexes 2+ bilaterally and No confusion Cranial nerves: Yes Equal, round and reactive pupils present, Yes Midline tongue present, Yes Normal hearing present and Yes Ability to bilaterally elevate shoulders present Cognition (Neuro): normal cognition Gait exam (Neuro): Normal gait present Motor exam (neuro): 5/5 motor strength present throughout Deep tendon reflexes (DTR's): Right brachioradialis reflex intensity grade: 2+, Left brachioradialis reflex intensity grade: 2+, Right patellar reflex intensity grade: 2+ and Left patellar reflex intensity grade: 2+ Extrem General: No edema Coding Level of Care Code Est Pt Prev Care 40-64y(15658) Diagnoses Annual physical exam Z00.00 WESLEY on CPAP G47.33; Z99.89 Mild intermittent asthma without complication J45.20 Asthma complication type: uncomplicated Asthma persistence: intermittent Asthma severity: mild Gastroesophageal reflux disease without esophagitis K21.9 Esophagitis presence: without esophagitis Status post sleeve gastrectomy Z90.3 Obesity (BMI 30-39.9) E66.9 PCOS (polycystic ovarian syndrome) E28.2 Impaired glucose tolerance R73.02 Hypercholesterolemia E78.00 Benign essential hypertension I10 Heart palpitations R00.2 Constipation K59.00 Allergy T78.40XA Ganglion cyst M67.40 Assessment & Plan Assessment & Plan (1) Annual physical exam: Code(s): Z00.00 - Encounter for general adult medical examination without abnormal findings Category: Medical Plan: Patient is advised to eat healthy, keep well hydrated, keep active and have adequate sleep. (2) WESLEY on CPAP: Comment: CPAP use Code(s): G47.33 - Obstructive sleep apnea (adult) (pediatric); Z99.89 - Dependence on other enabling machines and devices Category: Medical Plan: Continue to use the CPAP more than 4 hours a night and benefits from this (3) Asthma: Code(s): J45.909 - Unspecified asthma, uncomplicated Category: Medical Qualifiers: Asthma complication type: uncomplicated Asthma persistence: intermittent Asthma severity: mild Qualified Code(s): J45.20 - Mild intermittent asthma, uncomplicated Plan: Patient on albuterol inhaler as needed (4) GERD (gastroesophageal reflux disease): Code(s): K21.9 - Gastro-esophageal reflux disease without esophagitis Category: Medical Qualifiers: Esophagitis presence: without esophagitis Qualified Code(s): K21.9 - Gastro-esophageal reflux disease without esophagitis Plan: Avoid the foods that causes that usually spicy foods, tomato products, juices, coffee, soda and foods that your sensitive to. After eating do not lie down, allow 3-4 hours before in lie down. And keep the head of bed above 30 degrees to avoid the acid from going up. (5) Status post sleeve gastrectomy: Comment: March 2023 Code(s): Z90.3 - Acquired absence of stomach [part of] Category: Surgical Plan: Continue to follow-up with bariatric (6) Obesity (BMI 30-39.9): Code(s): E66.9 - Obesity, unspecified Category: Medical Plan: Diet and exercise (7) PCOS (polycystic ovarian syndrome): Comment: Dr. Rodriguez Code(s): E28.2 - Polycystic ovarian syndrome Category: Medical Plan: Continue to follow-up with gynecology (8) Impaired glucose tolerance: Code(s): R73.02 - Impaired glucose tolerance (oral) Category: Medical Plan: Decrease the amount of carbohydrate intake, pasta, bread, rice and potatoes are all sugar and that is aside from all the sweet stuff, remember that fruits are good but they are Sweet also. (9) Hypercholesterolemia: Code(s): E78.00 - Pure hypercholesterolemia, unspecified Category: Medical Plan: Avoid fried foods, chicken skin, eggs, butter margarine, pastries and meat. Be it pork or beef they have a lot of cholesterol (10) Benign essential hypertension: Code(s): I10 - Essential (primary) hypertension Category: Medical Plan: Advised to continue monitoring blood pressure (11) Heart palpitations: Code(s): R00.2 - Palpitations Category: Medical (12) Constipation: Code(s): K59.00 - Constipation, unspecified Category: Medical (13) Allergy: Comment: Dr. English done monthly Code(s): T78.40XA - Allergy, unspecified, initial encounter Category: Medical (14) Ganglion cyst: Comment: Left pointer Code(s): M67.40 - Ganglion, unspecified site Category: Medical Plan History of Present Illness The patient is a 55-year-old female presenting for a physical examination and management of chronic conditions. She has a history of obstructive sleep apnea, managed with a CPAP machine, and underwent sleeve gastrectomy in March 2023 for weight management. Her medical history includes impaired glucose tolerance with a recent blood glucose level of 111 mg/dL, normal hemoglobin A1c, and hypercholesterolemia with an LDL of 127 mg/dL. Hypertension is monitored regularly, and she has a history of nephrolithiasis. Asthma is managed with an albuterol inhaler, and she experiences sinus congestion treated with prednisone and doxycycline. She underwent cataract surgery and reports occasional constipation managed with docusate and magnesium. Vitamin D deficiency is addressed with 5000 IU of vitamin D3 daily, and she reports heart palpitations that have subsided. Stress incontinence occurs with coughing or sneezing, and she has cervical prolapse managed by gynecology. A ganglion cyst on her finger has recurred, and she reports arthritis in her hands and feet with morning stiffness. Allergic rhinitis is managed with allergy shots, and she is aware of her triggers, including molds and dust. Health Maintenance - Colonoscopy last performed in 2020, next due in 2025 - Mammogram completed in March 2025 - Regular follow-up with ophthalmology post-cataract surgery - Allergy shots for allergic rhinitis - Vitamin D supplementation with 5000 IU daily - CPAP usage for obstructive sleep apnea Social History - Exercise: Engages in daily walking and uses a treadmill and elliptical for exercise. - Alcohol Use: Consumes alcohol three to four times a month, typically one or two glasses of wine. - Smoking: Denies any history of smoking. - Recreational Drug Use: Denies use of recreational drugs. Review of Systems - General: Denies fever, weight loss, or fatigue. - Cardiovascular: Reports heart palpitations, denies chest pain or syncope. - Respiratory: Denies dyspnea or cough. - Gastrointestinal: Reports constipation, denies nausea or vomiting. - Genitourinary: Reports stress incontinence, denies dysuria. - Musculoskeletal: Reports arthritis and morning stiffness. - Neurological: Denies dizziness or headaches. - Allergic/Immunologic: Reports sinus congestion and allergic rhinitis. Physical Exam General: Cooperative, healthy appearing, comfortable, no acute distress and well developed Orientation: Patient oriented x3 Limitations: No limitations Head: Normal to inspection Ears: Hearing grossly normal bilaterally Nose: Normal external nose present Face and sinus: Normal facial exam Eyes: Appearance normal, both eyes and all related structures Neck: Normal visual inspection and Yes full ROM Respiratory: Normal respiratory effort and able to speak in complete sentences. Clear to auscultation bilaterally Cardiovascular: Regular rate and rhythm. Normal S1 and S2 GI: Normal to inspection. Soft to palpation and nontender Skin: No rashes or lesions noted Neuro: Patient oriented x3 Extremities: Normal to inspection Results - Labs: Blood glucose 111 mg/dL, normal hemoglobin A1c, LDL 127 mg/dL, normal vitamin D and thyroid levels Plan The patient is advised to continue using the CPAP machine for obstructive sleep apnea, ensuring usage for more than four hours nightly to maximize benefits. For impaired glucose tolerance, she is encouraged to maintain a healthy diet and regular exercise to manage her blood sugar levels. Hypercholesterolemia management includes dietary modifications and regular physical activity, with a focus on reducing LDL levels. Hypertension is to be monitored regularly, and the patient is advised to continue checking her blood pressure at home. Asthma management involves the use of an albuterol inhaler as needed, and she is to follow up with her general maintenance helper for ongoing care. For sinus congestion, she has been prescribed prednisone and doxycycline in the past, and she should continue with allergy shots to manage allergic rhinitis. The patient is to follow up with ophthalmology post-cataract surgery and continue vitamin D supplementation for deficiency. For constipation, she is advised to use docusate and magnesium supplements as needed. Heart palpitations are to be monitored, and a Holter monitor may be considered if symptoms recur. Stress incontinence management includes pelvic floor exercises, and she is to follow up with gynecology for cervical prolapse. The ganglion cyst on her finger may require orthopedic consultation if symptoms persist, and arthritis management includes physical therapy exercises. She is advised to continue with regular exercise and maintain a healthy lifestyle to manage her chronic conditions. Patient was informed and verbally consented to the use of an ambient scribe for clinic note documentation during this visit. Discussion Notes During the visit, we discussed the importance of continuing CPAP therapy for obstructive sleep apnea and maintaining a healthy lifestyle to manage impaired glucose tolerance and hypercholesterolemia. We reviewed the management of hypertension and the need for regular blood pressure monitoring. Asthma management was addressed, emphasizing the use of an albuterol inhaler and follow-up with an general maintenance helper. We also discussed the use of prednisone and doxycycline for sinus congestion and the continuation of allergy shots for allergic rhinitis. The patient was advised to follow up with ophthalmology post-cataract surgery and to continue vitamin D supplementation. We discussed the management of constipation with docusate and magnesium, and the monitoring of heart palpitations with the potential use of a Holter monitor if symptoms recur. Stress incontinence management includes pelvic floor exercises, and the patient is to follow up with gynecology for cervical prolapse. We also discussed the potential need for orthopedic consultation for the ganglion cyst and the importance of regular exercise for arthritis management. Patient Instructions - Continue using CPAP machine for at least 4 hours nightly. - Maintain a healthy diet and regular exercise to manage blood sugar and cholesterol levels. - Monitor blood pressure regularly at home. - Use albuterol inhaler as needed for asthma symptoms. - Continue allergy shots and sinus rinses for allergic rhinitis. - Follow up with ophthalmology for post-cataract surgery care. - Take vitamin D3 supplements daily as prescribed. - Use docusate and magnesium for constipation as needed. - Perform pelvic floor exercises for stress incontinence. - Follow up with gynecology for cervical prolapse management. - Consider orthopedic consultation if ganglion cyst symptoms persist. - Engage in regular physical activity to manage arthritis and overall health. Orders: Orders ECG 3 day holter monitor Today R00.2 - Palpitations Referrals Orthopedics Referral M67.40 - Ganglion, unspecified site Pulmonology Referral T78.40XA - Allergy, unspecified, initial encounter Cardiology Referral R00.2 - Palpitations Medications: New prednisone 4 tabs QD x 2 days then 3 tabs QD x 2 days then 2 tabs Qd x 2 days then 1 tab QD x 2 days PO daily; 20 tabs 0RF J45.909 - Unspecified asthma, uncomplicated, M67.40 - Ganglion, unspecified site sennosides-docusate sodium 8.6-50 mg (Senna Plus) 2 tab-caps (2 x 8.6-50 mg) PO BEDTIME 60 caps 3RF K59.00 - Constipation, unspecified Discontinued docusate sodium Discontinued Reason: Duplicate 100 mg PO BID 60 caps 3RF
[2025-07-01 13:38] VITALS: BP 130/80
== END 2025-07-01 14:10 | disposition home or self-care (01) ==
LOC: HO.HMCH 13:09
PROVIDERS: PCP Internal Medicine; Visit Provider Internal Medicine
DX: Z00.00 Encounter for general adult medical examination without abnormal findings (principal); G47.33 Obstructive sleep apnea (adult) (pediatric); E66.9 Obesity, unspecified; Z68.33 Body mass index [BMI] 33.0-33.9, adult; Z99.89 Dependence on other enabling machines and devices; M67.442 Ganglion, left hand; J45.20 Mild intermittent asthma, uncomplicated; K21.9 Gastro-esophageal reflux disease without esophagitis; Z90.3 Acquired absence of stomach [part of]; E28.2 Polycystic ovarian syndrome; R73.02 Impaired glucose tolerance (oral); E78.00 Pure hypercholesterolemia, unspecified

== ENCOUNTER 2025-07-18 13:44 | Outpatient (AMB) | payer OTHER, SELFPAY ==
--- OUTSIDE RECORDS SUMMARY | 2025-07-18 15:58 | XMS_ITS | Patient Health Record ---
[facility] Address [address] [place] [address] Care Team Providers Care Attorney At Law Name Role Phone Ailyn Sam Primary Care Provider Selam Castillo Unavailable [phone] Allergies Allergen (clinical drug ingredient) Drug/Non Drug [...] W/U Status Risk Notes Problem Plantar wart ([id number]) Plantar wart (B07.0) Active confirmed Problem Osteoarthritis of midtarsal joint of left foot ([id number] ) Osteoarthritis of midtarsal joint of left foot (M19.072) Active confirmed Problem Osteoarthritis of midtarsal joint of right foot ([id number] ) Osteoarthritis of midtarsal joint of right foot (M19.071) Active confirmed Vital Signs Blood pressure diastolic 83 mm Hg 02/04/2025 Height 5ft6in in 02/04/2025 Blood pressure systolic 130 mm Hg 02/04/2025 Weight 207 lbs 02/04/2025 BMI 33.41 kg/m2 02/04/2025 Encounters Encounter Location Date Provider Diagnosis [address] [address] 02/04/2025 Selam Hein Onychomycosis B35.1 ; Osteoarthritis [...] M25.571 and Bursitis of right foot M77.51 [facility] [address] 12/21/2024 Selam Hein [address] [address] 02/04/2025 Selam Hein Assessments Encounter Date Diagnosis [...] Insured Coverage Start Date Coverage End Date [facility] [address] [place] [address] [id number] Gricel Aranda Self - patient is the insured Medical (General) History Medical History History ICD Code Knee Pain Cataracts Covid 19 Diverticulosis Headaches HB Sinusitis Warts Chicken Pox Surgical History Surgery Date(Month/Year) cataract surgery gastric sleeve finger surgery
--- OUTSIDE RECORDS SUMMARY | 2025-07-18 15:58 | XMS_ITS | Clinical Summary ---
Author Organization [facility] Address [address] [place] [phone] Phone Care Team Providers Care Scrap Breaker Name Role Phone Ailyn Sam MD Primary Care Provider [phone] Allergies Active Allergy Reactions Criticality Noted Date Comments Sulfamethoxazole-Trimethoprim Rash Low 2017 Penicillins Rash Low 01/15/2018 Sulfa (Sulfonamide Antibiotics) Rash Low 02/08 Medications loratadine (CLARITIN) 10 mg tablet Take 10 mg by mouth daily. Active MULTIVITAMIN ORAL Take by mouth. Active PROAIR HFA 90 mcg/actuation inhaler INHALE 2 PUFFS BY MOUTH EVERY 4 HOURS NEEDED 3 9 Active allergen immunotherapy once. Active clotrimazole (LOTRIMIN) 1 % cream 1 APPL TOPICALLY 2 TIMES A DAY 3 Active docusate sodium (COLACE) 100 MG capsule TAKE 1 CAPSULE ORALLY 2 TIMES A DAY 3 Active fluticasone propionate (FLONASE ALLERGY RELIEF) 50 mcg/actuation nasal spray [place] 1 spray every day by intranasal route. Active Hospital, Clinic, or Other Facility Administered Medication Ordered Dose Route Frequency Start Date End Date Status levonorgestrel (MIRENA) 20 mcg/24 hours (5 yrs) 52 mg intrauterine device 1 each 1 each Utrn Every 5 years 04/26/2019 Active Active Problems Problem Noted Date Diagnosed Date Complete uterovaginal prolapse 03/14/2023 Assessment & Plan (07/01/2023 9:13 AM EDT): Significant improvement in patient's prolapse with pelvic floor PT Patient plans to continue physical therapy Will consider pessary or surgery if symptoms worsen Assessment & Plan (03/14/2023 3:38 PM EDT): Patient with complete procidentia Natural course of pelvic organ prolapse reviewed Management options reviewed, including pelvic floor PT/lifestyle modifications, pessary, surgery Patient wants to purse pelvic floor PT Patient to follow up at next annual ALCOHOL AND DRUG COUNSELOR exam or sooner as needed IUD (intrauterine device) in place 04/26/2019 Overview (04/26/2019): Mirena IUD inserted 04/26/2019 Assessment & Plan (03/14/2023 3:34 PM EDT): Patient with heavier than usual period after surgery Bleeding has resolved IUD strings visualized on exam Patient happy with IUD, will keep in place Warning signs/symptoms reviewed Menorrhagia with irregular cycle 02/23/2019 Assessment & Plan (02/23/2019 5:31 PM EDT): Recommend SHG with an endometrial bx as there are risk factors for hyperplasia. Some treatment options reviewed, SUch as P only OCPs, LNG IUD, ablations, hyst, of course depending on results of evaluation Get PCP lab tests to see if TSH and CBC done within past few months Resolved Problems Problem Noted Date Diagnosed Date Resolved Date Encounter for gynecological examination without abnormal finding 02/23/2019 03/16/2019 Abnormal uterine bleeding (AUB) 01/15/2018 03/28/2022 Assessment & Plan (03/16/2019 11:12 AM EDT): No focal findings on SHG, just thick lining, so endobx sent She wants to get results of this then discuss treatment options Assessment & Plan (02/23/2019 3:48 PM EDT): Mostly regular with heavy flow; risks for hyperplasia, so endometrial bx with SHG advised Some Tx options are P only OCP, LNG IUD, endometrial ablation Assessment & Plan (01/15/2018 4:04 PM EST): IMB. No sign of cervical polyp, pap sent. Discussed hormonal, structural causes. To monitor cycles, RTO for further evaluation, consider u/s and or endometrial sampling especially given hx PCOS and obesity Immunizations Immunization Administration Dates Next Due COVID-19 (Pre-09/01) Pfizer Vaccine, mRNA, PF ,03/09/2021 INFLUENZA, SPLIT VIRUS, TRIVALENT PF 12/29/2017 Influenza Quadrivalent MDCK Preservative Free IM 08/25/2020 Influenza Quadrivalent Preservative Free IM 11/10,08/22/2016 Influenza Quadrivalent w/ Preservative IM 2019 Tdap 05/31/2022 Family History Medical History Relation Comments Hyperlipidemia Father Hypertension Father Prostate cancer Father Breast cancer Maternal Grandmother Arthritis Mother Bladder Cancer Mother Hyperlipidemia Mother Hypertension Mother Relation Status Comments Father Alive Maternal Grandmother Mother Alive Sister 1 Alive Sister 2 Alive Social History Tobacco Use Types Packs/Day Years Used Date Smoking Tobacco: Never Smokeless Tobacco: Never Tobacco Cessation:Counseling Given: Not Answered Alcohol Use Standard Drinks/Week Comments Not Currently 0 (1 standard drink = 0.6 oz pur e alcohol) 1-2/monthly Education Answer Date Recorded Are you interested in more education? Not on basilio e 03/07/2023 Are you concerned about learning? Not on file 03/07/2023 No 03/07/2023 No 03/07/2023 Digital Access Answer Date Recorded No 04/05/2023 No 04/05/2023 Reliable internet access at home? Not on file 04/05/2023 Device with a working camera? 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 [employer] Not on file Not on file Not on file Last Filed Vital Signs Vital Sign Reading Time Taken Comments Blood Pressure 110/80 07/28/2023 11:39 AM EDT Pulse 74 07/24/2023 10:59 AM EDT Temperature 36.7 C (98 F) 07/24/2023 10:59 AM EDT Respiratory Rate - - Oxygen Saturation 99% 07/24/2023 10:59 AM EDT Inhaled Oxygen Concentration - - Weight 88.5 kg (195 lb) 07/28/2023 11:39 AM EDT Height 167.6 cm (5' 6 ) 07/28/2023 11:39 AM EDT Body Mass Index 31.47 07/28/2023 11:39 AM EDT Plan of Treatment Health Maintenance Due Date Last Done Comments LIPID PANEL 1969 DEPRESSION SCREENING 1981 HEPATITIS C SCREENING 1987 HIV ONE-TIME SCREENING (18-65 YEARS) 1987 SCREENING FOR DIABETES 2004 MAMMOGRAM 2009 COLOGUARD 2014 COLONOSCOPY 2014 COLORECTAL CANCER SCREENING 2014 FIT TEST 2014 FOBT 2014 SIGMOIDOSCOPY 2014 VIRTUAL COLONOSCOPY 2014 PNEUMOCOCCAL VACCINES (50+ years) (1 of 1 - PCV) 2019 ZOSTER VACCINES (1 of 2) 2019 INFLUENZA VACCINE (#1) 2025 , 08/25/2020, 11/27/2018, Additional history exists COVID-19 VACCINE ( - season) 2025 03/30/2021, 03/09/2021 IUD 04/26/2027 04/26/2019 PAP SMEAR 07/01/2028 07/01/2023, 03/0 06/2018, 01/15/2018 Adult Td,Tdap Booster 05/31/2032 05/31/2022 SMOKING STATUS SCREENING (Once After 26 Yrs) Completed 07/01/2023 HEPATITIS A VACCINES Aged Out No long er eligible based on patient's age to complete this topic HIB VACCINES Aged Out No longer eligi ble based on patient's age to complete this topic MENINGOCOCCAL VACCINES (ACWY) Aged Out No longer eligible based on patient's age to complete this topic MENINGOCOCCAL VACCINES (B) Aged Out N o longer eligible based on patient's age to complete this topic Medical Devices Not on file Procedures Procedure Name Priority Date/Time Associated Diagnosis Comments PAP TEST Routine 07/01/2023 12:00 AM EDT from Last 3 Months or Most Recently Relevant to Health Maintenance Results * Pap Test (07/01/2023 12:00 AM EDT) 07/01/2023 07/02/2023 8:2 9 AM EDT Narrative SEE NARRATIVE - 07/03/2023 3:04 PM EDT [address] [address] Kiln Transfer Operator: Gricel Rivera MD ALCOHOL AND DRUG COUNSELOR Cytology Report FINAL DIAGNOSIS A. PAP SMEAR (SUREPATH) CE: SPECIMEN ADEQUACY: Satisfactory for evaluation; transformation zone present. INTERPRETATION: NEGATIVE FOR INTRAEPITHELIAL LESION OR MALIGNANCY. Electronically Signed Out By: TERRI Crabtree(ASCP) The Pap test is a screening test primarily for squamous cancers and precursors and has associated false-negative and false-positive results. New technologies such as liquid-based preparations may decrease but will not eliminate all false-negative results. Regular sampling and follow-up of unexplained clinical signs and symptoms are recommended to minimize false negative results. PROCEDURES/ADDENDA HPV Testing (Requested) Ordered Date: 07/02/2023 A. PAP SMEAR (SUREPATH) CE: Human Papilloma Virus Test NEGATIVE for high-risk Human Papilloma Virus types 16, 18, 45 and the Other high risk probe set (Includes 31, 33, 35, 39, 51, 52, 56, 58, 59, 66, 68) Note: Testing performed by [employer] Onclarity HR-HPV analysis. Clinical correlation is advised. This HPV test was performed at [facility], [address] [place] [address]. This test has been FDA approved for SurePath cervical cytology specimens. The accuracy and precision of this test for all other specimen sources has been verified in the Cytopathology Laboratory of the [facility] and has not been cleared or approved by the U.S. Food and Drug Administration. Clinical correlation is advised. CLINICAL HISTORY Date of Last Menstrual Period: 06-28-2023 Menstrual History: Umu-Menopausal Contraceptive History: IUD Other Clinical Conditions: Screening Pap SPECIMEN SOURCE A: PAP SMEAR (SUREPATH) CE Patient Name: GRICEL CALVERT : 1970 (Age: 53) Sex: F Institution: [facility] Location: [facility] Date of Collection: 07/01/2023 Date of Reported: 07/03/2023 15:04 Results to: Oly Gabriel us Oly Jackson MD CYTOLOGY ORDER MELONY Final Result SEE NARRATIVE from Last 3 Months or Most Recently Relevant to Health Maintenance Insurance O O O O O HMO O O Care Teams Scrap Breaker Relationship Specialty Start Date End Date Ailyn Sam MD [address] [place] [phone] PCP - General Internal Medicine 06/10/22 Additional Source Comments The information contained in this document represents components of the legal health record. It is not the complete legal health record.[facility]
--- OUTSIDE RECORDS SUMMARY | 2025-07-18 15:58 | XMS_ITS | Patient Health Record ---
Author Organization [facility] Address [address] [place] [address] Care Team Providers Care Program Schedule Clerk Name Role Phone James Lee Primary Care [...] Problem Status W/U Status Risk Notes Problem 174647012 Colon cancer screening (Z12.11) Active confirmed Problem [id number] [facility] current use of diuretic (Z79.899) Active confirmed Plan Of Treatment Future Test Test Name Order Date COLONOSCOPY 05/24/2020 Insurance Providers Payer Name Payer Address Payer Phone Subscriber Number Group Number Insured Name Patient Relationship to Insured Coverage Start Date Coverage End Date [facility] [address] [facility] [place] [phone] [id number] MAGGIE CALVERT Self - patient is the insured Medical (General) History Medical History History ICD Code Heart Papitation / Tachycardia Asthma / Allergy shots every 4 weeks Hx of kidney stones Hypertension WESLEY/CPAP Surgical History Surgery Date(Month/Year) section 2000 [place] removal foot 1980s
== END 2025-07-18 13:45 | disposition home or self-care (01) ==
LOC: HO.HMGAL 13:44
PROVIDERS: PCP Internal Medicine; Visit Provider Registered Nurse Emergency
DX: J30.89 Other allergic rhinitis (principal)
CPT/HCPCS: 95117; 95165

== ENCOUNTER → 2025-08-15 07:33 | Outpatient (REF) | payer OTHER, SELFPAY ==
--- NOTE | 2025-08-15 07:35 | HM_ITS ---
Conclusion: 1. Patient was monitored for total period of 2 days and 9 hours 2. Baseline was normal sinus rhythm with average heart rate of 67 beats per minute 3. Rare PACs noted with short runs of SVE, longest lasting 11 beats 4. No significant pauses noted 5. No patient reported events MTDD
--- OUTSIDE RECORDS SUMMARY | 2025-08-15 07:36 | XMS_ITS | Clinical Summary ---
Author Organization [facility] Address [address] [place] [phone] Phone Care Team Providers Care Philosophy Faculty Name Role Phone Ailyn Sam MD Primary Care Provider [phone] Allergies Active Allergy Reactions Criticality Noted Date [...] (FLONASE ALLERGY RELIEF) 50 mcg/actuation nasal spray [place] 1 spray every day by intranasal route. 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 PAP SMEAR [...] 59, 66, 68) Note: Testing performed by [employer] Onclarity HR-HPV analysis. Clinical correlation is advised. This HPV test was performed at [facility], [address] [place] [address]. This test has been FDA approved for SurePath cervical cytology specimens. The accuracy and precision of this test for all other specimen sources has been verified in the Cytopathology Laboratory of the [facility] and has not been cleared or approved by the U.S. Food and Drug Administration. Clinical correlation is advised. CLINICAL HISTORY Date of Last Menstrual Period: 06-28-2023 Menstrual History: Umu-Menopausal Contraceptive History: IUD Other Clinical Conditions: Screening Pap SPECIMEN SOURCE A: PAP SMEAR (SUREPATH) CE Patient Name: GRICEL CALVERT : 1970 (Age: 53) Sex: F Institution: [facility] Location: [facility] Date of Collection: 07/01/2023 Date of Reported: 07/03/2023 15:04 Results to: Oly Gabriel us Oly Jackson MD CYTOLOGY ORDER MELONY Final Result SEE NARRATIVE from Last 3 Months or Most Recently Relevant to Health Maintenance Insurance O O O O O HMO O O Care Teams Philosophy Faculty Relationship Specialty Start Date End Date Ailyn Sam MD [address] [place] [phone] PCP - General Internal Medicine 06/10/22 Additional Source Comments The information contained in this document represents components of the legal health record. It is not the complete legal health record.[facility]
--- OUTSIDE RECORDS SUMMARY | 2025-08-15 07:37 | XMS_ITS | Data Portability ---
Author Organization [facility] Telehealth Patient Home Address [address] [place] [address] Assessment No assessment recorded. Plan of Treatment Reminders Order Date Submit Date Provider Last Modified By Organization Details Last Modified Time Details Appointments None recorded. Lab None recorded. Referral None recorded. Procedures None recorded. Surgeries None recorded. Imaging None recorded. Medication Orders prednisone 10 mg tablet 2020 021 [facility], [address] [place], [address], 09:44:25 Zithromax Z-Patricio 250 mg tablet 2020 021 [facility]/Pharmacy #2024, [address] [place], [address], 09:05:33 ondansetron 8 mg disintegrat ing tablet 2020 021 [facility]/Pharmacy #2024, [address] [place], [address], 09:28:05 metronidazo le 500 mg tablet 2020 021 [facility]/Pharmacy #2024, [address] [place], [address], 09:28:01 Cipro 500 mg tablet 2020 021 [facility]/Pharmacy #2024, [address] [place], [address], 2 09:05:44 cyclobenzap rine 10 mg tablet [address] [place], [address], 14:44:11 diclofenac sodium 75 mg tablet,erich yed release [address] [place], [address], 14:44:21 erythromyci n 5 mg/gram (0.5 %) eye ointment [address] [place], [address], 14:44:37 Diflucan 150 mg tablet [address] [place], [address], 14:44:33 doxycycline hyclate 100 mg capsule [address] [place], [address], 14:44:23 Patient TargetsNo targets recorded. Patient InstructionsNo instructions recorded. Reason for Referral None Reported. Results Created Date Observation Date Name Description Value Unit Range Abnormal Flag Note LastModifiedBy Organization Detail LastModifiedTime 08/27/20 21 08/27/2021 XR, kidne y + urete r + bladd er No observ ation record ed. [facility] [address] [place] [address], [address], 08/27/2021 16:23:07 Result Notes None recorded. Problems Name Problem SNOMED Code Status Onset Date Resolution Date Notes Provider Name and Address Organization Details Recorded Time Polycystic ovaries Active 2017 Not Available [employer] 0 20:03:36 Essential hypertensi on 21608060 Active 2017 Not Available [facility] 0 20:03:37 Gastric reflux 199773355 Active 2017 Not Available [facility] 0 20:03:36 Sleep apnea 49945043 Active 2018 Not Available [facility] 0 20:03:37 Hyperchole sterolemia 63583261 Active 2018 Not Available [facility] 0 20:03:37 Asthma 986457770 Active 2020 FERDINAND SHRESTHA [address] [place], [address], [facility] [place] [facility] 1 09:47:58 Problem Notes None recorded. Procedures Surgical History Date Name Laterality Status Provider Name and Address Organization Details Recorded Time 05/02/20 Most Recent Mammogram completed Jennifer Lu [facility] 05/05/2020 08:25:18 Caesarean Section completed Terrie Carranza NP, [address] [place], [address], [facility] 09/14/2018 11:19:25 Imaging Results None recorded. Procedure [...] Not available Not available Not available 09/14/2018 25130 8003 SNOMED Leslie Juarez [facility] 8 11:10:08 2482 Product containin g penicilli n (product) medicatio n Not available Not available Not available 09/14/2018 72475 8001 SNOLIMPIA barboza [facility] 8 11:10:16 Medications Name Sig Start Date Stop Date Status Note LastModified by Organization Details LastModified Time cyclobenzap rine 10 mg tablet Take 1 tablet 3 times a day by oral route for 15 days. 05/18 /2021 completed Not Available Not Available Not Available [...] Relief 50 mcg/actuati on nasal spray,suspe nsion [place] 1 spray every day by intranasa l route. active Not Available Not Available No t Available Afluria 1498-4520 (PF) 45 mcg(15 mcg x 3)/0.5 mL [...] blood by Pulse oximetry Heart rate Systolic And Diastolic Provider Name and Address Organization Details Last Updated DateTime 1 167.64 cm 99 % 99 % 69 /min 122/78 mm[Hg] Gricel Tellez [facility] 1 14:46:08 Date Recorded Body height Heart rate Oxygen saturation Oxygen saturation in Arterial blood by Pulse oximetry Systolic And Diastolic Provider Name and Address Organization Details Last Updated DateTime 1 167.64 cm 62 /min 98 % 98 % 120/74 mm[Hg] FERDINAND SHRESTHA [address] [place], [address], [facility] 1 09:30:20 Date Recorded Body height Heart rate Oxygen saturation Oxygen saturation in Arterial blood by Pulse oximetry Systolic And Diastolic Provider Name and Address Organization Details Last Updated DateTime 0 167.64 cm 48 /min 98 % 98 % 130/70 mm[Hg] Kandi Mckinnon [facility] 0 14:04:46 Social History [...] Time Mother Neoplasm of urinary bladder htn eskawski Not available 2017 11:18:56 Father Hypertensive disorder eskawski Not available 2017 11:19:11 Medical History Condition [...] mL dose 1 completed FERDINAND SHRESTHA [address] [place], [address], [facility] [place] [facility] 06/19/2021 09:29:09 COVID-19, mRNA, LNP-S, PF, 30 mcg/0.3 mL dose 1 completed FERDINAND SHRESTHA [address] [place], [address], [facility] 06/19/2021 09:29:19 Influenza, split virus, quadrivalent, preservative 0 [facility] 08:05:59 Past Encounters Encounter ID Performer Location Encounter Start Date Encounter Closed Date Diagnosis/Indication Diagnosis SNOMED-CT Code Diagnosis ICD10 Code Diagnosis IMO Codes Diagnosis Note [id number] James Lee [facility] [address], [place] [address] 09/14/2018 10:56:14 09/14/2018 12:39:30 Intermittent palpitations 723960612 R00.2 [id number] James Lee [address],[place] [address] 01/19/2019 09:44:09 01/19/2019 12:12:47 Sleep apnea 12932425 G47.30 follow, new to CPAP Essential hypertension 35187366 I10 controlled Polycystic ovaries 44090 008 E28.2 Right lowe r quadrant pain 405993700 R10.31 r/o diverticul itis Hypercholesterolemia 136 62210 E78.00 no current medication s [id number] James Lee [facility] [address] [facility], [place] [address] 02/02/2019 14:17:59 02/02/2019 15:23:39 Pneumonia 635217002 J18.9 improving Asthma 424195178 J45.90 9 Right lowe r quadrant pain 726038425 R10.31 will f/u after CT Essential hypertension 89615557 I10 controlled [id number] James Lee [facility] [address] [facility],[place] [address] 02/19/2019 09:29:14 02/19/2019 11:13:24 Hypercholesterolemia 83862963 E78.00 no current medication s Sleep apnea 92348560 G47 .30 follow, new to CPAP Essential hypertension 77861699 I10 controlled Polycystic ovaries 27389 008 E28.2 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 Allergic cough 479765262 R05 use [place] air [place]n [id number] James Lee [facility] [address] [facility],[place] [address] 10/25/2019 11:11:30 10/25/2019 11:50:55 Asthma 914490655 J45.909 Essential hypertension 58922854 I10 very well controlled Sleep apnea 53503794 G47 .30 uses cpap nightly Benign par oxysmal positional vertigo 354272126 H81.10 Acute fron brooke sinusitis 96992417 J01.10 Dysfunctio n of eustachian tube 42792792 H69.93 [id number] James Lee [facility] [address] [facility],[place] [address] 01/18/2020 15:32:55 01/18/2020 16:31:30 Adult health examination 206231097 Z00.00 will schedule with obgyn Active or passive immunization 031448730 Z23 Body mass index 40+ - severely obese 499592722 Z68.41 diet/exerc ise Screening for malignant neoplasm of breast 598590107 Z12.31 Screening for malignant neoplasm of colon 917337780 Z12.11 Vitamin D deficiency 347 29745 E55.9 [id number] James Lee [facility] [address] [facility] [address] 08/08/2020 13:59:22 08/08/2020 16:00:21 Paronychia of finger 875473750 L03.019 allergic to sulfa and PCN will treat with doxy to avoid any possible cross reaction with cephs continue to soak and keep clean Candidal vulvovaginitis 13351527 B37.3 gets yeast infection after course of abx will give diflucan [id number] James Lee [facility] [address] [facility], [place] [address] 10/13/2020 10:25:41 10/13/2020 14:37:45 Bacterial conjunctivitis 832838599 H10.9 also use warm compresses [id number] James Childs Jesus [facility] [address] [facility], [place] [address] 10/20/2020 10:13:14 10/20/2020 12:00:38 Spasm of back muscles 737489486 M62.830 will call if no improvemen t Low back pain 304501419 M54.5 the patient has right sided back pain not touched by APAP, ibu, and stretching will trial on muscle relaxer and stronger NSAID [id number] James JinKulwant Lee [facility] [address] [facility], [place] [address] 03/27/2021 14:32:41 03/27/2021 16:16:50 Diverticulitis of colon 504900080 K57.32 hx of flare ups will start on duo abx therapy and anti-emeti c for the nausea the patient is advised to stick to a liquid diet, no solids for the time being until after first 24 to 48 hours will call if no improvemen t Nausea 045091304 R11.0 will trial this so she can keep the liquid down to avoid risk of dehydratio n [id number] [facility] [address] [facility], [place] [address] 06/19/2021 09:23:03 06/19/2021 10:06:40 Acute exacerbation of asthma 400324776 J45.901 will start on prednisone and a z pakfu in a week with an update Asthma 969180366 J45.20 exacerbati ondiscusse d monitoring her breathing Health Concerns Section Related Observation LastModified by Organization Detai ls LastModified Time None Recorded Concern Status LastModified by Organization Details LastModified Time None Recorded Advance Directives Directive None Recorded Payers Insurance Date Sequence Insurance Name Policy Number Policy Mccoy Covered Member ID Mccoy Member ID Guarantor Name 11/02/[address] [facility] [id number] Gricel Aranda [id number] Gricel Aranda Notes Date Note Type Note Provider Name a nd Address Organization Details Recorded Time 0 text/html ROS as noted in the HPI finger infection the patient reports a few [...] no chest pain, no n/v/d FERDINAND SHRESTHA [address] [place] [address], [address], [facility] [place] [facility] 08/08/2020 14:24:22 0 text/html ROS as noted in the HPI c/o bilateral conj the patient reports alia conj started a couple days ago, has allergies, very pruritic the patient has purulent discharge from the left eye normal watery discharge for the right the patient has crust development in the morning no fever, no sob, no cough, no abd pain, no chest pain, no chills, no n/v/d FERDINAND SHRESTHA [address] [place], [address], [facility] 10/13/2020 12:03:40 0 text/html ROS as noted in the HPI c/o pulled back muscle the patient reports [...] fatigue, no sore throat FERDINAND SHRESTHA [address] [place], [address], [facility] 10/20/2020 11:48:29 1 text/html Abdominal PainReported by PatientAbdominal PainFor quality, patient reportspain,cramping, andsharp. For onset/timing, patient reportsworse. For associated symptoms, patient reportsnausea,diarrhe a, anddecreased appetite. For location, patient reportsgeneralized. For severity, patient reportsmoderate. For duration, patient reportsconstantandsta rted: (yesterday night). For aggravating factors, patient reportseating. For alleviating factors, patient reportsnothing gives relief. For other, patient reportsdenies possible . For pain radiation, patient reportsno radiation. For previous tests, treatment and/or diagnostic procedures, patient reportsnone. For context, (history of diverticulosis with recurrent diverticulitis flares). c/o diverticulitis flare up FERIDNAND SHRESTHA [address] [place], [address], [facility] 03/27/2021 15:01:41 1 text/html ROS as noted in the HPI c/o sinus headache and dizziness the patient reports that she [...] how she is doing FERDINAND SHRESTHA [address] [place], [address], [facility] 06/19/2021 09:48:27 OBGyn Episode No OBEpisode recorded.
--- OUTSIDE RECORDS SUMMARY | 2025-08-15 07:37 | XMS_ITS | Patient Health Record ---
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) Active confirmed Plan Of Treatment Future Test Test Name Order Date COLONOSCOPY 05/24/2020 Insurance Providers Payer Name Payer Address Payer Phone Subscriber Number Group Number Insured Name Patient Relationship to Insured Coverage Start Date Coverage End Date [facility] [address] [facility] [place] [phone] [id number] MAGGIE CALVERT Self - patient is the insured Medical (General) History Medical History History ICD Code Heart Papitation / Tachycardia Asthma / Allergy shots every 4 weeks Hx of kidney stones Hypertension WES[place]/CPAP Surgical History Surgery Date(Month/Year) section 2000 [place] removal foot 1980s
--- OUTSIDE RECORDS SUMMARY | 2025-08-15 07:37 | XMS_ITS | Patient Health Record ---
Author [facility] Address [address] [place] [address] Care Team Providers Care Commercial Helicopter Pilot Name Role Phone Ailyn Sam Primary Care Provider Selam Castillo Unavailable [phone] Allergies Allergen (clinical drug ingredient) Drug/Non Drug [...] W/U Status Risk Notes Problem Plantar wart (83785926) Plantar wart (B07.0) Active confirmed Problem Osteoarthritis of midtarsal joint of left foot (1127462065086152 ) Osteoarthritis of midtarsal joint of left foot (M19.072) Active confirmed Problem Osteoarthritis of midtarsal joint of right foot (4434417402446035 ) Osteoarthritis of midtarsal joint of right foot (M19.071) Active confirmed Vital Signs Blood pressure diastolic 83 mm Hg 02/04/2025 Height 5ft6in in 02/04/2025 Blood pressure systolic 130 mm Hg 02/04/2025 Weight 207 lbs 02/04/2025 BMI 33.41 kg/m2 02/04/2025 Encounters Encounter Location Date Provider Diagnosis [address] [address] 02/04/2025 Selam Hein Onychomycosis B35.1 ; Osteoarthritis [...] M25.571 and Bursitis of right foot M77.51 [facility] [address] 12/21/2024 Selam Hein [address] [address] 02/04/2025 Selam Hein Assessments Encounter Date Diagnosis [...] Insured Coverage Start Date Coverage End Date [facility] [address] [place] [address] [phone] [id number] Gricel Aranda Self - patient is the insured Medical (General) History Medical History History ICD Code Knee Pain Cataracts Covid 19 Diverticulosis Headaches HB Sinusitis Warts Chicken Pox Surgical History Surgery Date(Month/Year) cataract surgery gastric sleeve finger surgery
== END ==
LOC: HO.CARD 07:33
PROVIDERS: PCP Internal Medicine; Visit Provider Internal Medicine
DX: R00.2 Palpitations (principal)
CPT/HCPCS: 93242

== ENCOUNTER → 2025-08-15 07:35 | Outpatient (BNV) | payer OTHER, SELFPAY | PROVIDERS: PCP Internal Medicine; Visit Provider Internal Medicine Cardiovascular Disease | DX: I49.1 Atrial premature depolarization (principal) | CPT/HCPCS: 93244 ==

== ENCOUNTER 2025-08-24 16:07 | Outpatient (AMB) | payer OTHER, SELFPAY ==
--- OUTSIDE RECORDS SUMMARY | 2025-08-24 19:16 | XMS_ITS | Patient Health Record ---
Author Organization [facility] Address [address] [place] [address] Care Team Providers Care Community Integration Specialist Name Role Phone Ailyn Sam Primary Care Provider Selam Castillo Unavailable [phone] Allergies Allergen (clinical drug ingredient) Drug/Non Drug [...] W/U Status Risk Notes Problem Plantar wart (05169956) Plantar wart (B07.0) Active confirmed Problem Osteoarthritis of midtarsal joint of left foot (0396848985164169 ) Osteoarthritis of midtarsal joint of left foot (M19.072) Active confirmed Problem Osteoarthritis of midtarsal joint of right foot (3982703235811427 ) Osteoarthritis of midtarsal joint of right foot (M19.071) Active confirmed Vital Signs Blood pressure diastolic 83 mm Hg 02/04/2025 Height 5ft6in in 02/04/2025 Blood pressure systolic 130 mm Hg 02/04/2025 Weight 207 lbs 02/04/2025 BMI 33.41 kg/m2 02/04/2025 Encounters Encounter Location Date Provider Diagnosis [address] [address] 02/04/2025 Selam Hein Onychomycosis B35.1 ; Osteoarthritis [...] M25.571 and Bursitis of right foot M77.51 [facility] [address] 12/21/2024 Selam Hein [address] [address] 02/04/2025 Selam Hein Assessments Encounter Date Diagnosis [...] Insured Coverage Start Date Coverage End Date [facility] [address] [place] [address] [id number] Gricel Aranda Self - patient is the insured Medical (General) History Medical History History ICD Code Knee Pain Cataracts Covid 19 Diverticulosis Headaches HB Sinusitis Warts Chicken Pox Surgical History Surgery Date(Month/Year) cataract surgery gastric sleeve finger surgery
--- OUTSIDE RECORDS SUMMARY | 2025-08-24 19:17 | XMS_ITS | Data Portability ---
Author Organization [facility], Telehealth Patient Home Address [address] [place] [address] Assessment No assessment recorded. Plan of Treatment Reminders Order Date Submit Date Provider Last Modified By Organization Details Last Modified Time Details Appointments None recorded. Lab None recorded. Referral None recorded. Procedures None recorded. Surgeries None recorded. Imaging None recorded. Medication Orders prednisone 10 mg tablet 2020 021 [facility], [address] [place], [address], 09:44:25 Zithromax Z-Patricio 250 mg tablet 2020 021 [facility]/Pharmacy #2024, [address] [place], [address], 09:05:33 ondansetron 8 mg disintegrat ing tablet 2020 021 [facility]/Pharmacy #2024, [address] [place], [address], 09:28:05 metronidazo le 500 mg tablet 2020 021 [facility]Pharmacy #2024, [address] [place], [address], 09:28:01 Cipro 500 mg tablet 2020 021 [facility]/Pharmacy #2024, [address] [place], [address], 2 09:05:44 cyclobenzap rine 10 mg tablet [address] [place], [address], 14:44:11 diclofenac sodium 75 mg tablet,erich yed release [address] [place], [address], 14:44:21 erythromyci n 5 mg/gram (0.5 %) eye ointment [address] [place], [address], 14:44:37 Diflucan 150 mg tablet 2019 [address] [place], [address], 14:44:33 doxycycline hyclate 100 mg capsule [address] [place], [address], 14:44:23 Patient TargetsNo targets recorded. Patient InstructionsNo instructions recorded. Reason for Referral None Reported. Results Created Date Observation Date Name Description Value Unit Range Abnormal Flag Note LastModifiedBy Organization Detail LastModifiedTime 08/27/20 21 08/27/2021 XR, kidne y + urete r + bladd er No observ ation record ed. [facility] [address] [place] [address], [address], 08/27/2021 16:23:07 Result Notes None recorded. Problems Name Problem SNOMED Code Status Onset Date Resolution Date Notes Provider Name and Address Organization Details Recorded Time Polycystic ovaries Active 2017 Not Available [facility] 0 20:03:36 Essential hypertensi on 18195269 Active 2017 Not Available [facility] 0 20:03:37 Gastric reflux 804247554 Active 2017 Not Available [facility] 0 20:03:36 Sleep apnea 66035960 Active 2018 Not Available [facility] 0 20:03:37 Hyperchole sterolemia 12534069 Active 2018 Not Available [facility] 0 20:03:37 Asthma 728606680 Active 2020 FERDINAND SHRESTHA [address] [place], [address], [facility] 1 09:47:58 Problem Notes None recorded. Procedures Surgical History Date Name Laterality Status Provider Name and Address Organization Details Recorded Time 05/02/20 Most Recent Mammogram completed Jennifer Lu [facility] 05/05/2020 08:25:18 Caesarean Section completed Terrie Carranza NP, [address] [place], [address], [facility] 09/14/2018 11:19:25 Imaging Results None recorded. [...] Not available Not available Not available 09/14/2018 82112 8003 SNOMED Leslie Juarez [facility] 8 11:10:08 2482 Product containin g penicilli n (product) medicatio n Not available Not available Not available 09/14/2018 05038 8001 SNOLIMPIA barboza [facility] 8 11:10:16 Medications Name Sig Start [...] Relief 50 mcg/actuati on nasal spray,suspe nsion Fluker 1 spray every day by intranasa l route. active Not Available Not Available No t Available Afluria 6355-4582 (PF) 45 mcg(15 mcg x 3)/0.5 mL [...] % 69 /min 122/78 mm[Hg] Gricel Tellez [facility] 1 14:46:08 Date Recorded Body height Heart rate Oxygen saturation Oxygen saturation in Arterial blood by Pulse oximetry Systolic And Diastolic Provider Name and Address Organization Details Last Updated DateTime 1 167.64 cm 62 /min 98 % 98 % 120/74 mm[Hg] FERDINAND SHRESTHA [address] [place], [address], [facility] 1 09:30:20 Date Recorded Body height Heart rate Oxygen saturation Oxygen saturation in Arterial blood by Pulse oximetry Systolic And Diastolic Provider Name and Address Organization Details Last Updated DateTime 0 167.64 cm 48 /min 98 % 98 % 130/70 mm[Hg] Kandi Mckinnon [facility] 0 14:04:46 Social History [...] History Condition Response Coronary Artery Disease N Other Y Gout N Kidney Stones Y Blood Diseases N Hyperthyroidism N Breast Cancer N Hypothyroidism N Lung Disease N COPD N Depression N Defects or Inherited Disease N Difficulty [...] Problems N Anemia N Mental Illness N Ovarian Cancer N Diabetes N Tuberculosis N Congestive Heart Failure (CHF) N Diverticulitis Y Abuse/Domestic Violence N Asthma N Hepatitis N Heart Disease N [...] mL dose 1 completed FERDINAND SHRESTHA [address] [place], [address], [facility] 06/19/2021 09:29:09 COVID-19, mRNA, LNP-S, PF, 30 mcg/0.3 mL dose 1 completed FERDINAND SHRESTHA [address] [place], [address], [facility] 06/19/2021 09:29:19 Influenza, split virus, quadrivalent, preservative 0 [facility] 08:05:59 Past Encounters Encounter ID Performer Location Encounter Start Date Encounter Closed Date Diagnosis/Indication Diagnosis SNOMED-CT Code Diagnosis ICD10 Code Diagnosis IMO Codes Diagnosis Note [id number] James Lee [facility] [address], [place] [address] 09/14/2018 10:56:14 09/14/2018 12:39:30 Intermittent palpitations 934215295 R00.2 [id number] James Lee [address],[place] [address] 01/19/2019 09:44:09 01/19/2019 12:12:47 Sleep apnea 48728544 G47.30 follow, new to CPAP Essential hypertension 75238473 I10 controlled Polycystic ovaries 36789 008 E28.2 Right lowe r quadrant pain 004304463 R10.31 r/o diverticul itis Hypercholesterolemia 136 83961 E78.00 no current medication s [id number] James Lee [facility] [address] [facility], [place] [address] 02/02/2019 14:17:59 02/02/2019 15:23:39 Pneumonia 489392181 J18.9 improving Asthma 706706454 J45.90 9 Right lowe r quadrant pain 387736455 R10.31 will f/u after CT Essential hypertension 27564206 I10 controlled [id number] James Lee [facility] [address] [facility],[place] [address] 02/19/2019 09:29:14 02/19/2019 11:13:24 Hypercholesterolemia 52828042 E78.00 no current medication s Sleep apnea 43985390 G47 .30 follow, new to CPAP Essential hypertension 18928633 I10 controlled Polycystic ovaries 69638 008 E28.2 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 Allergic cough 634363891 R05 [place] [id number] James Lee [facility] [address] [facility],[place] [address] 10/25/2019 11:11:30 10/25/2019 11:50:55 Asthma 534110436 J45.909 Essential hypertension 94316954 I10 very well controlled Sleep apnea 81104322 G47 .30 uses cpap nightly Benign par oxysmal positional vertigo 904896113 H81.10 Acute fron brooke sinusitis 27028156 J01.10 Dysfunctio n of eustachian tube 89246603 H69.93 [id number] James Lee [facility] [address] [facility],[place] [address] 01/18/2020 15:32:55 01/18/2020 16:31:30 Adult health examination 256011680 Z00.00 will schedule with obgyn Active or passive immunization 296954817 Z23 Body mass index 40+ - severely obese 303802962 Z68.41 diet/exerc ise Screening for malignant neoplasm of breast 977734612 Z12.31 Screening for malignant neoplasm of colon 794567296 Z12.11 Vitamin D deficiency 347 45457 E55.9 [id number] James Lee [facility] [address] [facility] [address] 08/08/2020 13:59:22 08/08/2020 16:00:21 Paronychia of finger 105444215 L03.019 allergic to sulfa and PCN will treat with doxy to avoid any possible cross reaction with cephs continue to soak and keep clean Candidal vulvovaginitis 32463772 B37.3 gets yeast infection after course of abx will give diflucan [id number] James Lee [facility] [address] [facility], [place] [address] 10/13/2020 10:25:41 10/13/2020 14:37:45 Bacterial conjunctivitis 533269117 H10.9 also use warm compresses [id number] James Childs [facility] [address] [facility], [place] [address] 10/20/2020 10:13:14 10/20/2020 12:00:38 Spasm of back muscles 525827639 M62.830 will call if no improvemen t Low back pain 175087580 M54.5 the patient has right sided back pain not touched by APAP, ibu, and stretching will trial on muscle relaxer and stronger NSAID [id number] James JinKulwant Lee [facility] [address] [facility], [place] [address] 03/27/2021 14:32:41 03/27/2021 16:16:50 Diverticulitis of colon 141182604 K57.32 hx of flare ups will start on duo abx therapy and anti-emeti c for the nausea the patient is advised to stick to a liquid diet, no solids for the time being until after first 24 to 48 hours will call if no improvemen t Nausea 191067405 R11.0 will trial this so she can keep the liquid down to avoid risk of dehydratio n [id number] [facility] [address] [facility] [address] 06/19/2021 09:23:03 06/19/2021 10:06:40 Acute exacerbation of asthma 270846527 J45.901 will start on prednisone and a z pakfu in a week with an update Asthma 765251565 J45.20 exacerbati ondiscusse d monitoring her breathing Health Concerns Section Related Observation LastModified by Organization Detai ls LastModified Time None Recorded Concern Status LastModified by Organization Details LastModified Time None Recorded Advance Directives Directive None Recorded Payers Insurance Date Sequence Insurance Name Policy Number Policy Mccoy Covered Member ID Mccoy Member ID Guarantor Name 11/02/2021 1 [facility] [id number] 1 Gricel Aranda [id number] Gricel Aranda Notes Date Note Type Note [...] no chest pain, no n/v/d FERDINAND SHRESTHA [address] [place] [address], [address], [facility] 08/08/2020 14:24:22 0 text/html ROS as [...] no chills, no n/v/d FERDINAND SHRESTHA [address] [place], [address], [facility] 10/13/2020 12:03:40 0 text/html ROS [...] fatigue, no sore throat FERDINAND SHRESTHA [address] [place], [address], [facility] 10/20/2020 11:48:29 1 text/html Abdominal [...] recurrent diverticulitis flares). c/o diverticulitis flare up FERDINAND SHRESTHA [address] [place], [address], [facility] 03/27/2021 15:01:41 1 text/html ROS [...] how she is doing FERDINAND SHRESTHA [address] [place], [address], [facility] 06/19/2021 09:48:27 OBGyn Episode No OBEpisode recorded.
--- OUTSIDE RECORDS SUMMARY | 2025-08-24 19:17 | XMS_ITS | Patient Health Record ---
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 the day before the procedure; Duration: 1 day 05/24/2020 Active Multivitamin - 1 tablet Orally Once a day; Duration: 30 day(s) Active Loratadine 10 MG 1 tablet Orally Once a day; Duration: 30 day(s) Active hydroCHLOROthiazide 25 MG TAKE 1 TABLET BY MOUTH EVERY DAY Oral; Duration: 90 Active Metoprolol Tartrate 50 MG TAKE 1 TABLET BY MOUTH EVERY DAY Oral; Duration: 90 Active ProAir HFA 108 (90 Base) MCG/ACT TAKE 2 PUFFS BY MOUTH EVERY 4 HOURS NEEDED Inhalation; Duration: 17 Active Immunizations Vaccine Route Administration Date [...] Problem Status W/U Status Risk Notes Problem Colon cancer screening (363060399) Colon cancer screening (Z12.11) Active confirmed Problem Long-term current use of drug therapy (191399854) prison current use of diuretic (Z79.899) Active confirmed Plan Of Treatment Future Test Test Name Order Date COLONOSCOPY 05/24/2020 Insurance Providers Payer Name Payer Address Payer Phone Subscriber Number Group Number Insured Name Patient Relationship to Insured Coverage Start Date Coverage End Date [facility] [address] [facility] [place] [phone] [id number] MAGGIE CALVERT Self - patient is the insured Medical (General) History Medical History History ICD Code Heart Papitation / Tachycardia Asthma / Allergy shots every 4 weeks Hx of kidney stones Hypertension [place]/CPAP Surgical History Surgery Date(Month/Year) section 2000 [place] removal foot 1980s
== END 2025-08-24 16:07 | disposition home or self-care (01) ==
LOC: HO.HMGAL 16:07
PROVIDERS: PCP Internal Medicine; Visit Provider Registered Nurse Emergency
DX: J30.89 Other allergic rhinitis (principal)
CPT/HCPCS: 95117; 95165

== ENCOUNTER 2025-09-12 09:31 | Outpatient (AMB) | payer OTHER, SELFPAY ==
--- OUTSIDE RECORDS SUMMARY | 2025-09-12 10:48 | XMS_ITS | Clinical Summary ---
Author Organization [facility] Address [address] [place] [address] Phone Care Team Providers Care Technical Testing Engineer Name Role Phone Ailyn Sam MD Primary Care Provider [phone] Allergies Active Allergy Reactions Criticality Noted Date [...] (FLONASE ALLERGY RELIEF) 50 mcg/actuation nasal spray [place] 1 spray every day by intranasal route. 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 PAP SMEAR [...] 59, 66, 68) Note: Testing performed by [employer] Onclarity HR-HPV analysis. Clinical correlation is advised. This HPV test was performed at [facility], [address] [place] [address]. This test has been FDA approved for SurePath cervical cytology specimens. The accuracy and precision of this test for all other specimen sources has been verified in the Cytopathology Laboratory of the [facility] and has not been cleared or approved by the U.S. Food and Drug Administration. Clinical correlation is advised. CLINICAL HISTORY Date of Last Menstrual Period: 06-28-2023 Menstrual History: Umu-Menopausal Contraceptive History: IUD Other Clinical Conditions: Screening Pap SPECIMEN SOURCE A: PAP SMEAR (SUREPATH) CE Patient Name: GRICEL CALVERT : 1970 (Age: 53) Sex: F Institution: [facility] Location: [facility] Date of Collection: 07/01/2023 Date of Reported: 07/03/2023 15:04 Results to: Oly Gabriel us Oly Jackson MD CYTOLOGY ORDER MELONY Final Result SEE NARRATIVE from Last 3 Months or Most Recently Relevant to Health Maintenance Insurance O O O O O O O O Care Teams Technical Testing Engineer Relationship Specialty Start Date End Date Ailyn Sam MD [address] [place] [address] PCP - General Internal Medicine 06/10/22 Additional Source Comments The information contained in this document represents components of the legal health record. It is not the complete legal health record.[facility]
--- OUTSIDE RECORDS SUMMARY | 2025-09-12 10:48 | XMS_ITS | Patient Health Record ---
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 Role Phone James Lee Primary Care [...] Status Risk Notes Problem Colon cancer screening (643518969) Colon cancer screening (Z12.11) Active confirmed Problem Long-term current use of drug therapy (885434019) retirement current use of diuretic (Z79.899) Active confirmed Plan Of Treatment Future Test Test Name Order Date COLONOSCOPY 05/24/2020 Insurance Providers Payer Name Payer Address Payer Phone Subscriber Number Group Number Insured Name Patient Relationship to Insured Coverage Start Date Coverage End Date [facility] [address] [facility] [place] [place] [phone] [id number] MAGGIE CALVERT Self - patient is the insured Medical (General) History Medical History History ICD Code Heart Papitation / Tachycardia Asthma / Allergy shots every 4 weeks Hx of kidney stones Hypertension [place]/CPAP Surgical History Surgery Date(Month/Year) section 2000 [place] removal foot 1980s
--- OUTSIDE RECORDS SUMMARY | 2025-09-12 10:48 | XMS_ITS | Data Portability ---
Author Organization [facility], [facility] Address [address] [place] [address] Care Team Providers Care Maitre D' Name Role Phone NYASIA HERNÁNDEZ Primary Care Provider Assessment Encounter Date Assessment Date Assessment LastModified by Organization Details LastModified Time 12/20/2024 12/20/2024 Assessment: Good joel to stretching today with less rx sx. Slowly improving strength but fatigued by end of tx. Plan: Continue PT @ 2x/wk to decrease pain, increase strength, optimize shoulder mechanics for functional movements such as reaching and self-care. [email or web address] Not available 12/20/2024 08:11:11 12/27/2024 12/27/2024 Assessment: [...] functional movements such as reaching and self-care [email or web address] Not available 01/03/2025 10:36:09 01/10/2025 01/10/2025 Assessment: [...] to I HEP and f/u as needed. [email or web address] Not available 01/24/2025 07:51:46 Plan of Treatment [...] Time Impingement syndrome of right shoulder region 9280005223150 02 Active 2023 Juan Greenberg PA-C [address], [place], [address], [facility] 4 06:20:11 Neck pain 80650400 Active 2023 Juan Greenberg PA-C [address], [place], [address], [facility] 4 08:58:11 Derangement of right shoulder joint 5761108236096 9105 Active 2023 Juan Greenberg PA-C [address], [place], [address], [facility] 4 09:22:12 Osteoarthri tis of left knee joint 8441969952223 09 Active 2023 Juan Greenberg PA-C [address], [place], [address], [facility] 4 09:29:07 Nontraumati c partial rupture of right rotator cuff 2555325002716 109 Active 2024 Juan Greenberg PA-C [address], [place], [address], [facility] 06:27:41 Problem Notes None recorded. Procedures Surgical History Date Name Laterality Status Provider Name and Address Organization Details Recorded Time 5 03708 Therapeutic Exercise (1:1) completed Danae Lozano PTA [address], [place], [address], [facility] 01/24/2025 07:05:51 5 49625: Manual therapy completed Danae Lozano PTA [address], [place], [address], [facility] 01/24/2025 07:05:52 5 17984 Therapeutic Exercise (1:1) completed Rinku Hale DPT [address], [place], [address], [facility] 01/10/2025 09:03:59 5 98854: Manual therapy completed Rinku Hale DPT [address], [place], [address], [facility] 01/10/2025 09:03:59 5 54810 Therapeutic Exercise (1:1) completed Danae Lozano PTA [address], [place], [address], [facility] 12/31/2024 06:56:13 5 30786: Manual therapy completed Danae Lozano PTA [address], [place], [address], [facility] 12/31/2024 06:56:13 5 74088 Therapeutic Exercise (1:1) completed Rinku Hale DPT [address], [place], [address], [facility] 12/27/2024 08:38:27 5 53089: Manual therapy completed Rinku Hale DPT [address], [place], [address], [facility] 12/27/2024 08:37:54 5 19143 Therapeutic Exercise (1:1) completed Danae Lozano PTA [address], [place], [address], [facility] 12/16/2024 10:55:30 5 75216: Hot or Cold Pack completed Danae Lozano PTA [address], [place], [address], [facility] 12/20/2024 08:10:31 5 52279: Manual therapy completed Danae Lozano PTA [address], [place], [address], [facility] 12/16/2024 10:55:30 5 26631 Therapeutic Exercise (1:1) completed Danae Lozano PTA [address], [place], [address], [facility] 12/15/2024 09:53:40 5 32773: Hot or Cold Pack completed Danae Lozano PTA [address], [place], [address], [facility] 12/15/2024 09:53:30 5 58539: Manual therapy completed Danae Lozano PTA [address], [place], [address], [facility] 12/15/2024 09:53:37 5 73837 Therapeutic Exercise (1:1) completed Rinku Hale DPT [address], [place], [address], [facility] 12/09/2024 17:52:49 5 48096: Low complexity PT Eval completed Rinku Hale DPT [address], [place], [address], [facility] 12/09/2024 17:52:50 4 Sports Knee 4&1 completed Juan Greenberg PA-C [address], [place], [address], [facility] 09/27/2024 09:28:59 Imaging Results None recorded. Procedure Notes None recorded. Medical Equipment None Reported. Allergies Allergen ID Allergen Name Allergen Category Reaction Reaction Severity Criticality Documentation Date Start Date Code Code System Note Provider Name and Address Organization Details Recorded Time 498815 Product containin g penicilli n (product) medicatio n Not available Not available Not available 01/12/20242012 22212 8001 SNOMED Aller gyRea ction : 'Skin React ion'; Not Available [facility] 16:01:33 749077 Bactrim medicatio n Not available Not available Not available 01/12/20242012 28930 9 RxNorm Aller gyRea ction : 'Skin React ion'; Not Available [facility] 4 16:01:33 Medications Name Sig Start Date [...] ICD10 Code Diagnosis IMO Codes Diagnosis Note [id number] JOURDAN Sheridan [address] [place] [address] 09/27/2024 08:40:14 10/14/2024 14:33:39 Impingement syndrome of right shoulder region 8359994302 19463 M75.41 10318471 Neck pain 75360781 M54.2 33167 Derangemen t of right shoulder joint 4039276914 4647309 M24.811 Osteoarthr itis of left knee joint 9849516598 75211 M17.12 6642277 [id number] Juan Greenberg PA-C [facility] [address] [place] [address] 11/12/2024 08:31:24 11/29/2024 13:32:35 Nontraumatic partial rupture of right rotator cuff 6883595851 286672 M75.111 65617424 [id number] Rinku Hale , DPT [facility] [address] [place] [address] 12/08/2024 16:01:35 12/08/2024 17:26:57 Impingement syndrome of right shoulder region 0664653361 58023 M75.41 [id number] Danae Lozano [employer] [facility] [address] [place] [address] 12/15/2024 07:13:07 12/15/2024 08:13:16 Impingement syndrome of right shoulder region 3962139608 02330 M75.41 [id number] Danae Lozano [employer] [facility] [address] [place] [address] 12/20/2024 07:21:40 12/20/2024 08:03:56 Impingement syndrome of right shoulder region 8854301807 53659 M75.41 [id number] Rinku Hale DPT [facility] [address] [place] [address] 12/27/2024 07:09:24 12/27/2024 09:22:14 Impingement syndrome of right shoulder region 5797165024 22053 M75.41 [id number] Danae Lozano [employer] [facility] [address] [place] [address] 01/03/2025 07:06:36 01/03/2025 08:04:16 Impingement syndrome of right shoulder region 4833015650 42949 M75.41 [id number] Rinku Hale DPT [facility] [address] [place] [address] 01/10/2025 07:03:35 01/10/2025 08:47:46 Impingement syndrome of right shoulder region 1521169971 50401 M75.41 [id number] Danae Lozano PTA [facility] [address] [place] [address] 01/24/2025 07:02:52 01/24/2025 08:58:20 Impingement syndrome of right shoulder region 8641716238 73526 M75.41 Health Concerns Section Related Observation LastModified by Organization Detai ls LastModified Time None Recorded Concern Status LastModified by Organization Details LastModified Time None Recorded Advance Directives Directive None Recorded Payers Insurance Date Sequence Insurance Name Policy Number Policy Mccoy Covered Member ID Mccoy Member ID Guarantor Name 01/23/[address] [place] [address] ([facility]) [id number] 1 Gricel Aranda [id number] Gricel Aranda Notes Date Note Type Note Provider Name and Address Organization Details Recorded Time 12/20/2024 text/html Pt reports she was sore after LV but feeling better now. Reports still having some px and discomfort on the anterior aspect of her shoulder. Danae Lozano PTA [address], [place], [address], [facility] 12/20/2024 08:11:45 12/27/2024 text/html Pt reports she has been doing fairly well notes having good and bad days Rinku Hale DPT [address], [place], [address], [facility] 12/27/2024 08:39:22 01/03/2025 text/html Pt reports she has been doing fairly well notes having good and bad days. No tenderness in shoulder today Danae Lozano PTA [address], [place], [address], [facility] 01/03/2025 10:36:32 01/10/2025 text/html Pt reports she has been doing well, only px w/ certain movements. Rinku Hale, DPT [address], [place], [address], [facility] 01/10/2025 09:05:28 01/24/2025 text/html Pt reports doing well overall with minimal complaints or issues. Occasional px with certain movements or when she overdoes it. Danae Lozano, [employer] [address], [place], [address], [facility] 01/24/2025 07:52:10 OBGyn Episode No OBEpisode recorded.
--- OUTSIDE RECORDS SUMMARY | 2025-09-12 10:48 | XMS_ITS | Patient Health Record ---
Author Organization [facility] Address [address] [place] [address] Care Team Providers Care Hris Developer Name Role Phone Ailyn Sam Primary Care Provider Selam Castillo Unavailable [phone] Allergies Allergen (clinical drug ingredient) Drug/Non Drug [...] W/U Status Risk Notes Problem Plantar wart (86316432) Plantar wart (B07.0) Active confirmed Problem Osteoarthritis of midtarsal joint of left foot (3755296229929754 ) Osteoarthritis of midtarsal joint of left foot (M19.072) Active confirmed Problem Osteoarthritis of midtarsal joint of right foot (3160484648443238 ) Osteoarthritis of midtarsal joint of right foot (M19.071) Active confirmed Vital Signs Blood pressure diastolic 83 mm Hg 02/04/2025 Height 5ft6in in 02/04/2025 Blood pressure systolic 130 mm Hg 02/04/2025 Weight 207 lbs 02/04/2025 BMI 33.41 kg/m2 02/04/2025 Encounters Encounter Location Date Provider Diagnosis [address] [address] 02/04/2025 Selam Hein Onychomycosis B35.1 ; Osteoarthritis [...] M25.571 and Bursitis of right foot M77.51 [facility] [address] 12/21/2024 Selam Hein [address] [address] 02/04/2025 Selam Hein Assessments Encounter Date Diagnosis [...] Insured Coverage Start Date Coverage End Date [facility] [address] [place] [id number] Gricel Aranda Self - patient is the insured Medical (General) History Medical History History ICD Code Knee Pain Cataracts Covid 19 Diverticulosis Headaches HB Sinusitis Warts Chicken Pox Surgical History Surgery Date(Month/Year) cataract surgery gastric sleeve finger surgery
--- OUTSIDE RECORDS SUMMARY | 2025-09-12 10:48 | XMS_ITS | Data Portability ---
Author Organization [facility] Address [address] [place] [address] Assessment No assessment recorded. Plan of Treatment Reminders Order Date Submit Date Provider Last Modified By Organization Details Last Modified Time Details Appointments None recorded. Lab None recorded. Referral None recorded. Procedures None recorded. Surgeries None recorded. Imaging None recorded. Medication Orders prednisone 10 mg tablet 2020 021 [facility]2024, [address] [place], [address], 09:44:25 Zithromax Z-Patricio 250 mg tablet 2020 021 [facility]/Pharmacy #2024, [address] [place], [address], 09:05:33 ondansetron 8 mg disintegrat ing tablet 2020 021 [facility]/Pharmacy #2024, [address] [place], [address], 09:28:05 metronidazo le 500 mg tablet 2020 021 [facility]/Pharmacy #2024, [address] [place], [address], 09:28:01 Cipro 500 mg tablet 2020 021 [facility]/Pharmacy #2024, [address] [place], [address], 2 09:05:44 cyclobenzap rine 10 mg tablet [address] [place], [address], 14:44:11 diclofenac sodium 75 mg tablet,erich yed release [address] [place], [address], 14:44:21 erythromyci n 5 mg/gram (0.5 %) eye ointment [address] [place], [address], 14:44:37 Diflucan 150 mg tablet 2019 [address] [place], [address], 14:44:33 doxycycline hyclate 100 mg capsule 2019 [address] [place], [address], 14:44:23 Patient TargetsNo targets recorded. Patient InstructionsNo instructions recorded. Reason for Referral None Reported. Results Created Date Observation Date Name Description Value Unit Range Abnormal Flag Note LastModifiedBy Organization Detail LastModifiedTime 08/27/20 21 08/27/2021 XR, kidne y + urete r + bladd er No observ ation record ed. [facility] [address] [place] [address], [address], 08/27/2021 16:23:07 Result Notes None recorded. Problems Name Problem SNOMED Code Status Onset Date Resolution Date Notes Provider Name and Address Organization Details Recorded Time Polycystic ovaries Active 2017 Not Available [facility] 0 20:03:36 Essential hypertensi on 49611944 Active 2017 Not Available [facility] 0 20:03:37 Gastric reflux 000639022 Active 2017 Not Available [facility] 0 20:03:36 Sleep apnea 79821408 Active 2018 Not Available [facility] 0 20:03:37 Hyperchole sterolemia 92372456 Active 2018 Not Available [facility] 0 20:03:37 Asthma 228567719 Active 2020 FERDINAND SHRESTHA [address] [place], [address], [facility] Internal [facility] 1 09:47:58 Problem Notes None recorded. Procedures Surgical History Date Name Laterality Status Provider Name and Address Organization Details Recorded Time 05/02/20 Most Recent Mammogram completed Jennifer Lu [facility] 05/05/2020 08:25:18 Caesarean Section completed Terrie Carranza NP, S [address] [place], [address], [facility] 09/14/2018 11:19:25 Imaging Results None recorded. [...] Not available Not available Not available 09/14/2018 08681 8003 SNOMED Leslie Juarez [facility] 8 11:10:08 2482 Product containin g penicilli n (product) medicatio n Not available Not available Not available 09/14/2018 [address]3912 8001 SNOLIMPIA barboza [facility] 8 11:10:16 Medications Name Sig Start Date [...] Relief 50 mcg/actuati on nasal spray,suspe nsion Brodhead 1 spray every day by intranasa l route. active Not Available Not Available No t Available Afluria 6011-8148 (PF) 45 mcg(15 mcg x 3)/0.5 mL [...] % 69 /min 122/78 mm[Hg] Gricel Tellez [facility] 1 14:46:08 Date Recorded Body height Heart rate Oxygen saturation Oxygen saturation in Arterial blood by Pulse oximetry Systolic And Diastolic Provider Name and Address Organization Details Last Updated DateTime 1 167.64 cm 62 /min 98 % 98 % 120/74 mm[Hg] FERDINAND SHRESTHA [address] [place], [address], [facility] 1 09:30:20 Date Recorded Body height Heart rate Oxygen saturation Oxygen saturation in Arterial blood by Pulse oximetry Systolic And Diastolic Provider Name and Address Organization Details Last Updated DateTime 0 167.64 cm 48 /min 98 % 98 % 130/70 mm[Hg] Kandi Mckinnon [facility] 0 14:04:46 Social History Question [...] mL dose 1 completed FERDINAND SHRESTHA [address] [place], [address], [facility] 06/19/2021 09:29:09 COVID-19, mRNA, LNP-S, PF, 30 mcg/0.3 mL dose 1 completed FERDINAND SHRESTHA [address] [place], [address], [facility] 06/19/2021 09:29:19 Influenza, split virus, quadrivalent, preservative 0 [facility] 08/29/2020 08:05:59 Past Encounters Encounter ID Performer Location Encounter Start Date Encounter Closed Date Diagnosis/Indication Diagnosis SNOMED-CT Code Diagnosis ICD10 Code Diagnosis IMO Codes Diagnosis Note [id number] James Lee [facility] [address], [place] [address] 09/14/2018 10:56:14 09/14/2018 12:39:30 Intermittent palpitations 106567165 R00.2 [id number] James Lee [address],[place] [address] 01/19/2019 09:44:09 01/19/2019 12:12:47 Sleep apnea 34720853 G47.30 follow, new to CPAP Essential hypertension 43805463 I10 controlled Polycystic ovaries 26067 008 E28.2 Right lowe r quadrant pain 276175029 R10.31 r/o diverticul itis Hypercholesterolemia 136 44297 E78.00 no current medication s [id number] James Lee [facility] [address] [facility], [email or web address] [address] 02/02/2019 14:17:59 02/02/2019 15:23:39 Pneumonia 094511746 J18.9 improving Asthma 227862274 J45.90 9 Right lowe r quadrant pain 475327599 R10.31 will f/u after CT Essential hypertension 88346823 I10 controlled [id number] James Lee [facility] [address] [facility],[place] [address] 02/19/2019 09:29:14 02/19/2019 11:13:24 Hypercholesterolemia 12245808 E78.00 no current medication s Sleep apnea 68352704 G47 .30 follow, new to CPAP Essential hypertension 68910307 I10 controlled Polycystic ovaries 73101 008 E28.2 f/u [employer] Allergic cough 244031979 R05 use pro air prn [id number] James Lee [facility] [address] [facility],[place] [address] 10/25/2019 11:11:30 10/25/2019 11:50:55 Asthma 542337970 J45.909 Essential hypertension 43147985 I10 very well controlled Sleep apnea 74765174 G47 .30 uses cpap nightly Benign par oxysmal positional vertigo 203049142 H81.10 Acute fron brooke sinusitis 62496880 J01.10 Dysfunctio n of eustachian tube 85139463 H69.93 [id number] James Lee [facility] [address] [facility],[place] [address] 01/18/2020 15:32:55 01/18/2020 16:31:30 Adult health examination 763361372 Z00.00 will schedule with obgyn Active or passive immunization 304006235 Z23 Body mass index 40+ - severely obese 029130545 Z68.41 diet/exerc ise Screening for malignant neoplasm of breast 697506424 Z12.31 Screening for malignant neoplasm of colon 093713392 Z12.11 Vitamin D deficiency 347 85124 E55.9 [id number] James Lee [facility] [address] [facility] [place] [address] 08/08/2020 13:59:22 08/08/2020 16:00:21 Paronychia of finger 735817696 L03.019 allergic to sulfa and PCN will treat with doxy to avoid any possible cross reaction with cephs continue to soak and keep clean Candidal vulvovaginitis 99632604 B37.3 gets yeast infection after course of abx will give diflucan [id number] James Lee [facility] [address] [facility], [place] [address] 10/13/2020 10:25:41 10/13/2020 14:37:45 Bacterial conjunctivitis 882159576 H10.9 also use warm compresses [id number] James Childs Jesus [facility] [address] [facility], [place] [address] 10/20/2020 10:13:14 10/20/2020 12:00:38 Spasm of back muscles 277360258 M62.830 will call if no improvemen t Low back pain 237383389 M54.5 the patient has right sided back pain not touched by APAP, ibu, and stretching will trial on muscle relaxer and stronger NSAID [id number] James JinKulwant Lee [facility] Internal [facility] [address] [facility], [place] [address] 03/27/2021 14:32:41 03/27/2021 16:16:50 Diverticulitis of colon 537197347 K57.32 hx of flare ups will start on duo abx therapy and anti-emeti c for the nausea the patient is advised to stick to a liquid diet, no solids for the time being until after first 24 to 48 hours will call if no improvemen t Nausea 331469078 R11.0 will trial this so she can keep the liquid down to avoid risk of dehydratio n [id number] James [facility] [address] [facility], [place] [address] 06/19/2021 09:23:03 06/19/2021 10:06:40 Acute exacerbation of asthma 896375663 J45.901 will start on prednisone and a z pakfu in a week with an update Asthma 524983345 J45.20 exacerbati ondiscusse d monitoring her breathing Health Concerns Section Related Observation LastModified by Organization Detai ls LastModified Time None Recorded Concern Status LastModified by Organization Details LastModified Time None Recorded Advance Directives Directive None Recorded Payers Insurance Date Sequence Insurance Name Policy Number Policy Mccoy Covered Member ID Mccoy Member ID Guarantor Name 11/02/[address] [facility] [id number] 1 Gricel Aranda [id number] Gricel Aranda Notes Date Note Type Note [...] no chest pain, no n/v/d FERDINAND SHRESTHA [address] [place] [address], [address], [facility] 08/08/2020 14:24:22 0 text/html ROS as noted [...] no chills, no n/v/d FERDINAND SHRESTHA [address] [place], [address], [facility] 10/13/2020 12:03:40 0 text/html ROS [...] fatigue, no sore throat FERDINAND SHRESTHA [address] [place], [address], [facility] 10/20/2020 11:48:29 1 text/html Abdominal [...] c/o diverticulitis flare up FERDINAND SHRESTHA [address] [place], [address], [facility] 03/27/2021 15:01:41 1 text/html ROS [...] how she is doing FERDINAND SHRESTHA [address] [place], [address], [facility] 06/19/2021 09:48:27 OBGyn Episode No OBEpisode recorded.
== END 2025-09-12 09:31 | disposition home or self-care (01) ==
LOC: HO.HMGAL 09:31
PROVIDERS: PCP Internal Medicine; Visit Provider Registered Nurse Emergency
DX: J30.89 Other allergic rhinitis (principal)
CPT/HCPCS: 95117; 95165